=== PATIENT | female | born 1960 | race Caucasian/White ===

== ENCOUNTER → 2018-04-11 09:11 | Outpatient (CLI) | payer OTHER, SELFPAY ==
[2018-04-11 11:01] LABS: Hemoglobin A1c 5.4 % (4.2-6.3)
[2018-04-11 11:02] LABS: Thyroid Stim Hormone (TSH) 1.07 uIU/mL (0.358-3.74)
== END ==
PROVIDERS: Visit Provider Obstetrics & Gynecology
DX: R23.2 Flushing (principal); Z82.49 Family history of ischemic heart disease and other diseases of the circulatory system
CPT/HCPCS: 36415; 83036; 84443

== ENCOUNTER → 2018-05-27 09:45 | Outpatient (CLI) | payer OTHER, SELFPAY ==
--- NOTE | 2018-05-27 09:50 | BI_ITS ---
MAMMOGRAPHY - BILATERAL SCREENING REASON FOR EXAM: Female, 57 years old. Routine annual screening examination. PERTINENT HISTORY: Aunt with breast cancer. Right breast tenderness. TECHNIQUE: Digital bilateral breast ailyn (3D mammographic acquisition) in the CC and MLO projections. 2-D mediolateral oblique (MLO) and craniocaudad (CC) views of both breasts were obtained. CAD: Full Field Digital Mammography with Computer Added Detection was performed. COMPARISON: Comparison is made with prior study dated May 13, 2017 and April 23, 2016. FINDINGS: Breast Composition: The breasts are extremely dense, which lowers the sensitivity of mammography. There are no dominant masses or suspicious calcifications. No other significant abnormalities are identified. There has been no significant change since the prior study. BI/SCREENING MAMM (CAD), BILAT IMPRESSION: Stable bilateral screening mammogram. Yearly follow-up mammogram recommended. (A) ASSESSMENT CATEGORY: BIRADS Category 1: Negative. A letter regarding these results will be sent to the patient by the facility within 30 days. Approximately 10% of breast cancers are not detected by mammography. A normal mammogram should not delay biopsy of a clinically suspicious abnormality. [id number] Electronically Signed: Taqueria Pastor MD at 10:12 EST Tel [phone], Service support ,
== END ==
PROVIDERS: Family Provider Family Medicine; PCP Family Medicine; Referring Provider Obstetrics & Gynecology; Visit Provider Obstetrics & Gynecology
DX: Z12.31 Encounter for screening mammogram for malignant neoplasm of breast (principal)
CPT/HCPCS: 77063; 77067

== ENCOUNTER → 2018-11-22 09:33 | Outpatient (CLI) | payer OTHER, SELFPAY ==
[2018-11-22 13:23] LABS: ALB/GLOB Ratio 1.3 RATIO (0.9-2.4); AST(SGOT) 10 U/L (15-37); Alanine Aminotransfer ALT/SGPT 15 U/L (13-56); Albumin, Serum 4.1 g/dL (3.2-5.0); Alkaline Phosphatase 58 U/L (45-117); Anion Gap 10 (5-15); BUN 13 mg/dL (7-18); BUN/Creat Ratio 20.8 RATIO (10-20); Calcium,Total 8.9 mg/dL (8.5-10.1); Chloride 105 mmol/L (98-107); Cholesterol 262 mg/dL (200); Creatinine, Serum 0.62 mg/dL (0.55-1.02); EST Glomerular Filtration Rate 105 mL/min (>60); Est Glom Filt Rate - Afr Amer 127 mL/min (>60); Globulin 3.1 g/dL (2.2-4.2); Glucose 86 mg/dL (74-106); High Density Lipoprotein 91 mg/dL; Potassium 4.3 mmol/L (3.5-5.1); Protein, Total 7.2 g/dL (6.4-8.2); Sodium Level 141 mmol/L (136-145); Triglycerides 86 mg/dL; Very Low Density Lipoprotein 17 mg/dL (5-40)
== END ==
PROVIDERS: Family Provider Family Medicine; PCP Family Medicine; Referring Provider Family Medicine; Visit Provider Nurse Practitioner Family
DX: E78.5 Hyperlipidemia, unspecified (principal)
CPT/HCPCS: 36415; 80053; 80061

== ENCOUNTER → 2019-01-11 08:40 | Outpatient (CLI) | payer OTHER, SELFPAY ==
[2016-05-09 12:49] VITALS: BMI 23.1
[2019-01-14 10:32] LABS: H. PYLORI STOOL AG Positive (Negative)
== END ==
PROVIDERS: Family Provider Family Medicine; PCP Family Medicine; Referring Provider Internal Medicine Gastroenterology; Visit Provider Internal Medicine Gastroenterology
DX: R19.7 Diarrhea, unspecified (principal)

== ENCOUNTER → 2019-05-02 10:25 | Outpatient (CLI) | payer OTHER, SELFPAY ==
[2019-05-07 20:26] LABS: H. PYLORI STOOL AG Positive (Negative)
== END ==
PROVIDERS: Family Provider Family Medicine; PCP Family Medicine; Referring Provider Internal Medicine Infectious Disease; Visit Provider Internal Medicine Infectious Disease
DX: K29.70 Gastritis, unspecified, without bleeding (principal); B96.81 Helicobacter pylori [H. pylori] as the cause of diseases classified elsewhere

== ENCOUNTER → 2019-05-28 08:38 | Outpatient (CLI) | payer OTHER, SELFPAY ==
[2016-05-09 12:49] VITALS: BMI 23.1
--- NOTE | 2019-05-28 08:41 | BI_ITS ---
MAMMOGRAPHY - BILATERAL SCREENING 3-D TOMOSYNTHESIS REASON FOR EXAM: Female, 58 years old. FM HX MAT AUNT 50''S, MAT COUSIN 50''S, PT C/O RT TENDERNESS-ALWAYS, UNABLE TO TOLERATE MUCH COMPRESSION PERTINENT HISTORY: No significant family history. TECHNIQUE: 2-D mammograms and 3-D Tomosynthesis of the breast (s) were performed. CAD was performed. COMPARISON: May 27, 2018. FINDINGS: The breast composition is heterogeneously dense that can obscure small breast masses. Scattered benign calcifications are seen. No dense spiculated masses or suspicious microcalcifications are identified. No architectural distortion is identified. There is no skin thickening or retraction. There has been no significant change since the prior study. BI/SCREEN MAMM (CAD) W/LUIS BILAT IMPRESSION: No mammographic signs of malignancy. Routine yearly mammograms recommended. ASSESSMENT CATEGORY: BIRADS Category 1: Negative. A letter regarding these results will be sent to the patient by the facility within 30 days. FOLLOW UP RECOMMENDATION: Yearly follow up mammogram recommended. (A) Approximately 10% of breast cancers are not detected by mammography. A normal mammogram should not delay biopsy of a clinically suspicious abnormality. Electronically Signed: Shalom Proctor MD at 11:26 EST , Service support ,
== END ==
PROVIDERS: Family Provider Family Medicine; PCP Family Medicine; Referring Provider Obstetrics & Gynecology; Visit Provider Obstetrics & Gynecology
DX: Z12.31 Encounter for screening mammogram for malignant neoplasm of breast (principal)
CPT/HCPCS: 77063; 77067

== ENCOUNTER → 2019-07-17 12:16 | Outpatient (CLI) | payer OTHER, SELFPAY ==
[2016-05-09 12:49] VITALS: BMI 23.1
--- NOTE | 2019-07-17 12:21 | RAD_ITS ---
STUDY: X-RAY - RIGHT ELBOW REASON FOR EXAM: Female, 58 years old. Pain unable to straighten TECHNIQUE: 3 view(s) of the elbow. COMPARISON: None. FINDINGS: The bones of the elbow are intact and located. Mineralization is normal. Soft tissues are intact. There is a mild joint effusion. RAD/Elbow min 3 Views IMPRESSION: No acute or focal osseous abnormality. Electronically Signed: Shellie Chand, at 20:00 EST Tel , Service support ,
== END ==
PROVIDERS: PCP Family Medicine; Referring Provider Family Medicine; Visit Provider Family Medicine
DX: M77.8 Other enthesopathies, not elsewhere classified (principal)
CPT/HCPCS: 73080

== ENCOUNTER → 2020-05-29 08:17 | Outpatient (CLI) | payer OTHER, SELFPAY ==
--- NOTE | 2020-05-29 08:35 | BI_ITS ---
MAMMOGRAPHY - BILATERAL SCREENING REASON FOR EXAM: Female, 59 years old. Routine annual screening examination. PERTINENT HISTORY: Aunt with breast cancer. TECHNIQUE: Digital bilateral breast luis (3D mammographic acquisition) in the CC and MLO projections. 2-D mediolateral oblique (MLO) and craniocaudad (CC) views of both breasts were obtained. CAD: Full Field Digital Mammography with Computer Added Detection was performed. COMPARISON: Comparison is made with prior examination dated 05/28/2019. FINDINGS: Breast Composition: The breasts are heterogeneously dense, which may obscure small masses. There are no dominant masses or suspicious calcifications. No other significant abnormalities are identified. There has been no significant change since the prior study. BI/SCREEN MAMM (CAD) W/LUIS BILAT IMPRESSION: Stable bilateral screening mammogram. Yearly follow-up mammogram recommended. (A) ASSESSMENT CATEGORY: BIRADS Category 1: Negative. A letter regarding these results will be sent to the patient by the facility within 30 days. Approximately 10% of breast cancers are not detected by mammography. A normal mammogram should not delay biopsy of a clinically suspicious abnormality. [id number] Electronically Signed: Taqueria Pastor, at 10:24 EST , Service support ,
== END ==
PROVIDERS: PCP Family Medicine; Referring Provider Student in an Organized Health Care Education/Training Program; Visit Provider Student in an Organized Health Care Education/Training Program
DX: Z12.31 Encounter for screening mammogram for malignant neoplasm of breast (principal); Z85.3 Personal history of malignant neoplasm of breast
CPT/HCPCS: 77063; 77067

== ENCOUNTER → 2020-11-11 12:37 | Outpatient (CLI) | payer OTHER, SELFPAY ==
[2016-05-09 12:49] VITALS: BMI 23.1
[2020-11-11 13:08] LABS: Hemoglobin 12.6 g/dL (12.0-15.0); Mean Corpuscular Hgb 25.1 pg (27.0-32.0); Mean Corpuscular Volume 83.8 fL (81-99); Mean Platelet Vol. 9.8 fl (6.2-12.0); Platelet Count 291 K/mm3 (150-450); RBC Distribution Width CV 14.6 % (11.6-14.6); RBC Distribution Width SD 44.6 fl (35.1-43.9); Red Blood Count 5.01 M/mm3 (4.2-5.4)
== END ==
PROVIDERS: PCP Family Medicine; Referring Provider Nurse Practitioner; Visit Provider Nurse Practitioner
DX: R12 Heartburn (principal); R14.0 Abdominal distension (gaseous)
CPT/HCPCS: 36415; 85027

== ENCOUNTER → 2020-11-12 | Outpatient (CLI) | payer OTHER, SELFPAY ==
[2016-05-09 12:49] VITALS: BMI 23.1
[2020-11-15 15:15] LABS: H. PYLORI STOOL AG Positive (Negative)
== END | disposition home or self-care (01) ==
LOC: LAB 10:04 → LABSPEC 10:05
PROVIDERS: PCP Family Medicine; Referring Provider Nurse Practitioner; Visit Provider Nurse Practitioner
DX: R14.0 Abdominal distension (gaseous) (principal); R12 Heartburn

== ENCOUNTER → 2021-01-06 09:48 | Outpatient (CLI) | payer OTHER, SELFPAY ==
[2016-05-09 12:49] VITALS: BMI 23.1
[2021-01-06 15:15] LABS: Vitamin D,25 Hydroxy 37.5 ng/mL
== END ==
PROVIDERS: PCP Family Medicine; Referring Provider Podiatrist; Visit Provider Podiatrist
DX: E55.9 Vitamin D deficiency, unspecified (principal); S92.309A Fracture of unspecified metatarsal bone(s), unspecified foot, initial encounter for closed fracture; X58.XXXA Exposure to other specified factors, initial encounter; Y93.9 Activity, unspecified; Y92.9 Unspecified place or not applicable; Y99.9 Unspecified external cause status
CPT/HCPCS: 36415; 82306

== ENCOUNTER → 2021-01-14 | Outpatient (CLI) | payer OTHER, SELFPAY ==
[2016-05-09 12:49] VITALS: BMI 23.1
[2021-01-16 21:09] LABS: H. PYLORI STOOL AG Negative (Negative)
== END | disposition home or self-care (01) ==
LOC: LAB 10:09 → LABSPEC 10:11
PROVIDERS: PCP Family Medicine; Referring Provider Nurse Practitioner; Visit Provider Nurse Practitioner
DX: R12 Heartburn (principal); R14.0 Abdominal distension (gaseous)

== ENCOUNTER 2021-06-01 08:17 | Outpatient (CLI) | payer OTHER, SELFPAY ==
--- NOTE | 2021-06-01 08:21 | BI_ITS ---
MAMMOGRAPHY - BILATERAL SCREENING REASON FOR EXAM: Female, 60 years old. Routine annual screening examination. PERTINENT HISTORY: Aunt with breast cancer. TECHNIQUE: Digital bilateral breast luis (3D mammographic acquisition) in the CC and MLO projections. 2-D mediolateral oblique (MLO) and craniocaudad (CC) views of both breasts were obtained. CAD: Full Field Digital Mammography with Computer Added Detection was performed. COMPARISON: Comparison is made with prior study dated 05/29/2020 and 05/28/2019. FINDINGS: Breast Composition: The breasts are heterogeneously dense, which may obscure small masses. There are no dominant masses or suspicious calcifications. No other significant abnormalities are identified. There has been no significant change since the prior study. BI/SCRN MAMM (CAD)W/LUIS BILAT IMPRESSION: Stable bilateral screening mammogram. Yearly follow-up mammogram recommended. (A) ASSESSMENT CATEGORY: BIRADS Category 1: Negative. A letter regarding these results will be sent to the patient by the facility within 30 days. Approximately 10% of breast cancers are not detected by mammography. A normal mammogram should not delay biopsy of a clinically suspicious abnormality. [id number] Electronically Signed: Taqueria Pastor MD at 10:09 EST ,
== END 2021-06-01 23:59 | disposition short-term general hospital (02) ==
LOC: OPBI 08:19
PROVIDERS: PCP Family Medicine; Visit Provider Student in an Organized Health Care Education/Training Program
DX: Z12.31 Encounter for screening mammogram for malignant neoplasm of breast (principal)
CPT/HCPCS: 77063; 77067

== ENCOUNTER 2021-07-10 08:35 | Outpatient (CLI) | payer OTHER, SELFPAY ==
--- NOTE | 2021-07-10 08:37 | RAD_ITS ---
STUDY: X-RAY - LEFT ELBOW REASON FOR EXAM: Female, 60 years old. Elbow pain. TECHNIQUE: 3 view(s) of the elbow. COMPARISON: None. FINDINGS: Normal visualized humerus, radius and ulna. Normal radiocapitellar and ulnotrochlear articulations. The soft tissue structures are unremarkable. RAD/Elbow min 3 Views IMPRESSION: Normal x-ray examination of the elbow. Electronically Signed: Rodriguez Hirsch MD at 10:31 EST ,
== END 2021-07-10 23:59 | disposition home or self-care (01) ==
LOC: MTRAD 08:36
PROVIDERS: PCP Family Medicine; Referring Provider Family Medicine; Visit Provider Family Medicine
DX: M25.522 Pain in left elbow (principal)
CPT/HCPCS: 73080

== ENCOUNTER 2021-08-11 08:57 | Outpatient (CLI) | payer OTHER, SELFPAY ==
[2021-08-11 11:26] LABS: Thyroid Stim Hormone (TSH) 1.56 uIU/mL (0.358-3.74)
== END 2021-08-11 23:59 | disposition home or self-care (01) ==
LOC: WOBLAB 08:57
PROVIDERS: PCP Family Medicine; Visit Provider Student in an Organized Health Care Education/Training Program
DX: R63.5 Abnormal weight gain (principal)
CPT/HCPCS: 36415; 84443

== ENCOUNTER 2021-08-18 10:00 | Outpatient (RCR) | payer OTHER, SELFPAY ==
--- NOTE | 2021-07-21 10:53 | HP.PTEVAL_ITS ---
Patient's Visit Information VENUS RENAE is a 60 year old F referred to Physical Therapy by Dr. Bear Au MD with a diagnosis of Left Elbow Pain. Date of Evaluation: 07/21/21 Physical Therapist: Martina Myers DPT - Visit Plan Frequency: 1x/Week Duration: 6 Weeks Plan: 1x a week due to high deductible. Focus on soft tissue, nerve glide and functional mobility. HEP Given IE: Postural education, sup/pro, flexion/extn, ulnar nerve glide, radial nerve glide - Subjective Slipped off a ladder- about 2 months ago- hit her left elbow on the step of the ladder. Right hand dominate. She feels that the elbow is in bad shape- did have x-rays on it with no fractures noted- no MRI. Pain is located along the back of the elbow and all the way to the wrist and will radiate to the deltoid Best: 0/10 Eases: rest. Agg: any sort of movement or strength. Worst: 10/10. Describes the pain as dull and achy and goes numb a lot of times. If she tries to pick something up or try to use a zipper that really bothers it. She has tried to wear a brace but it doesn't always help. Does have N/T in her hand. No Neck pain, blurred vision or dizziness. No TEIXEIRA. 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 She is refinishing a dresser currently- but she is not using the left hand. Does walk on her TM almost every day- use to do arm exercises but not since her elbow has bothered her. 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 Can use the computer but it does not seem to bother her. Sleep: disturbed if she rolls over onto the arm its painful and wakes her up- normally a side sleeper but has been laying on her back and propping it up on a pillow. PMHx: Prenesia and Iron Def Meds: iron infusions, cholesterol med - Objective Posture: FH, RS- can correct but is unable to maintain. Gait: decreased left arm swing and trunk rotation- guarding of the left UE. Palpation: tender along upper trap, deltoid, posterior elbow and down the brachioradialis- tender to light touch. Sensation: diminished in ulnar nerve distribution of the forearm and hand. ROM: Shoulder: WFL pain throughout, Elbow: flexion:100 degrees Extn: -30 from full, Wrist: WFL, Hand: WNL. 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 Pinch Tripod: did not register- reports of pain- unable to hold a paper while PT pulled it away. Nerve Glides: Ulnar: positive, Radial: positive, Median: negative - Special Tests L Elbow Flexion Test - Cubital Tunnel: Positive L Elbow Tinels - Ulnar n.: Positive - Balance/Special Test Scores Quick DASH Score: 79.5450 - Goals Goal 1:: Patient will be I with HEP and progression Goal Time Frame: 4-6 Weeks Goal 2:: Patient will demo full elbow ROM Goal Time Frame: 4-6 Weeks Goal 3:: Patient will demo equal school program director strength Goal Time Frame: 4-6 Weeks Goal 4:: Patient will subjectively report 75% improvement Goal Time Frame: 4-6 Weeks - Rehabilitation Potential Physical Therapy Diagnosis: Patient presents with hypomobility s/p fall- she has decreased ROM, Scapular and UE strength/stabilization and muscular endurance leading to ulnar nerve entrapment at the elbow and decreased ability to perform ADL's. Rehabilitation Potential: Fair - Anticipated Interventions Patient/Client Instruction: Educate patient on: Benefits of Fitness Program Therapeutic Exercise to Include: Strength training, Endurance training, Body mechanics, Postural training, Flexibilty training, Passive ROM, Active ROM, Dynamic Lumbar Stabilization, Scapular Strength/Stabilization For the Purpose of:: To improve muscle performance and motor function Cryotherapy (ice pack, ice massage): Yes Thermo therapy (hot pack): Yes Ultrasound (thermal/non thermal): Yes Thank you for the opportunity to evaluate your patient. For Medicare and Medicare HMO plans, please review the plan of care and approve it. It will need to be FAXED BACK to us at [phone] for Medicare purposes. For Medicare only, by signing this I certify the plan of care. Please let me know if there are questions or concerns regarding this plan of care. Physician Signature: Date:
--- NOTE | 2021-11-12 16:11 | HP.PT.NRP ---
VENUS RENAE was seen in my office for initial evaluation on 07/21/21. The following Plan of Care was established for this patient: Initial Frequency: 1x/Week Initial Duration: 6 Weeks Patient/Client Instruction: Educate patient on: Benefits of Fitness Program Therapeutic Exercise to Include: Strength training, Endurance training, Body mechanics, Postural training, Flexibilty training, Passive ROM, Active ROM, Dynamic Lumbar Stabilization, Scapular Strength/Stabilization For the Purpose of:: To improve muscle performance and motor function Cryotherapy (ice pack, ice massage): Yes Thermo therapy (hot pack): Yes Ultrasound (thermal/non thermal): Yes This patient was last seen in our office . Pertinent comments regarding their Physical therapy will appear below: Patient has not attended PT in over 30 days- appropriate to be d/c and return to MD for further evaluation as needed. At this point I will be discontinuing this patient from physical therapy. I would be happy to see this patient again in the future if found appropriate by the physician. Thank you! Martina Myers, FAITH Balance/Gait/Functional tests - Balance/Special Test Scores Quick DASH Score: 79.5450
== END 2021-08-18 19:00 | disposition home or self-care (01) ==
LOC: PT 10:00
PROVIDERS: PCP Family Medicine; Referring Provider Family Medicine; Visit Provider Family Medicine
DX: M25.522 Pain in left elbow (principal)
CPT/HCPCS: 97035; 97110; 97140; 97162; 97530

== ENCOUNTER → 2022-06-07 | Outpatient (CLI) | payer OTHER, SELFPAY ==
--- NOTE | 2022-06-07 08:12 | BI_ITS ---
MAMMOGRAPHY - BILATERAL SCREENING REASON FOR EXAM: Female, 61 years old. Routine annual screening examination. PERTINENT HISTORY: Aunt with breast cancer. TECHNIQUE: Digital bilateral breast luis (3D mammographic acquisition) in the CC and MLO projections. 2-D mediolateral oblique (MLO) and craniocaudad (CC) views of both breasts were obtained. CAD: Full Field Digital Mammography with Computer Added Detection was performed. COMPARISON: Comparison is made with prior study dated 06/01/2021 and 05/29/2020. FINDINGS: Breast Composition: The breasts are heterogeneously dense, which may obscure small masses. There are no dominant masses or suspicious calcifications. No other significant abnormalities are identified. There has been no significant change since the prior study. BI/SCRN MAMM (CAD)W/LUIS BILAT IMPRESSION: Stable bilateral screening mammogram. Yearly follow-up mammogram recommended. (A) ASSESSMENT CATEGORY: BIRADS Category 1: Negative. A letter regarding these results will be sent to the patient by the facility within 30 days. Approximately 10% of breast cancers are not detected by mammography. A normal mammogram should not delay biopsy of a clinically suspicious abnormality. [id number] Electronically Signed: Taqueria Pastor MD at 9:23 EST ,
== END | disposition home or self-care (01) ==
PROVIDERS: PCP Family Medicine; Visit Provider Student in an Organized Health Care Education/Training Program
DX: Z12.31 Encounter for screening mammogram for malignant neoplasm of breast (principal)
CPT/HCPCS: 77063; 77067

== ENCOUNTER → 2022-08-13 | Outpatient (CLI) | payer OTHER, SELFPAY ==
--- NOTE | 2022-08-13 10:41 | RAD_ITS ---
STUDY: X-RAY - CERVICAL SPINE REASON FOR EXAM: Female, 61 years old. Neck pain and headache TECHNIQUE: 6 view(s) of the cervical spine were obtained. COMPARISON: None FINDINGS: Normal anterior atlantoaxial articulation. Normal odontoid process. There is straightening of the normal cervical lordosis. There is multi-level endplate spondylosis. There is multi-level degenerative disc disease with multilevel disc space narrowing. Mild foraminal narrowing. The soft tissue structures are unremarkable. RAD/Cerv Spine 4 or 5 Views IMPRESSION: Age consistent degenerative changes, no acute findings Electronically Signed: Christian Urbina MD at 12:03 EDT ,
== END | disposition home or self-care (01) ==
PROVIDERS: PCP Family Medicine; Referring Provider Nurse Practitioner Acute Care; Visit Provider Nurse Practitioner Acute Care
DX: M54.2 Cervicalgia (principal); S13.4XXA Sprain of ligaments of cervical spine, initial encounter; X58.XXXA Exposure to other specified factors, initial encounter
CPT/HCPCS: 72050

== ENCOUNTER → 2022-11-15 | Outpatient (CLI) | payer OTHER, SELFPAY ==
--- NOTE | 2022-11-15 08:50 | US_ITS ---
INDICATION: ABD/EPIGASTRIC PAIN EXAMINATION: Ultrasound US Abdomen RUQ (limited) TECHNIQUE: Brice scale and color doppler imaging was performed of the right upper quadrant. COMPARISON: None. FINDINGS: Pancreas: Increased echogenicity in the pancreatic parenchyma of the visualized head, body, and tail. No duct dilation. Liver: 14.6 cm in length. Normal size. Diffuse increased parenchymal echogenicity compatible with fatty infiltration. Normal hepatopedal flow. No parenchymal masses. No intrahepatic bile duct dilation. Gallbladder: Normal appearance with no intraluminal sludge or gallstones. No significant wall thickening or pericholecystic fluid. Negative sonographic Mcrae sign. Common bile duct: 6.2 mm and within normal limits. Right kidney: 12.4 x 4.7 x 4.3 cm. Normal size and appearance. US/Gallbladder IMPRESSION: 1. No acute findings. 2. Diffuse hepatic steatosis. 3. Increased pancreatic parenchymal echogenicity may relate to increased fatty infiltration or be associated with chronic pancreatitis. Electronically Signed: Tyrel Cho DO at 15:47 EDT ,
== END | disposition home or self-care (01) ==
PROVIDERS: PCP Family Medicine; Referring Provider Family Medicine; Visit Provider Family Medicine
DX: R10.13 Epigastric pain (principal)
CPT/HCPCS: 76705

== ENCOUNTER → 2022-11-17 | Outpatient (CLI) | payer OTHER, SELFPAY ==
[2022-11-17 17:44] LABS: Hematocrit 43.6 % (37-47); Hemoglobin 13.2 g/dL (12.0-15.0); Mean Corp Hgb Conc 30.3 g/dL (32-36); Mean Corpuscular Hgb 25.5 pg (27.0-32.0); Mean Corpuscular Volume 84.2 fL (81-99); Mean Platelet Vol. 10.4 fl (6.2-12.0); Platelet Count 250 K/mm3 (150-450); RBC Distribution Width CV 14.5 % (11.6-14.6); RBC Distribution Width SD 44.4 fl (35.1-43.9); Red Blood Count 5.18 M/mm3 (4.2-5.4); White Blood Count 6.3 K/mm3 (4.4-11.0)
[2022-11-17 18:15] LABS: ALB/GLOB Ratio 1.3 RATIO (0.9-2.4); AST(SGOT) 15 U/L (15-37); Alanine Aminotransfer ALT/SGPT 31 U/L (13-56); Alkaline Phosphatase 89 U/L (45-117); Anion Gap 8 (5-15); BUN 17 mg/dL (7-18); BUN/Creat Ratio 26.6 RATIO (10-20); CRP < 2.90 mg/L (0.0-3.0); Calcium,Total 9.5 mg/dL (8.5-10.1); Chloride 106 mmol/L (98-107); Creatinine, Serum 0.64 mg/dL (0.55-1.02); EST Glomerular Filtration Rate 100 mL/min (>60); Est Glom Filt Rate - Afr Amer 121 mL/min (>60); Globulin 3.1 g/dL (2.2-4.2); Glucose 90 mg/dL (74-106); Lipase 50 U/L (13-75); Potassium 4.3 mmol/L (3.5-5.1); Protein, Total 7.1 g/dL (6.4-8.2); Sodium Level 142 mmol/L (136-145)
[2022-11-17 19:16] LABS: Vitamin B12 426 pg/mL (211-911)
== END | disposition home or self-care (01) ==
LOC: MTLAB 15:28
PROVIDERS: PCP Family Medicine; Referring Provider Internal Medicine Gastroenterology; Visit Provider Internal Medicine Gastroenterology
DX: R10.9 Unspecified abdominal pain (principal); D51.0 Vitamin B12 deficiency anemia due to intrinsic factor deficiency
CPT/HCPCS: 36415; 80053; 82607; 83690; 85027; 86140

== ENCOUNTER → 2022-11-25 | Outpatient (CLI) | payer OTHER, SELFPAY ==
--- NOTE | 2022-11-25 13:26 | STE_ITS ---
Reason For Study: Chest Pain Stress Results Protocol: Amanuel Protocol Maximum Predicted HR: 159 bpm Target HR: 135 bpm % Maximum Predicted HR: 89 % DurationHeart Rate Stage (mm:ss) (bpm) BP Comment Baseline 64 122/78Mild Knawing Chest Pain Amanuel Protocol Stage I 3:00 107 130/68Chest Pain Unchanged/Fatigue Amanuel Protocol Stage II 3:00 101 142/64Can Feel Something In Chest Amanuel Protocol Stage III 3:00 121 146/70Feeling Unchanged Amanuel Protocol Stage IV 1:00 142 / Still Feel Something Recovery 75 108/70Knawing Feeling Unchanged Stress Duration: 10:00 mm:ss Maximum Stress HR: 142 bpm METS: 13 Baseline Echocardiogram Findings Stress Echo Wall motion Data Resting WM Intermediate WM Stress WM ECHO/Stress Test Echo w/o Contrast Interpretation Summary Exercise stress echocardiogram. 62-year-old lady with a history of chest pain. Resting EKG demonstrates normal sinus rhythm with a rate of 64 bpm normal inter vals are noted resting blood pressure is 122/78 mmHg. The patient exercised according to regul ar Amanuel protocol for total duration of 10 minutes completing 1 minute into stage IV of the Amanuel pro tocol the maximum heart rate attained 142 bpm which was 89% of max impacted heart rate the maximu m workload was 13.6 metabolic equivalents. Patient maintained sinus rhythm throughout the recording at rest there were no ST or T wave changes noted suggest ischemia at peak exercise upsloping ST ch anges were noted which did not meet the criteria for ischemia. No clinical angina was noted. The patient however complained of a mild gnawing feeling in the chest. Good blood pressure response to exercise was noted. Stress echocardiogram. Resting echocardiogram demonstrated preserved left ventricular systolic functio n with an estimated ejection fraction of 60%. At peak exercise there was thickening of all benítez an d reduction of low ventricular cavity size with peaking of ejection fraction of 75% no wall motion abnormalities noted. Conclusion: Normal exercise stress echo with no EKG or echocardiographic findings for ische faye at a high workload. Good functional aerobic capacity. Ordering Physician: Manjeet Thapa Referring Physician: Manjeet Thapa Performed By: Faraz Hernández, [facility], [place]
== END | disposition home or self-care (01) ==
LOC: CVS 13:25
PROVIDERS: PCP Family Medicine; Referring Provider Internal Medicine Cardiovascular Disease; Visit Provider Internal Medicine Cardiovascular Disease
DX: R07.89 Other chest pain (principal)
CPT/HCPCS: 93017; 93350

== ENCOUNTER → 2023-01-06 | Outpatient (CLI) | payer OTHER, SELFPAY ==
--- NOTE | 2023-01-06 09:10 | BI_ITS ---
MAMMOGRAPHY - UNILATERAL DIAGNOSTIC: RIGHT BREAST REASON FOR EXAM: Female, 62 years old. Occasional right breast tenderness. Bruising. PERTINENT HISTORY: Aunt with breast cancer. TECHNIQUE: Digital unilateral breast ailyn (3D mammographic acquisition) in the CC and MLO projections. 2-D mediolateral oblique (MLO) and craniocaudad (CC) views of both breasts were obtained. CAD: Full Field Digital Mammography with Computer Added Detection was performed. COMPARISON: Comparison is made with prior study dated June 07, 2022 and June 01, 2021 FINDINGS: Breast Composition: The breasts are heterogeneously dense, which may obscure small masses. There are no dominant masses or suspicious calcifications. No other significant abnormalities are identified. There has been no significant change since the prior study. BI/DIAG MAMM W/CAD, UNILAT IMPRESSION: Stable unilateral diagnostic mammogram. With the patient''s history of tenderness in the right breast, correlation with ultrasound is recommended. ASSESSMENT CATEGORY: BIRADS Category 0: Incomplete. Need additional imaging evaluation. A letter regarding these results will be sent to the patient by the facility within 30 days. Approximately 10% of breast cancers are not detected by mammography. A normal mammogram should not delay biopsy of a clinically suspicious abnormality. Electronically Signed: Taqueria Pastor MD at 10:38 EDT ,
--- NOTE | 2023-01-06 09:11 | US_ITS ---
STUDY: ULTRASOUND BREAST - RIGHT REASON FOR EXAM: Female, 62 years old. Occasional right breast pain/tenderness. TECHNIQUE: Axial and longitudinal images of the RIGHT breast were performed with a high resolution ultrasound transducer. # OF IMAGES: 17 COMPARISON: Comparison is made with prior mammogram done earlier in the day. FINDINGS: RIGHT Breast: The right periareolar region was examined with ultrasound. There is evidence of dilated ducts. US/Breast Limited Unilateral IMPRESSION: Dilated subareolar ducts. ASSESSMENT CATEGORY: BIRADS Category 2: Benign. A letter regarding these results will be sent to the patient by the facility within 30 days. Electronically Signed: Taqueria Pastor MD at 11:17 EDT ,
== END | disposition home or self-care (01) ==
LOC: OPBI 09:09
PROVIDERS: PCP Family Medicine; Referring Provider Student in an Organized Health Care Education/Training Program; Visit Provider Student in an Organized Health Care Education/Training Program
DX: N64.4 Mastodynia (principal)
CPT/HCPCS: 76642; 77061; 77065; G0279

== ENCOUNTER → 2023-07-08 | Outpatient (CLI) | payer OTHER, SELFPAY ==
--- NOTE | 2023-07-08 09:43 | BI_ITS ---
MAMMOGRAPHY - BILATERAL SCREENING REASON FOR EXAM: Female, 62 years old. Routine annual screening examination. PERTINENT HISTORY: Aunt with breast cancer. TECHNIQUE: Digital bilateral breast luis (3D mammographic acquisition) in the CC and MLO projections. 2-D mediolateral oblique (MLO) and craniocaudad (CC) views of both breasts were obtained. CAD: Full Field Digital Mammography with Computer Added Detection was performed. COMPARISON: Comparison is made with prior study dated June 07, 2022 and June 01, 2021. FINDINGS: Breast Composition: The breasts are heterogeneously dense, which may obscure small masses. There are no dominant masses or suspicious calcifications. No other significant abnormalities are identified. There has been no significant change since the prior study. BI/SCRN MAMM (CAD)W/LUIS BILAT IMPRESSION: Stable bilateral screening mammogram. Yearly follow-up mammogram recommended. (A) ASSESSMENT CATEGORY: BIRADS Category 1: Negative. A letter regarding these results will be sent to the patient by the facility within 30 days. Approximately 10% of breast cancers are not detected by mammography. A normal mammogram should not delay biopsy of a clinically suspicious abnormality. [id number] Electronically Signed: Taqueria Pastor MD at 13:08 EST ,
== END | disposition home or self-care (01) ==
LOC: OPBI 09:42
PROVIDERS: PCP Family Medicine; Referring Provider Nurse Practitioner Family; Visit Provider Nurse Practitioner Family
DX: Z12.31 Encounter for screening mammogram for malignant neoplasm of breast (principal)
CPT/HCPCS: 77063; 77067

== ENCOUNTER → 2024-02-02 | Outpatient (CLI) | payer OTHER, SELFPAY ==
--- NOTE | 2024-02-02 10:59 | BD_ITS ---
STUDY: DUAL ENERGY X-RAY ABSORPTIOMETRY / DXA REASON FOR EXAM: Female, 63 years old. 733.90OsteopeniaBONE DENSITY REASON FOR EXAM TECHNIQUE: Bone Mineral Density (BMD) measurements of lumbar spine and bilateral hips were obtained. COMPARISON: None. FINDINGS: Lumbar Spine (L1-L4): g/cm2 (0.796) / T-score (-2.3) / Z-score (-0.7) Findings are suggestive of osteopenia with a high fracture risk. Left Femur Total: g/cm2 (0.808) / T-score (-1.1) / Z-score (0.0) Left Femoral Neck: g/cm2 (0.614) / T-score (-2.1) / Z-score (-0.7) Right Femur Total: g/cm2 (0.763) / T-score (-1.5) / Z-score (-0.4) Right Femoral Neck: g/cm2 (0.612) / T-score (-2.1) / Z-score (-0.8) BD/Dexa Bone Density Study IMPRESSION: The patient is considered osteopenic as outlined below according to World Be Organization (WHO) criteria with a high fracture risk. Reference Information: The T-score is the number of standard deviations above or below the standard which is normal for young adults at their peak bone mineral density. The World Health Organization (WHO) interprets the T-scores as follows: Above -1 Normal bone density Between -1 and -2.5 Osteopenia Equal to / or below -2.5 Osteoporosis As a practical clinical guideline, osteopenia may be graded as follows: Mild -1 through -1.5 Moderate -1.6 through -2.0 Severe -2.1 through -2.4 The Z-score is the number of standard deviations above or below age-matched controls. A Z-score of less than -1.5 would be considered abnormal. References: 1. NIH Osteoporosis and Related Bone Diseases www osteo.org 2. International Society for Clinical Densitometry www iscd.org 3. National Osteoporosis Foundation www nof.org Electronically Signed: Taqueria Pastor MD at 9:14 EDT ,
== END | disposition home or self-care (01) ==
PROVIDERS: PCP Family Medicine; Referring Provider Podiatrist Foot & Ankle Surgery; Visit Provider Podiatrist Foot & Ankle Surgery
DX: M85.871 Other specified disorders of bone density and structure, right ankle and foot (principal); S92.354D Nondisplaced fracture of fifth metatarsal bone, right foot, subsequent encounter for fracture with routine healing; X58.XXXD Exposure to other specified factors, subsequent encounter
CPT/HCPCS: 77080

== ENCOUNTER → 2024-06-19 | Outpatient (CLI) | payer OTHER, SELFPAY ==
--- NOTE | 2024-06-19 14:59 | CT_ITS ---
INDICATION: SPINAL STENOSIS EXAMINATION: CT CERVICAL SPINE - CT Spine Cervical W/O Contrast Injection TECHNIQUE: Helically acquired images were obtained of the cervical spine. 2D reformatted images were reviewed. A radiation dose optimization technique was used for this scan. IV Contrast dosage and agent: None. RADIATION DOSAGE (If Supplied By Facility): CTDIvol = ( 17.05 ) mGy, DLP = ( 371.53 ) mGycm COMPARISON: Prior study dated: 01/15/2013 FINDINGS: VERTEBRAE: No fracture or traumatic subluxation. No discrete lytic or blastic abnormality. Normal alignment. Normal craniocervical junction and cervicothoracic junction. DISCS and SPINAL CANAL: Mild disc space narrowing at C5-C6 and C6-C7 with small endplate osteophytes. Facet arthropathy throughout. Partial bony fusion of the right facets at C2-C3. No spinal canal stenosis. There is right-sided neural foraminal narrowing at C5-C6. NECK SOFT TISSUES: No prevertebral soft tissue swelling. There is no cervical adenopathy. LUNG APICES: Clear. CT/Spine Cervical without Contras IMPRESSION: No evidence of acute cervical spinal fracture or spondylolisthesis. Mild degenerative changes throughout the cervical spine.] Right-sided bony neural foraminal narrowing at C5-C6. Electronically Signed: Ricardo Corral MD at 13:38 EST ,
== END | disposition home or self-care (01) ==
LOC: CT 14:48
PROVIDERS: PCP Nurse Practitioner Family
DX: M48.02 Spinal stenosis, cervical region (principal)
CPT/HCPCS: 72125

== ENCOUNTER → 2024-07-09 | Outpatient (CLI) | payer OTHER, SELFPAY ==
--- NOTE | 2024-07-09 08:23 | BI_ITS ---
PROCEDURE: SCRN MAMM (CAD)W/LUIS BILAT REASON FOR EXAM: F, Age 63 y/o, aunt with breast cancer. Routine annual follow-up. TECHNIQUE: Bilateral screening digital breast tomosynthesis with 2D and 3D images. Computer aided detection. COMPARISON: Prior exam(s) dating back to July 08, 2023.. FINDINGS: The breasts are extremely dense which lowers the sensitivity of mammography. Stable examination. No suspicious masses, areas of developing architectural distortion, or suspicious calcifications. BI/SCRN MAMM (CAD)W/LUIS BILAT IMPRESSION: BI-RADS 1: NEGATIVE. RECOMMEND ANNUAL MAMMOGRAPHIC SCREENING. Follow-up code: Routine Follow-up The patient will be notified of the results by letter. Reading Location: [place] [id number]
== END | disposition home or self-care (01) ==
LOC: OPBI 08:21
PROVIDERS: PCP Nurse Practitioner Family; Referring Provider Obstetrics & Gynecology; Visit Provider Obstetrics & Gynecology
DX: Z12.31 Encounter for screening mammogram for malignant neoplasm of breast (principal); Z80.3 Family history of malignant neoplasm of breast
CPT/HCPCS: 77063; 77067

== ENCOUNTER 2025-03-24 23:59 | Inpatient (IN) | payer OTHER, SELFPAY ==
[2025-03-25] VITALS (27 sets, daily range): BP systolic 103–167; BP diastolic 4–93; PULSE 64–91; RESP 12–18; TEMP 36.4–36.9; O2SAT 95–99; BMI 24.1; BMI 24.8
[2025-03-25 00:52] LABS: Hematocrit 44.8 % (37-47); Hemoglobin 13.8 g/dL (12.0-15.0); Immature Granulocytes Count 0.030 X10^3/uL (0.0-0.0); Mean Corp Hgb Conc 30.8 g/dL (32-36); Mean Corpuscular Volume 81.3 fL (81-99); Mean Platelet Vol. 9.8 fl (6.2-12.0); NRBC Flagged by Analyzer 0 % (0-5); Platelet Count 303 K/mm3 (150-450); RBC Distribution Width CV 14.4 % (11.6-14.6); RBC Distribution Width SD 42.1 fl (35.1-43.9); Red Blood Count 5.51 M/mm3 (4.2-5.4); White Blood Count 11.5 K/mm3 (4.4-11.0)
--- OUTSIDE RECORDS SUMMARY | 2025-03-25 00:54 | XMS RPT_ITS | CCD ---
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 Comment on above: Performed By: #### F ERR, FES #### [address] [address] FESon 06-26-2024 Iron [Mass/Vol] 71 ug/dL Normal 50-170 [facility] Comment on above: Performed By: #### F ERR, FES #### [address] [address] Iron Sat 25 % Normal [facility] Comment on above: Performed By: #### F ERR, FES #### [address] [address] TIBC 289 mcg/dL Normal 250-500 [facility] Comment on above: Performed By: #### F ERR, FES #### [address] [address] Spine Cervical without Contr ason 06-19-2024 Spine Cervical without Contras [facility] Services [address] [place] [id number] Spine Cervical without Contras MR#: [id number] Acct: [id number] Name: VENUS SPIVEY Rep #: [id number] : 1960 F 63 From: Ricardo blanc MD PCP: DONTE Callaway Status: REG CLI Study: Spine Cervical without Contras Date of Exam: 0 06/19/24 Exam# [id number] Ordering Dr: JESSICA ORDAZ [id number] INDICATION: SPINAL STENOSIS EXAMINATION: CT CERVICAL SPINE - CT Spine Cervical W/O Contrast Injection TECHNIQUE: Helically acquired images were obtained of the cervical spine. 2D reformatted images were reviewed. A radiation dose optimization technique was used for this scan. IV Contrast dosage and agent: None. RADIATION DOSAGE (If Supplied By Facility): CTDIvol = ( 17.05 ) mGy, DLP = ( 371.53 ) mGycm COMPARISON: Prior study dated: 01/15/2013 FINDINGS: VERTEBRAE: No fracture or traumatic subluxation. No discrete lytic or blastic abnormality. Normal alignment. Normal craniocervical junction and cervicothoracic junction. DISCS and SPINAL CANAL: Mild disc space narrowing at C5-C6 and C6-C7 with small endplate osteophytes. Facet arthropathy throughout. Partial bony fusion of the right facets at C2-C3. No spinal canal stenosis. There is right-sided neural foraminal narrowing at C5-C6. NECK SOFT TISSUES: No prevertebral soft tissue swelling. There is no cervical adenopathy. LUNG APICES: Clear. CT/Spine Cervical without Contras IMPRESSION: No evidence of acute cervical spinal fracture or spondylolisthesis. Mild degenerative changes throughout the cervical spine.] Right-sided bony neural foraminal narrowing at C5-C6. Electronically Signed: Ricardo Corral MD at 13:38 EST Reading Location ID and State: [facility] / [place] Tel , Service support , CC: DONTE Black; JESSICA ORDAZ Network Architect Manager: Signed Normal [facility] 05-28-2024 CNPN Telephone (NEAGCLM) VENUS SPIVEY ([id number]) 1960 F Date Time Provider Department 05/28/24 JESSICA ORDAZ NEAGCLM During your visit today, we recorded the following information about you: Verenice Bishop 05/28/2024 1:43 PM Signed [facility] called requesting CT authorization. Patient is scheduled with them on Tuesday. Updated facility information on authorization and faxed updated CT auth to number provided ([phone]). Allergies As of Date: 05/28/2024 Noted Allergy Reaction DEMEROL (MEPERIDINE (PF)) 02/03/2012 11 - Vomiting VERSED (MIDAZOLAM) 02/03/2012 11 - Vomiting MORPHINE 02/03/2012 11 - Vomiting Date Reviewed: 05/07/2024 Reviewed by: Natalie Rivas MA - Fully Assessed Reason for Visit: Orders [681] Prescriptions as of 05/28/2024 - HYDROcodone-acetaminophen (NORCO) 5-325 mg per tablet - famotidine (PEPCID) 20 mg tablet Take by mouth as directed. - ALPRAZolam (XANAX) 0.25 mg tablet Take by mouth. - meloxicam (MOBIC) 15 mg tablet - omeprazole (PRILOSEC) 20 mg capsule Take 2 capsules by mouth once daily. - ATORVASTATIN CALCIUM (LIPITOR ORAL) Take by mouth once daily. - CYANOCOBALAMIN, VITAMIN B-12, (VITAMIN B-12 INJECTION) by INJECTION(UNSPECIFIED PARENTERAL ROUTES) route. 2 times a month Problem List As Of Date 05/28/2024 Noted Resolved Hematuria [R31.9] 02/03/2012 Left lower quadrant pain [R10.32] 02/03/2012 Urinary tract infection [N39.0] 02/03/2012 Spinal stenosis of cervical region [M48.02] 04/20/2024 Cervical disc disorder with radiculopathy [M50.*05/07/2024 Encounter Status:Closed by VERENICE BISHOP on 05/28/24 [facility] CNOVon 05-07-2024 CNOV Office Visit (NEAGCL M) VENUS SPIVEY ([id number]) 1960 F Date Time Provider Department 05/07/24 1:00 PM SONYA MCDERMOTT I NEAGCLM During your visit today, we recorded the following information about you: Pulse Respiration Blood pressure Weight 72/minute 16/minute 114/80 70.6 kg Sonya Mcdermott I, MD 05/07/2024 1:34 PM Signed NEUROSURGERY FOLLOW UP OFFICE NOTE Chair, Clinical Neurosciences Director, Spinal Neurosurgery [facility] Date of visit: May 07, 2024 Patient Name: Ms.Jeanette Spivey Date of : 1960 Current Age: [age] year old Sex: female MRN/E# [id number] Last Office Visit: 04/30/2024 Chief Complaint: Patient presents with: Established Patient Past Medical/Surgical History: Venus Spivey is a 63 year old female with a history of anemia, HLD, lymphadenitis and stroke. Surgical Risk Factors: Smoking status: Denies Anticoagulants/antiplatelet s: Denies Diabetic: Denies BMI: 25.75 HPI: The patient had been recently evaluated by outside neurosurgery, Dr. Carroll, on 02/28/2024 and reported neck pain that radiated to right shoulder and interscapular region that have been ongoing for 2 years. She had treated her symptoms with physical therapy and oral medication as well as injections with continued persistent symptoms. Dr. Carroll recommended a C5-C7 ACDF. Patient did not proceed with surgical intervention as due to neurosurgeon outside of network. The patient presented to the office 04/20/2024 for a second opinion was seen by ANNY Warren, GEETHA. She reported she was scheduled to proceed with surgical intervention but due to previous surgeon being outside of network, requested a second opinion. She reported pain in neck that radiated into right shoulder and interscapular region. Onset of symptoms began a year and a half prior and been gradually worsening despite participation in conservative treatment outlined below. She had subjective weakness in right upper extremity, denied dexterity difficulties or dropping items. She endorsed mild gait instability, no recent falls or use of assistive device for ambulation. She denied bowel or bladder incontinence.She was asked to obtain MRI and x-rays of the cervical spine. She presents to the office today for follow up and image review. She states that her symptoms are unchanged. She describes neck pain into the right posterior scapular region into the right shoulder. She reports feeling an electric shock in this region. She denies any hand difficulties or balance/gait issues. She denies any loss of bowel/bladder issues. She feels she has exhausted conservative treatment at this time. PREVIOUS CONSERVATIVE TREATMENT: -Medication: Meloxicam, [place] -Physical therapy: Previous participation at [facility]- minimal symptom improvement. She has continued participation in home exercises/stretches as guided by physical therapy recommendations on routine basis as tolerated to present day. [facility] consultation notes can be found under scanned documents. -Previous healthcare providers: [place]- Dr. Carroll and was recommended a C5-C7 ACDF -Pain Management: Follows with [facility] - consult note can be found under scanned documents -Injections: Cervical injection at [facility] - 30% symptom relief that lasted for only 1 week and therefore would not like to proceed with another PREVIOUS SPINE SURGERY: None PAIN EVALUATION 05/07/2024 1258 Pain Location: Head neck Description: Aching;Throbbing Duration Amount of Time: 3 Duration Units: Months Frequency: Continuous Intervention/Comfort measure: Medication PAST MEDICAL HISTORY Diagnosis Date Anemia Blood dyscrasia Gastritis GERD (gastroesophageal reflux disease) Hyperlipemia Lymphadenitis Mental disorder Stroke (HCC) 2012 PAST SURGICAL HISTORY Procedure Laterality Date APPENDECTOMY ESOPHAGOGASTRODUODENOSCOPY TRANSORAL DIAGNOSTIC 08/29/2017 EGD HYSTERECTOMY HX LOWER EXTREMITY CHECK Right ROTATOR CUFF REPAIR Left FAMILY HISTORY Problem Relation Age of Onset Stroke Father 3 ALLERGIES Allergen Reactions Demerol [Meperidine* Vomiting Versed [Midazolam] Vomiting Morphine Vomiting Current Outpatient Medications Medication Sig Dispense Refill famotidine (PEPCID) 20 mg tablet Take by mouth as directed. ALPRAZolam (XANAX) 0.25 mg tablet Take by mouth. meloxicam (MOBIC) 15 mg tablet omeprazole (PRILOSEC) 20 mg capsule Take 2 capsules by mouth once daily. 60 capsule 1 ATORVASTATIN CALCIUM (LIPITOR ORAL) Take by mouth once daily. CYANOCOBALAMIN, VITAMIN B-12, (VITAMIN B-12 INJECTION) by INJECTION(UNSPECIFIED PARENTERAL ROUTES) route. 2 times a month HYDROcodone-acetaminophen (NORCO) 5-325 mg per tablet No current facility-administered medications for this visit. REVI (more content not included)... [facility] 04-30-2024 [facility] Telephone (NEAGCLM) VENUS SPIVEY ([id number]) 1960 F Date Time Provider Department 04/30/24 JESSICA ORDAZ NEAGCLM During your visit today, we recorded the following information about you: Verenice Bishop 04/30/2024 11:02 AM Signed Patient requested to have MRI at [facility]. Received authorization. Faxed order and authorization information to [facility]. Allergies As of Date: 04/30/2024 Noted Allergy Reaction DEMEROL (MEPERIDINE (PF)) 02/03/2012 11 - Vomiting VERSED (MIDAZOLAM) 02/03/2012 11 - Vomiting MORPHINE 02/03/2012 11 - Vomiting Date Reviewed: 04/20/2024 Reviewed by: Yvonne Aldridge MA - Fully Assessed Reason for Visit: MRI Appointment [5319] Prescriptions as of 04/30/2024 - HYDROcodone-acetaminophen (NORCO) 5-325 mg per tablet - famotidine (PEPCID) 20 mg tablet Take by mouth as directed. - ALPRAZolam (XANAX) 0.25 mg tablet Take by mouth. - meloxicam (MOBIC) 15 mg tablet - omeprazole (PRILOSEC) 20 mg capsule Take 2 capsules by mouth once daily. - ATORVASTATIN CALCIUM (LIPITOR ORAL) Take by mouth once daily. - CYANOCOBALAMIN, VITAMIN B-12, (VITAMIN B-12 INJECTION) by INJECTION(UNSPECIFIED PARENTERAL ROUTES) route. 2 times a month Problem List As Of Date 04/30/2024 Noted Resolved Hematuria [R31.9] 02/03/2012 Left lower quadrant pain [R10.32] 02/03/2012 Urinary tract infection [N39.0] 02/03/2012 Spinal stenosis of cervical region [M48.02] 04/20/2024 Encounter Status:Closed [facility]30[facility] Office Visit (NEAGCL M) VENUS SPIVEY ([id number]) 1960 F Date Time Provider Department 04/20/24 1:30 PM JESSICA ORDAZ NEAGCLM During your visit today, we recorded the following information about you: Pulse Blood pressure Weight Height 69/minute 118/81 68 kg 1.626 m Jessica Ordaz APRN.CNP 04/20/2024 3:52 PM Signed SPINE SURGERY CONSULT NOTE TESHA Warren Date of visit: April 20, 2024 Patient Name: Ms.Jeanette Spivey Date of : 1960 Current Age: [age] year old Sex: female MRN/E# [id number] Last Office Visit: Visit date not found Chief Complaint: Patient presents with: New Patient HPI Ms.Jeanette Spivey been recently evaluated by outside neurosurgery, Dr. Carroll, on 02/28/2024 and reported neck pain that radiated to right shoulder and interscapular region that have been ongoing for 2 years. She had treated her symptoms with physical therapy and oral medication as well as injections with continued persistent symptoms. Dr. Carroll recommended a C5-C7 ACDF. Patient did not proceed with surgical intervention as due to neurosurgeon outside of network. Patient presents to the office today for a second opinion and reports he was scheduled to proceed with surgical intervention but due to previous surgeon being outside of network, requesting a second opinion specifically with Dr. Mcdermott. Patient today reports pain in neck that radiates into right shoulder and interscapular region. Onset of symptoms began a year and a half ago and been gradually worsening despite participation in conservative treatment outlined below. She has subjective weakness in right upper extremity, denies dexterity difficulties or dropping items. She endorses mild gait instability, no recent falls or use of assistive device for ambulation. She denies bowel or bladder incontinence. PREVIOUS CONSERVATIVE TREATMENT: -Medication: Meloxicam, [place] -Physical therapy: Previous participation at [facility]- minimal symptom improvement. She has continued participation in home exercises/stretches as guided by physical therapy recommendations on routine basis as tolerated to present day. [facility] consultation notes can be found under scanned documents. -Previous healthcare providers: [place]- Dr. Carroll and was recommended a C5-C7 ACDF -Pain Management: Follows with [facility] - consult note can be found under scanned documents -Injections: Cervical injection at [facility] - 30% symptom relief that lasted for only 1 week and therefore would not like to proceed with another PREVIOUS SPINE SURGERY: None Surgical Risk Factors: Smoking status: Denies Anticoagulants/antiplatelet s: Denies Diabetic: Denies BMI: 25.75 PAIN EVALUATION 04/20/2024 1312 Pain Level: 6 Pain Location: Neck Description: Stiffness;Spasm;Stabbing;Ac ananya Duration Units: Years Frequency: Intermittent Intervention/Comfort measure: Medication physical therapy PAST MEDICAL HISTORY Diagnosis Date Anemia Blood dyscrasia Gastritis GERD (gastroesophageal reflux disease) Hyperlipemia Lymphadenitis Mental disorder Stroke (HCC) 2012 PAST SURGICAL HISTORY Procedure Laterality Date APPENDECTOMY ESOPHAGOGASTRODUODENOSCOPY TRANSORAL DIAGNOSTIC 08/29/2017 EGD HYSTERECTOMY HX LOWER EXTREMITY CHECK Right ROTATOR CUFF REPAIR Left FAMILY HISTORY Problem Relation Age of Onset Stroke Father 3 ALLERGIES Allergen Reactions Demerol [Meperidine* Vomiting Versed [Midazolam] Vomiting Morphine Vomiting Current Outpatient Medications Medication Sig Dispense Refill famotidine (PEPCID) 20 mg tablet Take by mouth as directed. ALPRAZolam (XANAX) 0.25 mg tablet Take by mouth. meloxicam (MOBIC) 15 mg tablet omeprazole (PRILOSEC) 20 mg capsule Take 2 capsules by mouth once daily. 60 capsule 1 ATORVASTATIN CALCIUM (LIPITOR ORAL) Take by mouth once daily. CYANOCOBALAMIN, VITAMIN B-12, (VITAMIN B-12 INJECTION) by INJECTION(UNSPECIFIED PARENTERAL ROUTES) route. 2 times a month HYDROcodone-acetaminophen (NORCO) 5-325 mg per tablet (Patient not taking: Reported on 04/20/2024) LORazepam (ATIVAN) 1 mg tablet Take 1 tablets 60 minutes prior to MRI, may take additional tablet 15 minutes/during if needed 2 tablet 0 No current facility-administered medications for this visit. REVIEW OF SYSTEMS Review of Systems Constitutional: Positive for activity change. Negative for chills, diaphoresis and fever. HENT: Negative for congestion, sinus pressure and trouble swallowing. Respiratory: Negative for cough, shortness of breath and wheezing. Cardiovascular: Negative for chest pain, palpitations and leg swelling. Gastrointestinal: Negative for constipation, diarrhea and nausea. Endocrine: Negative for cold intolerance and heat intolerance. Genitourinary: Negative for difficulty (more content not included)... Normal [facility] 04-20-2024 [facility] Telephone (NEAGCLM) VENUS SPIVEY ([id number]) 1960 F Date Time Provider Department 04/20/24 JESSICA ORDAZ [facility] During your visit today, we recorded the following information about you: Eder Harrison 04/20/2024 1:59 PM Signed Patient is to call in to let us know MRI location, once we are informed of that we can fax over order and get prior aut, patient will need to schedule a CT and [address] Mcdermott after MRI date is given to office Allergies As of Date: 04/20/2024 Noted Allergy Reaction DEMEROL (MEPERIDINE (PF)) 02/03/2012 11 - Vomiting VERSED (MIDAZOLAM) 02/03/2012 11 - Vomiting MORPHINE 02/03/2012 11 - Vomiting Date Reviewed: 04/20/2024 Reviewed by: Yvonne Aldridge MA - Fully Assessed Prescriptions as of 04/20/2024 - HYDROcodone-acetaminophen (NORCO) 5-325 mg per tablet - famotidine (PEPCID) 20 mg tablet Take by mouth as directed. - LORazepam (ATIVAN) 1 mg tablet Take 1 tablets 60 minutes prior to MRI, may take additional tablet 15 minutes/during if needed - ALPRAZolam (XANAX) 0.25 mg tablet Take by mouth. - meloxicam (MOBIC) 15 mg tablet - omeprazole (PRILOSEC) 20 mg capsule Take 2 capsules by mouth once daily. - ATORVASTATIN CALCIUM (LIPITOR ORAL) Take by mouth once daily. - CYANOCOBALAMIN, VITAMIN B-12, (VITAMIN B-12 INJECTION) by INJECTION(UNSPECIFIED PARENTERAL ROUTES) route. 2 times a month Problem List As Of Date 04/20/2024 Noted Resolved Hematuria [R31.9] 02/03/2012 Left lower quadrant pain [R10.32] 02/03/2012 Urinary tract infection [N39.0] 02/03/2012 Encounter Status:Closed by EDER HARRISON on 04/20/24 [facility] XR CERVICAL 4V AP/LAT/FLX/EX Ton 04-20-2024 XR CERVICAL 4V AP/LAT/FLX/EXT * * *Final Report* * * DATE OF EXAM: Apr 20 2024 2:25PM A1X 5310 - XR CERVICAL 4V AP/LAT/FLX/EXT / PROCEDURE REASON: Spinal stenosis of cervical region * * * * Physician Interpretation * * * * EXAMINATION: XR CERVICAL 4V AP/LAT/FLX/EXT HISTORY: neck pain, right shoulder pain Spinal stenosis of cervical region . COMPARISON: None TECHNIQUE: XR CERVICAL 4V AP/LAT/FLX/EXT Laterality: NOT APPLICABLE Number of different views (projections): 4 M: XB_1 FINDINGS: Degenerative changes most severe at C5-C6 and C6-C7. Slight anterolisthesis of C4 on C5, C5 on C6, and C7 on T1. With flexion there is also slight anterolisthesis of C3 on C4. Degenerative changes in the facets. IMPRESSION: Severe degenerative changes. Network Architect Manager: PARI Transcribe Date/Time: Apr 24 2024 12:28P Dictated by : SON BOYER MD This examination was interpreted and the report reviewed and electronically signed by: SON BOYER MD on Apr 24 2024 12:29PM EST [id number] [facility] 36on 04-10-2024 36 Spoke with pt and re layed note. They verbalized understanding. [facility] 36 Unfortunately, we ar e not very familiar with the [facility] spine provider to be able to make a recommendation. Please let her know. Thank you. [facility] 36 Pt called stating th at she really wants to have surgery done with you, but you are out of network with her insurance. Pt would like to know if you have a surgeon that you would recommend within [facility]. [facility] 36on 03-20-2024 36 Pt states she want t o change insurance and wait until the new year to have Sx with Dr. Carroll. Pt was notified to call me with updated ins info YUAN. Tentative date of 06/18/2023 given to pt. [facility] 36 Received email from ins verification. Pt's ins is OON and will need to pay 50% and single case agreement will need to be submitted. LVM for cb to discuss with pt. [facility] CBC (HEMOGRAM)on 03-19-2024 Erythrocyte distribution width (RBC) [Ratio] 14.1 % Normal 11.5-15.0 [facility] Comment on above: Performed By: #### L [id number] ####Electrical Superintendent: CLINT PANTOJA ([id number])[facility] ([address] Hematocrit (Bld) [Volume fraction] 43.9 % Normal 35.0-47.0 [facility] Comment on above: Performed By: #### L [id number] ####Electrical Superintendent: CLINT PANTOJA ([id number])[facility] ([facility])[address] [place] [address] Hemoglobin (Bld) [Mass/Vol] 13.3 g/dL Normal 11.7-16.0 [facility] Comment on above: Performed By: #### L [id number] ####Electrical Superintendent: CLINT PANTOJA ([id number])[facility] ([facility])[address] [place] [address] MCH (RBC) [Entitic mass] 24.8 pg Low 26.0-34.0 [facility] Comment on above: Performed By: #### L [id number] ####Electrical Superintendent: CLINT PANTOJA ([id number])[facility])[address] [place] [address] MCHC 30.3 % Low 30.5-36.0 [facility] Comment on above: Performed By: #### L [id number] ####Electrical Superintendent: CLINT PANTOJA ([id number])[facility] ([facility])[address] [place] [address] MCV (RBC) [Entitic vol] 81.8 fL Normal 77.0-99.0 [facility] Comment on above: Performed By: #### L [id number] ####Electrical Superintendent: CLINT PANTOJA ([id number])[facility])[address] [place] [address] Platelet mean volume (Bld) [Entitic vol] 9.7 fL Normal 9.0-12.7 [facility] Comment on above: Performed By: #### L [id number] ####Electrical Superintendent: CLINT PANTOJA ([id number])[facility])[address] [place] [address] Platelets (Bld) [#/Vol] 283 10*3/uL Normal 140-440 [facility] Comment on above: Performed By: #### L [id number] ####Electrical Superintendent: CLINT PANTOJA ([id number])[facility] ([facility])[address] [place] [address] RBC (Bld) [#/Vol] 5.37 10*6/uL High 3.80-5.20 [facility] Comment on above: Performed By: #### L [id number] ####Electrical Superintendent: CLINT PANTOJA ([id number])[facility])[address] [place] [address] WBC (Bld) [#/Vol] 6.4 10*3/uL Normal 3.6-10.7 [facility] Comment on above: Performed By: #### L [id number] ####Electrical Superintendent: CLINT PANTOJA ([id number])[facility])[address] [place] [address] PREPROCINSon 03-19-2024 PREPROCINS Medication List Accurate as of March 19, 2024 2:52 PM. Always use your most recent med list. acetaminophen 325 MG tablet Commonly known as: Tylenol Notes to patient: May take if needed ALPRAZolam 0.25 MG tablet Commonly known as: Xanax Notes to patient: May take if needed atorvastatin 20 MG tablet Commonly known as: Lipitor Notes to patient: Take night before surgery famciclovir 500 MG tablet Commonly known as: Famvir famotidine 20 MG tablet Commonly known as: Pepcid Notes to patient: May take if needed HYDROcodone-acetaminophen 5-325 MG tablet Commonly known as: [place] Notes to patient: Not taking meloxicam 15 MG tablet Commonly known as: Mobic Notes to patient: Hold 7 days prior to surgery omeprazole OTC 20 MG EC tablet Commonly known as: PriLOSEC OTC Notes to patient: May take if needed Additional Instructions: FIRE PREVENTION ENGINEER AND PARKING IN THE MAIN DECK ARE FREE DAY OF SURGERY. PARKING IN THE DECK-- AFTER PARKING TAKE THE ELEVATOR TO LEVEL ONE AND TAKE THE BRIDGE TO THE HOSPITAL. GO TO THE RIGHT AND GO AROUND THE CORNER TO THE SAME DAY SURGERY DESK AND CHECK IN THERE. IF GOING IN THE MAIN ENTRANCE-- TURN LEFT AND GO DOWN THE [place]ANTILLA TO THE H ELEVATORS AND TAKE THEM TO ONE, LEFT OFF THE ELEVATOR AND GO AROUND TO THE SAME DAY DESK AND CHECK IN. You may take your prescription pain medication. You may take Tylenol for pain. NO Motrin, ibuprofen or Advil for 7 days prior to surgery or longer if instructed by your surgeon. NO Aleve or Naprosyn for 7 days prior to surgery or longer if instructed by your surgeon. IF YOU TAKE BLOOD THINNERS OR ASPIRIN: DO NOT take aspirin or aspirin containing products for 7 days before surgery, or longer if instructed by your surgeon. Follow any instructions given to you by Dr. lia Diaz with shower kit provided to you before coming to the hospital. No makeup, lotion, powder, deodorant or body spays. No hair products. Remove all jewelry and leave it at home. Wear loose comfortable clothing to go home in. You may brush your teeth morning of surgery. Do not wear contacts day of surgery. No marijuana (THC), smoking or alcohol for 24 hours prior to surgery. Please arrange for a responsible adult to drive you home after your surgery and that there is a responsible adult with you for 24 hours post discharge. If you have specific questions, please call your surgeon. You will receive a call the day before your surgery to verify your arrival time and date. You will be asked to arrive at least two hours prior to your scheduled surgery time. Please bring your [facility] Surgical folder and medication list with you day of surgery. We encourage you to write down any questions you may have for the surgeon, anesthesiologist, or other members of the surgical team and bring it with you the day of surgery. Please bring photo ID and insurance information. [facility] Progress Noteon 03-19-2024 Progress Note ADVANCED CARE PLANROSALVA Spivey : 1960 Primary Care Physician: No primary care provider on file. The patient and/or family/surrogate voluntarily agreed to participate in ACP services. Patient?s cognitive capacity: Patient is Alert and [place] to person, place and time Code Status: [x] [FULL CODE - Continue all advanced life support: CPR,intubation,invasive procedures] [_] [DNR-CCA - DO NOT do CPR, intubation] [_] [DNR-REGROOVER - Comfort care only] [_] DNR form [was/was not] signed Summary of discussion: The patient health care POA/ surrogate is the following: Marty-Gustabo Patric, spouse. [Condition that instigated the ACP on this DOS, relevant PMH, functional status, goals of care, and whom this was discussed with including names and relationship to the patient, and any relevant advance care documentation discussion] I answered all the patient/family questions that I could within the range and scope of the current medical situation. We discussed the medical conditions, risks, benefits, outcomes, and goals of care at this time for the patient's medical issues at hand in the face of the patient's chronic issues and current presentation. Total time spent: 2 minutes were spent discussing the patient's resuscitation status, advance care planning, and end of life care, with patient and/or family/surrogate. Rosemary Cabello APRN - ASSEMBLER [employer] Acute care [facility] 03/19/2024, 2:58 PM [facility] XR ESOPHOGRAM W/BARIUM TABLE Ton 03-15-2024 XR ESOPHOGRAM W/BARIUM TABLET ORIGINAL EXAMINATION: SINGLE CONTRAST ESOPHAGRAM 03/15/2024 HISTORY: ORDERING SYSTEM PROVIDED HISTORY: Reason for Exam: Dysphagia COMPARISON: None. TECHNIQUE: Double contrast study using barium was performed. FLUOROSCOPY DOSE AND TYPE: Radiation Exposure Index: Kerma mGy, 29.9. 1.5 minutes of fluoroscopy time was utilized. FINDINGS: There was slight delay of the oral phase of swallowing of the barium tablet, barium tablet otherwise went down normally. No evidence of stricture or obstruction. The esophagus demonstrates normal peristalsis under fluoroscopy. No evidence of leak. No hiatal hernia is seen and there is no evidence of achalasia. No gastroesophageal reflux was elicited during examination. IMPRESSION: Unremarkable esophagram. Delayed oral phase of swallowing. Interpreted by: Miguel Reynaga MD Preliminary Report By: Miguel Reynaga MD Electronically signed By Miguel Reynaga MD Dictated Date: 03/15/2024 1:21:40 PM Prelim Date: 03/15/2024 1:24:47 PM Sign Date: 03/15/2024 1:24:47 PM Ordering Provider: WYATT YEE [facility] 36on 02-29-2024 36 Spoke with pt and te ntative Sx date on 03/26 was given. Spoke with SAM Arriaga. Ref #: [id number] Surg 03/26 730 PAT 03/19 230 PO 04/10 10 Case# [id number] Patient aware of all appointments and times [facility] 36 ----- Message from Jonny Carroll MD sent at 02/28/2024 12:13 PM EDT ----- Anterior cervical 5-6 and 6-7 disc replacements 2 hours 1 night [id number] [facility] Office Visiton 02-28-2024 Follow-up visit [id number] Milo Spivey 1960 F Date Provider Department Center 02/28/2024 [id number]-PRHXYBBLAISE CARROLL [facility] None No family history on file Level of Service:27317 [place] OFFICE/OUTPATIENT NEW MODERATE MDM 45 MINUTES Reason for Visit and Comments: New Patient [542] - bulging disc. will bring imaging with them to their appointment [facility] Progress Noteon 02-28-2024 Progress Note NEUROSURGERY CONSULT NOTE Patient Name: Venus Spivey Patient : 1960 PCP: No primary care provider on file. History of Present Ilness: 63 y.o. presents with neck pain that radiates to her right shoulder and interscapular region for the last 2 years. She has some weakness in her right shoulder. She describes the pain as electric shock pains and tingling radiating to this area. States her neck is stiff and painful as well. She has done PT for a year, taken norco and mobic, and had injections for this. These modalities have helped her symptoms briefly, but her symptoms continue to recur. She had a lumbar spine issues but this resolved with PT. Chief Complaint Patient presents with New Patient bulging disc. will bring imaging with them to their appointment Past Medical History: History reviewed. No pertinent past medical history. Past Surgical History: History reviewed. No pertinent surgical history. Home Medications: Prior to Admission medications Medication Sig Start Date End Date Taking? Authorizing Provider ALPRAZolam (Xanax) 0.25 MG tablet Take by mouth. 11/15/22 Yes Historical Provider, atorvastatin (Lipitor) 20 MG tablet 10/11/23 Yes Historical Provider, famciclovir (Famvir) 500 MG tablet Take 500 mg by mouth. 11/15/22 Yes Historical Provider, HYDROcodone-acetaminophen ([place]) 5-325 MG tablet 01/05/24 Yes Historical Provider, meloxicam (Mobic) 15 MG tablet 11/23/23 Yes Historical Provider, Allergies: Meperidine, Midazolam, and Morphine Social History: TOBACCO: reports that she has never smoked. She has never used smokeless tobacco. ETOH: reports current alcohol use. RECREATIONAL DRUG USE: Social History Substance and Sexual Activity Drug Use Never Family History: No family history on file. Review of Systems Constitutional: Negative for chills and fever. HENT: Negative for congestion, rhinorrhea and sore throat. Eyes: Negative for photophobia and visual disturbance. Respiratory: Negative for cough and shortness of breath. Cardiovascular: Negative for chest pain and palpitations. Gastrointestinal: Negative for abdominal pain, nausea and vomiting. Genitourinary: Negative for decreased urine volume and difficulty urinating. Musculoskeletal: Positive for neck pain. Negative for back pain and gait problem. Skin: Negative for rash and wound. Neurological: Positive for weakness. Negative for dizziness, seizures, speech difficulty, numbness and headaches. Psychiatric/Behavioral: Negative for behavioral problems and confusion. Physical Examination: Vitals: 02/28/24 1104 BP: 127/82 Pulse: 66 Physical Exam Vitals reviewed. Constitutional: Appearance: Normal appearance. HENT: Head: Normocephalic and atraumatic. Nose: Nose normal. Mouth/Throat: Pharynx: Oropharynx is clear. Eyes: Extraocular Movements: Extraocular movements intact. Conjunctiva/sclera: Conjunctivae normal. Cardiovascular: Rate and Rhythm: Normal rate and regular rhythm. Pulses: Normal pulses. Pulmonary: Effort: Pulmonary effort is normal. No respiratory distress. Abdominal: General: There is no distension. Palpations: Abdomen is soft. Tenderness: There is no abdominal tenderness. Musculoskeletal: General: No tenderness. Normal range of motion. Cervical back: Normal range of motion and neck supple. No rigidity. Skin: General: Skin is warm and dry. Neurological: Mental Status: She is alert and oriented to person, place, and time. Cranial Nerves: No cranial nerve deficit. Sensory: No sensory deficit. Motor: No weakness. Gait: Gait abnormal. Deep Tendon Reflexes: Reflexes abnormal. Comments: DTRs absent in BUE Strength 4-/5 in right deltoid and triceps, 5/5 in rest of BUE Diminished ROM in cervical spine Psychiatric: Mood and Affect: Mood normal. Behavior: Behavior normal. Neurological Exam Mental Status Alert. Oriented to person, place, and time. Cranial Nerves CN III, IV, : Extraocular movements intact bilaterally. Gait Abnormal gait. DTRs absent in BUE Strength 4-/5 in right deltoid and triceps, 5/5 in rest of BUE Diminished ROM in cervical spine. Gait normal Results Labs: Last 24hrs No results found for this or any previous visit (from the past 24 hour(s)). Radiology Personal review: Recent MRI of the cervical spine was reviewed. She has largely herniated disks with severe foraminal stenosis C5-6 and C6-7. MRI of the thoracic spine was reviewed. There is no high-grade stenosis MRI of the lumbar spine was reviewed. She has small disc protrusion at L3-4 ASSESSMENT / PLAN : 63yo f with symptomatic pathology referable to her cervical spine. Her imaging was reviewed with her, and she is symptomatic to the above noted pathology. Both surgical and conservative treatment options were discussed with her. With respect to surgery, the risks, benefits, and alternative to a C5-C7 disce (more content not included)... [facility] 36on 02-20-2023 36 Patient states she i s not sure if her most recent imaging has been within the last year. She will bring a disk for review if so. [facility] Dexa Bone Density Studyon Dexa Bone Density Study [facility] Imaging Services [address], [place] [id number] Dexa Bone Density Study MR#: [id number] Acct: [id number] Name: VENUS SPIVEY Rep #: [id number] : 1960 F 63 From: Taqueria mckeon MD PCP: Dr. Jack Driver, DO Status: REG CLI Study: Dexa Bone Density Study Date of Exam: 02/02/24 Exam# [id number] Ordering Dr: Jose Crowley DPM [id number] STUDY: DUAL ENERGY X-RAY ABSORPTIOMETRY / DXA REASON FOR EXAM: Female, 63 years old. 733.90OsteopeniaBONE DENSITY REASON FOR EXAM TECHNIQUE: Bone Mineral Density (BMD) measurements of lumbar spine and bilateral hips were obtained. COMPARISON: None. FINDINGS: Lumbar Spine (L1-L4): g/cm2 (0.796) / T-score (-2.3) / Z-score (-0.7) Findings are suggestive of osteopenia with a high fracture risk. Left Femur Total: g/cm2 (0.808) / T-score (-1.1) / Z-score (0.0) Left Femoral Neck: g/cm2 (0.614) / T-score (-2.1) / Z-score (-0.7) Right Femur Total: g/cm2 (0.763) / T-score (-1.5) / Z-score (-0.4) Right Femoral Neck: g/cm2 (0.612) / T-score (-2.1) / Z-score (-0.8) BD/Dexa Bone Density Study IMPRESSION: The patient is considered osteopenic as outlined below according to World Be Organization (WHO) criteria with a high fracture risk. Reference Information: The T-score is the number of standard deviations above or below the standard which is normal for young adults at their peak bone mineral density. The World Health Organization (WHO) interprets the T-scores as follows: Above -1 Normal bone density Between -1 and -2.5 Osteopenia Equal to / or below -2.5 Osteoporosis As a practical clinical guideline, osteopenia may be graded as follows: Mild -1 through -1.5 Moderate -1.6 through -2.0 Severe -2.1 through -2.4 The Z-score is the number of standard deviations above or below age-matched controls. A Z-score of less than -1.5 would be considered abnormal. References: 1. NIH Osteoporosis and Related Bone Diseases www osteo.org 2. International Society for Clinical Densitometry www iscd.org 3. National Osteoporosis Foundation www nof.org Electronically Signed: Taqueria Pastor MD at 9:14 EDT , CC: MARTHA Crowley; Dr. Jack Driver DO Network Architect Manager: Signed [facility] 04-18-2023 [facility] Office Visit ([facility] ) VENUS SPIVEY ([id number]) 1960 F Date Time Provider Department 04/18/23 6:25 PM SURAJ SAINI [facility] During your visit today, we recorded the following information about you: Temperature Pulse Respiration Blood pressure 98.2 degrees 81/minute 16/minute 110/70 Weight 69.9 kg Suraj Saini MD 04/18/2023 7:11 PM Signed Venusjudith Spivey is a 62 year old female who presents with Laceration (Right thumb laceration cut with a mondolin 1 hour ago wound 1.1cm tetnus is unknown) 62-year-old female presented here sustaining laceration on her right thumb. Patient was using a mandolin and accidentally slipped and cut her right thumb no other complaint. Tetanus is not up-to-date. PAST MEDICAL HISTORY Diagnosis Date Anemia Blood dyscrasia Gastritis GERD (gastroesophageal reflux disease) Lymphadenitis Mental disorder Stroke (HCC) 2012 ACTIVE PROBLEM LIST Hematuria Left Lower Quadrant Pain Urinary Tract Infection Current Outpatient Medications Medication Sig Dispense Refill diphenhydrAMINE (BENADRYL) 25 mg capsule Take 25 mg by mouth every 6 hours as needed. omeprazole (PRILOSEC) 20 mg capsule Take 2 capsules by mouth once daily. 60 capsule 1 ATORVASTATIN CALCIUM (LIPITOR ORAL) Take by mouth once daily. CYANOCOBALAMIN, VITAMIN B-12, (VITAMIN B-12 INJECTION) by INJECTION(UNSPECIFIED PARENTERAL ROUTES) route. 2 times a month cephALEXin (KEFLEX) 500 mg capsule Take 1 capsule by mouth two times a day for 10 days. 20 capsule 0 No current facility-administered medications for this visit. Social History Tobacco Use Smoking status: Never Smokeless tobacco: Never Substance Use Topics Alcohol use: Yes Comment: occasional Drug use: No Alcohol Use: Yes (occasional) Tobacco Use: Never FAMILY HISTORY Problem Relation Age of Onset Stroke Father 3 Review of Systems All other systems reviewed and are negative. BP 110/70 Pulse 81 Temp 98.2 Resp 16 Wt 154 lb (69.9kg) SpO2 99% Physical Exam Vitals and nursing note reviewed. Musculoskeletal: Comments: Examination the right thumb range of motion appears to be normal laceration measures 1.25 cm, under sterile condition clean irrigate using lidocaine as local anesthetic were anesthetized I placed 5 interrupted sutures, apply some dressing. We irrigated the wound well patient tolerated the procedure well dressing was applied. Tetanus was also administered. I placed patient on Keflex 500 twice a day for infection prophylactic have patient follow-up as needed 10 days for suture removal. ASSESSMENT/PLAN: 1. Laceration of right thumb without foreign body without damage to nail, initial encounter - ICD9: 883.0, ICD10: S61.011A Treatments and plan wound care discussed with patient patient tolerated procedure well. Suraj Saini Referring Provider: SELF [200] Allergies As of Date: 04/18/2023 Noted Allergy Reaction DEMEROL (MEPERIDINE (PF)) 02/03/2012 11 - Vomiting VERSED (MIDAZOLAM) 02/03/2012 11 - Vomiting MORPHINE 02/03/2012 11 - Vomiting Date Reviewed: 04/18/2023 Reviewed by: Suraj Saini MD - Fully Assessed Reason for Visit: Laceration [1747] Cmt: Right thumb laceration cut with a mondolin 1 hour ago wound 1.1cm tetnus is unknown Primary Visit Diagnosis:Laceration of right thumb without foreign body without damage to nail, initial encounter [S61.011A] Order(s):TDAP VACCINE, AGE 7+ YR (ADACEL, BOOSTRIX) [97062NTG] Order #: [id number] cephALEXin (KEFLEX) 500 mg capsuleTake 1 capsule by mouth two times a day for 10 days.Disp: 20 capsuleRfl: 0 Prescriptions as of 04/18/2023 - cephALEXin (KEFLEX) 500 mg capsule Take 1 capsule by mouth two times a day for 10 days. - diphenhydrAMINE (BENADRYL) 25 mg capsule Take 25 mg by mouth every 6 hours as needed. - omeprazole (PRILOSEC) 20 mg capsule Take 2 capsules by mouth once daily. - ATORVASTATIN CALCIUM (LIPITOR ORAL) Take by mouth once daily. - CYANOCOBALAMIN, VITAMIN B-12, (VITAMIN B-12 INJECTION) by INJECTION(UNSPECIFIED PARENTERAL ROUTES) route. 2 times a month Problem List As Of Date 04/18/2023 Noted Resolved Hematuria [R31.9] 02/03/2012 Left lower quadrant pain [R10.32] 02/03/2012 Urinary tract infection [N39.0] 02/03/2012 Prescriptions ordered this encounter Disp Refills Start End CEPHALEXIN 500 MG CAPSULE 20 c* 0 04/18/2023 04/28/2023 Route: ORAL Sig: Take 1 capsule by mouth two times a day for 10 days. Encounter Status:Closed by SURAJ SAINI on 04/18/23 [facility] Final Surgical Pathology Rep [facility] 12-09-2022 Final Surgical Pathology Report . Pathology Reports Accession: Collected Date/Time: Received Date/Time: Pathologist: [id number] 12/02/2022 11:59 EDT 12/03/2022 13:44 EDT BISHNU AL MD Final Surgical Pathology Report DIAGNOSIS: A. STOMACH, BIOPSY: - MILD CHRONIC GASTRITIS - NEGATIVE FOR H. PYLORI B. ESOPHAGUS, BIOPSY: - SQUAMOUS ESOPHAGEAL MUCOSA WITHOUT SIGNIFICANT MICROSCOPIC PATHOLOGY. GLANDULAR MUCOSA IS NOT PRESENT. CLINICAL INFORMATION: Procedure: ESOPHAGOGASTRODUODENOSCOPY Preoperative diagnosis: UNSPECIFIED ABDOMINAL PAIN, NAUSEA Postoperative diagnosis: UNSPECIFIED ABDOMINAL PAIN, NAUSEA SPECIMEN: A GASTRIC BODY BX - R/O ATROPHIC GASTRITIS B ESOPHAGEAL BX - R/O EOSINOPHILIC ESOPHAGITIS GROSS DESCRIPTION: All parts labelled with patient name and [id number] A. Received in formalin labeled "gastric biopsy" are multiple estrada tissue fragments aggregating 1.0 x 0.3 x 0.1 cm. TS-1 B. Received in formalin labeled "esophageal biopsy" are 3 wispy white tissue fragments measuring less than 0.1 to 0.4 x 0.2 cm. TS-1 Bita Stevenson, Grossing Research Kennel Supervisor/ Dr. Bishnu Al, Pathologist Dictated by Bita Stevenson MICROSCOPIC DESCRIPTION: The microscopic examination is performed, except in the case of Gross Only. Electronically Signed by Pathology Report verified by [facility] BISHNU AL Sign out Date: 12/09/2022 12:40 Performing Lab: [facility], [address] [place] [address] Pathology Dept Disclaimer If ancillary studies were utilized, the following Laboratory Developed Test (LDT) disclaimer will apply: Under CLIA requirements, [facility] is qualified to perform high complexity testing. For all ancillary stains, positive and negative controls stain appropriately. Performance characteristics of immunohistochemical and chromogenic in-situ hybridization tests have been determined by [facility]. These tests are used for clinical purposes, They should not be regarded as investigational or for research. Normal [facility] ([place]) Basophil percentageOrdered B y: Dr. Yee on 11-17-2022 Bilirubin [Mass/Vol] 0.20 mg/dL 0.20-1.00 [facility] Comment on above: For patients on eltr ombopag therapy, use of Dimension [place] TBIL is not recommended. Chloride [Moles/Vol] 106 mmol/L 98-107 [facility] Glucose [Mass/Vol] 90 mg/dL 74-106 [facility] Potassium [Moles/Vol] 4.3 mmol/L 3.5-5.1 [facility] Protein [Mass/Vol] 7.1 g/dL 6.4-8.2 [facility] Sodium [Moles/Vol] 142 mmol/L 136-145 [facility] WBC (Bld) [#/Vol] 6.3 10*3/uL 4.4-11.0 [facility] Blood erythrocytes count (nu mber/volume)Ordered By: Dr. Yee on 11-17-2022 RBC (Bld) [#/Vol] 5.18 10*6/uL 4.2-5.4 [facility] Blood hemoglobin measurement (mass/volume)Ordered By: Dr. Yee on 11-17-2022 Hemoglobin (Bld) [Mass/Vol] 13.2 g/dL 12.0-15.0 [facility] Blood platelet mean volumeOr dered By: Dr. Yee on 11-17-2022 Platelet mean volume (Bld) [Entitic vol] 10.4 fL 6.2-12.0 [facility] Determination of erythrocyte mean corpuscular volume (MCV)Ordered By: Dr. Yee on 11-17-2022 MCV (RBC) [Entitic vol] 84.2 fL 81-99 [facility] Hematocrit Auto (Bld) [Volum e fraction]Ordered By: Dr. Yee on 11-17-2022 Hematocrit (Bld) [Volume fraction] 43.6 % 37-47 [facility] - Chemistry and C hemistry - challengeOrdered By: Dr. Yee on 11-17-2022 ALP [Catalytic activity/Vol] 89 U/L 45-117 [facility] ALT [Catalytic activity/Vol] 31 U/L 13-56 [facility] CO2 [Moles/Vol] 28.0 mmol/L 21.0-32.0 [facility] Cobalamin (Vitamin B12) [Mass/Vol] 426 pg/mL 211-911 [facility] Globulin (S) [Mass/Vol] 3.1 g/dL 2.2-4.2 [facility] Lipase [Catalytic activity/Vol] 50 U/L 13- [facility] Comment on above: Please note:LIPASE r evised reference range effective 22. New Lipase methodology. Expected to produce lower values than the previous assay method. NEW Reference Range: 13 - 75 U/L Urea nitrogen/Creatinine [Mass ratio] 26.6 mg/mg 10-20 [facility] - Hematology and Cell countsOrdered By: Dr. Yee on 11-17-2022 Erythrocyte distribution width (RBC) [Entitic vol] 44.4 fL 35.1-43.9 [facility] Erythrocyte distribution width (RBC) [Ratio] 14.5 % 11.6-14.6 [facility] MCH (RBC) [Entitic mass] 25.5 pg 27.0-32.0 [facility] MCHC Auto (RBC) [Mass/Vol]Or dered By: Dr. Yee on 11-17-2022 MCHC (RBC) [Mass/Vol] 30.3 g/dL 32-36 [facility] No Panel InformationOrdered By: Dr. Yee on 11-17-2022 Estimated GFR (MDRD) Amer 121 mL/min >60 [facility] Comment on above: GFR Calc Estimated GFR (MDRD) Non-Af Amer 100 mL/min >60 [facility] Comment on above: Non- GFR Calc Platelets bldOrdered By: Dr. Yee on 11-17-2022 Platelets (Bld) [#/Vol] 250 10*3/uL 150-450 [facility] Serum or plasma C reactive p rotein measurement (mass/volume)Ordered By: Dr. Yee on 11-17-2022 CRP [Mass/Vol] mg/L 0.0-3.0 [facility] Comment on above: C-Reactive Protein ( CRP) provides useful information for thediagnosis, therapy and monitoring of inflammatory processesand associated diseases. For the evaluation of Relative Riskfor Cardiovascular Disease, a High Sensitivity CRP (HSCRP)should be ordered. Serum or plasma albumin aniya urement (mass/volume)Ordered By: Dr. Yee on 11-17-2022 Albumin [Mass/Vol] 4.0 g/dL 3.2-5.0 [facility] Serum or plasma albumin/glob ulin mass ratioOrdered By: Dr. Yee on 11-17-2022 Albumin/Globulin [Mass ratio] 1.3 {ratio} 0.9-2.4 [facility] Serum or plasma calcium aniya urement (mass/volume)Ordered By: Dr. Yee on 11-17-2022 Calcium [Mass/Vol] 9.5 mg/dL 8.5-10.1 [facility] Serum or plasma creatinine m easurement (mass/volume)Ordered By: Dr. Yee on 11-17-2022 Creatinine [Mass/Vol] 0.64 mg/dL 0.55-1.02 [facility] Comment on above: The validity of the calculated GFR & GFRAA in patients over 70 years has not been determined. Clinical correlation is essential. Serum or plasma urea nitroge n measurement (mass/volume)Ordered By: Dr. Yee on 11-17-2022 Urea nitrogen [Mass/Vol] 17 mg/dL 7-18 [facility] Thin prep Papanicolaou smear with manual screeningOrdered By: Dr. Yee on 11-17-2022 Thin prep Papanicolaou smear with manual screening 15 U/L 15-37 [facility] Thin prep Papanicolaou smear with manual screening 8 5-15 [facility] BASIC METABOLIC PANELon 05 Anion gap [Moles/Vol] 12 mmol/L Normal 9-18 [facility] Comment on above: Order Comment: @ COL L DATE was changed from 10/09/22 to 10/10/22 @ by 2053. Old specimen was [id number]. Performed By: #### L IPA 1, BMP, CKMB 1, CBC, PT, TROP 1 #### Main Lab - [facility] [place], [place] [address] BUN/CREATININE RATIO 25.0 Ratio Normal 5.0-42.0 [facility] Comment on above: Order Comment: @ COL L DATE was changed from 10/09/22 to 10/10/22 @ by 2053. Old specimen was [id number]. Performed By: #### L IPA 1, BMP, CKMB 1, CBC, PT, TROP 1 #### Main Lab - [facility] [address] [place], [place] [address] Calcium [Mass/Vol] 10.5 mg/dL High 8.4-10.2 [facility] Comment on above: Order Comment: @ COL L DATE was changed from 10/09/22 to 10/10/22 @ by 2053. Old specimen was [id number]. Performed By: #### L IPA 1, BMP, CKMB 1, CBC, PT, TROP 1 #### Main Lab - [facility] [place], [place] [address] Chloride [Moles/Vol] 106 mmol/L Normal 98-107 [facility] Comment on above: Order Comment: @ COL L DATE was changed from 10/09/22 to 10/10/22 @ by 2053. Old specimen was [id number]. Performed By: #### L IPA 1, BMP, CKMB 1, CBC, PT, TROP 1 #### [facility] [place], [place] [address] CO2 [Moles/Vol] 28 mmol/L Normal 22-31 [facility] [place] [facility] Comment on above: Order Comment: @ COL L DATE was changed from 10/09/22 to 10/10/22 @ by 2053. Old specimen was [id number]. Performed By: #### L IPA 1, BMP, CKMB 1, CBC, PT, TROP 1 #### Main Lab - [facility] [address] Creatinine [Mass/Vol] 0.64 mg/dL Low 0.80-1.30 [facility] Comment on above: Order Comment: @ COL L DATE was changed from 10/09/22 to 10/10/22 @ by 2053. Old specimen was [id number]. Performed By: #### L IPA 1, BMP, CKMB 1, CBC, PT, TROP 1 #### Main Lab - [facility] [address] ESTIMATED CREAT CLEARANCE 79.71 Normal [facility] Comment on above: Order Comment: @ COL L DATE was changed from 10/09/22 to 10/10/22 @ by 2053. Old specimen was [id number]. Result Comment: COCK CROFT-GAULT FORMULA 1973 Performed By: #### L IPA 1, BMP, CKMB 1, CBC, PT, TROP 1 #### Main Lab - [address] [address] ESTIMATED GLOMERULAR FILT RATE > 60.000 Normal [facility] Comment on above: Order Comment: @ COL L DATE was changed from 10/09/22 to 10/10/22 @ by 2053. Old specimen was [id number]. Performed By: #### L IPA 1, BMP, CKMB 1, CBC, PT, TROP 1 #### Main Lab - [facility] [place], [place] [address] Glucose [Mass/Vol] 124 mg/dL High 70-99 [facility] Comment on above: Order Comment: @ COL L DATE was changed from 10/09/22 to 10/10/22 @ by 2053. Old specimen was [id number]. Result Comment: The glucose range is based on recommendations from the [place] [employer] for fasting blood glucose range. Performed By: #### L IPA 1, BMP, CKMB 1, CBC, PT, TROP 1 #### Main Lab - [facility] [address] [place] [address] Potassium [Moles/Vol] 3.6 mmol/L Normal 3.6-5.0 [facility] Comment on above: Order Comment: @ COL L DATE was changed from 10/09/22 to 10/10/22 @ by 2053. Old specimen was [id number]. Performed By: #### L IPA 1, BMP, CKMB 1, CBC, PT, TROP 1 #### Main Lab - [address] [address] Sodium [Moles/Vol] 142 mmol/L Normal 137-145 [facility] Comment on above: Order Comment: @ COL L DATE was changed from 10/09/22 to 10/10/22 @ by 2053. Old specimen was [id number]. Performed By: #### L IPA 1, BMP, CKMB 1, CBC, PT, TROP 1 #### Main Lab - [address] [address] Urea nitrogen [Mass/Vol] 16 mg/dL Normal 7-21 [facility] Comment on above: Order Comment: @ COL L DATE was changed from 10/09/22 to 10/10/22 @ by 2053. Old specimen was [id number]. Performed By: #### L IPA 1, BMP, CKMB 1, CBC, PT, TROP 1 #### Main Lab - [facility] [address] [place] [address] AGE,PATIENT 62 Years Normal [facility] Comment on above: Order Comment: @ COL L DATE was changed from 10/09/22 to 10/10/22 @ by 2053. Old specimen was [id number]. Performed By: #### L IPA 1, BMP, CKMB 1, CBC, PT, TROP 1 #### Main Lab - [facility] [address] [place], [place] [address] CBC WITH AUTO DIFFon 10-10-2 023 BASO, ABSOLUTE (AUTO) 0.0 10 3/uL Normal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 Problem List As Of Date 02/23/2021 Noted Resolved Hematuria [R31.9] 02/03/2012 Left lower quadrant pain [R10.32] 02/03/2012 Urinary tract infection [N39.0] 02/03/2012 Encounter Status:Closed by RIZWANA LOUIS LPN on 03/16/21 [facility] 12-31-2020 [facility] Telephone (VANESA) VENUS SPIVEY ([id number]) 1960 [facility] Date Time Provider Department 12/31/20 DAMIÁN KIMBLE During your visit today, we recorded the following information about you: Claudia Gonzales LPN 12/31/2020 11:44 AM Signed Pt calling for the followin. referral to Dr. Yee to be seen for EGD for spitting up blood off and on and constant heartburn. She takes Omeprazole 20 mg 2 tablets once a day. Can not go to [place] [facility] not in her network. Has seen Dr. Yee before . 2. Order for H-pylori stool check she completed medications from another doctor 2 weeks ago. She wants to make sure this is gone. This needs to be done at [facility] fax orders. Please advise pt. She is aware the doctor is out of the office till next week. Claudia Murphyrie William Pss 01/09/2021 1:47 PM Signed Patient would prefer to stay local please fax referral to Dr Yee office. Rizwana Louis LPN 01/09/2021 4:58 PM Signed Referral faxed to Dr. Yee. Order for H-Pylori stool fax to [facility]. Allergies As of Date: 12/31/2020 Noted Allergy Reaction DEMEROL (MEPERIDINE (PF)) 02/03/2012 11 - Vomiting VERSED (MIDAZOLAM) 02/03/2012 11 - Vomiting MORPHINE 02/03/2012 11 - Vomiting Date Reviewed: 11/11/2020 Reviewed by: Rizwana Louis LPN - Fully Assessed Reason for Visit: Orders [681] Consult [502] Prescriptions as of 01/09/2021 - diphenhydrAMINE (BENADRYL) 25 mg capsule Take 25 mg by mouth every 6 hours as needed. - omeprazole (PRILOSEC) 20 mg capsule Take 2 capsules by mouth once daily. - ATORVASTATIN CALCIUM (LIPITOR ORAL) Take by mouth once daily. - CYANOCOBALAMIN, VITAMIN B-12, (VITAMIN B-12 INJECTION) by INJECTION(UNSPECIFIED PARENTERAL ROUTES) route. 2 times a month Problem List As Of Date 12/31/2020 Noted Resolved Hematuria [R31.9] 02/03/2012 Left lower quadrant pain [R10.32] 02/03/2012 Urinary tract infection [N39.0] 02/03/2012 Encounter Status:Closed by RIZWANA LOUIS LPN on 01/09/21 [facility] 12-24-2020 [facility] Telephone (VANESA) VENUS SPIVEY ([id number]) 1960 [facility] Date Time Provider Department 12/24/20 DAMIÁN KIMBLE During your visit today, we recorded the following information about you: Jennifer Nenita Clifton 12/24/2020 3:02 PM Signed Patient is asking for another stool sample test to see if medication is helping. She is requesting that be put through [facility]. Patient states she was unable to be seen in [place] due to insurance. She would like a referral faxed to Dr. Yee. Please call and advise. Claudia Gonzales LPN 12/31/2020 3:10 PM Signed See phone encounter dated 12-31-20. This is being address on that phone encounter. Claudia Gonzales LPN Allergies As of Date: 12/24/2020 Noted Allergy Reaction DEMEROL (MEPERIDINE (PF)) 02/03/2012 11 - Vomiting VERSED (MIDAZOLAM) 02/03/2012 11 - Vomiting MORPHINE 02/03/2012 11 - Vomiting Date Reviewed: 11/11/2020 Reviewed by: Rizwana Louis LPN - Fully Assessed Reason for Visit: Referral Request [124] Prescriptions as of 12/31/2020 - diphenhydrAMINE (BENADRYL) 25 mg capsule Take 25 mg by mouth every 6 hours as needed. - omeprazole (PRILOSEC) 20 mg capsule Take 2 capsules by mouth once daily. - ATORVASTATIN CALCIUM (LIPITOR ORAL) Take by mouth once daily. - CYANOCOBALAMIN, VITAMIN B-12, (VITAMIN B-12 INJECTION) by INJECTION(UNSPECIFIED PARENTERAL ROUTES) route. 2 times a month Problem List As Of Date 12/24/2020 Noted Resolved Hematuria [R31.9] 02/03/2012 Left lower quadrant pain [R10.32] 02/03/2012 Urinary tract infection [N39.0] 02/03/2012 Encounter Status:Closed by NENITA CLIFTON JENNIFER on 12/28/20 [facility] 11-20-2020 [facility] Telephone (VANESA) PATRICVENUS ([id number]) 1960 F [facility] Date Time Provider Department 11/20/20 DAMIÁN KIMBLE During your visit today, we recorded the following information about you: Tiara Jessica RN 11/20/2020 9:04 AM Signed Daria from [facility] called, verified pt by name and birthdate. Daria states she is not able to schedule pt until a referral is placed and then pt has visits approved for [facility]. Referral to GI pended. Insurance referral for at [facility] also placed and submitted for approval. Tiara Kimble APRN.[employer] 11/20/2020 1:15 PM Signed Signed order. GI referral for EGD with [facility] for refractory H pylori Thanks Damián Kimble APRN.GEETHA Louis LPN 12/02/2020 3:19 PM Signed Fax sent to [facility] asking status of referral. Rizwana Louis LPN 12/04/2020 10:40 AM Signed Response from [place] is that they are waiting on insurance approval prior to scheduling patient. Rizwana Louis LPN 12/16/2020 1:19 PM Signed Patient states that the referral to [facility] was denied. She is following with ID in [place] and was prescribed several medications. She will have EGD repeat at a facility that is in her Network. Allergies As of Date: 11/20/2020 Noted Allergy Reaction DEMEROL (MEPERIDINE (PF)) 02/03/2012 11 - Vomiting VERSED (MIDAZOLAM) 02/03/2012 11 - Vomiting MORPHINE 02/03/2012 11 - Vomiting Date Reviewed: 11/11/2020 Reviewed by: Rizwana Louis LPN - Fully Assessed Reason for Visit: Referral Request [124] Primary Visit Diagnosis:Helicobacter pylori gastritis [K29.70, B96.81] Order(s):CONSULT TO GASTROENTEROLOGY [9010] Order #: [id number]: 1 FUTURE Prescriptions as of 12/16/2020 - diphenhydrAMINE (BENADRYL) 25 mg capsule Take 25 mg by mouth every 6 hours as needed. - omeprazole (PRILOSEC) 20 mg capsule Take 2 capsules by mouth once daily. - ATORVASTATIN CALCIUM (LIPITOR ORAL) Take by mouth once daily. - CYANOCOBALAMIN, VITAMIN B-12, (VITAMIN B-12 INJECTION) by INJECTION(UNSPECIFIED PARENTERAL ROUTES) route. 2 times a month Problem List As Of Date 11/20/2020 Noted Resolved Hematuria [R31.9] 02/03/2012 Left lower quadrant pain [R10.32] 02/03/2012 Urinary tract infection [N39.0] 02/03/2012 Encounter Status:Closed by RIZWANA LOUIS LPN on 12/16/20 [facility] CNOVon 11-11-2020 CNOV Office Visit (GASTCAROLA ) DMITRIY SPIVEYANEJUDITH Collazo ([id number]) 1960 F [facility] Date Time Provider Department 11/11/20 11:00 AM DAMIÁN KIMBLE During your visit today, we recorded the following information about you: Pulse Blood pressure Weight Height 73/minute 106/78 64.4 kg 1.64 m Damián Kimble APRN.[employer] 11/11/2020 12:58 PM Signed DEPARTMENT OF GASTROENTEROLOGY - NEW PATIENT/CONSULT REASON FOR VISIT Venus Spivey is a 60 year old female who is scheduled for Heartburn (hx of Hypylori) HISTORY OF PRESENT ILLNESS Venus Spivey is a 60 year old female with a history of refractory H. pylori gastritis and has failed multiple regimens. January/2019 seeing infectious disease treated with amoxicillin, rafaabutin and omeprazole for 10 days Patient reports she knows that she was supposed to have follow-up EGDs yearly however the last year and 9 months have been very stressful, her 30-year-old son committed suicide. Who presents today for an evaluation of heartburn. States that just about every thing causes her to have heartburn. Coughing up blood tinged and then brown blood.Heartburn hurts so bad in chest. Denies nausea and vomiting. Wakes up choking,coughing at times has noticed pink tinged phlegm - She states she wait 3 hours before laying down after eating and she sleeps with her HOB elevated with 2 pillows. Patient denies bloating or regurgitation or indigestion. The patient denies change in bowel habits, denies blood or black stool rectal bleeding or abdominal pain. Having a bowel movement Will have constipation sometimes associates this what she eats. Omeprazole 20mg taking PRIOR TEST RESULTS Imaging/Procedures: The patient was seen by on 08/29/2017 for upper endoscopy for Refractory H. pylori present for 12 years and resistant to multiple antibiotic regimens. However intent is to obtain samples for culture and sensitivity to help better eradicate this organism. The procedure report has been reviewed and findings as follows: Impression: ? - Normal esophagus. ? - Normal stomach. Biopsied. ? - Normal examined duodenum. PAST MEDICAL HISTORY Diagnosis Date - Anemia - Blood dyscrasia - Gastritis - GERD (gastroesophageal reflux disease) - Lymphadenitis - Mental disorder - Stroke (HCC) 2012 PAST SURGICAL HISTORY Procedure Laterality Date - APPENDECTOMY - EGD W/O OR W/BRUSH/WASH 08/29/2017 EGD - HYSTERECTOMY HX - LOWER EXTREMITY CHECK Right - ROTATOR CUFF REPAIR Left Current Outpatient Medications Medication Sig Dispense Refill - calcium carbonate (TUMS ORAL) Take 1 tablet by mouth as needed. - diphenhydrAMINE (BENADRYL) 25 mg capsule Take 25 mg by mouth every 6 hours as needed. - omeprazole (PRILOSEC) 20 mg capsule Take 2 capsules by mouth once daily. 60 capsule 1 - ATORVASTATIN CALCIUM (LIPITOR ORAL) Take by mouth once daily. - CYANOCOBALAMIN, VITAMIN B-12, (VITAMIN B-12 INJECTION) by INJECTION(UNSPECIFIED PARENTERAL ROUTES) route. 2 times a month No current facility-administered medications for this visit. ALLERGIES Allergen Reactions - Demerol [Meperidine* Vomiting - Versed [Midazolam] Vomiting - Morphine Vomiting Social History Tobacco Use - Smoking status: Never Smoker - Smokeless tobacco: Never Used Substance Use Topics - Alcohol use: Yes Comment: occasional - Drug use: No FAMILY HISTORY (grandparents, parents, brothers, sisters, aunts, or uncles) Ulcerative Colitis: No Crohn's Disease: No Colon Cancer: No Colon Polyps: No IBS: No Celiac disease: No PHYSICAL EXAMINATION BP 106/78 Pulse 73 Ht 5' 4.567" (1.64m) Wt 142 lb (64.4kg) SpO2 99% BMI 23.95 kg/(m2). General Appearance: Well appearing, alert, in no acute distress, well-hydrated, well nourished. Eyes: PERRLA, conjunctiva and sclera normal Oropharynx: Lips, tongue, and oral mucosa normal. There is no thrush or oral ulcers. Lungs:breath sounds clear to auscultation bilaterally, no crackles, rhonchi, or wheezes Heart: regular rate and rhythm, no murmurs or gallops. Abdomen: not distended, normal bowel sounds, soft and depressible, no guarding or rebound, no palpable mass, no organomegaly Rectal exam: Deferred. Extremities: no cyanosis or edema Skin: no jaundice, no spider angiomas, no palmar erythema Neuro:alert, oriented x 3, pleasant and in no acute distress IMPRESSION (R12) Heartburn (primary encounter diagnosis) (R14.0) Bloating Differential diagnosis includes: GERD vs H Pylori PLAN Patient presents today for evaluation of heartburn. Patient has a history of refractory H. pylori gastritis and has failed multiple regimens over many years. Patient reports she was to have a follow-up EGD in 2019 but has been under a lot of stress son committed suicide 1 year and 9 months. Symptoms of heart (more content not included)... Normal [facility] HISTORY PHYSICALon HISTORY PHYSICAL HNO ID: [id number] Author: Damián Kimble APRN.[employer] Service: ? Author Type: Nurse Practitioner Type: HANDP Filed: 11/11/2020 12:58 PM Note Text: DEPARTMENT OF GASTROENTEROLOGY - NEW PATIENT/CONSULT REASON FOR VISIT Venus Spivey is a 60 year old female who is scheduled for Heartburn (hx of Hypylori) HISTORY OF PRESENT ILLNESS Venus Spivey is a 60 year old female with a history of refractory H. pylori gastritis and has failed multiple regimens. January/2019 seeing infectious disease treated with amoxicillin, rafaabutin and omeprazole for 10 days Patient reports she knows that she was supposed to have follow-up EGDs yearly however the last year and 9 months have been very stressful, her 30-year-old son committed suicide. Who presents today for an evaluation of heartburn. States that just about every thing causes her to have heartburn. Coughing up blood tinged and then brown blood.Heartburn hurts so bad in chest. Denies nausea and vomiting. Wakes up choking,coughing at times has noticed pink tinged phlegm - She states she wait 3 hours before laying down after eating and she sleeps with her HOB elevated with 2 pillows. Patient denies bloating or regurgitation or indigestion. The patient denies change in bowel habits, denies blood or black stool rectal bleeding or abdominal pain. Having a bowel movement Will have constipation sometimes associates this what she eats. Omeprazole 20mg taking PRIOR TEST RESULTS Imaging/Procedures: The patient was seen by on 08/29/2017 for upper endoscopy for Refractory H. pylori present for 12 years and resistant to multiple antibiotic regimens. However intent is to obtain samples for culture and sensitivity to help better eradicate this organism. The procedure report has been reviewed and findings as follows: Impression: ? - Normal esophagus. ? - Normal stomach. Biopsied. ? - Normal examined duodenum. PAST MEDICAL HISTORY Diagnosis Date - Anemia - Blood dyscrasia - Gastritis - GERD (gastroesophageal reflux disease) - Lymphadenitis - Mental disorder - Stroke (HCC) 2012 PAST SURGICAL HISTORY Procedure Laterality Date - APPENDECTOMY - EGD W/O OR W/BRUSH/WASH 08/29/2017 EGD - HYSTERECTOMY HX - LOWER EXTREMITY CHECK Right - ROTATOR CUFF REPAIR Left Current Outpatient Medications Medication Sig Dispense Refill - calcium carbonate (TUMS ORAL) Take 1 tablet by mouth as needed. - diphenhydrAMINE (BENADRYL) 25 mg capsule Take 25 mg by mouth every 6 hours as needed. - omeprazole (PRILOSEC) 20 mg capsule Take 2 capsules by mouth once daily. 60 capsule 1 - ATORVASTATIN CALCIUM (LIPITOR ORAL) Take by mouth once daily. - CYANOCOBALAMIN, VITAMIN B-12, (VITAMIN B-12 INJECTION) by INJECTION(UNSPECIFIED PARENTERAL ROUTES) route. 2 times a month No current facility-administered medications for this visit. ALLERGIES Allergen Reactions - Demerol [Meperidine* Vomiting - Versed [Midazolam] Vomiting - Morphine Vomiting Social History Tobacco Use - Smoking status: Never Smoker - Smokeless tobacco: Never Used Substance Use Topics - Alcohol use: Yes Comment: occasional - Drug use: No FAMILY HISTORY (grandparents, parents, brothers, sisters, aunts, or uncles) Ulcerative Colitis: No Crohn's Disease: No Colon Cancer: No Colon Polyps: No IBS: No Celiac disease: No PHYSICAL EXAMINATION BP 106/78 Pulse 73 Ht 5' 4.567" (1.64m) Wt 142 lb (64.4kg) SpO2 99% BMI 23.95 kg/(m2). General Appearance: Well appearing, alert, in no acute distress, well-hydrated, well nourished. Eyes: PERRLA, conjunctiva and sclera normal Oropharynx: Lips, tongue, and oral mucosa normal. There is no thrush or oral ulcers. Lungs:breath sounds clear to auscultation bilaterally, no crackles, rhonchi, or wheezes Heart: regular rate and rhythm, no murmurs or gallops. Abdomen: not distended, normal bowel sounds, soft and depressible, no guarding or rebound, no palpable mass, no organomegaly Rectal exam: Deferred. Extremities: no cyanosis or edema Skin: no jaundice, no spider angiomas, no palmar erythema Neuro:alert, oriented x 3, pleasant and in no acute distress IMPRESSION (R12) Heartburn (primary encounter diagnosis) (R14.0) Bloating Differential diagnosis includes: GERD vs H Pylori PLAN Patient presents today for evaluation of heartburn. Patient has a history of refractory H. pylori gastritis and has failed multiple regimens over many years. Patient reports she was to have a follow-up EGD in 2019 but has been under a lot of stress son committed suicide 1 year and 9 months. Symptoms of heartburn worsens during this time anything she eats causes continuous heartburn she is taking omeprazole 20 mg that has not helped. She is also experiencing bloating and wakes up in the middle of the night choking and coughing patient has noticed she coughs up r (more content not included)... Normal [facility] LIPIDon 04-28-2020 Cholesterol [Mass/Vol] 196 MG/dL Normal 0-199 [facility] [place] Comment on above: Performed By: #### L [id number] #### [facility] [address] [place] [address] Cholesterol in HDL [Mass/Vol] 80 mg/dL Normal [place] [address] [facility] Comment on above: Result Comment: Victoria ents receiving Metamizole prior to venipuncture, may have falsely depressed results. Performed By: #### L [id number] #### [facility] [place] [address] Cholesterol in LDL [Mass/Vol] 91 mg/dL Normal [facility] Comment on above: Result Comment: ___C HOLESTEROL/HDL RATIO RISK___ CHD RISK = Total CHOL LDL HDL (CHOL/HDL) Recommended <200 <130 >40 <3.4 Borderline 200-239 130-159 3.4-4.99 High >240 >160 >5.0 Performed By: #### L [id number] #### [facility] [address] [facility] [place] [address] Triglyceride [Mass/Vol] 127 mg/dL Normal 30[facility] Comment on above: Result Comment: [place] ents receiving either N-Acetylcysteine (NAC) or Metamizole prior to venipuncture, may have falsely depressed results. Performed By: #### L [id number] #### [facility] [address] [place] [id number] # [phone] Vital Signs Date Time Vital Sign Value Performing Clinician Facility 11-21-2024 12:05-0400 Body height 162.6 cm Sonya Monte MD Work Phone: [facility] 11-21-2024 12:05-0400 Body mass index (BMI) [Ratio] 26.04 kg/m2 Sonya Monte MD Work Phone: [facility] 11-21-2024 12:05-0400 Body weight 68.8 kg Sonya Monte MD Work Phone: [facility] 11-21-2024 12:05-0400 Diastolic blood pressure 77 mm[Hg] Sonya Monte MD Work Phone: [facility] 11-21-2024 12:05-0400 Heart rate 70 /min Sonya Monte MD Work Phone: [facility] 11-21-2024 12:05-0400 Respiratory rate 16 /min Sonya Monte MD Work Phone: [facility] 11-21-2024 12:05-0400 SaO2% (BldA) [Mass fraction] 97 % Sonya Monte MD Work Phone: [facility] 11-21-2024 12:05-0400 Systolic blood pressure 116 mm[Hg] Sonya Monte MD Work Phone: [facility] 07-23-2024 13:28-0500 Body height 162.6 cm Sonya Monte MD Work Phone: [facility] 07-23-2024 13:28-0500 Body mass index (BMI) [Ratio] 26.98 kg/m2 Sonya Monte MD Work Phone: [facility] 07-23-2024 13:28-0500 Body weight 71.3 kg Sonya Monte MD Work Phone: [facility] 07-23-2024 13:28-0500 Diastolic blood pressure 84 mm[Hg] Sonya Monte MD Work Phone: [facility] 07-23-2024 13:28-0500 Heart rate 73 /min Sonya Monte MD Work Phone: [facility] 07-23-2024 13:28-0500 Respiratory rate 16 /min Sonya Monte MD Work Phone: [facility] 07-23-2024 13:28-0500 SaO2% (BldA) [Mass fraction] 98 % Sonya Monte MD Work Phone: [facility] 07-23-2024 13:28-0500 Systolic blood pressure 163 mm[Hg] Sonya Monte MD Work Phone: [facility] 05-07-2024 13:00-0500 Body mass index (BMI) [Ratio] 26.72 kg/m2 Sonya Monte MD Work Phone: [facility] 05-07-2024 13:00-0500 Body weight 70.6 kg Sonya Monte MD Work Phone: [facility] 05-07-2024 13:00-0500 Diastolic blood pressure 80 mm[Hg] Sonya Monte MD Work Phone: [facility] 05-07-2024 13:00-0500 Heart rate 72 /min Sonya Monte MD Work Phone: [facility] 05-07-2024 13:00-0500 Respiratory rate 16 /min Sonya Monte MD Work Phone: [facility] 05-07-2024 13:00-0500 SaO2% (BldA) [Mass fraction] 99 % Sonya Monte MD Work Phone: [facility] 05-07-2024 13:00-0500 Systolic blood pressure 114 mm[Hg] Sonya Monte MD Work Phone: [facility] 04-20-2024 13:14-0500 Body height 162.6 cm Jessica Ordaz SHIPPING MANAGER.[employer] Work Phone: [facility] 04-20-2024 13:14-0500 Body mass index (BMI) [Ratio] 25.75 kg/m2 Jessica Ordaz SHIPPING MANAGER.[employer] Work Phone: [facility] 04-20-2024 13:14-0500 Body weight 68.04 kg Jessica Ordaz SHIPPING MANAGER.[employer] Work Phone: [facility] 04-20-2024 13:14-0500 Diastolic blood pressure 81 mm[Hg] Jessica Ordaz SHIPPING MANAGER.[employer] Work Phone: [facility] 04-20-2024 13:14-0500 Heart rate 69 /min Jessica Ordaz SHIPPING MANAGER[employer] Work Phone: [facility] 04-20-2024 13:14-0500 SaO2% (BldA) [Mass fraction] 98 % Jessica Ordaz SHIPPING MANAGER.[employer] Work Phone: [facility] 04-20-2024 13:14-0500 Systolic blood pressure 118 mm[Hg] Jessica Ordaz SHIPPING MANAGER.[employer] Work Phone: [facility] 02-28-2024 11:04-0400 Body height 163.8 cm Blaise Carroll MD Work Phone: [facility] 02-28-2024 11:04-0400 Body mass index (BMI) [Ratio] 26.53 kg/m2 Blaise Carroll MD Work Phone: [facility] [employer] 02-28-2024 11:04-0400 Body weight 71.22 kg Blaise Carroll MD Work Phone: [facility] [employer] 02-28-2024 11:04-0400 Diastolic blood pressure 82 mm[Hg] Blaise Carroll MD Work Phone: [facility] [employer] 02-28-2024 11:04-0400 Heart rate 66 /min Blaise Carroll MD Work Phone: [facility] [employer] 02-28-2024 11:04-0400 Systolic blood pressure 127 mm[Hg] Blaise Carroll MD Work Phone: [facility] 02-22-2024 13:27-0400 Body mass index (BMI) [Ratio] 25.97 kg/m2 Melly Robles DO Work Phone: [facility] 02-22-2024 13:27-0400 Body temperature 97.81 [degF] Melly Robles DO Work Phone: [facility] 02-22-2024 13:27-0400 Body weight 69.85 kg Melly Robles DO Work Phone: [facility] 02-22-2024 13:27-0400 Diastolic blood pressure 70 mm[Hg] Melly Robles DO Work Phone: [facility] 02-22-2024 13:27-0400 Heart rate 71 /min Melly Robles DO Work Phone: [facility] 02-22-2024 13:27-0400 Respiratory rate 18 /min Melly Robles DO Work Phone: [facility] 02-22-2024 13:27-0400 SaO2% (BldA) [Mass fraction] 98 % Melly Robles DO Work Phone: [facility] 02-22-2024 13:27-0400 Systolic blood pressure 120 mm[Hg] Melly Robles DO Work Phone: [facility] 11-17-2022 10:42-0400 Body height 162.[address] Bear Au Work Phone: [facility] 11-17-2022 10:42-0400 Body mass index (BMI) [Ratio] 26.2 kg/m2 Dr. Bear Au Work Phone: [facility] 11-17-2022 10:42-0400 Body weight 69.[address] Bear Au Work Phone: [facility] 11-17-2022 10:42-0400 Diastolic blood pressure 74 mm[Hg] Dr. Bear Au Work Phone: [facility] 11-17-2022 10:42-0400 Heart rate 69 /min Dr. Bear Au Work Phone: [facility] 11-17-2022 10:42-0400 Respiratory rate 16 /min Dr. Bear Au Work Phone: [facility] 11-17-2022 10:42-0400 Systolic blood pressure 111 mm[Hg] Dr. Bear Au Work Phone: [facility] Encounters Encounter Date Encounter Type Care Provider Facility Start: 12-25-2024 End: 12-29-2024 ambulatory JACK Shelia NEISHA JAMA Facility:A Start: 11-21-2024 End: 11-21-2024 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 Sonya Mcdermott MD Work Phone: [facility] Comment on above: Cervical disc disord er with radiculopathy (Primary Dx) Start: 11-21-2024 End: 11-21-2024 ambulatory SONYA MCDERMOTT Facility:[facility] Start: 11-21-2024 End: 11-21-2024 Subsequent hospital visit by physician Xr [facility] [employer] Super[employer] Comment on above: Cervical disc disord er with radiculopathy [M50.10] Start: 07-23-2024 End: 07-23-2024 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 Sonya Mcdermott MD Work Phone: [facility] Comment on above: Cervical disc disord er with radiculopathy (Primary Dx) Start: 07-23-2024 End: 07-23-2024 ambulatory SONYA MCDERMOTT Facility:[facility] Start: 07-09-2024 ambulatory Ashley Herndon Facility :[facility] Start: 06-26-2024 End: 06-30-2024 ambulatory JACK DRIVER DO Facility:[facility] Start: 06-19-2024 End: 06-19-2024 ambulatory Yoly Black NP Facility:[facility] Start: 05-07-2024 End: 05-07-2024 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 Sonya Mcdermott MD Work Phone: [facility] Comment on above: Cervical disc disord er with radiculopathy (Primary Dx) Start: 05-07-2024 End: 05-07-2024 ambulatory SONYA MCDERMOTT Facility[facility] Start: 04-30-2024 End: 04-30-2024 Telephone encounter Jessica Ordaz APRN.[employer] Work Phone: [facility] Comment on above: MRI Appointment Start: 04-20-2024 End: 04-20-2024 Subsequent hospital visit by physician Anita [facility] [employer] [employer] Super[employer] [facility] Comment on above: Spinal stenosis of c ervical region [M48.02] Start: 04-20-2024 End: 04-20-2024 Telephone encounter Jessica Ordaz APRN.[employer] Work Phone: [facility] Start: 04-20-2024 End: 04-20-2024 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 Jessica Ordaz APRN.[employer] Work Phone: [facility] Comment on above: Spinal stenosis of c ervical region (Primary Dx); Claustrophobia Start: 04-20-2024 End: 04-20-2024 ambulatory JESSICA ORDAZ [facility] Start: 03-19-2024 End: 03-19-2024 ambulatory [facility] Start: 03-19-2024 End: 03-19-2024 Encounter for other preprocedural examination [facility] Start: 03-15-2024 End: 03-15-2024 ambulatory JACK DRIVER DO Facility:[facility] Start: 03-15-2024 End: 03-15-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 WYATT YEE MD [facility] Start: 02-29-2024 End: 02-29-2024 Telephone encounter Natalie Navarro MA [facility] Start: 02-28-2024 End: 02-28-2024 Office outpatient new 45 minutes Blaise Carroll MD Work Phone: [facility] Comment on above: Cervical radiculopat hy (Primary Dx) Start: 02-28-2024 End: 02-28-2024 ambulatory BLAISE CARROLL [facility] Start: 02-22-2024 End: 02-22-2024 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 Melly Talia Robles DO Work Phone: [facility] Comment on above: Laceration of blood vessel of index finger (Primary Dx) Start: 02-02-2024 End: 02-02-2024 ambulatory Jose Crowley Facility:[facility] Start: 07-08-2023 End: 07-08-2023 ambulatory [facility] Work Phone: Start: 07-08-2023 End: 07-08-2023 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 [facility] Work Phone: Start: 04-18-2023 End: 04-18-2023 ambulatory BEAR AU Facility:[id number] Start: 01-06-2023 End: 01-06-[address] Bear Au Work Phone: [facility] Work Phone: Start: 01-06-2023 End: 01-06-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 Bear Au Work Phone: [facility] Work Phone: Start: 12-03-2022 End: 12-08-[address] WYATT YEE MD Facility:[facility] Start: 12-02-2022 End: 12-07-[address] WYATT YEE MD Facility: Start: 11-29-2022 Non-patient / Non-visit Dr. Kaiser Au Work Phone: [facility] Work Phone: Start: 11-25-2022 Non-patient / Non-visit Dr. Kaiser Au Work Phone: [facility] Start: 11-25-2022 End: 11-25-[address] Bear Au Work Phone: [facility] Work Phone: Start: 11-25-2022 End: 11-25-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 Bear Au Work Phone: [facility] Work Phone: Start: 11-17-2022 End: 11-17-[address] Bear Au Work Phone: [facility] Work Phone: Start: 11-17-2022 End: 11-17-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 Bear Au Work Phone: [facility] Start: 11-17-2022 End: 11-17-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 Bear Au Work Phone: [facility] Start: 11-15-2022 End: 11-15-[address] Bear Au Work Phone: [facility] Work Phone: Start: 11-15-2022 End: 11-15-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 Bear Au Work Phone: [facility] Start: 10-10-2022 End: 10-10-2022 Emergency department patient visit Sheri Hunter DO Facility:[facility] Start: 08-13-2022 End: 08-13-2022 ambulatory [facility] Work Phone: Start: 08-13-2022 End: 08-13-2022 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 [facility], [facility] Start: 06-07-2022 End: 06-07-2022 ambulatory [facility] Work Phone: Start: 06-07-2022 End: 06-07-2022 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 [facility] Start: 05-20-2022 End: 05-21-2022 Emergency department patient visit HUNTER HUDSON Facility:[facility] Start: 05-20-2022 End: 05-20-2022 Subsequent hospital visit by physician Provider [facility] Comment on above: [facility] Start: 08-18-2021 End: 08-18-2021 Discharged Recurring [facility] Start: 08-11-2021 End: 08-11-2021 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 [facility], [place]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 Bear Au Work Phone: Start: 01-06-[address] Bear ace Work Phone: Start: 11-15-2022 US scan of gallbladder Dr. Bear Au Work Phone: Start: 08-13-2022 X-ray of cervical spine Start: 06-07-2022 Screening mammography Start: 04-28-2020 Lipid 1996 panel - S meka or Plasma Melly Robles DO Work Phone: Start: 05-30-[address] WYATT YEE MD Start: 05-30-2004 Hysteroscopy diagnos tic separate procedure DR WYATT YEE MD Start: 05-30-1993 Open reversal of fem sneha sterilization DR WYATT YEE MD Start: 05-30-1990 Stripping and ligati on of vein of lower leg DR WYATT YEE MD Start: 05-30-[address] WYATT YEE MD Start: 05-30-[address] WYATT YEE MD Rotator cuff arthrop athy of left shoulder DR WYATT YEE MD Plan of Treatment Date Care Activity Detail Author Start: 2036 RSV Vaccine (1 - 1-d ose 75+ series) RSV Vaccine (1 - 1-dose 75+ series) [facility] Start: 04-18-2033 DTaP/Tdap/Td Vaccine s (2 - Td or Tdap) DTaP/Tdap/Td Vaccines (2 - Td or Tdap) [facility] Start: 04-18-2033 Urine microalbumin profile DTa P,Tdap,Td Vaccine (2 - Td or Tdap) [facility] Start: 04-28-2025 Lipid panel Lipid Screening [facility] Start: 04-28-2025 LIPID SCREEN LIPID SCREEN [facility] Start: 01-28-2025 Influenza vaccination Influenz a Vaccine (Season Ended) [facility] Start: 07-08-2024 Screening for malign ant neoplasm of breast Mammogram [facility] Start: 05-07-2024 End: 05-07-2024 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 RADIO CT [employer] Comment on above: CT Cercival MRI CT follow up CT CERVICAL WO Start: 03-12-2024 End: 03-12-2024 Anesthesia consultation 03/12/2024 11:59 PM EDT Anesthesia Event [facility] [address] [place] [address] 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, 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[employer] [address] [place] [id number] [facility] Start: 01-29-2024 COVID-19 Vaccine ( season) COVID-19 Vaccine ( season) [facility] Start: 01-29-2024 Covid-19 Vaccine ( season) Covid-19 Vaccine ( season) [facility] Start: 01-29-2024 Influenza vaccination Influenza Vacc ine (#1) [facility] Start: 02-02-2023 Shingrix Vaccine (2 of 2) Banegas grix Vaccine (2 of 2) [facility] Start: 07-01-2022 Zoster Vaccines (2 of 2) Zoste r Vaccines (2 of 2) [facility] Start: 01-28-2022 Influenza vaccination INFLUENZA (#1) [facility] Start: 2021 Hepatitis B Vaccines (1 of 3 - Risk 3-dose series) Hepatitis B Vaccines (1 of 3 - Risk 3-dose series) [facility] Start: 2021 RSV Immunization age d 60 or older (1 - 1-dose 60+ series) RSV Immunization aged 60 or older (1 - 1-dose 60+ series) [facility] Start: 2021 RSV Immunization for Adults (1 - Risk 60-74 years 1-dose series) RSV Immunization for Adults (1 - Risk 60-74 years 1-dose series) [facility] Start: 05-30-2021 DEPRESSION ASSESSMENT DEPRESSION ASS ESSMENT [facility] Start: 10-29-2020 COVID-19 VACCINE (3 - Booster for Pfizer series) COVID-19 VACCINE (3 - Booster for Pfizer series) [facility] Start: 10-01-2011 Pneumococcal Vaccine : 50+ (1 of 1 - PCV) Pneumococcal Vaccine: 50+ (1 of 1 - PCV) [facility] Start: 10-01-2011 Pneumococcal Vaccine : 50+ Years (1 of 1 - PCV) Pneumococcal Vaccine: 50+ Years (1 of 1 - PCV) [facility] Start: 10-01-2011 SHINGRIX VACCINE (1 of 2) BANEGAS GRIX VACCINE (1 of 2) [facility] Start: 2006 COLOGUARD (FIT-DNA) COLOGUARD (FIT-D NA) [facility] Start: 2006 Colonoscopy COLONOSCOPY [facility] Start: 2006 COLORECTAL CANCER SCREENING COLORECTAL CANCER SCREENING [facility] Start: [address] COLONOGRAPHY [facility] Start: 2006 DIABETES SCREEN DIABETES SCREEN [facility] Start: 2006 Diabetes Screening Diabetes Screenin g [facility] Start: 2006 FECAL OCCULT BLOOD FECAL OCCULT BLOO D [facility] Start: 2006 Screening for malign ant neoplasm of colon [facility] Start: 2006 SIGMOIDOSCOPY SIGMOIDOSCOPY [facility] Start: 2001 Mammography MAMMOGRAM [facility] Start: 2001 Screening for malign ant neoplasm of breast Mammogram Screening [facility] Start: 10-01-1991 HPV TESTING HPV TESTING [facility] Start: 10-01-1991 Screening for malign ant neoplasm of cervix [facility] Start: 1982 PAP TESTING PAP TESTING [facility] Start: 1982 Screening for malign ant neoplasm of cervix [facility] Start: 1980 Hepatitis A Vaccines (1 of 2 - Risk 2-dose series) Hepatitis A Vaccines (1 of 2 - Risk 2-dose series) [facility] Start: 1980 Urine microalbumin profile DTAP,TDAP ,TD (1 - Tdap) [facility] Start: 10-01-1979 Anxiety Screening Anxiety Screening [facility] Start: 10-01-1979 Depression Screening Depression Scre ing [facility] Start: 10-01-1979 Diabetes mellitus screening Diabetes Screening [facility] Start: 10-01-1979 HEPATITIS C SCREENING HEPATITIS C [facility] Start: 10-01-1979 Hepatitis C screening Hepatitis C [facility] Start: 10-01-1979 HIV SCREENING HIV SCREENING [facility] Start: 10-01-1979 HIV screening HIV Screening [facility] Start: 1973 Depression Screening Depression Scre ening [facility] Start: 1962 MMR Vaccines (1 of 1 - Standard series) MMR Vaccines (1 of 1 - Standard series) [facility] Start: 1961 HIV screening HIV Screening [facility] Start: 1961 Screening for malign ant neoplasm of colon [facility] End: 05-20-2025 CT Cervical spine WO contrast CT CERVICAL SPINE WO IVCON Radiology Routine Spinal stenosis of cervical region 1 Occurrences starting 04/20/2024 until 05/20/2025 [facility] Comment on above: 1 Occurrences starti ng 04/20/2024 until 05/20/2025 End: 05-20-2025 MR Cervical spine WO contrast MRI CERVICAL SPINE WO IVCON Radiology Routine Spinal stenosis of cervical region 1 Occurrences starting 04/20/2024 until 05/20/2025 [facility] Work Phone: Comment on above: 1 Occurrences starti ng 04/20/2024 until 05/20/[address] [facility] End: 05-20-2025 XR CERV OTHER 4V AP/LAT/FLX/EXT XR CERV OTHER 4V AP/LAT/FLX/EXT Radiology Routine Spinal stenosis of cervical region 1 Occurrences starting 04/20/2024 until 05/20/2025 [facility] Comment on above: 1 Occurrences starti ng 04/20/2024 until 05/20/2025 XR CERV OTHER 4V AP/LAT/FLX/EXT XR CERV OTHER 4V AP/LAT/FLX/EXT Radiology Routine Spinal stenosis of cervical region 04/20/2024 2:26 PM EST [facility] End: 11-25-2025 XR CERV OTHER 4V AP/LAT/FLX/EXT XR CERV OTHER 4V AP/LAT/FLX/EXT Radiology Routine Cervical disc disorder with radiculopathy 1 Occurrences starting 10/26/2024 until 11/25/2025 [facility] Work Phone: Comment on above: 1 Occurrences starti ng 10/26/2024 until 11/25/2025 XR CERV OTHER 4V AP/LAT/FLX/EXT XR CERV OTHER 4V AP/LAT/FLX/EXT Radiology Routine Cervical disc disorder with radiculopathy 11/21/2024 12:00 PM EDT [facility] Immunizations Immunization Date Immunization Notes Care Provider Francia longoria 04-18-2023 tetanus toxoid, redu tri diphtheria toxoid, and acellular pertussis vaccine, adsorbed Melly Robles DO Work Phone: [facility] 05-06-2022 influenza virus vacc ine, unspecified formulation Melly Robles DO Work Phone: [facility] Payers Date Payer Category Payer Exclusive Provider Organization [employer] [id number] 2022 Self-pay [id number] 2022 Unknown [id number] 2019 Private Health Insurance [employer] [id number] 2019 Unknown [id number] 2019 Unknown [id number] 1960 Unknown [id number] 1960 Unknown [id number] 1960 Unknown [id number] Unknown [id number] Unknown [id number] Unknown [id number] Unknown [id number] Unknown [id number] Unknown [id number] Unknown [id number] Social History Date Type Detail Facility Start: 05-09-2016 End: 11-17-2022 Tobacco smoking status TXIS Unknown if ever smoked [facility] Start: 11-11-2020 None [facility] Start: 11-11-2020 Homeless [facility] Start: 11-11-2020 Non-smoker [facility] Start: 1960 Sex Assigned At Female [facility] Start: 08-29-2017 End: 02-22-2024 Tobacco smoking status TXIS Never smoked tobacco [facility] Start: 08-29-2017 End: 02-22-2024 Tobacco use and exposure Smokeless tobacco non-user [facility] Start: 01-11-2022 End: 02-28-2024 Alcohol intake Current drinker of alcohol (finding) [facility] Start: 03-15-2017 Alcohol Comment [facility] Start: 1960 Sex Assigned At Not on file [facility] Start: 02-22-2024 End: 11-21-2024 Alcoholic beverage intake Ex-drinker (finding) [facility] Start: 02-22-2024 End: 04-20-2024 History of Social function [facility] Start: 02-22-2024 End: 04-20-2024 Tobacco use panel [facility] Adult Depression Screening Assessment 0 [facility] Start: 02-28-2024 Alcohol Comment [facility]igned At Sex [facility] Start: 02-07-2024 Sex Female (finding) [facility] Start: 03-06-2024 Gender identity Identifies as female gender (finding) [facility] NEGATED: Highlighted rowStart: NINF History of tobacco use Passive smoker [facility] Clinical Notes 04-18-2023 to 11-21-2024 Sonya Mcdermott I, MD - 11/21/2024 12:45 PM Sonay Russell I, MD - 07/23/2024 1:30 PM Sonya Gross I, MD - 05/07/2024 1:00 PM ESTTelephone Encounter - Eder Harrison - 04/20/2024 1:58 PM EST Note Date & Type Note Facility 11-21-2024 History of Presen t illness Narrative NEUROSURGERY FOLLOW UP OFFICE NOTE Chair, Clinical Neurosciences Director, Spinal Neurosurgery [facility] Date of visit: November 21, 2024 Patient Name: Ms.Jeanette Spivey Date of : 1960 Current Age: [age] year old Sex: female MRN/E# [id number] Last Office Visit: 07/23/2024 Chief Complaint: Patient presents with: Established Patient Past Medical/Surgical History: Venus Spivey is a 64 year old female with a history of anemia, HLD, lymphadenitis and stroke. Surgical Risk Factors: Smoking status: Denies Anticoagulants/antiplatelets: Denies Diabetic: Denies BMI: 26.98 HPI: The patient had been recently evaluated by outside neurosurgery, Dr. Carroll, on 02/28/2024 and reported neck pain that radiated to right shoulder and interscapular region that have been ongoing for 2 years. She had treated her symptoms with physical therapy and oral medication as well as injections with continued persistent symptoms. Dr. Carroll recommended a C5-C7 ACDF. Patient did not proceed with surgical intervention as due to neurosurgeon outside of network. The patient presented to the office 04/20/2024 for a second opinion was seen by ANNY Warren, GEETHA. She reported she was scheduled to proceed with surgical intervention but due to previous surgeon being outside of network, requested a second opinion. She reported pain in neck that radiated into right shoulder and interscapular region. Onset of symptoms began a year and a half prior and been gradually worsening despite participation in conservative treatment outlined below. She had subjective weakness in right upper extremity, denied dexterity difficulties or dropping items. She endorsed mild gait instability, no recent falls or use of assistive device for ambulation. She denied bowel or bladder incontinence.She was asked to obtain MRI and x-rays of the cervical spine. She presented to the office 05/07/2024 for follow up and image review. She reported that her symptoms were unchanged. She described neck pain into the right posterior scapular region into the right shoulder. She reported feeling an electric shock in this region. She denied any hand difficulties or balance/gait issues. She denied any loss of bowel/bladder issues. She felt she had exhausted conservative treatment at this time. On examination in clinic she had 5 of 5 strength throughout the upper and lower extremities bilaterally. She was globally hyporeflexic. Jose's was negative. In summary this lady presented with a several month history of neck pain as well as pain radiating to the right scapular region. The neck pain and stiffness associated with that was her bigger of the 2 complaints. 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 From a surgical perspective she could consider a multilevel fusion most likely anteriorly. As I explained to her however that would help the foraminal stenosis and the radicular component but not necessarily help the neck pain. At this point I quoted her a 50-50 chance of helping neck pain specifically. She was not thrilled but wanted to know what to do. Again I explained this was a [id number] issue would not a critical surgery. She had no central canal stenosis. No neurological complaints. Simply a pain related issue. Another option would be to consider radiofrequency ablation to help with the neck pain specifically. I suggested we obtain a CT scan of the cervical spine to look more closely through the foramina and ensure what levels of surgery could be done to try and help alleviate her symptoms and then regroup. She presents to the office 07/23/2024 for follow up and image review. She stated that her symptoms were unchanged but she had noticed right arm weakness. She described neck pain into the right posterior scapular region as a burning pain and electric shock. She denied any hand difficulties or balance issues. She was very stiff and reported decreased ROM when looking to the left which she was most concerned with. She presented for surgical discussion and image review. In summary this lady presented with a constellation of symptoms. A pain/heaviness in the lower cervical spine was her worst complaint along with difficulties looking to the left and some tingling over the right trapezius region. I reviewed her imaging with her and her in clinic. I thought she had some foraminal stenosis that typically would cause right upper extremity symptoms as well as diffuse degeneration worse at C4-5-6 and C6-7. Even a two-level fusion at those 2 levels would not guarantee her relief of this somewhat atypical heaviness she perceived at the base of her cervical spine posteriorly. Usually I would quote a 50-50 chance of that. Perhaps the paresthesias that she experienced on the right may improve with the surgery but even that would be a bit of a jernigan. With that in mind I would favor her undertaking a trial for radiofrequency ablations given the amount of degeneration seen hoping that would help. If it did not she could always still consider additional surgery but given her presentation I would be hard pressed to guarantee her good results of her worst complaint. She appeared to have a good understanding of the situation as did her . She was already well-established with pain management in [place]. She was seeing them tomorrow and could discuss this with them. If they did not undertake the procedure I am happy to refer her elsewhere. She can follow-up with me on a as needed basis. The patient presents to the office today with complaints of worsening symptoms. She states that she had a nerve block test in preparation for a RFA at the end of August with pain management at [facility]. She stated that this actually made things worse. She stated that she was driving down to [place] on vacation about 5 days after the RFA and she developed vomiting and dizziness. She was admitted at [facility] for 1 day. She stated they did an MRI (she thinks an MRI of the brain) as they were ruling out stroke. She said they diagnosed her with vertigo. She does want to try another again due to this incident. For the past 2 months she has been having worsening posterior neck pain and pain in the right scapular region. She notes tingling to right scapular area. She denies pain into her arms. Her most bothersome complaint is of neck pain that is worsening with cervical range of motion. She denies dexterity issues and no bowel/bladder incontinence. 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 She stated after this cleaning episode she has been having numbness to right and pinky finger on the left hand. She is taking hydrocodone for pain. She is here for evaluation and plan of care. PREVIOUS CONSERVATIVE TREATMENTS: Medication: Meloxicam, [place] Physical therapy: Previous participation at [facility]- minimal symptom improvement. She has continued participation in home exercises/stretches as guided by physical therapy recommendations on routine basis as tolerated to present day. [facility] consultation notes can be found under scanned documents. RFA at the end of August not good side effects after - dizziness/vomiting - patient does not want to try this again Previous healthcare providers: [place]- Dr. Carroll and was recommended a C5-C7 ACDF Pain Management: Follows with [facility] - consult note can be found under scanned documents Injections: Cervical injection at [facility] - 30% symptom relief that lasted for only 1 week and therefore would not like to proceed with another PREVIOUS SURGERY: None PAIN EVALUATION 11/21/2024 1202 Pain Level: 6 Pain Location: Neck Description: Sore;Aching Duration Units: Unknown Frequency: Continuous PAST MEDICAL HISTORY Diagnosis Date Anemia Blood dyscrasia Gastritis GERD (gastroesophageal reflux disease) Hyperlipemia Lymphadenitis Mental disorder Stroke (HCC) 2012 PAST SURGICAL HISTORY Procedure Laterality Date APPENDECTOMY ESOPHAGOGASTRODUODENOSCOPY TRANSORAL DIAGNOSTIC 08/29/2017 EGD HYSTERECTOMY HX LOWER EXTREMITY CHECK Right ROTATOR CUFF REPAIR Left FAMILY HISTORY Problem Relation Age of Onset Stroke Father 3 ALLERGIES Allergen Reactions Demerol [Meperidine* Vomiting Versed [Midazolam] Vomiting Morphine Vomiting Current Outpatient Medications Medication Sig Dispense Refill rosuvastatin (CRESTOR) 10 mg tablet HYDROcodone-acetaminophen (NORCO) 5-325 mg per tablet Take 1 tablet by mouth every 8 hours as needed for pain. 0 famotidine (PEPCID) 20 mg tablet Take by mouth as directed. ALPRAZolam (XANAX) 0.25 mg tablet Take by mouth. CYANOCOBALAMIN, VITAMIN B-12, (VITAMIN B-12 INJECTION) by INJECTION(UNSPECIFIED PARENTERAL ROUTES) route. 2 times a month No current facility-administered medications for this visit. REVIEW OF SYSTEMS Review of Systems Constitutional: Negative for chills and fever. Eyes: Negative for visual disturbance. Respiratory: Negative for cough. Genitourinary: Negative for difficulty urinating. Musculoskeletal: Positive for arthralgias, neck pain and neck stiffness. Neurological: Positive for numbness. Negative for weakness. Numbness left ring and pinky finger C8 dermatome - started 1 wk prior Hematological: Does not bruise/bleed easily. Psychiatric/Behavioral: Negative for agitation and confusion. OBJECTIVE: BP 116/77 Pulse 70 Resp 16 Ht 5' 4" (1.63m) Wt 151 lb 10.8 oz (68.8kg) SpO2 97% BMI 26.02 kg/(m^2). Open I think her finger is on examination today in clinic she is grossly neurologically intact. She is some palpable tenderness to her PIP and the left fifth digit. Data Review IMAGING STUDIES: I reviewed her imaging studies. Cervical MRI imaging there is evidence of diffuse disc degeneration with bulging disks in particular at C5-6 and C6-7. This does result in left-sided foraminal stenosis severe at C5-6 and moderate to severe at C6-7. Cervical CT scan is evidence of diffuse cervical spondylosis with disc osteophytes throughout the entire cervical spine. Assessment & Plan: This lady presents for follow-up. Her biggest complaint is that of right sided neck pain. There is also associated right-sided shoulder pain and numbness as well as scapular pain. I do think she has foraminal stenosis at C5-6 and C6-7. Previously we have talked about surgery as an option to decompress the nerve roots. That could potentially afford her relief of her right shoulder and scapular region but her neck pain is actually the worst symptom. It sounds like she responded favorably initially to the test dose for the RFA but then had a strange side effect and delayed fashion. It is unfortunate as it does sound like she might be a candidate for that but with the experience she had she does not want to consider further intervention. If she want to consider a surgical intervention I stressed once again that it would be unlikely to treat her neck pain specifically. I would have her undertake a selective nerve root block to see if treating her shoulder pain and scapular pain would afford her reasonable relief to warrant surgery in the absence of treating her neck pain. Again she is quite concerned given her recent experience. For now she is going to sit on things. She is certainly welcome to follow-up with me on a as needed basis if she wants to further explore surgical option. Again I stressed that the goal of surgery would not be necessarily to treat neck pain. The following portions of the patient's history were reviewed, confirmed, and updated as necessary: allergies, current medications, past family history, past medical history, past social history, past surgical history, problem list, HPI, and ROS obtained by others. Some elements may be copied from a previous office note and have been reviewed/updated where appropriate. All portions reflect current medical decision making from today. The clinical and radiographic findings as well as the risks, benefits and alternatives of treatment have been reviewed in detail with the patient. Advised to call the office if symptoms worsen or new symptoms develop. Patient expressed understanding and is in agreement with plan. Sonya Mcdermott MD Chair, Clinical Neurosciences Director, Spinal Neurosurgery [facility] This note was partially generated using 51 Auto voice recognition system, and there may be some incorrect words, spellings, and punctuation that were not noted in checking the note before saving. documented in this encounter [facility] 11-21-2024 Note HNO ID: [id number] Author: SONYA MCDERMOTT MD Service: ? Author Type: Physician Type: Progress Notes Filed: 11/21/2024 14:08 Note Text: NEUROSURGERY FOLLOW UP OFFICE NOTE Chair, Clinical Neurosciences Director, Spinal Neurosurgery [facility] Date of visit: November 21, 2024 Patient Name: Ms.Jeanette Spivey Date of : 1960 Current Age: [age] year old Sex: female MRN/E# [id number] Last Office Visit: 07/23/2024 Chief Complaint: Patient presents with: Established Patient Past Medical/Surgical History: Venus Spivey is a 64 year old female with a history of anemia, HLD, lymphadenitis and stroke. Surgical Risk Factors: Smoking status: Denies Anticoagulants/antiplatelets: Denies Diabetic: Denies BMI: 26.98 HPI: The patient had been recently evaluated by outside neurosurgery, Dr. Carroll, on 02/28/2024 and reported neck pain that radiated to right shoulder and interscapular region that have been ongoing for 2 years. She had treated her symptoms with physical therapy and oral medication as well as injections with continued persistent symptoms. Dr. Carroll recommended a C5-C7 ACDF. Patient did not proceed with surgical intervention as due to neurosurgeon outside of network. The patient presented to the office 04/20/2024 for a second opinion was seen by ANNY Warren, GEET[place]. She reported she was scheduled to proceed with surgical intervention but due to previous surgeon being outside of network, requested a second opinion. She reported pain in neck that radiated into right shoulder and interscapular region. Onset of symptoms began a year and a half prior and been gradually worsening despite participation in conservative treatment outlined below. She had subjective weakness in right upper extremity, denied dexterity difficulties or dropping items. She endorsed mild gait instability, no recent falls or use of assistive device for ambulation. She denied bowel or bladder incontinence.She was asked to obtain MRI and x-rays of the cervical spine. She presented to the office 05/07/2024 for follow up and image review. She reported that her symptoms were unchanged. She described neck pain into the right posterior scapular region into the right shoulder. She reported feeling an electric shock in this region. She denied any hand difficulties or balance/gait issues. She denied any loss of bowel/bladder issues. She felt she had exhausted conservative treatment at this time. On examination in clinic she had 5 of 5 strength throughout the upper and lower extremities bilaterally. She was globally hyporeflexic. Jose's was negative. In summary this lady presented with a several month history of neck pain as well as pain radiating to the right scapular region. The neck pain and stiffness associated with that was her bigger of the 2 complaints. 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 From a surgical perspective she could consider a multilevel fusion most likely anteriorly. As I explained to her however that would help the foraminal stenosis and the radicular component but not necessarily help the neck pain. At this point I quoted her a 50-50 chance of helping neck pain specifically. She was not thrilled but wanted to know what to do. Again I explained this was a [id number] issue would not a critical surgery. She had no central canal stenosis. No neurological complaints. Simply a pain related issue. Another option would be to consider radiofrequency ablation to help with the neck pain specifically. I suggested we obtain a CT scan of the cervical spine to look more closely through the foramina and ensure what levels of surgery could be done to try and help alleviate her symptoms and then regroup. She presents to the office 07/23/2024 for follow up and image review. She stated that her symptoms were unchanged but she had noticed right arm weakness. She described neck pain into the right posterior scapular region as a burning pain and electric shock. She denied any hand difficulties or balance issues. She was very stiff and reported decreased ROM when looking to the left which she was most concerned with. She presented for surgical discussion and image review. In summary this lady presented with a constellation of symptoms. A pain/heaviness in the lower cervical spine was her worst complaint along with difficulties looking to the left and some tingling over the right trapezius region. I reviewed her imaging with her and her in clinic. I thought she had some foraminal stenosis that typically would cause right upper extremity symptoms as well as diffuse degeneration worse at C4-5-6 and C6-7. Even a two-level fusion at those 2 levels would not guarantee her relief of this somewhat atypical heaviness she perceived at the base of her cervical spine posteriorly. Usually I would quote a 50-50 chance of that. Perhaps the paresthesias that s (more content not included)... [facility] 07-23-2024 History of Presen t illness Narrative Images from the original note were not included. NEUROSURGERY FOLLOW UP OFFICE NOTE Chair, Clinical Neurosciences Director, Spinal Neurosurgery [facility] Date of visit: July 23, 2024 Patient Name: Ms.Jeanette Spivey Date of : 1960 Current Age: [age] year old Sex: female MRN/E# [id number] Last Office Visit: 05/28/2024 Chief Complaint: Patient presents with: Established Patient Past Medical/Surgical History: Venus Spivey is a 63 year old female with a history of anemia, HLD, lymphadenitis and stroke. Surgical Risk Factors: Smoking status: Denies Anticoagulants/antiplatelets: Denies Diabetic: Denies BMI: 25.75 HPI: The patient had been recently evaluated by outside neurosurgery, Dr. Carroll, on 02/28/2024 and reported neck pain that radiated to right shoulder and interscapular region that have been ongoing for 2 years. She had treated her symptoms with physical therapy and oral medication as well as injections with continued persistent symptoms. Dr. Carroll recommended a C5-C7 ACDF. Patient did not proceed with surgical intervention as due to neurosurgeon outside of network. The patient presented to the office 04/20/2024 for a second opinion was seen by ANNY Warren, GEET[place]. She reported she was scheduled to proceed with surgical intervention but due to previous surgeon being outside of network, requested a second opinion. She reported pain in neck that radiated into right shoulder and interscapular region. Onset of symptoms began a year and a half prior and been gradually worsening despite participation in conservative treatment outlined below. She had subjective weakness in right upper extremity, denied dexterity difficulties or dropping items. She endorsed mild gait instability, no recent falls or use of assistive device for ambulation. She denied bowel or bladder incontinence.She was asked to obtain MRI and x-rays of the cervical spine. She presented to the office 05/07/2024 for follow up and image review. She reported that her symptoms were unchanged. She described neck pain into the right posterior scapular region into the right shoulder. She reported feeling an electric shock in this region. She denied any hand difficulties or balance/gait issues. She denied any loss of bowel/bladder issues. She felt she had exhausted conservative treatment at this time. On examination in clinic she had 5 of 5 strength throughout the upper and lower extremities bilaterally. She was globally hyporeflexic. Jose's was negative. In summary this lady presented with a several month history of neck pain as well as pain radiating to the right scapular region. The neck pain and stiffness associated with that was her bigger of the 2 complaints. 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 From a surgical perspective she could consider a multilevel fusion most likely anteriorly. As I explained to her however that would help the foraminal stenosis and the radicular component but not necessarily help the neck pain. At this point I quoted her a 50-50 chance of helping neck pain specifically. She was not thrilled but wanted to know what to do. Again I explained this was a [id number] issue would not a critical surgery. She had no central canal stenosis. No neurological complaints. Simply a pain related issue. Another option would be to consider radiofrequency ablation to help with the neck pain specifically. I suggested we obtain a CT scan of the cervical spine to look more closely through the foramina and ensure what levels of surgery could be done to try and help alleviate her symptoms and then regroup. She presents to the office today for follow up and image review. She states that her symptoms are unchanged but she has noticed right arm weakness. She describes neck pain into the right posterior scapular region as a burning pain and electric shock. She denies any hand difficulties or balance issues. She is very stiff and reports decreased ROM when looking to the left which she is most concerned with. She presents for surgical discussion and image review. PREVIOUS CONSERVATIVE TREATMENT: -Medication: Meloxicam, [place] -Physical therapy: Previous participation at [facility]- minimal symptom improvement. She has continued participation in home exercises/stretches as guided by physical therapy recommendations on routine basis as tolerated to present day. [facility] consultation notes can be found under scanned documents. -Previous healthcare providers: Faviola Carroll and was recommended a C5-C7 ACDF -Pain Management: Follows with [facility] - consult note can be found under scanned documents -Injections: Cervical injection at [facility] - 30% symptom relief that lasted for only 1 week and therefore would not like to proceed with another PREVIOUS SPINE SURGERY: None PAIN EVALUATION 07/22/2024 1034 Pain Level: 5 Pain Location: Neck Description: Aching;Burning;Tingling Duration Units: Months Frequency: Intermittent Intervention/Comfort measure: Medication;Relaxation;Massage;Pi llow support;Positioning PAST MEDICAL HISTORY Diagnosis Date Anemia Blood dyscrasia Gastritis GERD (gastroesophageal reflux disease) Hyperlipemia Lymphadenitis Mental disorder Stroke (HCC) 2012 PAST SURGICAL HISTORY Procedure Laterality Date APPENDECTOMY ESOPHAGOGASTRODUODENOSCOPY TRANSORAL DIAGNOSTIC 08/29/2017 EGD HYSTERECTOMY HX LOWER EXTREMITY CHECK Right ROTATOR CUFF REPAIR Left FAMILY HISTORY Problem Relation Age of Onset Stroke Father 3 ALLERGIES Allergen Reactions Demerol [Meperidine* Vomiting Versed [Midazolam] Vomiting Morphine Vomiting Current Outpatient Medications Medication Sig Dispense Refill HYDROcodone-acetaminophen (NORCO) 5-325 mg per tablet famotidine (PEPCID) 20 mg tablet Take by mouth as directed. ALPRAZolam (XANAX) 0.25 mg tablet Take by mouth. meloxicam (MOBIC) 15 mg tablet omeprazole (PRILOSEC) 20 mg capsule Take 2 capsules by mouth once daily. 60 capsule 1 ATORVASTATIN CALCIUM (LIPITOR ORAL) Take by mouth once daily. CYANOCOBALAMIN, VITAMIN B-12, (VITAMIN B-12 INJECTION) by INJECTION(UNSPECIFIED PARENTERAL ROUTES) route. 2 times a month No current facility-administered medications for this visit. REVIEW OF SYSTEMS Review of Systems Constitutional: Negative for chills, fatigue and fever. HENT: Negative for congestion, ear discharge and trouble swallowing. Eyes: Negative for discharge, itching and visual disturbance. Respiratory: Negative for cough, shortness of breath and wheezing. Cardiovascular: Negative for chest pain, palpitations and leg swelling. Gastrointestinal: Negative for constipation, diarrhea, nausea and vomiting. Endocrine: Negative for cold intolerance and heat intolerance. Genitourinary: Negative for difficulty urinating, frequency and urgency. Musculoskeletal: Positive for neck pain and neck stiffness. Negative for back pain and gait problem. Skin: Negative for rash and wound. Allergic/Immunologic: Negative for environmental allergies and food allergies. Neurological: Positive for weakness. Negative for dizziness and numbness. Hematological: Does not bruise/bleed easily. Psychiatric/Behavioral: Negative for agitation. The patient is not nervous/anxious. OBJECTIVE: BP 163/84 Pulse 73 Resp 16 Ht 5' 4" (1.63m) Wt 157 lb 3 oz (71.3kg) SpO2 98% BMI 26.97 kg/(m^2). On examination today in clinic she is globally neurologically intact. Data Review IMAGING STUDIES: In clinic today I rereviewed an MRI taken the patient's cervical spine . On MRI imaging there is loss of normal cervical lordosis. Evidence of multilevel disc degeneration with narrowing of the disc spaces throughout. It is more prominent at see 5 6 and C6-7. Also hint of a small listhesis at C4-5. No evidence of significant central canal stenosis but varying degrees of foraminal stenosis on the left with mild to moderate at C4-5 on the right moderate at C5-6 and on the right moderate at C6-7. On flexion-extension there is evidence of a listhesis at C4-5 that worsens slightly on flexion compared to extension. Collapse seen at C5-6 and C6-[address] scan was undertaken prior to today's visit. It is consistent with this with degeneration seen predominantly at C5-6 and C6-7. There is evidence of foraminal stenosis that looks moderate to severe at both of those levels on the right but mild only on the left. Assessment & Plan: In summary this lady presents with a constellation of symptoms. A pain/heaviness in the lower cervical spine is her worst complaint along with difficulties looking to the left and some tingling over the right trapezius region. I reviewed her imaging with her and her in clinic today. I do think she has some foraminal stenosis that typically would cause right upper extremity symptoms as well as diffuse degeneration worse at C4-5-6 and C6-7. Even a two-level fusion at those 2 levels would not guarantee her relief of this somewhat atypical heaviness she perceives at the base of her cervical spine posteriorly. Usually I would quote a 50-50 chance of that. Perhaps the paresthesias that she is experiences on the right may improve with the surgery but even that would be a bit of a jernigan. With that in mind I would favor her undertaking a trial for radiofrequency ablations given the amount of degeneration seen hoping that would help. If it does not she can always still consider additional surgery but given her presentation I would be hard pressed to guarantee her good results of her worst complaint. She appeared to have a good understanding of the situation as did her . She is already well-established with pain management in [place]. She is seeing them tomorrow and can discuss this with him. If they do not undertake the procedure I am happy to refer her elsewhere. She can follow-up with me on a as needed basis. The following portions of the patient's history were reviewed, confirmed, and updated as necessary: allergies, current medications, past family history, past medical history, past social history, past surgical history, problem list, HPI, and ROS obtained by others. Some elements may be copied from a previous office note and have been reviewed/updated where appropriate. All portions reflect current medical decision making from today. The clinical and radiographic findings as well as the risks, benefits and alternatives of treatment have been reviewed in detail with the patient. Advised to call the office if symptoms worsen or new symptoms develop. Patient expressed understanding and is in agreement with plan. Sonya Mcdermott MD Chair, Clinical Neurosciences Director, Spinal Neurosurgery [facility] This note was partially generated using 51 Auto voice recognition system, and there may be some incorrect words, spellings, and punctuation that were not noted in checking the note before saving. documented in this encounter [facility] 07-23-2024 Note HNO ID: [id number] Author: SONYA MCDERMOTT MD Service: ? Author Type: Physician Type: Progress Notes Filed: 07/23/2024 14:10 Note Text: NEUROSURGERY FOLLOW UP OFFICE NOTE Chair, Clinical Neurosciences Director, Spinal Neurosurgery [facility] Date of visit: July 23, 2024 Patient Name: Ms.Jeanette Spivey Date of : 1960 Current Age: [age] year old Sex: female MRN/E# [id number] Last Office Visit: 05/28/2024 Chief Complaint: Patient presents with: Established Patient Past Medical/Surgical History: Venus Spivey is a 63 year old female with a history of anemia, HLD, lymphadenitis and stroke. Surgical Risk Factors: Smoking status: Denies Anticoagulants/antiplatelets: Denies Diabetic: Denies BMI: 25.75 HPI: The patient had been recently evaluated by outside neurosurgery, Dr. Carroll, on 02/28/2024 and reported neck pain that radiated to right shoulder and interscapular region that have been ongoing for 2 years. She had treated her symptoms with physical therapy and oral medication as well as injections with continued persistent symptoms. Dr. Carroll recommended a C5-C7 ACDF. Patient did not proceed with surgical intervention as due to neurosurgeon outside of network. The patient presented to the office 04/20/2024 for a second opinion was seen by ANNY Warren CNP. She reported she was scheduled to proceed with surgical intervention but due to previous surgeon being outside of network, requested a second opinion. She reported pain in neck that radiated into right shoulder and interscapular region. Onset of symptoms began a year and a half prior and been gradually worsening despite participation in conservative treatment outlined below. She had subjective weakness in right upper extremity, denied dexterity difficulties or dropping items. She endorsed mild gait instability, no recent falls or use of assistive device for ambulation. She denied bowel or bladder incontinence.She was asked to obtain MRI and x-rays of the cervical spine. She presented to the office 05/07/2024 for follow up and image review. She reported that her symptoms were unchanged. She described neck pain into the right posterior scapular region into the right shoulder. She reported feeling an electric shock in this region. She denied any hand difficulties or balance/gait issues. She denied any loss of bowel/bladder issues. She felt she had exhausted conservative treatment at this time. On examination in clinic she had 5 of 5 strength throughout the upper and lower extremities bilaterally. She was globally hyporeflexic. Jose's was negative. In summary this lady presented with a several month history of neck pain as well as pain radiating to the right scapular region. The neck pain and stiffness associated with that was her bigger of the 2 complaints. 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 From a surgical perspective she could consider a multilevel fusion most likely anteriorly. As I explained to her however that would help the foraminal stenosis and the radicular component but not necessarily help the neck pain. At this point I quoted her a 50-50 chance of helping neck pain specifically. She was not thrilled but wanted to know what to do. Again I explained this was a kncohhw-pa-[id number] issue would not a critical surgery. She had no central canal stenosis. No neurological complaints. Simply a pain related issue. Another option would be to consider radiofrequency ablation to help with the neck pain specifically. I suggested we obtain a CT scan of the cervical spine to look more closely through the foramina and ensure what levels of surgery could be done to try and help alleviate her symptoms and then regroup. She presents to the office today for follow up and image review. She states that her symptoms are unchanged but she has noticed right arm weakness. She describes neck pain into the right posterior scapular region as a burning pain and electric shock. She denies any hand difficulties or balance issues. She is very stiff and reports decreased ROM when looking to the left which she is most concerned with. She presents for surgical discussion and image review. PREVIOUS CONSERVATIVE TREATMENT: -Medication: Meloxicam, [place] -Physical therapy: Previous participation at [facility]- minimal symptom improvement. She has continued participation in home exercises/stretches as guided by physical therapy recommendations on routine basis as tolerated to present day. [facility] consultation notes can be found under scanned documents. -Previous healthcare providers: [place]- Dr. Carroll and was recommended a C5-C7 ACDF -Pain Management: Follows with [facility] - consult note can be found under scanned documents -Injections: Cervical injection at [facility] - 30% symptom relief that lasted for only 1 week and therefore w (more content not included)... [facility] 05-07-2024 History of Presen t illness Narrative Images from the original note were not included. NEUROSURGERY FOLLOW UP OFFICE NOTE Chair, Clinical Neurosciences Director, Spinal Neurosurgery [facility] Date of visit: May 07, 2024 Patient Name: Ms.Jeanette Spivey Date of : 1960 Current Age: [age] year old Sex: female MRN/E# [id number] Last Office Visit: 04/30/2024 Chief Complaint: Patient presents with: Established Patient Past Medical/Surgical History: Venus Spivey is a 63 year old female with a history of anemia, HLD, lymphadenitis and stroke. Surgical Risk Factors: Smoking status: Denies Anticoagulants/antiplatelets: Denies Diabetic: Denies BMI: 25.75 HPI: The patient had been recently evaluated by outside neurosurgery, Dr. Carroll, on 02/28/2024 and reported neck pain that radiated to right shoulder and interscapular region that have been ongoing for 2 years. She had treated her symptoms with physical therapy and oral medication as well as injections with continued persistent symptoms. Dr. Carroll recommended a C5-C7 ACDF. Patient did not proceed with surgical intervention as due to neurosurgeon outside of network. The patient presented to the office 04/20/2024 for a second opinion was seen by ANNY Warren, GEETHA. She reported she was scheduled to proceed with surgical intervention but due to previous surgeon being outside of network, requested a second opinion. She reported pain in neck that radiated into right shoulder and interscapular region. Onset of symptoms began a year and a half prior and been gradually worsening despite participation in conservative treatment outlined below. She had subjective weakness in right upper extremity, denied dexterity difficulties or dropping items. She endorsed mild gait instability, no recent falls or use of assistive device for ambulation. She denied bowel or bladder incontinence.She was asked to obtain MRI and x-rays of the cervical spine. She presents to the office today for follow up and image review. She states that her symptoms are unchanged. She describes neck pain into the right posterior scapular region into the right shoulder. She reports feeling an electric shock in this region. She denies any hand difficulties or balance/gait issues. She denies any loss of bowel/bladder issues. She feels she has exhausted conservative treatment at this time. PREVIOUS CONSERVATIVE TREATMENT: -Medication: Meloxicam, [place] -Physical therapy: Previous participation at [facility]- minimal symptom improvement. She has continued participation in home exercises/stretches as guided by physical therapy recommendations on routine basis as tolerated to present day. [facility] consultation notes can be found under scanned documents. -Previous healthcare providers: [place]- Dr. Carroll and was recommended a C5-C7 ACDF -Pain Management: Follows with [facility] - consult note can be found under scanned documents -Injections: Cervical injection at [facility] - 30% symptom relief that lasted for only 1 week and therefore would not like to proceed with another PREVIOUS SPINE SURGERY: None PAIN EVALUATION 05/07/2024 1258 Pain Location: Head neck Description: Aching;Throbbing Duration Amount of Time: 3 Duration Units: Months Frequency: Continuous Intervention/Comfort measure: Medication PAST MEDICAL HISTORY Diagnosis Date Anemia Blood dyscrasia Gastritis GERD (gastroesophageal reflux disease) Hyperlipemia Lymphadenitis Mental disorder Stroke (HCC) 2012 PAST SURGICAL HISTORY Procedure Laterality Date APPENDECTOMY ESOPHAGOGASTRODUODENOSCOPY TRANSORAL DIAGNOSTIC 08/29/2017 EGD HYSTERECTOMY HX LOWER EXTREMITY CHECK Right ROTATOR CUFF REPAIR Left FAMILY HISTORY Problem Relation Age of Onset Stroke Father 3 ALLERGIES Allergen Reactions Demerol [Meperidine* Vomiting Versed [Midazolam] Vomiting Morphine Vomiting Current Outpatient Medications Medication Sig Dispense Refill famotidine (PEPCID) 20 mg tablet Take by mouth as directed. ALPRAZolam (XANAX) 0.25 mg tablet Take by mouth. meloxicam (MOBIC) 15 mg tablet omeprazole (PRILOSEC) 20 mg capsule Take 2 capsules by mouth once daily. 60 capsule 1 ATORVASTATIN CALCIUM (LIPITOR ORAL) Take by mouth once daily. CYANOCOBALAMIN, VITAMIN B-12, (VITAMIN B-12 INJECTION) by INJECTION(UNSPECIFIED PARENTERAL ROUTES) route. 2 times a month HYDROcodone-acetaminophen (NORCO) 5-325 mg per tablet No current facility-administered medications for this visit. REVIEW OF SYSTEMS Review of Systems Constitutional: Negative for chills, fatigue and fever. HENT: Negative for congestion, ear discharge and trouble swallowing. Eyes: Negative for discharge, itching and visual disturbance. Respiratory: Negative for cough, shortness of breath and wheezing. Cardiovascular: Negative for chest pain, palpitations and leg swelling. Gastrointestinal: Negative for constipation, diarrhea, nausea and vomiting. Endocrine: Negative for cold intolerance and heat intolerance. Genitourinary: Negative for difficulty urinating, frequency and urgency. Musculoskeletal: Positive for neck pain and neck stiffness. Negative for back pain and gait problem. Skin: Negative for rash and wound. Allergic/Immunologic: Negative for environmental allergies and food allergies. Neurological: Negative for dizziness, weakness and numbness. Hematological: Does not bruise/bleed easily. Psychiatric/Behavioral: Negative for agitation. The patient is not nervous/anxious. OBJECTIVE: BP 114/80 Pulse 72 Resp 16 Wt 155 lb 10.3 oz (70.6kg) SpO2 99% On examination today in clinic she had 5 of 5 strength throughout the upper and lower extremities bilaterally. She was globally hyporeflexic. Jose's was negative. Data Review IMAGING STUDIES: In clinic today reviewed an MRI taken the patient's cervical spine dated earlier this month. On MRI imaging there is loss of normal cervical lordosis. Evidence of multilevel disc degeneration with narrowing of the disc spaces throughout. It is more prominent at see 5 6 and C6-7. Also hint of a small listhesis at C4-5. No evidence of significant central canal stenosis but varying degrees of foraminal stenosis on the left with mild to moderate at C4-5 on the right moderate at C5-6 and on the right moderate at C6-7. On flexion-extension there is evidence of a listhesis at C4-5 that worsens on flexion compared to extension. Collapse seen at C5-6 and C6-7 in particular. Assessment & Plan: In summary this lady presents with a several month history of neck pain as well as pain radiating to the right scapular region. The neck pain and stiffness associated with that is her bigger of the 2 complaints. I think she has multilevel degeneration. From a surgical perspective she could consider a multilevel fusion most likely anteriorly. As I explained to her however that would help the foraminal stenosis and the radicular component but not necessarily help the neck pain. At this point I quoted her a 50-50 chance of helping neck pain specifically. She was not thrilled by the wants to know what to do. Again I explained this was a [id number] issue would not a critical surgery. She has no central canal stenosis. No neurological complaints. Simply a pain related issue. Another option would be to consider radiofrequency ablation to help with the neck pain specifically. She is not sure it can be done in [place]. I suggested we obtain a CT scan of the cervical spine to look more closely through the foramina and ensure what levels of surgery could be done to try and help alleviate her symptoms and then regroup. In the meantime she can reflect that although I have to say. The following portions of the patient's history were reviewed, confirmed, and updated as necessary: allergies, current medications, past family history, past medical history, past social history, past surgical history, problem list, HPI, and ROS obtained by others. Some elements may be copied from a previous office note and have been reviewed/updated where appropriate. All portions reflect current medical decision making from today. The clinical and radiographic findings as well as the risks, benefits and alternatives of treatment have been reviewed in detail with the patient. Advised to call the office if symptoms worsen or new symptoms develop. Patient expressed understanding and is in agreement with plan. Sonya Mcdermott MD Chair, Clinical Neurosciences Director, Spinal Neurosurgery [facility] This note was partially generated using 51 Auto voice recognition system, and there may be some incorrect words, spellings, and punctuation that were not noted in checking the note before saving. documented in this encounter [facility] 05-07-2024 Note HNO ID: [id number] Author: SONYA MCDERMOTT MD Service: ? Author Type: Physician Type: Progress Notes Filed: 05/07/2024 13:34 Note Text: NEUROSURGERY FOLLOW UP OFFICE NOTE Chair, Clinical Neurosciences Director, Spinal Neurosurgery [facility] Date of visit: May 07, 2024 Patient Name: Ms.Jeanette Spivey Date of : 1960 Current Age: [age] year old Sex: female MRN/E# [id number] Last Office Visit: 04/30/2024 Chief Complaint: Patient presents with: Established Patient Past Medical/Surgical History: Venus Spivey is a 63 year old female with a history of anemia, HLD, lymphadenitis and stroke. Surgical Risk Factors: Smoking status: Denies Anticoagulants/antiplatelets: Denies Diabetic: Denies BMI: 25.75 HPI: The patient had been recently evaluated by outside neurosurgery, Dr. Carroll, on 02/28/2024 and reported neck pain that radiated to right shoulder and interscapular region that have been ongoing for 2 years. She had treated her symptoms with physical therapy and oral medication as well as injections with continued persistent symptoms. Dr. Carroll recommended a C5-C7 ACDF. Patient did not proceed with surgical intervention as due to neurosurgeon outside of network. The patient presented to the office 04/20/2024 for a second opinion was seen by ANNY Warren, GE[place]. She reported she was scheduled to proceed with surgical intervention but due to previous surgeon being outside of network, requested a second opinion. She reported pain in neck that radiated into right shoulder and interscapular region. Onset of symptoms began a year and a half prior and been gradually worsening despite participation in conservative treatment outlined below. She had subjective weakness in right upper extremity, denied dexterity difficulties or dropping items. She endorsed mild gait instability, no recent falls or use of assistive device for ambulation. She denied bowel or bladder incontinence.She was asked to obtain MRI and x-rays of the cervical spine. She presents to the office today for follow up and image review. She states that her symptoms are unchanged. She describes neck pain into the right posterior scapular region into the right shoulder. She reports feeling an electric shock in this region. She denies any hand difficulties or balance/gait issues. She denies any loss of bowel/bladder issues. She feels she has exhausted conservative treatment at this time. PREVIOUS CONSERVATIVE TREATMENT: -Medication: Meloxicam, [place] -Physical therapy: Previous participation at [facility]- minimal symptom improvement. She has continued participation in home exercises/stretches as guided by physical therapy recommendations on routine basis as tolerated to present day. [facility] consultation notes can be found under scanned documents. -Previous healthcare providers: [place]- Dr. Carroll and was recommended a C5-C7 ACDF -Pain Management: Follows with [facility] - consult note can be found under scanned documents -Injections: Cervical injection at [facility] - 30% symptom relief that lasted for only 1 week and therefore would not like to proceed with another PREVIOUS SPINE SURGERY: None PAIN EVALUATION 05/07/2024 1258 Pain Location: Head neck Description: Aching;Throbbing Duration Amount of Time: 3 Duration Units: Months Frequency: Continuous Intervention/Comfort measure: Medication PAST MEDICAL HISTORY Diagnosis Date Anemia Blood dyscrasia Gastritis GERD (gastroesophageal reflux disease) Hyperlipemia Lymphadenitis Mental disorder Stroke (HCC) 2012 PAST SURGICAL HISTORY Procedure Laterality Date APPENDECTOMY ESOPHAGOGASTRODUODENOSCOPY TRANSORAL DIAGNOSTIC 08/29/2017 EGD HYSTERECTOMY HX LOWER EXTREMITY CHECK Right ROTATOR CUFF REPAIR Left FAMILY HISTORY Problem Relation Age of Onset Stroke Father 3 ALLERGIES Allergen Reactions Demerol [Meperidine* Vomiting Versed [Midazolam] Vomiting Morphine Vomiting Current Outpatient Medications Medication Sig Dispense Refill famotidine (PEPCID) 20 mg tablet Take by mouth as directed. ALPRAZolam (XANAX) 0.25 mg tablet Take by mouth. meloxicam (MOBIC) 15 mg tablet omeprazole (PRILOSEC) 20 mg capsule Take 2 capsules by mouth once daily. 60 capsule 1 ATORVASTATIN CALCIUM (LIPITOR ORAL) Take by mouth once daily. CYANOCOBALAMIN, VITAMIN B-12, (VITAMIN B-12 INJECTION) by INJECTION(UNSPECIFIED PARENTERAL ROUTES) route. 2 times a month HYDROcodone-acetaminophen (NORCO) 5-325 mg per tablet No current facility-administered medications for this visit. REVIEW OF SYSTEMS Review of Systems Constitutional: Negative for chills, fatigue and fever. HENT: Negative for congestion, ear discharge and trouble swallowing. Eyes: Negative for discharge, itching and visual disturbance. Respiratory: Negative for cough, shortness of breat (more content not included)... [facility] 04-30-2024 Telephone encounter Note Patient requested to have MRI at [facility]. Received authorization. Faxed order and authorization information to [facility]. [facility] 04-30-2024 Miscellaneous Notes Patient requested to have MRI at [facility]. Received authorization. Faxed order and authorization information to [facility]. documented in this encounter [facility] 04-20-2024 Telephone encounter Note Patient is to call in to let us know MRI location, once we are informed of that we can fax over order and get prior aut, patient will need to schedule a CT and [address] Mcdermott after MRI date is given to office [facility] 04-20-2024 Miscellaneous Notes Patient is to call in to let us know MRI location, once we are informed of that we can fax over order and get prior aut, patient will need to schedule a CT and [address] Mcdermott after MRI date is given to office documented in this encounter [facility] 04-20-2024 History of Presen t illness Narrative Images from the original note were not included. SPINE SURGERY CONSULT NOTE Jessica Ordaz APRN-[employer] Date of visit: April 20, 2024 Patient Name: Ms.Jeanette Spivey Date of : 1960 Current Age: [age] year old Sex: female MRN/E# [id number] Last Office Visit: Visit date not found Chief Complaint: Patient presents with: New Patient HPI Ms.Jeanette Spivey been recently evaluated by outside neurosurgery, Dr. Carroll, on 02/28/2024 and reported neck pain that radiated to right shoulder and interscapular region that have been ongoing for 2 years. She had treated her symptoms with physical therapy and oral medication as well as injections with continued persistent symptoms. Dr. Carroll recommended a C5-C7 ACDF. Patient did not proceed with surgical intervention as due to neurosurgeon outside of network. Patient presents to the office today for a second opinion and reports he was scheduled to proceed with surgical intervention but due to previous surgeon being outside of network, requesting a second opinion specifically with Dr. Mcdermott. Patient today reports pain in neck that radiates into right shoulder and interscapular region. Onset of symptoms began a year and a half ago and been gradually worsening despite participation in conservative treatment outlined below. She has subjective weakness in right upper extremity, denies dexterity difficulties or dropping items. She endorses mild gait instability, no recent falls or use of assistive device for ambulation. She denies bowel or bladder incontinence. PREVIOUS CONSERVATIVE TREATMENT: -Medication: Meloxicam, [place] -Physical therapy: Previous participation at [facility]- minimal symptom improvement. She has continued participation in home exercises/stretches as guided by physical therapy recommendations on routine basis as tolerated to present day. [facility] consultation notes can be found under scanned documents. -Previous healthcare providers: [place]- Dr. Carroll and was recommended a C5-C7 ACDF -Pain Management: Follows with [facility] - consult note can be found under scanned documents -Injections: Cervical injection at [facility] - 30% symptom relief that lasted for only 1 week and therefore would not like to proceed with another PREVIOUS SPINE SURGERY: None Surgical Risk Factors: Smoking status: Denies Anticoagulants/antiplatelets: Denies Diabetic: Denies BMI: 25.75 PAIN EVALUATION 04/20/2024 1312 Pain Level: 6 Pain Location: Neck Description: Stiffness;Spasm;Stabbing;Aching Duration Units: Years Frequency: Intermittent Intervention/Comfort measure: Medication physical therapy PAST MEDICAL HISTORY Diagnosis Date Anemia Blood dyscrasia Gastritis GERD (gastroesophageal reflux disease) Hyperlipemia Lymphadenitis Mental disorder Stroke (HCC) 2012 PAST SURGICAL HISTORY Procedure Laterality Date APPENDECTOMY ESOPHAGOGASTRODUODENOSCOPY TRANSORAL DIAGNOSTIC 08/29/2017 EGD HYSTERECTOMY HX LOWER EXTREMITY CHECK Right ROTATOR CUFF REPAIR Left FAMILY HISTORY Problem Relation Age of Onset Stroke Father 3 ALLERGIES Allergen Reactions Demerol [Meperidine* Vomiting Versed [Midazolam] Vomiting Morphine Vomiting Current Outpatient Medications Medication Sig Dispense Refill famotidine (PEPCID) 20 mg tablet Take by mouth as directed. ALPRAZolam (XANAX) 0.25 mg tablet Take by mouth. meloxicam (MOBIC) 15 mg tablet omeprazole (PRILOSEC) 20 mg capsule Take 2 capsules by mouth once daily. 60 capsule 1 ATORVASTATIN CALCIUM (LIPITOR ORAL) Take by mouth once daily. CYANOCOBALAMIN, VITAMIN B-12, (VITAMIN B-12 INJECTION) by INJECTION(UNSPECIFIED PARENTERAL ROUTES) route. 2 times a month HYDROcodone-acetaminophen (NORCO) 5-325 mg per tablet (Patient not taking: Reported on 04/20/2024) LORazepam (ATIVAN) 1 mg tablet Take 1 tablets 60 minutes prior to MRI, may take additional tablet 15 minutes/during if needed 2 tablet 0 No current facility-administered medications for this visit. REVIEW OF SYSTEMS Review of Systems Constitutional: Positive for activity change. Negative for chills, diaphoresis and fever. HENT: Negative for congestion, sinus pressure and trouble swallowing. Respiratory: Negative for cough, shortness of breath and wheezing. Cardiovascular: Negative for chest pain, palpitations and leg swelling. Gastrointestinal: Negative for constipation, diarrhea and nausea. Endocrine: Negative for cold intolerance and heat intolerance. Genitourinary: Negative for difficulty urinating, frequency and urgency. Musculoskeletal: Positive for myalgias, neck pain and neck stiffness. Negative for back pain and gait problem. Skin: Negative for rash and wound. Allergic/Immunologic: Negative for environmental allergies and food allergies. Neurological: Positive for weakness. Negative for dizziness and numbness. Hematological: Does not bruise/bleed easily. Psychiatric/Behavioral: Negative for agitation, behavioral problems and confusion. The patient is not nervous/anxious. OBJECTIVE: BP 118/81 Pulse 69 Ht 5' 4" (1.63m) Wt 150 lb (68.0kg) SpO2 98% BMI 25.73 kg/(m^2). PHYSICAL EXAM: General appearance: Well nourished, well developed, and no apparent distress. Mental State : Alert, memory function unremarkable. Oriented to person, place and time. Pulmonary: Respirations regular and unlabored. Cardiac: Regular rate. Skin: Intact, warm, dry. MUSCULOSKELETAL Sensory: Sensation intact to light touch Palpation: SPINOUS PROCESS: No pain. PARASPINALS: No pain. Motor: Normal muscle tone and bulk. No tremor or uncontrollable movements. No spasticity or tremor. Gait and Station: Normal gait. No assistive device usage. Mild to moderate difficultly with perform tandem gait. Range of motion: Cervical: Normal range of motion, no tenderness. Lumbar: Normal range of motion, no tenderness. Long tract signs: No clonus. No Hoffmanns. Reflexes: symmetric non-brisk MUSCLE TONE and BULK: Symmetrical in the upper & lower extremities. Upper Extremity Strength Exam Right Left Deltoid 4-/5 5/5 Biceps 4-/5 5/5 Triceps 5/5 5/5 Wrist Extension 5/5 5/5 Interossei 5/5 5/5 Lower Extremity Strength Exam Right Left Psoas 5/5 5/5 Quadriceps 5/5 5/5 DF 5/5 5/5 EHL 10/01 10/01 PF 10/01 10/01 Data Review: MRI cervical spine completed in December 2022 at outside facility: Assessment/Plan: (M48.02) Spinal stenosis of cervical region (primary encounter diagnosis) -Patient has symptoms of right C5-6 radiculopathy. She has treated her symptoms with multiple modalities including physical therapy, home activity modification/exercise/stretches, oral medication, and focal injections with outside pain management group with continued persistent symptoms. -MRI of cervical spine obtained greater than 12 months ago demonstrates disc bulge at C5-C6 and see 6-C7 consistent with her radicular symptoms. Despite conservative treatment measures her symptoms have continued to worsen. She was scheduled to proceed with a C5-C7 ACDF with a surgeon at outside facility but due to the provider being out of neck work surgical intervention canceled. Discussed with patient need for updated cervical imaging for surgical discussion as most recent imaging is over a-year-old. Recommend she obtain dynamic radiographic films for evaluation of subluxation, MRI of cervical spine for evaluation of progressive cord and neural compression. Additionally, as patient feels that she has exhausted non operative management and wishes to proceed with surgical intervention, previous MRI results which demonstrate known central and peripheral stenosis, and previous surgical plan- patient will need a CT of cervical spine for complete surgical planning prior to surgical discussion with Dr. Mcdermott. -Previous MRI of cervical spine obtained in December 2022 sent to radiology for upload to allow for comparison of progressive stenosis. Plan: MRI CERVICAL SPINE WO IVCON, XR CERV OTHER 4V AP/LAT/FLX/EXT, CT CERVICAL SPINE WO IVCON, LORazepam (ATIVAN) 1 mg tablet (F40.240) Claustrophobia Patient is in need of anxiolysis prior to medical procedure. Dicussed instructions of medication. Instructed not to drive while taking medication, must have ride to and from MRI. Patient verbalized understanding. Okay for refill on pain medication or muscle relaxant that the patient is taking for postoperative pain/spasm which is due at this time. OARRS reviewed. All prescriptions have been APPROPRIATELY filled. No suspicious activity was identified. Prescription approved, signed and sent to patients pharmacy on file. Plan: LORazepam (ATIVAN) 1 mg tablet Follow up Plan: -Patient requested for surgical evaluation with Dr. Mcdermott specifically -Patient would like to obtain MRI imaging where she has done so previously- thoroughly discussed with patient's importance of bringing imaging on CD to appointment with Dr. Mcdermott. Patient asked to contact our office once [facility] imaging is scheduled and then we will proceed with scheduling follow-up appointment with Dr. Mcdermott afterwards. Patient will need a CT cervical spine for surgical planning, which she is willing to obtain here at [facility] the same day she presents for evaluation with Dr. Mcdermott. This will need to be scheduled when she contacts our office after MRI date is scheduled. -Follow up with Dr. Mcdermott for a 30 minute appointment which was communicated to staff. TESHA Warren [facility] This note was partially generated using 51 Auto voice recognition system, and there may be some incorrect words, spellings, and punctuation that were not noted in checking the note before saving. documented in this encounter [facility] 04-20-2024 Note HNO ID: [id number] Author: JESSICA ORDAZ APRN.CNP Service: ? Author Type: Nurse Practitioner Type: Progress Notes Filed: 04/20/2024 15:52 Note Text: SPINE SURGERY CONSULT NOTE TESHA Warren Date of visit: April 20, 2024 Patient Name: Ms.Jeanette Spivey Date of : 1960 Current Age: [age] year old Sex: female MRN/E# [id number] Last Office Visit: Visit date not found Chief Complaint: Patient presents with: New Patient HPI Ms.Jeanette Spivey been recently evaluated by outside neurosurgery, Dr. Carroll, on 02/28/2024 and reported neck pain that radiated to right shoulder and interscapular region that have been ongoing for 2 years. She had treated her symptoms with physical therapy and oral medication as well as injections with continued persistent symptoms. Dr. Carroll recommended a C5-C7 ACDF. Patient did not proceed with surgical intervention as due to neurosurgeon outside of network. Patient presents to the office today for a second opinion and reports he was scheduled to proceed with surgical intervention but due to previous surgeon being outside of network, requesting a second opinion specifically with Dr. Mcdermott. Patient today reports pain in neck that radiates into right shoulder and interscapular region. Onset of symptoms began a year and a half ago and been gradually worsening despite participation in conservative treatment outlined below. She has subjective weakness in right upper extremity, denies dexterity difficulties or dropping items. She endorses mild gait instability, no recent falls or use of assistive device for ambulation. She denies bowel or bladder incontinence. PREVIOUS CONSERVATIVE TREATMENT: -Medication: Meloxicam, [place] -Physical therapy: Previous participation at [facility]- minimal symptom improvement. She has continued participation in home exercises/stretches as guided by physical therapy recommendations on routine basis as tolerated to present day. [facility] consultation notes can be found under scanned documents. -Previous healthcare providers: [place]- Dr. Carroll and was recommended a C5-C7 ACDF -Pain Management: Follows with [facility] - consult note can be found under scanned documents -Injections: Cervical injection at [facility] - 30% symptom relief that lasted for only 1 week and therefore would not like to proceed with another PREVIOUS SPINE SURGERY: None Surgical Risk Factors: Smoking status: Denies Anticoagulants/antiplatelets: Denies Diabetic: Denies BMI: 25.75 PAIN EVALUATION 04/20/2024 1312 Pain Level: 6 Pain Location: Neck Description: Stiffness;Spasm;Stabbing;Aching Duration Units: Years Frequency: Intermittent Intervention/Comfort measure: Medication physical therapy PAST MEDICAL HISTORY Diagnosis Date Anemia Blood dyscrasia Gastritis GERD (gastroesophageal reflux disease) Hyperlipemia Lymphadenitis Mental disorder Stroke ([facility]) 2012 PAST SURGICAL HISTORY Procedure Laterality Date APPENDECTOMY ESOPHAGOGASTRODUODENOSCOPY TRANSORAL DIAGNOSTIC 08/29/2017 EGD HYSTERECTOMY HX LOWER EXTREMITY CHECK Right ROTATOR CUFF REPAIR Left FAMILY HISTORY Problem Relation Age of Onset Stroke Father 3 ALLERGIES Allergen Reactions Demerol [Meperidine* Vomiting Versed [Midazolam] Vomiting Morphine Vomiting Current Outpatient Medications Medication Sig Dispense Refill famotidine (PEPCID) 20 mg tablet Take by mouth as directed. ALPRAZolam (XANAX) 0.25 mg tablet Take by mouth. meloxicam (MOBIC) 15 mg tablet omeprazole (PRILOSEC) 20 mg capsule Take 2 capsules by mouth once daily. 60 capsule 1 ATORVASTATIN CALCIUM (LIPITOR ORAL) Take by mouth once daily. CYANOCOBALAMIN, VITAMIN B-12, (VITAMIN B-12 INJECTION) by INJECTION(UNSPECIFIED PARENTERAL ROUTES) route. 2 times a month HYDROcodone-acetaminophen (NORCO) 5-325 mg per tablet (Patient not taking: Reported on 04/20/2024) LORazepam (ATIVAN) 1 mg tablet Take 1 tablets 60 minutes prior to MRI, may take additional tablet 15 minutes/during if needed 2 tablet 0 No current facility-administered medications for this visit. REVIEW OF SYSTEMS Review of Systems Constitutional: Positive for activity change. Negative for chills, diaphoresis and fever. HENT: Negative for congestion, sinus pressure and trouble swallowing. Respiratory: Negative for cough, shortness of breath and wheezing. Cardiovascular: Negative for chest pain, palpitations and leg swelling. Gastrointestinal: Negative for constipation, diarrhea and nausea. Endocrine: Negative for cold intolerance and heat intolerance. Genitourinary: Negative for difficulty urinating, frequency and urgency. Musculoskeletal: Positive for myalgias, neck pain and neck stiffness. Negative for back pain and gait problem. Skin: Negative for rash and wound. Allergic/Immunologic: Negative for environmental allergies and food al (more content not included)... [facility] 04-10-2024 Telephone encounter Note Spoke with pt and relayed note. They verbalized understanding. [facility] 04-10-2024 Miscellaneous Notes Spoke with pt and relayed note. They verbalized understanding. Unfortunately, we are not very familiar with the [facility] spine provider to be able to make a recommendation. Please let her know. Thank you. Pt called stating that she really wants to have surgery done with you, but you are out of network with her insurance. Pt would like to know if you have a surgeon that you would recommend within [facility]. Pt states she want to change insurance and wait until the new year to have Sx with Dr. Carroll. Pt was notified to call me with updated ins info YUAN. Tentative date of 06/18/2023 given to pt. Received email from ins verification. Pt's ins is OON and will need to pay 50% and single case agreement will need to be submitted. LVM for cb to discuss with pt. Spoke with pt and tentative Sx date on 03/26 was given. Spoke with SAM Arriaga. Ref #: [id number] Surg 03/26 730 PAT 03/19 230 PO 04/10 10 Case# [id number] Patient aware of all appointments and times ----- Message from Blaise Carroll MD sent at 02/28/2024 12:13 PM EDT ----- Anterior cervical 5-6 and 6-7 disc replacements 2 hours 1 night [id number] documented in this encounter [facility] [employer] 04-10-2024 Telephone encounter Note Unfortunately, we are not very familiar with the [facility] spine provider to be able to make a recommendation. Please let her know. Thank you. [facility] [employer] Work Phone: 04-10-2024 Telephone encounter Note Pt called stating that she really wants to have surgery done with you, but you are out of network with her insurance. Pt would like to know if you have a surgeon that you would recommend within [facility]. [facility] 03-20-2024 Telephone encounter Note Pt states she want to change insurance and wait until the new year to have Sx with Dr. Carroll. Pt was notified to call me with updated ins info YUAN. Tentative date of 06/18/2023 given to pt. [facility] 03-20-2024 Miscellaneous Notes Pt states she want to change insurance and wait until the new year to have Sx with Dr. Carroll. Pt was notified to call me with updated ins info YUAN. Tentative date of 06/18/2023 given to pt. Received email from ins verification. Pt's ins is OON and will need to pay 50% and single case agreement will need to be submitted. LVM for cb to discuss with pt. Spoke with pt and tentative Sx date on 03/26 was given. Spoke with SAM Arriaga. Ref #: [id number] Surg 03/26 730 PAT 03/19 230 PO 04/10 10 Case# [id number] Patient aware of all appointments and times ----- Message from Blaise Carroll MD sent at 02/28/2024 12:13 PM EDT ----- Anterior cervical 5-6 and 6-7 disc replacements 2 hours 1 night [id number] documented in this encounter [facility] 03-20-2024 Telephone encounter Note Received email from ins verification. Pt's ins is OON and will need to pay 50% and single case agreement will need to be submitted. LVM for cb to discuss with pt. [facility] 03-19-2024 Note Patient: Venus vora Procedure Information Date/Time: 03/26/2430 Procedure: ANTERIOR CERVICAL 5-6 AND 6-7 DISC REPLACEMENTS - 2 HOUR CASE Location: [address] Operating Room Surgeons: Blaise Carroll MD Relevant Problems Anesthesia Has had delayed emergence from anesthesia once and severe PONV. (+) Delayed emergence from anesthesia (+) History of motion sickness (+) PONV (postoperative nausea and vomiting) Neuro/Psych (+) TIA (transient ischemic attack) Past Medical History: Past Medical History: No date: GERD (gastroesophageal reflux disease) No date: Pernicious anemia No date: TIA (transient ischemic attack) Comment: around age 53 Past Surgical History: Past Surgical History: No date: APPENDECTOMY No date: COLONOSCOPY No date: EGD (HISTORICAL) No date: HYSTERECTOMY No date: ROTATOR CUFF REPAIR; Left No date: TUBAL LIGATION No date: TUBAL LIGATION Comment: reversal No date: VEIN LIGATION AND STRIPPING Social History: TOBACCO: reports that she has never smoked. She has never used smokeless tobacco. ETOH: reports current alcohol use. Social History Substance and Sexual Activity Drug Use Never Family History: No family history on file. Screening: Hysterectomy Clinical information reviewed: Tobacco Allergies Meds Med Hx Surg Hx OB Status Fam Hx Soc Hx Physical Exam Airway Mallampati: III Neck ROM: limited endotracheal tube not in place Cardiovascular Dental Comments: Caps and crowns present. Nothing is loose, missing, or comes out of mouth. Pulmonary Abdominal Anesthesia Plan Any family history or previous problems with anesthesia no ASA 3 Any family history or previous problems with anesthesia no The patient is not a current smoker. RUTH ANN Screening STOP-Bang Total Score: 2 Labs: No results found for: "WBC", "HGB", "HCT", "MCV", "PLT" No results found for: "SODIUM", "NA", "POTASSIUM", "K", "CHLORIDE", "CL", "CO2", "BUN", "CREATININE", "GLUCOSE", "CALCIUM", "PROT", "BILIRUBINFL", "ALKPHOS", "AST", "ALT", "EGFR", "GLOB" Pain Score: 3 No echocardiogram results found for the past 14 days No results found for this or any previous visit. Equipment Requests: Additional Equipment Requests [facility] 03-19-2024 Note Comprehensive Pre [place] rgical History and Physical ? Name: Venus Spivey : 1960 (Age-63 y.o.) Date of Service: Pt seen/examined on 03/19/2024 Procedure Information Date/Time: 03/26/24729 Procedure: ANTERIOR CERVICAL 5-6 AND 6-7 DISC REPLACEMENTS - 2 HOUR CASE Location: [facility] OR [address] [place] [address] Operating Room Surgeons: Blaise Carroll MD Chief Complaint: Radiculopathy, cervical region [M54.12] ASSESSMENT/PLAN: Patient is considered low/intermediate risk for this intermediate level 2 risk procedure/surgery () with no reducible risk factors. Based on the above evaluation, the benefits of the planned procedure likely exceed the risks. The patient is medically optimized to proceed with the planned procedure without any further cardiopulmonary testing. 1) Radiculopathy, cervical region [M54.12] - Managed per surgery - Orders per PAT Protocol: CBC - METS >4 2) Hx TIA - Hx of TIA in 2013 - Reports no residual neuro deficits - Is not on antiplatelets or OAC's 3) HLD -statin therapy - Yes, atorvastatin -lifestyle modifications encouraged 4) GERD - Symptoms controlled - Managed with omeprazole and famotidine - Avoidance of triggers encouraged 5) Anxiety and Depression - Patient reports symptoms stable - Managed with Xanax PRN - Patient may benefit from antianxiety medication DOS 6) Dysphagia -follows with Dr. Nikia Esposito [facility] -swallow study done last Tuesday, pt reports results were normal. 7) Anemia - Source: pernicious anemia noted in pt history -CBC pending - Hx of Transfusion: No Visit Type: Pre-Admission Testing Visit Labs Ordered: YES - PER PAT PROTOCOL Sleep Referral Ordered: NO - NEGATIVE SCREEN PER SLEEP REFERRAL PROTOCOL Total time spent (which include face to face and non face to face encounters) : 35 minutes Toxic drug monitoring/narrow therapeutic index drug monitoring : # Drug name : n/a # Route administered : n/a # Method of monitoring : n/a PAT Protocol referenced includes: 1. Anesthesia Lab Protocol Orders 2. Perioperative Cardiovascular Risk Assessment 3. Anesthesia Assessment 4. Pain Assessment and Acute Pain Service Consult (if appropriate) 5. Medical Clearance/Consult from Internal Medicine (IMS) 6. Shower/Wash Order (for designated surgeries) 7. RUTH ANN Screen and Sleep Clinic Referral (if appropriate) History Of Present Illness: 63 y.o. female who we are asked to see/evaluate by Dr. Carroll for pre-operative evaluation prior to ? Case: [id number] Date/Time: 03/26/24729 Procedure: ANTERIOR CERVICAL 5-6 AND 6-7 DISC REPLACEMENTS [73630 CPT(R)] - 2 HOUR CASE Anesthesia type: General Diagnosis: Radiculopathy, cervical region [M54.12] Pre-op diagnosis: Radiculopathy, cervical region [M54.12] Location: [facility] OR [address] [place] [address] Operating Room Surgeons: Blaise Carroll MD From last office visit with Dr. Carroll on 02/28/2024: "63 y.o. presents with neck pain that radiates to her right shoulder and interscapular region for the last 2 years. She has some weakness in her right shoulder. She describes the pain as electric shock pains and tingling radiating to this area. States her neck is stiff and painful as well. She has done PT for a year, taken norco and mobic, and had injections for this. These modalities have helped her symptoms briefly, but her symptoms continue to recur. She had a lumbar spine issues but this resolved with PT. " Patient denies exertional chest pain/shortness of breath. Denies dizziness, syncope, lightheadedness. Denies fever, chills, weakness or fatigue. Patient denies any recent illness, infections, or wounds. Patient denies abdominal pain, nausea, vomiting, diarrhea, or constipation. Patient denies hx of CAD, CHF, NV, diabetes, COPD, asthma, RUTH ANN, DVT/PE. Past Medical History: Past Medical History: No date: GERD (gastroesophageal reflux disease) No date: Pernicious anemia No date: TIA (transient ischemic attack) Comment: around age 53 Past Surgical History: Past Surgical History: No date: APPENDECTOMY No date: COLONOSCOPY No date: EGD (HISTORICAL) No date: HYSTERECTOMY No date: ROTATOR CUFF REPAIR; Left No date: TUBAL LIGATION No date: TUBAL LIGATION Comment: reversal No date: VEIN LIGATION AND STRIPPING Medications Prior to Admission: Current Outpatient Medications on File Prior to Visit Medication Sig Dispense Refill ALPRAZolam (Xanax) 0.25 MG tablet Take by mouth. atorvastatin (Lipitor) 20 MG tablet famciclovir (Famvir) 500 MG tablet Take 500 mg by mouth. famotidine (Pepcid) 20 MG tablet Take by mouth. meloxicam (Mobic) 15 MG tablet omeprazole OTC (PriLOSEC OTC) 20 MG EC tablet Take 20 mg by mouth every morning (before breakfast). Do not crush, chew, or split. acetaminophen (Tylenol) 325 MG tablet Take by mouth Nightly. HYDROcodone-acetaminop (more content not included)... [facility] 03-15-2024 Note ORIGINAL EXAMINATION: SINGLE CONTRAST ESOPHAGRAM 03/15/2024 HISTORY: ORDERING SYSTEM PROVIDED HISTORY: Reason for Exam: Dysphagia COMPARISON: None. TECHNIQUE: Double contrast study using barium was performed. FLUOROSCOPY DOSE AND TYPE: Radiation Exposure Index: Kerma mGy, 29.9. 1.5 minutes of fluoroscopy time was utilized. FINDINGS: There was slight delay of the oral phase of swallowing of the barium tablet, barium tablet otherwise went down normally. No evidence of stricture or obstruction. The esophagus demonstrates normal peristalsis under fluoroscopy. No evidence of leak. No hiatal hernia is seen and there is no evidence of achalasia. No gastroesophageal reflux was elicited during examination. IMPRESSION: Unremarkable esophagram. Delayed oral phase of swallowing. Interpreted by: Miguel Reynaga MD Preliminary Report By: Miguel Reynaga MD Electronically signed By Miguel Reynaga MD Dictated Date: 03/15/2024 1:21:40 PM Prelim Date: 03/15/2024 1:24:47 PM Sign Date: 03/15/2024 1:24:47 PM Ordering Provider: WYATT YEE [facility] 02-29-2024 Telephone encounter Note Spoke with pt and tentative Sx date on 03/26 was given. Spoke with SAM Arriaga. Ref #: [id number] Surg 03/26 730 PAT 03/19 230 PO 04/10 10 Case# [id number] Patient aware of all appointments and times [employer] 02-29-2024 Telephone encounter Note ----- Message from Blaise Carroll MD sent at 02/28/2024 12:13 PM EDT ----- Anterior cervical 5-6 and 6-7 disc replacements 2 hours 1 night [id number] [employer] [employer] 02-28-2024 History of Presen t illness Narrative NEUROSURGERY CONSULT NOTE Patient Name: Venus Spivey Patient : 1960 PCP: No primary care provider on file. History of Present Ilness: 63 y.o. presents with neck pain that radiates to her right shoulder and interscapular region for the last 2 years. She has some weakness in her right shoulder. She describes the pain as electric shock pains and tingling radiating to this area. States her neck is stiff and painful as well. She has done PT for a year, taken norco and mobic, and had injections for this. These modalities have helped her symptoms briefly, but her symptoms continue to recur. She had a lumbar spine issues but this resolved with PT. Chief Complaint Patient presents with New Patient bulging disc. will bring imaging with them to their appointment Past Medical History: History reviewed. No pertinent past medical history. Past Surgical History: History reviewed. No pertinent surgical history. Home Medications: Prior to Admission medications Medication Sig Start Date End Date Taking? Authorizing Provider ALPRAZolam (Xanax) 0.25 MG tablet Take by mouth. 11/15/22 Yes Historical Provider, atorvastatin (Lipitor) 20 MG tablet 10/11/23 Yes Historical Provider, famciclovir (Famvir) 500 MG tablet Take 500 mg by mouth. 11/15/22 Yes Historical Provider, HYDROcodone-acetaminophen ([place]) 5-325 MG tablet 01/05/24 Yes Historical Provider, meloxicam (Mobic) 15 MG tablet 11/23/23 Yes Historical Provider, Allergies: Meperidine, Midazolam, and Morphine Social History: TOBACCO: reports that she has never smoked. She has never used smokeless tobacco. ETOH: reports current alcohol use. RECREATIONAL DRUG USE: Social History Substance and Sexual Activity Drug Use Never Family History: No family history on file. Review of Systems Constitutional: Negative for chills and fever. HENT: Negative for congestion, rhinorrhea and sore throat. Eyes: Negative for photophobia and visual disturbance. Respiratory: Negative for cough and shortness of breath. Cardiovascular: Negative for chest pain and palpitations. Gastrointestinal: Negative for abdominal pain, nausea and vomiting. Genitourinary: Negative for decreased urine volume and difficulty urinating. Musculoskeletal: Positive for neck pain. Negative for back pain and gait problem. Skin: Negative for rash and wound. Neurological: Positive for weakness. Negative for dizziness, seizures, speech difficulty, numbness and headaches. Psychiatric/Behavioral: Negative for behavioral problems and confusion. Physical Examination: Vitals: 02/28/24 1104 BP: 127/82 Pulse: 66 Physical Exam Vitals reviewed. Constitutional: Appearance: Normal appearance. HENT: Head: Normocephalic and atraumatic. Nose: Nose normal. Mouth/Throat: Pharynx: Oropharynx is clear. Eyes: Extraocular Movements: Extraocular movements intact. Conjunctiva/sclera: Conjunctivae normal. Cardiovascular: Rate and Rhythm: Normal rate and regular rhythm. Pulses: Normal pulses. Pulmonary: Effort: Pulmonary effort is normal. No respiratory distress. Abdominal: General: There is no distension. Palpations: Abdomen is soft. Tenderness: There is no abdominal tenderness. Musculoskeletal: General: No tenderness. Normal range of motion. Cervical back: Normal range of motion and neck supple. No rigidity. Skin: General: Skin is warm and dry. Neurological: Mental Status: She is alert and oriented to person, place, and time. Cranial Nerves: No cranial nerve deficit. Sensory: No sensory deficit. Motor: No weakness. Gait: Gait abnormal. Deep Tendon Reflexes: Reflexes abnormal. Comments: DTRs absent in BUE Strength 4-/5 in right deltoid and triceps, 5/5 in rest of BUE Diminished ROM in cervical spine Psychiatric: Mood and Affect: Mood normal. Behavior: Behavior normal. Neurological Exam Mental Status Alert. Oriented to person, place, and time. Cranial Nerves CN III, IV, : Extraocular movements intact bilaterally. Gait Abnormal gait. DTRs absent in BUE Strength 4-/5 in right deltoid and triceps, 5/5 in rest of BUE Diminished ROM in cervical spine. Gait normal Results Labs: Last 24hrs No results found for this or any previous visit (from the past 24 hour(s)). Radiology Personal review: Recent MRI of the cervical spine was reviewed. She has largely herniated disks with severe foraminal stenosis C5-6 and C6-7. MRI of the thoracic spine was reviewed. There is no high-grade stenosis MRI of the lumbar spine was reviewed. She has small disc protrusion at L3-4 ASSESSMENT / PLAN : 63yo f with symptomatic pathology referable to her cervical spine. Her imaging was reviewed with her, and she is symptomatic to the above noted pathology. Both surgical and conservative treatment options were discussed with her. With respect to surgery, the risks, benefits, and alternative to a C5-C7 discectomy with disc replacements were discussed and understood by the patient. The rehabilitation process and prognosis were discussed as well and all her questions were answered. This would be done with Medtronic Prestige disc replacements. She would have to stop mobic 7 days pre op. She would like to proceed with surgery. Diagnosis Plan 1. Cervical radiculopathy documented in this encounter [facility] 02-22-2024 History of Presen t illness Narrative Venus Spivey is a 63 year old FEMALE who presents with Laceration (Cut right hand middle finger on a broken coffee cup at home /1cm/Last tetanus 2022) HPI PAST MEDICAL HISTORY Diagnosis Date Anemia Blood dyscrasia Gastritis GERD (gastroesophageal reflux disease) Lymphadenitis Mental disorder Stroke (HCC) 2012 ACTIVE PROBLEM LIST Hematuria Left Lower Quadrant Pain Urinary Tract Infection Current Outpatient Medications Medication Sig Dispense Refill ALPRAZolam (XANAX) 0.25 mg tablet Take by mouth. meloxicam (MOBIC) 15 mg tablet omeprazole (PRILOSEC) 20 mg capsule Take 2 capsules by mouth once daily. 60 capsule 1 ATORVASTATIN CALCIUM (LIPITOR ORAL) Take by mouth once daily. CYANOCOBALAMIN, VITAMIN B-12, (VITAMIN B-12 INJECTION) by INJECTION(UNSPECIFIED PARENTERAL ROUTES) route. 2 times a month No current facility-administered medications for this visit. Social History Tobacco Use Smoking status: Never Passive exposure: Never Smokeless tobacco: Never Vaping Use Vaping status: Never Used Substance Use Topics Alcohol use: Not Currently Comment: occasional Drug use: Never Alcohol Use: Not Currently (occasional) Tobacco Use: Never FAMILY HISTORY Problem Relation Age of Onset Stroke Father 3 Review of Systems Skin: 1 cm last duration right hand index finger over the middle phalanx. She cut it on a coffee cup. All other systems reviewed and are negative. BP 120/70 Pulse 71 Temp 97.8 Resp 18 Wt 154 lb (69.9kg) SpO2 98% Physical Exam Vitals and nursing note reviewed. Constitutional: Appearance: Normal appearance. Skin: General: Skin is warm. Comments: Examination right hand index finger on the palmar aspect over the middle phalanx there is a 1 cm laceration it is already closed that is not bleeding the reason the patient came in was because she said she could not get it to stop bleeding. It is very sensitive even to the lightest of touch. She has full movement of the finger and no evidence of any tendon injury. She has pulses are +2/4 and capillary refill less than 3 seconds normal motor neurovascular and sensory to that digit. Examination of the wound shows that it is already closing it is not bleeding at this time I looked at it with a bright LED for transillumination I do not see any foreign body it does not feel as though there is any foreign body and there and I do not see any reason to open this wound back up and look the wound was properly cleansed with Huy's baby wash and saline and then Dermabond was applied patient tolerated it well no complications were encountered she had full range of motion after the procedure she was advised to keep the wound clean and dry watch for signs of infection redness swelling drainage discharge increasing pain or fever. Neurological: Mental Status: She is alert. ASSESSMENT/PLAN: 1. Laceration of blood vessel of index finger - ICD9: 903.5, ICD10: S65.518A -Patient is advised to keep the wound clean and dry watch for signs of infection. -Return immediately if she has increasing redness or drainage pain or any concerns. -May use olive oil or Neosporin to dissolve the glue after 10 days if it is not removed on its own. Was up to date on her Tdap she had 1 last year. Antibiotic was not considered necessary. Melly Robles documented in this encounter [facility] 04-18-2023 Note HNO ID: [id number] Author: Suraj Saini MD Service: ? Author Type: Physician Type: Progress Notes Filed: 04/18/2023 7:11 PM Note Text: Venus Spivey is a 62 year old female who presents with Laceration (Right thumb laceration cut with a mondolin 1 hour ago wound 1.1cm tetnus is unknown) 62-year-old female presented here sustaining laceration on her right thumb. Patient was using a mandolin and accidentally slipped and cut her right thumb no other complaint. Tetanus is not up-to-date. PAST MEDICAL HISTORY Diagnosis Date Anemia Blood dyscrasia Gastritis GERD (gastroesophageal reflux disease) Lymphadenitis Mental disorder Stroke (HCC) 2012 ACTIVE PROBLEM LIST Hematuria Left Lower Quadrant Pain Urinary Tract Infection Current Outpatient Medications Medication Sig Dispense Refill diphenhydrAMINE (BENADRYL) 25 mg capsule Take 25 mg by mouth every 6 hours as needed. omeprazole (PRILOSEC) 20 mg capsule Take 2 capsules by mouth once daily. 60 capsule 1 ATORVASTATIN CALCIUM (LIPITOR ORAL) Take by mouth once daily. CYANOCOBALAMIN, VITAMIN B-12, (VITAMIN B-12 INJECTION) by INJECTION(UNSPECIFIED PARENTERAL ROUTES) route. 2 times a month cephALEXin (KEFLEX) 500 mg capsule Take 1 capsule by mouth two times a day for 10 days. 20 capsule 0 No current facility-administered medications for this visit. Social History Tobacco Use Smoking status: Never Smokeless tobacco: Never Substance Use Topics Alcohol use: Yes Comment: occasional Drug use: No Alcohol Use: Yes (occasional) Tobacco Use: Never FAMILY HISTORY Problem Relation Age of Onset Stroke Father 3 Review of Systems All other systems reviewed and are negative. BP 110/70 Pulse 81 Temp 98.2 Resp 16 Wt 154 lb (69.9kg) SpO2 99% Physical Exam Vitals and nursing note reviewed. Musculoskeletal: Comments: Examination the right thumb range of motion appears to be normal laceration measures 1.25 cm, under sterile condition clean irrigate using lidocaine as local anesthetic were anesthetized I placed 5 interrupted sutures, apply some dressing. We irrigated the wound well patient tolerated the procedure well dressing was applied. Tetanus was also administered. I placed patient on Keflex 500 twice a day for infection prophylactic have patient follow-up as needed 10 days for suture removal. ASSESSMENT/PLAN: 1. Laceration of right thumb without foreign body without damage to nail, initial encounter - ICD9: 883.0, ICD10: S61.011A Treatments and plan wound care discussed with patient patient tolerated procedure well. [facility] Evaluation + Plan note No data available for this section [facility] Evaluation note No assessment inform ation available [facility] Work Phone: Evaluation note Diagnosis Onset Date Atypical chest pain acute [facility] Work Phone: Evaluation note* Diagnosis Laceration of blood vessel of index finger- [facility] Diagnosis Cervical radiculopathy- Primary Brachial neuritis or radiculitis nos [facility]* Diagnosis Spinal stenosis of cervical region- Primary Spinal stenosis in cervical region Claustrophobia Other isolated or specific phobias [facility] Diagnosis Spinal stenosis of cervical region Spinal stenosis in cervical region documented in this encounter [facility] note* Diagnosis Cervical disc disorder with radiculopathy- Primary Brachial neuritis or radiculitis nos documented in this encounter [facility] note* Diagnosis Cervical disc disorder with radiculopathy- Primary Brachial neuritis or radiculitis nos documented in this encounter [facility] note* Diagnosis Cervical disc disorder with radiculopathy- Primary Brachial neuritis or radiculitis nos documented in this encounter [facility] note* Diagnosis Cervical disc disorder with radiculopathy Brachial neuritis or radiculitis nos documented in this encounter [facility] Discharge instructions No data available for this section [facility] Progress note No data available for this section [facility] Reason for visit Narrative* Diagnostic Procedure Only (Routine) - Closed Specialty Diagnoses / Procedures Referred By Contac t Referred To Contact XR IMAGING Diagnoses Spinal stenosis of cervical region Procedures XR CERV OTHER 4V AP/LAT/FLX/EXT RADEX SPINE CERVICAL 4 OR 5 VIEWS Jessica Ordaz, SHIPPING MANAGER.ASSEMBLER [employer] [address] [place] [address] [place] [address] Referral ID Status Reason Start Date Expiration Date V isits Requested Visits Authorized [id number] Closed Auto-Generate d Referral 04/20/2024 05/20/2025 1 1 [facility] for visit Narrative* Diagnostic Procedure Only (Routine) - Closed Specialty Diagnoses / Procedures Referred By Contac t Referred To Contact XR IMAGING Diagnoses Cervical disc disorder with radiculopathy Procedures XR CERV OTHER 4V AP/LAT/FLX/EXT RADEX SPINE CERVICAL 4 OR 5 VIEWS Sonya Mcdermott I, [address] [place] [address] Phone: tel: fax: [place] [address] Referral ID Status Reason Start Date Expiration Date V isits Requested Visits Authorized [id number] Closed Auto-Generate d Referral 10/26/2024 11/25/2025 1 1 [facility] Summary Purpose Family History No Family History Records Found Relationship Condition Age at Onset Recorded Date/T carissa Unknown Family History?No pertinent history Unkno wn October 17, 2014 12:21pm Family History?No pertinent history Unkno wn October 17, 2014 12:21pm Relationship Condition Age at Onset Recorded Date/T carissa Unknown Family History?No pertinent history Unkno wn October 17, 2014 11:21am Family History?No pertinent history Unkno wn October 17, 2014 11:21am Relationship Condition Age at Onset Recorded Date/T carissa father Cerebrovascular accident (CVA) Unknown Myocardial infarction Unknown grandmother Malignant neoplasm of colon Unknown Diabetes mellitus Unknown grandmother Myocardial infarction Unknown Advance Directives No Advanced Directives Records Found Advance Directive Response Recorded Date/ Time Advance Directives No October 17 5 1:31pm Living Will No October 17, 2014 1 :31pm Power of Test Desk Trouble Locator No October 17, 2014 1:31pm Advance Directive Response Recorded Date/ Time Advance Directives No October 17 5 12:31pm Living Will No October 17, 2014 1 2:31pm Power of Test Desk Trouble Locator No October 17, 2014 12:31pm Chief Complaint and Reason for Visit Chief Complaint L ELBOW PAIN/RX HERE Chief Complaint SCREENING Chief Complaint ABD/EPIGASTRIC PAIN CP, LIGHTHEADED, FAMILY HX ABD PAIN/PERNICIOUS ANEMIA Reason for Visit Atypical chest pain Chief Complaint ABD/EPIGASTRIC PAIN CP, LIGHTHEADED, FAMILY HX ABD PAIN/PERNICIOUS ANEMIA CP Amb Documentation Reason for Visit Atypical chest pain Chief Complaint ABD/EPIGASTRIC PAIN CP, LIGHTHEADED, FAMILY HX ABD PAIN/PERNICIOUS ANEMIA CP Amb Documentation MASTODYNIA Reason for Visit Atypical chest pain Reason for Referral Specialty Diagnoses / Procedures Referred By Adonis t Referred To Contact CT IMAGING Diagnoses Spinal stenosis of cervical region Procedures CT CERVICAL SPINE WO IVCON CT CERVICAL SPINE W/O CONTRAST MATERIAL Jessica Ordaz, SHIPPING MANAGER.ASSEMBLER [employer] [address] [place] [address] [place] [address] Referral ID Status Reason Start Date Expiration Date V isits Requested Visits Authorized [id number] Open Auto-Generate d Referral 04/20/2024 05/20/2025 1 1 Specialty Diagnoses / Procedures Referred By Adonis mason Referred To Contact XR IMAGING Diagnoses Spinal stenosis of cervical region Procedures XR CERV OTHER 4V AP/LAT/FLX/EXT RADEX SPINE CERVICAL 4 OR 5 VIEWS Jessica Ordaz, SHIPPING MANAGER.ASSEMBLER [employer] [address] [place] [address] [place] [address] Referral ID Status Reason Start Date Expiration Date V isits Requested Visits Authorized [id number] Closed Auto-Generate d Referral 04/20/2024 05/20/2025 1 1 Specialty Diagnoses / Procedures Referred By Contac t Referred To Contact MR IMAGING Diagnoses Spinal stenosis of cervical region Procedures MRI CERVICAL SPINE WO IVCON MRI SPINAL CANAL CERVICAL W/O CONTRAST MATRL Jessica Ordaz, SHIPPING MANAGER.ASSEMBLER [employer] [address] [facility] [place] [address] [place] [address] Referral ID Status Reason Start Date Expiration Date Visits Requested Visits Authorized [id number] New Request Auto-Generat ed Referral 05/20/2025 1 1 Additional Source Comments INFORMATION SOURCE (unrecogn ized section and content) DATE CREATED AUTHOR 04/30/2020 [facility] [place] DATE CREATED AUTHOR AUTHOR'S ORGANIZ ATION 06/15/2021 [facility] DATE CREATED AUTHOR AUTHOR'S ORGANIZ ATION 05/27/2022 [facility] DATE CREATED AUTHOR AUTHOR'S ORGANIZ ATION 10/11/2022 [facility] DATE CREATED AUTHOR AUTHOR'S ORGANIZ ATION 04/11/2023 [facility] ([place]) DATE CREATED AUTHOR AUTHOR'S ORGANIZ ATION 04/20/2023 [employer] [facility] DATE CREATED AUTHOR AUTHOR'S ORGANIZ ATION 03/18/2024 [facility] DATE CREATED AUTHOR AUTHOR'S ORGANIZ ATION 04/13/2024 [facility] DATE CREATED AUTHOR AUTHOR'S ORGANIZ ATION 07/11/2024 [facility] DATE CREATED AUTHOR AUTHOR'S ORGANIZ ATION 11/30/2024 [facility] DATE CREATED AUTHOR AUTHOR'S ORGANIZ ATION 01/08/2025 [facility] Goals (unrecognized section and content) Goals may be documented in a n alternate sectionGoals may be documented in an alternate sectionGoals may be documented in an alternate sectionGoals may be documented in an alternate sectionGoals may be documented in an alternate sectionGoals may be documented in an alternate sectionGoals may be documented in an alternate sectionGoals may be documented in an alternate section No data available for this section Source Comments (unrecognize d section and content) In the event this informatio n is protected by the Federal Confidentiality of Alcohol and Drug Abuse Patient Records regulations: The Federal rules restrict any use of the information to criminally investigate or prosecute any alcohol or drug abuse patient.[facility] the event this information is protected by the Federal Confidentiality of Alcohol and Drug Abuse Patient Records regulations: The Federal rules restrict any use of the information to criminally investigate or prosecute any alcohol or drug abuse patient.[facility] the event this information is protected by the Federal Confidentiality of Alcohol and Drug Abuse Patient Records regulations: The Federal rules restrict any use of the information to criminally investigate or prosecute any alcohol or drug abuse patient.[facility] the event this information is protected by the Federal Confidentiality of Alcohol and Drug Abuse Patient Records regulations: The Federal rules restrict any use of the information to criminally investigate or prosecute any alcohol or drug abuse patient.[facility] the event this information is protected by the Federal Confidentiality of Alcohol and Drug Abuse Patient Records regulations: The Federal rules restrict any use of the information to criminally investigate or prosecute any alcohol or drug abuse patient.[facility] the event this information is protected by the Federal Confidentiality of Alcohol and Drug Abuse Patient Records regulations: The Federal rules restrict any use of the information to criminally investigate or prosecute any alcohol or drug abuse patient.[facility] the event this information is protected by the Federal Confidentiality of Alcohol and Drug Abuse Patient Records regulations: The Federal rules restrict any use of the information to criminally investigate or prosecute any alcohol or drug abuse patient.[facility] the event this information is protected by the Federal Confidentiality of Alcohol and Drug Abuse Patient Records regulations: The Federal rules restrict any use of the information to criminally investigate or prosecute any alcohol or drug abuse patient.[facility] the event this information is protected by the Federal Confidentiality of Alcohol and Drug Abuse Patient Records regulations: The Federal rules restrict any use of the information to criminally investigate or prosecute any alcohol or drug abuse patient.[facility] System[facility] the event this information is protected by the Federal Confidentiality of Alcohol and Drug Abuse Patient Records regulations: The Federal rules restrict any use of the information to criminally investigate or prosecute any alcohol or drug abuse patient.[facility] Care Teams (unrecognized sec tion and content) [employer] Relationship Specialty Start Date End Date Bear Au MD PCP - General Family Medicine 03/25/15 Bear Au MD Family Medicine 03/25/15 Team Status: Active Member Role Status Dates Dr. Bear Au MD Family Provider Active Dr. Bear Au MD Primary Care Provider Active Team Status: Inactive Member Role Status Dates Dr. Bear Au MD Primary Care Provider Active Dr. Cynthia Bello DO Attending Provider Active Team Status: Inactive Member Role Status Dates Dr. Bear Au MD Primary Care Provider Active Grace Cheung NP-C Attending Provider, Referring Pro vider Active Team Status: Inactive Member Role Status Dates Dr. Bear Au MD Primary Care Provider, Referring Provider Active Dr. Manjeet Thapa MD Attending Provider Active Team Status: Inactive Member Role Status Dates Dr. Bear Au MD Primary Care Provider Active Dr. Jack Driver DO Attending Provider, Referring Pro vider Active Team Status: Active Member Role Status Dates Dr. Bear Au MD Primary Care Provider Active Dr. Wyatt Yee MD Attending Provider, Referring Provider Active Team Status: Inactive Member Role Status Dates Dr. Bear Au MD Primary Care Provider Active Dr. Wyatt Yee MD Attending Provider, Referring Provider Active Team Status: Active Member Role Status Dates Dr. Bear Au MD Primary Care Provider Active Dr. Manjeet Thapa MD Attending Provider Active Team Status: Active Member Role Status Dates Dr. Bear Au MD Primary Care Provider Active Emery Olivares NP, CHILD CARE ASSOCIATE-C Attending Provider Active Team Status: Inactive Member Role Status Dates Dr. Bear Au MD Primary Care Provider Active Dr. Manjeet Thapa MD Attending Provider, Referring Pro vider Active Team Status: Active Member Role Status Dates Dr. Bear Au MD Family Provider Active Dr. Jack Driver DO Primary Care Provider Active Team Status: Inactive Member Role Status Dates Dr. Cynthia Bello DO Attending Provider, Referrin g Provider Active Dr. Jack Driver DO Primary Care Provider Active Team Status: Inactive Member Role Status Dates Dr. Jack Driver DO Primary Care Provider Active CASTILLO DejesusC Attending Provider, Referring Provi arabella Active [employer] Relationship Specialty [place] [address] [id number] PCP - General Internal Medicine 02/22/24 [employer] Relationship Specialty [place] [address] [address] PCP - General Internal Medicine 02/22/24 [employer] Relationship Specialty [place] [address] [place] [address] PCP - General Internal Medicine 02/22/24 [employer] Relationship Specialty Start Date End Date Jack Driver, [address] [place] [address] PCP - General Internal Medicine 02/22/24 [employer] Relationship Specialty [place] [address] [address] PCP - General Internal Medicine 02/22/24 [employer] Relationship Specialty Start Date End Date Jack Driver, [address] [address] PCP - General Internal Medicine 02/22/24 [employer] Relationship Specialty [place] [address] 901729 PCP - General Internal Medicine 02/22/24 [employer] Relationship Specialty Start Date End Date Jack Driver, [address] [address] PCP - General Internal Medicine 02/22/24 Reason for Visit (unrecogniz ed section and content) Reason Comments Laceration Cut right hand middl e finger on a broken coffee cup at home 1cmLast tetanus 2022 Reason Comments New Patient bulging disc. will b ring imaging with them to their appointment Reason Comments New Patient Reason Comments MRI Appointment Reason Comments Established Patient Reason Comments Established Patient FOR RECORDS PERTAINING TO PATIENTS WHO ARE OR HAVE BEEN ENROLLED IN A CHEMICAL DEPENDENCY/SUBSTANCEABUSE PROGRAM, SOME INFORMATION MAY BE OMITTED. This clinical summary was aggregated from multiple sources. Caution should be exercised in using it in the provision of clinical care. This summary normalizes information from multiple sources, and as a consequence, information in this document may materially change the coding, format and clinical context of patient data. In addition, data may be omitted in some cases. CLINICAL DECISIONS SHOULD BE BASED ON THE PRIMARY CLINICAL RECORDS. [facility] [employer] provides no warranty or guarantee of the accuracy or completeness of information in this document.
--- NOTE | 2025-03-25 00:57 | ED.VIS.CHEST ---
HPI History of Present Illness Chief Complaint: Chest Pain Informant: patient Narrative Narrative: Patient is a 64-year-old female with history of hyperlipidemia, pancreatitis, fatty liver presenting with worsening indigestion and now chest/epigastric abdominal pain. Patient states the past few weeks she has had worsening acid reflux/indigestion. She is taking daily Pepcid. She was around 5 PM tonight she drank some water and afterward started to get nauseous and have pain in the center of her chest. She then felt that there was intense pressure in her stomach and has pain in that area. She took aspirin as well as Pepcid prior to arrival. She notes that she is having pain in her back which he does more diffuse than in the lower back. She feels that she cannot get comfortable. Denies any fever. Denies any vomiting. States her bowel moods been normal denies any blood in her stool. PSHx includes appendectomy. Does follow with Dr. Montejo on has been trying to get in with him if she think she likely needs another scope. Notes that she is on a new weight loss injection (sounds like a GLP-1 agonist). Denies any cardiac history. No other complaints or concerns reported at this time. [facility] Medical History Pancreatitis Trigger point Insomnia Atypical chest pain Hyperlipidemia Home Medications Medication Instructions Recorded Last Taken Type alprazolam 0.25 mg tablet 0.25 mg PO BID PRN anxiety 11/15/22 Unknown History Allergy/AdvReac Type Severity Reaction Status Date / Time meperidine HCl (From Demerol) AdvReac Vomiting Verified 11/17/22 10:45 morphine AdvReac Upset Verified 11/17/22 10:45 Stomach Family History Father CVA (cerebral vascular accident) Myocardial infarction Grandmother Colon cancer Diabetes Grandmother Myocardial infarction Surgical History Hx of hysterectomy Hx of repair of left rotator cuff Hx of appendectomy Social History Smoking Status: Never smoker how long ago did patient quit smokin alcohol intake: current alcohol intake frequency: holidays/special occasions only substance use type: does not use caffeine: Yes Type: coffee Number of servings: 4 ROS ROS ED Constitutional Constitutional ED: Denies chills or fever(s) Cardiovascular Cardiovascular: Reports as per HPI and chest pain Respiratory/Chest Respiratory/Chest: Denies cough or dyspnea Gastrointestinal Gastrointestinal: Reports abdominal pain and nausea; Denies diarrhea, melena or vomiting Musculoskeletal Musculoskeletal: Reports back pain; Denies arthralgias or myalgias Integumentary Denies rash Neurologic Neurologic: Denies weakness Psychiatric Psychiatric: Reports anxiety EXAM Physical Exam Const Vital Signs: 03/25/25 00:00 03/25/25 00:07 03/25/25 02:28 Temperature 97.6 F L Temperature Source Oral Pulse Rate 91 79 Respiratory Rate 18 12 Respiratory Effort Normal Non-Labored Blood Pressure 167/93 H 132/70 H Blood Pressure Mean 117 90 Pulse Ox 97 97 Oxygen Delivery Method 03/25/25 04:00 03/25/25 06:00 Temperature Temperature Source Pulse Rate 74 67 Respiratory Rate 13 12 Respiratory Effort Blood Pressure 107/76 110/74 Blood Pressure Mean 86 86 Pulse Ox 97 96 Oxygen Delivery Method Room Air Room Air Positive well nourished and well developed General Appearance ED: well developed and NAD; Negative for pallor HEENT Reports moist mucous membranes Eyes PERRL Neck supple and no JVD Chest Wall inspection of chest normal and palpation of chest normal Resp normal respiratory effort and clear to auscultation bilaterally Cardio regular rate, regular rhythm and no murmurs GI soft to palpation and non-distended GI Narrative: Normal bowel sounds. Negative Mcrae sign. No pain at McBurney's point. Tenderness in epigastric region on palpation. No peritoneal signs. Auscultation: Negative for hyperactive bowel sounds Back/Spine no CVA tenderness and no thoracic nor lumbar tenderness Neuro oriented x3 Sensorium / Orientation: awake and alert Motor Exam: Negative for general weakness Psych mental status grossly normal Mood & Affect: anxious Skin no rashes or lesions noted and no wounds General Skin Exam: Negative for jaundice or pallor Heart Score History: Slightly/Non-Suspicious ECG: Normal Age: >45 - <65 years Risk Factors: 1 or 2 Risk Factors Troponin: </= Normal Limit Score: 2 MDM MDM MDM Narrative Medical decision making narrative: Patient evaluated for sternal chest pain that is now in her epigastric region. Differential includes atypical ACS, gastritis, esophagitis, bleeding ulcer, pancreatitis, cholecystitis. Low suspicion pain with pathology. Is equal pulses in her extremities and blood pressure only minimally elevated the emergency room. Patient given fentanyl, pantoprazole, Zofran and IV fluids for symptom control. Will obtain cardiac and GI workup. Cardiac workup largely normal. Patient is feeling improved after additional intervention. Does have a mild leukocytosis of 11.5 which is not on specific. No left shift present. She also has a mild elevation of her AST and ALT (261 and 194 respectively) with a normal total bilirubin. Possible for biliary colic as a cause of her symptoms. Lipase is normal. After further discussion she notes that she did have [employer] today and her symptoms do correlate with food. Will obtain CT abdomen pelvis for further evaluation. CT shows a distended mildly thickened gallbladder with mild intrahepatic biliary ductal dilation and dilated common bile duct measuring 10.7 mm. She is feeling improved but still has some mild pain. Given additional dose of fentanyl. Will obtain ultrasound of the gallbladder for concern of possible choledocholithiasis versus recently passed gallstone. She is afebrile and nontoxic appearing. Lower concern for ascending cholangitis. Ultrasound concerning for acute cholecystitis but also the common bile duct dilation of 8 mm. Case discussed with general surgery, Dr. Bull will be coming down to evaluate the patient. Patient currently pain-free at this time after second dose of fentanyl. Is ordered Zosyn. Lab Data Attestation: I reviewed the patient's lab results. Labs: Laboratory Results - last 24 hr 03/25/25 03/25/25 03/25/25 00:03 00:55 02:39 WBC 11.5 H RBC 5.51 H Hgb 13.8 Hct 44.8 MCV 81.3 MCH 25.0 L MCHC 30.8 L RDW Std Deviation 42.1 RDW Coeff of Lul 14.4 Plt Count 303 MPV 9.8 Immature Gran % (Auto) 0.300 Neut % (Auto) 68.3 Lymph % (Auto) 23.8 [place] % (Auto) 6.5 Eos % (Auto) 0.8 Baso % (Auto) 0.3 Absolute Neuts (auto) 7.9 H Absolute Lymphs (auto) 2.74 Nucleated RBC % 0 Sodium 139 Potassium 3.2 L Chloride 102 Carbon Dioxide 23.5 Anion Gap 13 BUN 15 Creatinine 0.76 Estim Creat Clear Calc 65.43 Est GFR (MDRD) Non-Af 88 BUN/Creatinine Ratio 19.3 Glucose 114 H Calcium 10.0 Total Bilirubin 0.99 Direct Bilirubin 0.57 H AST 261 H ALT 194 H Alkaline Phosphatase 91 Troponin T High Sens < 6 Troponin T Hi Sens 2 Hr < 6 Total Protein 7.5 Albumin 4.7 Globulin 2.8 Lipase 51 Urine Color Yellow Urine Clarity Clear Urine pH 6.5 Ur Specific [place] 1.020 Urine Protein 15 H Urine Glucose (UA) Normal Urine Ketones Negative Urine Occult Blood 25 H Urine Nitrite Negative Urine Bilirubin Negative Urine Urobilinogen Normal Ur Leukocyte Esterase 25 H Urine RBC 0-5 SEEN Urine WBC 0-5 SEEN Ur Squamous Epith Cells 0-5 SEEN Urine Bacteria 1+ Urine Mucus 0 SEEN Radiography Chest X-Ray - ED: 2 View, Read by ED Physician, Read by Radiologist and No Acute Disease Diagnostic Testing: Clinical Impression(s) from Imaging Studies Chest X-Ray 03/25/25 01:10 IMPRESSION: No evidence for acute abnormality. Reading Location: [facility] Abdomen/Pelvis CT 03/25/25 02:05 IMPRESSION: Distended, mildly thickened gallbladder. Mild intrahepatic biliary ductal dilatation. Dilated common bile duct measuring 10.7 mm. Prior hysterectomy. Mild bilateral fullness of the collecting systems, probably reflux. Uncomplicated colonic diverticulosis. Moderate amount of fecal residue in the cecum. Reading [facility] Gallbladder Ultrasound 03/25/25 04:35 IMPRESSION: Multiple gallstones and gallbladder wall thickening suggestive of acute cholecystitis. The common bile duct is dilated measuring 8 mm. Fatty infiltration of the liver. Right parapelvic renal cyst. Reading Location: [id number] Rhythm Strip Rhythm Strip: Sinus Rhythm Rate: 88 Ectopy: None EKG Initial EKG: Attestation: I personally reviewed and interpreted this EKG as follows: Interpretation: Sinus Rhythm Comments: Normal sinus rhythm at a rate of 63 bpm Normal axis Low voltage QRS Normal ST segments Compared to prior EKG on 05/09/2016–no acute change Discharge Plan Triage Chief Complaint: Chest Pain ED Provider: Prema Michaels Dx/Rx/DC Orders Clinical Impression: Acute cholecystitis, Transaminitis Prescriptions: No Action alprazolam 0.25 mg tablet 0.25 mg PO BID PRN (Reason: anxiety) Primary Care Provider: Yoly Black NP Referrals: Yoly Black NP, [employer] [Primary Care Provider, Medical] Print Language: Wallisian
[2025-03-25] MEDS: fentaNYL 100 MCG/2 ML Ampul 50 MCG IV ×3 (00:58→19:36)
[2025-03-25] MEDS: 0.9% Normal Saline (1000mL) 1,000 ML 999 ML IV ×4 (00:58→21:55)
[2025-03-25] MEDS: Pantoprazole Sodium 40 MG in 0.9% Normal Saline (100mL MB+) 100 ML 300 MG IV (00:59)
[2025-03-25 01:05] LABS: Mucous, Urine 0 SEEN /hpf (<or=2+)
[2025-03-25 01:08] LABS: Color, Urine Yellow (Yellow); Glucose, Dipstick Normal (Normal); Ketone-Dipstick Negative (Negative); Leukocyte Esterase-Dipstick 25 /ul (Negative); Nitrite-Dipstick Negative (Negative); Occult Blood-Urine 25 /ul (Negative); Protein-Dipstick 15 mg/dl (Negative); Specific Gravity, Urine 1.020 (1.002-1.030); Urine Bilirubin Dipstick Negative (Negative)
[2025-03-25 01:10] LABS: AST(SGOT) 261 U/L (<=31); Alanine Aminotransfer ALT/SGPT 194 U/L (<=34); Albumin, Serum 4.7 g/dL (3.4-4.8); Alkaline Phosphatase 91 U/L (35-104); Anion Gap 13 (5-15); BUN 15 mg/dL (4-19); BUN/Creat Ratio 19.3 RATIO (10-20); Bilirubin, Direct 0.57 mg/dL (0.00-0.30); Calcium,Total 10.0 mg/dL (7.6-11.0); Carbon Dioxide 23.5 mmol/L (21.0-32.0); Chloride 102 mmol/L (98-108); Estimated Creatinine Clearance 65.43 ml/min (50-250); Globulin 2.8 g/dL (2.2-4.2); Glucose 114 mg/dL (70-99); Lipase 51 U/L (13-75); Potassium 3.2 mmol/L (3.3-5.1); Troponin T High Sensitivity < 6 ng/L (<=14)
--- NOTE | 2025-03-25 01:10 | RAD_ITS ---
PROCEDURE: CHEST PA AND LATERAL 03/25/2025 REASON FOR EXAM: CHEST PAIN TECHNIQUE: Procedure Code: RADCXR Modality: DX Procedure: CHEST PA AND LATERAL COMPARISON: None. FINDINGS: The lungs are expanded. There is no demonstrated parenchymal abnormality. There is no demonstrated pleural abnormality. Normal heart and pericardium. Normal mediastinum and alen. Normal visualized pulmonary arteries. Normal visualized aortic arch and descending thoracic aorta. Normal visualized thoracic spine. Normal visualized ribs, clavicles, and shoulders. There is no demonstrated abnormality of the visualized soft tissue structures of the upper abdomen. RAD/Chest PA and Lateral IMPRESSION: No evidence for acute abnormality. Reading [facility]
[2025-03-25 01:22] LABS: Squamous Epithelial Cells - UA 0-5 SEEN /hpf (5-10)
[2025-03-25 01:25] LABS: Red Blood Cells-Urine 0-5 SEEN /hpf (0-5)
--- NOTE | 2025-03-25 02:05 | CT_ITS ---
PROCEDURE: ABDOMEN/PELVIS W IV CONT ONLY 03/25/2025 REASON FOR EXAM: UPPER ABD PAIN, TRANSAMINITIS TECHNIQUE: Procedure Code: [id number] Modality: CT Procedure: ABDOMEN/PELVIS W IV CONT ONLY Coronal and Sagittal reconstruction series were provided. CONTRAST: OMNIPAQUE 350 VOLUME: 100 mL One or more dose reduction techniques were used (e.g., Automated exposure control, adjustment of the mA and/or kV according to patient size, use of iterative reconstruction technique. RADIATION DOSE SUMMARY: CTDlvol: 8.46 mGy DLP: 100.69 mGycm COMPARISON: None. FINDINGS: Distended, mildly thickened gallbladder. Mild intrahepatic biliary ductal dilatation. Dilated common bile duct measuring 10.7 mm. Prior hysterectomy. Mild bilateral fullness of the collecting systems, probably reflux. Uncomplicated colonic diverticulosis. Moderate amount of fecal residue in the cecum. The visualized lung bases are unremarkable. Normal liver. Normal spleen. Normal pancreas. Normal bilateral adrenal glands. Normal size of the right kidney. There is no right renal mass. There are no right renal calculi. Normal size of the left kidney. There is no left renal mass. There are no left renal calculi. Normal visualized stomach. Normal small intestine. The appendix is not visualized and appears normal. There is no demonstrated peritoneal fluid. Normal abdominal aorta. Normal inferior vena cava. Normal retroperitoneum. Normal urinary bladder. There is no pelvic mass lesion or lymphadenopathy. There is no pelvic fluid. Normal abdominal wall. Mild diffuse spondylosis. CT/Abdomen/Pelvis W IV Cont ONLY IMPRESSION: Distended, mildly thickened gallbladder. Mild intrahepatic biliary ductal dilatation. Dilated common bile duct measuring 10.7 mm. Prior hysterectomy. Mild bilateral fullness of the collecting systems, probably reflux. Uncomplicated colonic diverticulosis. Moderate amount of fecal residue in the cecum. Reading Location: [facility]
[2025-03-25 03:04] LABS: Troponin T High Sens 2 HR < 6 ng/L (<=14)
--- NOTE | 2025-03-25 04:35 | US_ITS ---
PROCEDURE: GALLBLADDER 03/25/2025 REASON FOR EXAM: PAIN, TRANSAMINITIS, ABNORMAL CT TECHNIQUE: Procedure Code: USGB Modality: US Procedure: GALLBLADDER COMPARISON: Prior CT scan of the abdomen and pelvis done earlier in the day. FINDINGS: Liver: Diffusely echogenic suggesting fatty infiltration. Gallbladder: Multiple echogenic gallstones are identified. Gallbladder wall is thickened measuring 5 mm. Common bile duct: Dilated measuring up to 8 mm. . Pancreas: Normal Other: Visualized portions of the right kidney are unremarkable except for a 3.5 cm x 2 cm 1.7 cm right parapelvic cyst.. No right upper quadrant ascites. US/Gallbladder IMPRESSION: Multiple gallstones and gallbladder wall thickening suggestive of acute cholecy stitis. The common bile duct is dilated measuring 8 mm. Fatty infiltration of the liver. Right parapelvic renal cyst. Reading Location: [id number]
[2025-03-25] MEDS: Piperacil/Tazobactam 3.375 GM in 0.9% Normal Saline (50mL MB+) 50 ML IV ×3 (08:18→22:57)
--- NOTE | 2025-03-25 09:15 | HP.PCM_ITS ---
HPI - General General Date of Admission: 03/25/25 Date of Service: 03/25/25 Chief Complaint: Right upper quadrant pain and epigastric pain HPI Narrative VENUS RENAE, is a 64 F who presents with 1 day history of upper chest/ sternal pain. Patient notes she thought she may be having indigestion and took Pepcid along with an aspirin as she thought she may be having a heart attack. Patient notes a history of indigestion for which she follows with Dr. Montejo. Patient states Dr. Montejo has followed her for a 20 year history of H pylori. She notes this is now resolved after seeing GI at a tertiary facility. Patient states she started with indigestion around 5:30 pm last night with associated nausea. She notes the pain had relocated to the epigastric region. She notes having pancreatitis a few years ago. She is unsure of the cause of the pancreatitis at that time. She notes starting a GLP-1 approximately 2 months ago. Her last dose was on Tuesday. She notes her is unaware that she is on this medication. She notes being placed on this due to her HgbA1C being over 6 and elevated cholesterol. She notes her starting weight was 155 and she is now down to 140-144. Patient notes a previous abdominal surgery (appendectomy). CT scan of the ab/pel demonstrated: IMPRESSION: Distended, mildly thickened gallbladder. Mild intrahepatic biliary ductal dilatation. Dilated common bile duct measuring 10.7 mm. Prior hysterectomy. Mild bilateral fullness of the collecting systems, probably reflux. Uncomplicated colonic diverticulosis. Moderate amount of fecal residue in the cecum. RUQ u/s demonstrated: IMPRESSION: Multiple gallstones and gallbladder wall thickening suggestive of acute cholecystitis. The common bile duct is dilated measuring 8 mm. Fatty infiltration of the liver. Right parapelvic renal cyst. WBC 11.5, Hgb 13.8, Hct 44.8, Plt 303. Liver enzymes: T Bili 0.99, AST 261, ALT 194, Alk Phos 91 [facility] Medical History Pancreatitis Trigger point Insomnia Atypical chest pain Hyperlipidemia Home Medications Medication Instructions Recorded Last Taken Type alprazolam 0.25 mg tablet 0.25 mg PO BID PRN anxiety 0 11/15/22 Unknown History Allergy/AdvReac Type Severity Reaction Status Date / Time meperidine HCl (From Demerol) AdvReac Vomiting Verified 11/17/22 10:45 morphine AdvReac Upset Verified 11/17/22 10:45 Stomach Family History Father CVA (cerebral vascular accident) Myocardial infarction Grandmother Colon cancer Diabetes Grandmother Myocardial infarction Surgical History Hx of hysterectomy Hx of repair of left rotator cuff Hx of appendectomy Social History Smoking Status: Never smoker how long ago did patient quit smokin alcohol intake: current alcohol intake frequency: holidays/special occasions only substance use type: does not use caffeine: Yes Type: coffee Number of servings: 4 ROS Constitutional Constitutional: Reports systems reviewed and no addt'l complaints, except as documented Eyes Eyes: Reports systems reviewed and no addt'l complaints, except as documented ENT HEENT: Reports systems reviewed and no addt'l complaints, except as documented Cardiovascular Cardiovascular: Reports systems reviewed and no addt'l complaints, except as documented Respiratory/Chest Respiratory/Chest: Reports systems reviewed and no addt'l complaints, except as documented Gastrointestinal Gastrointestinal: Reports systems reviewed and no addt'l complaints, except as documented Genitourinary Genitourinary: Reports systems reviewed and no addt'l complaints, except as documented Musculoskeletal Musculoskeletal: Reports systems reviewed and no addt'l complaints, except as documented Integumentary Integumentary: Reports systems reviewed and no addt'l complaints, except as documented Neurologic Neurologic: Reports systems reviewed and no addt'l complaints, except as documented Psychiatric Psychiatric: Reports systems reviewed and no addt'l complaints, except as documented Endocrine Endocrinology: Reports systems reviewed and no addt'l complaints, except as documented Hematologic/Lymphatic Hematologic/Lymphatic: Reports systems reviewed and no addt'l complaints, except as documented Allergic/Immunologic Allergic/Immunologic: Reports systems reviewed and no addt'l complaints, except as documented Vital Signs Vital Signs Vital Signs: 03/25/25 00:00 03/25/25 00:07 03/25/25 02:28 Temperature 97.6 F L Temperature Source Oral Pulse Rate 91 79 Respiratory Rate 18 12 Respiratory Effort Normal Non-Labored Blood Pressure 167/93 H 132/70 H Blood Pressure Mean 117 90 Pulse Ox 97 97 Oxygen Delivery Method 03/25/25 04:00 03/25/25 05:30 03/25/25 05:45 Temperature Temperature Source Pulse Rate 74 76 67 Respiratory Rate 13 14 12 Respiratory Effort Blood Pressure 107/76 Blood Pressure Mean 86 Pulse Ox 97 96 95 Oxygen Delivery Method Room Air 03/25/25 06:00 03/25/25 06:00 03/25/25 06:00 Temperature Temperature Source Pulse Rate 67 73 Respiratory Rate 12 12 Respiratory Effort Blood Pressure 110/74 110/74 110/74 Blood Pressure Mean 86 85 85 Pulse Ox 96 95 Oxygen Delivery Method Room Air 03/25/25 06:15 03/25/25 06:30 03/25/25 06:49 Temperature Temperature Source Pulse Rate 70 70 Respiratory Rate 12 13 Respiratory Effort Blood Pressure Blood Pressure Mean Pulse Ox 96 96 98 Oxygen Delivery Method 03/25/25 07:00 03/25/25 07:00 03/25/25 07:15 Temperature Temperature Source Pulse Rate 64 Respiratory Rate 15 Respiratory Effort Blood Pressure 115/73 115/73 Blood Pressure Mean 86 86 Pulse Ox 96 96 Oxygen Delivery Method 03/25/25 07:30 03/25/25 07:45 03/25/25 08:00 Temperature Temperature Source Pulse Rate 66 73 83 Respiratory Rate 13 15 17 Respiratory Effort Blood Pressure 112/84 H Blood Pressure Mean 95 Pulse Ox 96 96 97 Oxygen Delivery Method 03/25/25 08:47 Temperature 98.3 F Temperature Source Pulse Rate 70 Respiratory Rate 12 Respiratory Effort Blood Pressure 112/4 L Blood Pressure Mean 40 Pulse Ox 97 Oxygen Delivery Method Weight Weight: 140 lb 14.006 oz Body Mass Index (BMI) 24.1 Physical Exam Const alert, oriented x3 and no apparent distress HEENT normocephalic and head/scalp atraumatic Eyes PERRL Neck full ROM Resp normal respiratory effort and clear to auscultation bilaterally Cardio regular rate and regular rhythm GI GI Narrative: Abdomen- soft, tenderness in the right upper quadrant and epigastric region no CVA tenderness Back/Spine no CVA tenderness Extremity normal to inspection Skin no rashes or lesions noted Neuro no focal motor deficits and no sensory deficits noted Psych mental status grossly normal and thought process normal Results Lab / Micro Data 03/25/25 00:03 03/25/25 00:03 Labs: Laboratory Results - last 24 hr 03/25/25 00:03: WBC 11.5 H, RBC 5.51 H, Hgb 13.8, Hct 44.8, MCV 81.3, MCH 25.0 L , MCHC 30.8 L, RDW Std Deviation 42.1, RDW Coeff of Lul 14.4, Plt Count 303, MPV 9.8, Immature Gran % (Auto) 0.300, Neut % (Auto) 68.3, Lymph % (Auto) 23.8, [place] % (Auto) 6.5, Eos % (Auto) 0.8, Baso % (Auto) 0.3, Absolute Neuts (auto) 7.9 H, Absolute Lymphs (auto) 2.74, Nucleated RBC % 0, Sodium 139, Potassium 3.2 L, Chloride 102, Carbon Dioxide 23.5, Anion Gap 13, BUN 15, Creatinine 0.76, Estim Creat Clear Calc 65.43, Est GFR (MDRD) Non-Af 88, BUN/Creatinine Ratio 19.3, G lucose 114 H, Calcium 10.0, Total Bilirubin 0.99, Direct Bilirubin 0.57 H, AST 261 H, ALT 194 H, Alkaline Phosphatase 91, Troponin T High Sens < 6, Total Protein 7.5, Albumin 4.7, Globulin 2.8, Lipase 51 03/25/25 00:55: Urine Color Yellow, Urine Clarity Clear, Urine pH 6.5, Ur Specific [place] 1.020, Urine Protein 15 H, Urine Glucose (UA) Normal, Urine Ketones Negative, Urine Occult Blood 25 H, Urine Nitrite Negative, Urine Bilirubin Negative, Urine Urobilinogen Normal, Ur Leukocyte Esterase 25 H, Urine RBC 0-5 SEEN, Urine WBC 0-5 SEEN, Ur Squamous Epith Cells 0-5 SEEN, Urine Bacteria 1+, Urine Mucus 0 SEEN 03/25/25 02:39: Troponin T Hi Sens 2 Hr < 6 Rhythm Strip Rhythm Strip: Sinus Rhythm Rate: 88 Ectopy: None Imaging Radiology Impression Chest X-Ray 03/25/25 01:10 IMPRESSION: No evidence for acute abnormality. Reading Location: [place] [id number] Abdomen/Pelvis CT 03/25/25 02:05 IMPRESSION: Distended, mildly thickened gallbladder. Mild intrahepatic biliary ductal dilatation. Dilated common bile duct measuring 10.7 mm. Prior hysterectomy. Mild bilateral fullness of the collecting systems, probably reflux. Uncomplicated colonic diverticulosis. Moderate amount of fecal residue in the cecum. Reading [facility] Gallbladder Ultrasound 03/25/25 04:35 IMPRESSION: Multiple gallstones and gallbladder wall thickening suggestive of acute cholecystitis. The common bile duct is dilated measuring 8 mm. Fatty infiltration of the liver. Right parapelvic renal cyst. Reading Location: [id number] Assessment & Plan Assessment/Plan (1) Choledocholithiasis with cholecystitis: PLAN: I am seeing this patient in conjunction with Dr. Bull. He has independently evaluated this patient. Patient is a 64 y/o pleasant female who presents with a history of pancreatitis of unknown etiology. Patient had a 1 day history of epigastric pain with associated nausea. She was under the impression this could be a heart attack and proceeded to the ED. CT scan and RUQ u/s demonstrated acute cholecystitis with possible choledocholithiasis. Plan will be to admit patient to the floor and schedule her for a laparoscopic cholecystectomy with intraoperative cholangiogram with Dr. Bull for tomorrow. We will consult Dr. Mora to see patient from GI to perform an ERCP. Procedure details, risks and benefits have been explained to the patient. Patient has had the opportunity to ask and have questions answered. Patient verbally understands and agrees with the plan. Patient is anxious to proceed with the procedures as she was not expecting to receive surgery. Last dose of GLP-1 was on Tuesday. Charges/Coding Visit Charges Inpatient E&M: 98795 Init Hosp L2
[2025-03-25] MEDS: 0.9% Normal Saline (1000mL) 1,000 ML 100 ML IV (10:56)
--- NOTE | 2025-03-25 11:22 | HP.PCM_ITS ---
[facility] - General General Date of Admission: 03/25/25 Chief Complaint: Right upper quadrant pain and epigastric pain [facility] Narrative VENUS RENAE, is a 64-year-old female presents with worsening indigestion and new-onset chest/epigastric abdominal pain.she says that for the past few weeks, she has experienced worsening acid reflux/indigestion despite taking daily Pepcid. Around 5 PM last night, after drinking water, she developed nausea, pain in the center of her chest, and intense pressure in her stomach. The pain also radiates to her back, which she describes as more diffuse than in the lower back. She took aspirin and additional Pepcid prior to arrival with no significant relief. She has a past Medical History Hyperlipidemia, pancreatitis, fatty liver and hyperglycemia possibly secondary to type 2 diabetes. She takes Ozempic (started 2 months ago), Pepcid, Aspirin, Statin (for hyperlipidemia, implied). WBC 11.5 H, Hgb 13.8, MCV 81.3, Plt Count 303, Sodium 139, Potassium 3.2 L, Chloride 102, Carbon Dioxide 23.5, Anion Gap 13, BUN 15, Creatinine 0.76,, Calcium 10.0, Total Bilirubin 0.99, Direct Bilirubin 0.57 H, AST 261 H, ALT 194 H, Alkaline Phosphatase 91, Troponin T High Sens < 6, Total Protein 7.5, Albumin 4.7, Globulin 2.8, Lipase 51. FINDINGS on CTscan: Distended, mildly thickened gallbladder. Mild intrahepatic biliary ductal dilatation. Dilated common bile duct measuring 10.7 mm. . [facility] Medical History Pancreatitis Trigger point Insomnia Atypical chest pain Hyperlipidemia Home Medications Medication Instructions Recorded Last Taken Type alprazolam 0.25 mg tablet 0.25 mg PO BID PRN anxiety 0 11/15/22 Unknown History Allergy/AdvReac Type Severity Reaction Status Date / Time meperidine HCl (From Demerol) AdvReac Vomiting Verified 11/17/22 10:45 morphine AdvReac Upset Verified 11/17/22 10:45 Stomach Family History Father CVA (cerebral vascular accident) Myocardial infarction Grandmother Colon cancer Diabetes Grandmother Myocardial infarction Surgical History Hx of hysterectomy Hx of repair of left rotator cuff Hx of appendectomy Social History Smoking Status: Never smoker how long ago did patient quit smokin alcohol intake: current alcohol intake frequency: holidays/special occasions only substance use type: does not use caffeine: Yes Type: coffee Number of servings: 4 ROS Constitutional Constitutional: Reports systems reviewed and no addt'l complaints, except as documented Eyes Eyes: Reports systems reviewed and no addt'l complaints, except as documented Vital Signs Vital Signs Vital Signs: 03/25/25 00:00 03/25/25 00:07 03/25/25 02:28 Temperature 97.6 F L Temperature Source Oral Pulse Rate 91 79 Respiratory Rate 18 12 Respiratory Effort Normal Non-Labored Blood Pressure 167/93 H 132/70 H Blood Pressure Mean 117 90 Blood Pressure Source Blood Pressure Position Blood Pressure Location Pulse Ox 97 97 Oxygen Delivery Method 03/25/25 04:00 03/25/25 05:30 03/25/25 05:45 Temperature Temperature Source Pulse Rate 74 76 67 Respiratory Rate 13 14 12 Respiratory Effort Blood Pressure 107/76 Blood Pressure Mean 86 Blood Pressure Source Blood Pressure Position Blood Pressure Location Pulse Ox 97 96 95 Oxygen Delivery Method Room Air 03/25/25 06:00 03/25/25 06:00 03/25/25 06:00 Temperature Temperature Source Pulse Rate 67 73 Respiratory Rate 12 12 Respiratory Effort Blood Pressure 110/74 110/74 110/74 Blood Pressure Mean 86 85 85 Blood Pressure Source Blood Pressure Position Blood Pressure Location Pulse Ox 96 95 Oxygen Delivery Method Room Air 03/25/25 06:15 03/25/25 06:30 03/25/25 06:49 Temperature Temperature Source Pulse Rate 70 70 Respiratory Rate 12 13 Respiratory Effort Blood Pressure Blood Pressure Mean Blood Pressure Source Blood Pressure Position Blood Pressure Location Pulse Ox 96 96 98 Oxygen Delivery Method 03/25/25 07:00 03/25/25 07:00 03/25/25 07:15 Temperature Temperature Source Pulse Rate 64 Respiratory Rate 15 Respiratory Effort Blood Pressure 115/73 115/73 Blood Pressure Mean 86 86 Blood Pressure Source Blood Pressure Position Blood Pressure Location Pulse Ox 96 96 Oxygen Delivery Method 03/25/25 07:30 03/25/25 07:45 03/25/25 08:00 Temperature Temperature Source Pulse Rate 66 73 83 Respiratory Rate 13 15 17 Respiratory Effort Blood Pressure 112/84 H Blood Pressure Mean 95 Blood Pressure Source Blood Pressure Position Blood Pressure Location Pulse Ox 96 96 97 Oxygen Delivery Method 03/25/25 08:47 03/25/25 09:00 03/25/25 10:00 Temperature 98.3 F Temperature Source Pulse Rate 70 72 72 Respiratory Rate 12 12 16 Respiratory Effort Blood Pressure 112/4 L 125/82 H 132/86 H Blood Pressure Mean 40 95 100 Blood Pressure Source Blood Pressure Position Blood Pressure Location Pulse Ox 97 96 97 Oxygen Delivery Method 03/25/25 10:26 Temperature 97.8 F Temperature Source Temporal Pulse Rate 76 Respiratory Rate 18 Respiratory Effort Blood Pressure 149/93 H Blood Pressure Mean 111 Blood Pressure Source Monitor Blood Pressure Position Semi-Fowlers Blood Pressure Location Left Arm Pulse Ox 97 Oxygen Delivery Method Room Air Weight Weight: 144 lb 14.4 oz Body Mass Index (BMI) 24.8 Physical Exam Const alert, oriented x3, no apparent distress and healthy appearing General Appearance: cooperative GI normal to inspection, nondistended, normoactive bowel sounds, soft to palpation, non-tender and non-distended Percussion: normal to percussion Rectal Exam: deferred Results Lab / Micro Data 03/25/25 00:03 03/25/25 00:03 Labs: Laboratory Results - last 24 hr 03/25/25 00:03: WBC 11.5 H, RBC 5.51 H, Hgb 13.8, Hct 44.8, MCV 81.3, MCH 25.0 L , MCHC 30.8 L, RDW Std Deviation 42.1, RDW Coeff of Lul 14.4, Plt Count 303, MPV 9.8, Immature Gran % (Auto) 0.300, Neut % (Auto) 68.3, Lymph % (Auto) 23.8, [place] % (Auto) 6.5, Eos % (Auto) 0.8, Baso % (Auto) 0.3, Absolute Neuts (auto) 7.9 H, Absolute Lymphs (auto) 2.74, Nucleated RBC % 0, Sodium 139, Potassium 3.2 L, Chloride 102, Carbon Dioxide 23.5, Anion Gap 13, BUN 15, Creatinine 0.76, Estim Creat Clear Calc 65.43, Est GFR (MDRD) Non-Af 88, BUN/Creatinine Ratio 19.3, G lucose 114 H, Calcium 10.0, Total Bilirubin 0.99, Direct Bilirubin 0.57 H, AST 261 H, ALT 194 H, Alkaline Phosphatase 91, Troponin T High Sens < 6, Total Protein 7.5, Albumin 4.7, Globulin 2.8, Lipase 51 03/25/25 00:55: Urine Color Yellow, Urine Clarity Clear, Urine pH 6.5, Ur Specific [place] 1.020, Urine Protein 15 H, Urine Glucose (UA) Normal, Urine Ketones Negative, Urine Occult Blood 25 H, Urine Nitrite Negative, Urine Bilirubin Negative, Urine Urobilinogen Normal, Ur Leukocyte Esterase 25 H, Urine RBC 0-5 SEEN, Urine WBC 0-5 SEEN, Ur Squamous Epith Cells 0-5 SEEN, Urine Bacteria 1+, Urine Mucus 0 SEEN 03/25/25 02:39: Troponin T Hi Sens 2 Hr < 6 Rhythm Strip Rhythm Strip: Sinus Rhythm Rate: 88 Ectopy: None Imaging Radiology Impression Chest X-Ray 03/25/25 01:10 IMPRESSION: No evidence for acute abnormality. Reading Location: [place] [id number] Abdomen/Pelvis CT 03/25/25 02:05 IMPRESSION: Distended, mildly thickened gallbladder. Mild intrahepatic biliary ductal dilatation. Dilated common bile duct measuring 10.7 mm. Prior hysterectomy. Mild bilateral fullness of the collecting systems, probably reflux. Uncomplicated colonic diverticulosis. Moderate amount of fecal residue in the cecum. Reading Location: [place] [address] Gallbladder Ultrasound 03/25/25 04:35 IMPRESSION: Multiple gallstones and gallbladder wall thickening suggestive of acute cholecystitis. The common bile duct is dilated measuring 8 mm. Fatty infiltration of the liver. Right parapelvic renal cyst. Reading Location: [id number] Assessment & Plan Assessment/Plan (1) Transaminitis: (2) Acute cholecystitis: (3) Hepatic steatosis: (4) Pancreatitis: (5) Choledocholithiasis with cholecystitis: PLAN: 64-year-old female with a history of hyperlipidemia, pancreatitis, and fatty liver who developed worsening indigestion, chest, and epigastric pain after starting Ozempic. The workup revealed a dilated CBD (10.7 mm) and elevated liver transaminases (AST, ALT) with an elevated direct bilirubin, suggesting a biliary obstruction. While pancreatitis is in the differential, a normal lipase level makes it less likely at present. Keys findings: * Elevated direct bilirubin with a normal total bilirubin: This can indicate cholestasis or a biliary obstruction. * Dilated CBD and gallbladder: These findings on CT scan are strong indicators of an obstructive process in the biliary system. * Abnormal liver enzymes (AST/ALT): These can be elevated in biliary obstruction due to back pressure on the liver. * Normal lipase: This makes acute pancreatitis less likely as the primary cause of the current symptoms, though the patient has a history of it. * Ozempic: While Ozempic can cause gastrointestinal side effects like indigestion and has been linked to gallbladder problems and pancreatitis, it is not the immediate cause of the obstruction. Instead, it may have precipitated or unmasked the biliary issue. * Differential Diagnoses: * Biliary Obstruction: Highly likely given the clinical presentation and CT findings. Common causes include gallstones, inflammation, or malignancy. The CT showed gallbladder thickening and distention, suggesting a possible gallstone blockage. * Pancreatitis: History of pancreatitis and new epigastric/back pain are concerning, but the normal lipase makes it a less probable primary diagnosis for this episode. Chronic pancreatitis can also cause biliary obstruction. * Ozempic-related gastrointestinal side effects: Ozempic frequently causes nausea and indigestion, but the specific findings of biliary dilation suggest a more specific pathological process. Plan * Inpatient admission for further evaluation and management of biliary obstruction. * Endoscopic Retrograde Cholangiopancreatography (ERCP) to identify and relieve the obstruction. * Additional labs: Repeat comprehensive metabolic panel (CMP), lipase, and liver enzymes to monitor trends. Check IgG4, AMADOU, ANCA, celiac profile * Discontinue Ozempic temporarily and re-evaluate its necessity after addressing the acute issue. * Pain management: Administer analgesics as needed, avoiding NSAIDs due to aspirin use. * NPO Charges/Coding Visit Charges Inpatient E&M: 18163 Init Hosp L3
--- NOTE | 2025-03-25 15:08 | PRE.ANES_ITS ---
ASA Classification* ASA Classification ASA Classification: 2 and E Assessment & Plan Anesthesia* Anesthesia Assessment Anesthesia Assessment: Discussed sedation and/or anesthesia options, risks, benefits, and alternatives with patient/parents/legal guardian/POA. Questions invited. The patient/parents/legal guardian/POA seems to understand and agrees to proceed with anesthesia plan. Reviewed the physical assessment, medical history, allergy history and patient home medications list prior to surgery/procedure/anesthetic and documented any changes. Performed airway and anesthesia risk assessments. Anesthesia Type Anesthesia Type: General History Source History Obtained from:: Patient and Chart Anesthesia Focused Assessment* Temperature: 97.9 F Pulse Rate: 76 Blood Pressure: 130/80 Respiratory Rate: 18 Pulse Ox: 97 Oxygen Delivery Method: Room Air Airway Assessment Mouth opens: >3 cm Mallampati Score: IV Teeth Condition: Caps/Crowns (Multiple crowns. They are all tight.) Neck Range of motion (ROM): Limited ROM (Slight Decrease) Labs Anesthesia Preop lab: CBC WBC, (4.4-11.0) 11.5 K/mm3 H Today, 00:03 RBC, (4.2-5.4) 5.51 M/mm3 H Today, 00:03 Hgb, (12.0-15.0) 13.8 g/dL Today, 00:03 Hct, (37-47) 44.8 % Today, 00:03 Plt Count, (150-450) 303 K/mm3 Today, 00:03 CHEMISTRY Potassium, (3.3-5.1) 3.2 mmol/L L Today, 00:03 Sodium, (133-145) 139 mmol/L Today, 00:03 BUN, (4-19) 15 mg/dL Today, 00:03 Creatinine, (0.70-1.20) 0.76 mg/dL Today, 00:03 Glucose, (70-99) 114 mg/dL H Today, 00:03 POC Glucose, (70-110) 103 mg/dL 01/15/13, 14:25 TSH, (0.358-3.74) 1.56 uIU/mL 08/11/21, 08:58 COAG PT, (11.9-14.4) 12.3 SECONDS 01/15/13, 14:35 Pre-Assessment Diagnosis/Proposed Procedure Planned Operative Procedure(s): Endoscopic retrograde cholangiopancreatography. 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 When Was Last Pacemaker Check QUESTION #4 FULL TEXT: You/Your Family Experience fever (hyperthermia) with Anesthesia Last Oral Intake Last Oral intake: Last Oral Intake NPO since 13:00 03/24/25 03/25/25 10:29 Meds taken in AM with sips of No 03/25/25 10:29 water? 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 Has anyone observed you stop No 03/25/25 10:12 breathing during sleep? STOP Results Negative 03/25/25 10:12 QUESTION #5 FULL TEXT : Do you snore loudly (louder than talking or can be heard through closed doors)? 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 Specify any problems Hx of Preganancy in last 3 No 03/25/25 10:12 Months Nurse Filling Out Transfusion KMESSENGE 03/25/25 10:12 & Questions: Date: 03/25/25 03/25/25 10:12 Time: 10:21 03/25/25 10:12 Patient unable to answer at this time (ie. 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 Hx Now No 03/25/25 10:13 Gestational Age (in weeks): EDC: Hx Hx Para Hx Section SAB No 03/25/25 10:13 Active Medications Active Medications: Current Medications Generic Name Dose Route Start Last Admin Trade Name Freq PRN Reason Stop Dose Admin Acetaminophen 650 mg 03/25/25 10:11 Acetaminophen 325 Mg Tablet PO Q6H PRN PRN Pain 1-10 Or Fever >100.7 Alprazolam 0.25 mg 03/25/25 10:11 Alprazolam 0.25 Mg Tablet PO BID PRN ANXIETY Docusate Sodium 100 mg 03/25/25 10:11 Docusate Sodium 100 Mg Capsule PO BID PRN PRN Constipation Sodium Chloride 1,000 mls @ 100 mls/hr 03/25/25 10:11 03/25/25 10:56 IV 100 mls/hr .Q10H CHERIE Administration Piperacillin Sod/Tazobactam 50 mls @ 12.5 mls/hr 03/25/25 14:00 03/25/25 13:33 Sod 3.375 gm/ Sodium Chloride IV 12.5 mls/hr Q8 CHERIE Administration Sodium Chloride 250 mls @ 15 mls/hr 03/25/25 10:12 IV .[id number] PRN Saline Flush Sodium Chloride 250 mls @ 15 mls/hr 03/25/25 10:12 IV .[id number] PRN Additional IVPB Infusion Ondansetron HCl 4 mg 03/25/25 10:11 Ondansetron 4 Mg/2 Ml Vial IV Q8H PRN PRN NAUSEA/VOMITING Oxycodone HCl 5 mg 03/25/25 10:11 Oxycodone 5 Mg Tablet PO Q4H PRN PRN Pain Score 4-10 Sodium Chloride 10 - 40 ml 03/25/25 10:12 0.9% Saline Lock 10 Ml Syringe IV UD PRN SALINE FLUSH PFSH Medical History Pancreatitis Trigger point Insomnia Atypical chest pain Hyperlipidemia Home Medications Medication Instructions Recorded Last Taken Type alprazolam 0.25 mg tablet 0.25 mg PO BID PRN anxiety 0 11/15/22 Unknown History Ozempic QWEEK weight loss 03/25/25 1 History Allergy/AdvReac Type Severity Reaction Status Date / Time meperidine HCl (From Demerol) AdvReac Vomiting Verified 11/17/22 10:45 morphine AdvReac Upset Verified 11/17/22 10:45 Stomach Family History Father CVA (cerebral vascular accident) Myocardial infarction Grandmother Colon cancer Diabetes Grandmother Myocardial infarction Surgical History (Updated 03/25/25 @ 15:[address] Aneudy Portillo MD) S/P colonoscopy Hx of hysterectomy Hx of repair of left rotator cuff Hx of appendectomy Social History Smoking Status: Never smoker how long ago did patient quit smokin alcohol intake: current alcohol intake frequency: holidays/special occasions only substance use type: does not use caffeine: Yes Type: coffee Number of servings: 4 Review of Systems (Anesthesia) ROS Narrative System reviewed and no additional complaints, except as documented.
--- NOTE | 2025-03-25 17:33 | SUR.PREOP ---
resting in bed, family at bedside up to bathroom- gait steady antbx completed aware of reason for delay
--- OUTSIDE RECORDS SUMMARY | 2025-03-25 18:08 | XMS RPT_ITS | CCD ---
Author Organization [facility] Care Team Providers Care Manager File Name Role Phone Bear Au MD Primary Care Provider Bear Au MD Unavailable HUNTER HUDSON Consulting Unavailable Sheri Hunter DO Attending Unavailmable subramanian PCP, None Primary Care Unavailable Dr. Bear Au Primary Care Provider Dr. Bear Au Referring Provider Dr. Manjeet Thapa Attending Provider Marshall PAID SEARCH ANALYST, PAID SEARCH ANALYST-Deena Elkins Attending Provider DR WYATT YEE MD Attending Unavailabl e JACK DRIVER DO Primary Care Unavailable DR WYATT YEE MD Attending Unavailabl JACK Carter DO Primary Care Unavailable BEAR AU Primary Care Unavailable SURAJ SAINI Attending Unavailable Jack Driver DO Primary Care Provider Unavailable Primary Care Provider Unavailabl e JACK DRIVER DO Primary Care Physician JACK DRIVER DO Primary Care Unavailable DR WYATT YEE MD Attending Unavailabl BLAISE Pablo Attending Unavailable BLAISE CARROLL Attending Unavailable SONYA MCDERMOTT Attending Unavailable JACK DRIVER Primary Care Unavailable JESSICA ORDAZ Referring Unavailable NEISHA JACKCLAUDETTE MAE Primary Care Unavailable JESSICA ORDAZ Attending Unavailable JACK DRIVER Primary Care Unavailable SONYA MCDERMOTT Attending Unavailable NEISHA JACKCLAUDETTE MAE Primary Care Unavailable NEISHA JACKCLAUDETTE ROGERSCIL Primary Care Unavailable SONYA MCDERMOTT Attending Unavailable JACK DRIVER Primary Care Unavailable JACK DRIVER DO Primary Care Unavailable JORDI VAZQUEZ CNP Attending Unavail able JACK DRIVER DO Primary Care Unavailable STACEY BENITO MD Attending Unavail able Yoly Black Primary Care Unavailable Ashley Herndon Attending Unavailable Ashley Herndon Referring Unavailable TANNA WILEY Attending Unavailable TANNA WILEY Referring Unavailable Yoly Black Primary Care Unavailable Miguel Bull Admitting Unavailable Abraham Leon Consulting Unavailable Miguel Bull Attending Unavailable Wayne Yolytony Lujan Primary Care Unavailable Deep Mora Consulting Unavailable Suzanne Land Consulting Unavailable Court Stevens Consulting Unavailable Lamar Kong Consulting Unavailable Deep Mora Attending Unavailable Miguel Bull Consulting Unavailable Allergies Allergy Classification Reported Allergen(s) Allergy Type Date of Onset Reaction(s) Facility (9 sources) Meperidine; Translations: [meperidine HCl] Drug Allergy 05-09-2016 [facility] (20 sources) Morphine; Translations: [MORPHINE] Drug Allergy 02-03-2012 [facility] (12 sources) Meperidine; Translations: [MEPERIDINE (PF)] Drug Allergy 02-03-2012 [facility] (20 sources) Midazolam; Translations: [MIDAZOLAM] Drug Allergy 02-03-2012 [facility] (1 source) Meperidine Drug Allergy 10-09-2022 [facility] (2 sources) Morphine Drug Allergy 10-09-2022 [facility] (9 sources) Meperidine; Translations: [meperidine] Drug Allergy 02-03-2012 [facility] Medications Current Medications Medication Drug Class(es) Dates [...] 01/05/2024 11/21/2024 Discontinued Start: 01-05-2024 HYDROcodone-ac etaminophen ([place]) 5-325 MG tablet 01/05/2024 Active take 1 tablet by nii th every eight hours as needed HYDROcodone-acetaminophen ([place]) 5-325 mg per tablet Take 1 tablet by mouth every 8 hours as needed for pain. 0 Active [id number] 200 actuat albuterol 0.09 mg/actuat metered dose [...] Claustrophobia; Translations: [Claustrophobia] Onset: 04-20-2024 04-20-2024 Chronic Biliary tract disease (2 sources) Acute cholecystitis; Translations: [Calculus of bile duct with cholecystitis, unspecified, without obstruction] Onset: 03-25-2025 Episodic Complications of surgical procedures or medical care [...] liver, not elsewhere classified] 11-17-2022 Chronic Other liver diseases (1 source) Fatty (change of) liver, not elsewhere classified; Translations: [Fatty (change of) liver, not elsewhere classified] Onset: 03-25-2025 Chronic Pancreatic disorders (not diabetes) (6 sources) Pancreatitis; Translations: [Acute pancreatitis without necrosis or infection, unspecified] Onset: 03-25-2025 11-17-2022 Episodic Residual codes; unclassified (7 sources) History of clinical finding in subject; Translations: [Personal history of other specified conditions] Onset: 03-19-2024 03-19-2024 Episodic Transient cerebral ischemia (7 sources) Transient cerebral ischemia; Translations: [Transient cerebral ischemic attack, unspecified] Onset: 03-19-2024 03-19-2024 Chronic Unclassified (1 source) Breast feeding (infant) (observable entity) 08-25-2018 Comment on above: System added from do cumentation. Breast feeding Status documented as Yes on Admission Unclassified (1 source) Established Patient Onset: 05-07-2024 Unclassified (1 source) Elevation of levels of liver transaminase levels; Translations: [Elevation of levels of liver transaminase levels] Onset: 03-25-2025 Past or Other Problems Problem Classification Problem [...] Translations: [Other fatigue] Onset: 06-26-2024 Episodic Other screening for suspected conditions (not mental disorders or infectious disease) (1 source) Encounter for screening mammogram for malignant neoplasm of breast; Translations: [Encounter for screening mammogram for malignant neoplasm of breast] Onset: 07-23-2024 Episodic Spondylosis; intervertebral disc disorders; other back problems (20 sources) Cervical radiculopathy; Translations: [Radiculopathy, cervical region] Onset: 02-28-2024 02-28-2024 Episodic Urinary tract infections (10 sources) Urinary tract infectious disease; Translations: [Urinary tract infection, site not specified] Onset: 02-03-2012 02-03-2012 Episodic Results Test Name Value Interpretation Reference Range Facility Abdomen/Pelvis W IV Cont ONL Yon 03-25-2025 Abdomen/Pelvis W IV Cont ONLY [facility] Imaging Services [address] [place], [place] [id number] Abdomen/Pelvis W IV Cont ONLY MR#: [id number] Acct: [id number] Name: VENUS SPIVEY Rep #: [id number] : 1960 F 64 From: Irma ellis MD PCP: Yoly Black, PAID SEARCH ANALYST-C Status: REG ER Study: Abdomen/Pelvis W IV Cont ONLY Date of Exam: Exam# [id number] Ordering Dr: Prema Michaels DO PROCEDURE: ABDOMEN/PELVIS W IV CONT ONLY 03/25/2025 REASON FOR EXAM: UPPER ABD PAIN, TRANSAMINITIS TECHNIQUE: Procedure Code: CTABDPELIV Modality: CT Procedure: ABDOMEN/PELVIS W IV CONT ONLY Coronal and Sagittal reconstruction series were provided. CONTRAST: OMNIPAQUE 350 VOLUME: 100 mL One or more dose reduction techniques were used (e.g., Automated exposure control, adjustment of the mA and/or kV according to patient size, use of iterative reconstruction technique. RADIATION DOSE SUMMARY: CTDlvol: 8.46 mGy DLP: 100.69 mGycm COMPARISON: None. FINDINGS: Distended, mildly thickened gallbladder. Mild intrahepatic biliary ductal dilatation. Dilated common bile duct measuring 10.7 mm. Prior hysterectomy. Mild bilateral fullness of the collecting systems, probably reflux. Uncomplicated colonic diverticulosis. Moderate amount of fecal residue in the cecum. The visualized lung bases are unremarkable. Normal liver. Normal spleen. Normal pancreas. Normal bilateral adrenal glands. Normal size of the right kidney. There is no right renal mass. There are no right renal calculi. Normal size of the left kidney. There is no left renal mass. There are no left renal calculi. Normal visualized stomach. Normal small intestine. The appendix is not visualized and appears normal. There is no demonstrated peritoneal fluid. Normal abdominal aorta. Normal inferior vena cava. Normal retroperitoneum. Normal urinary bladder. There is no pelvic mass lesion or lymphadenopathy. There is no pelvic fluid. Normal abdominal wall. Mild diffuse spondylosis. CT/Abdomen/Pelvis W IV Cont ONLY IMPRESSION: Distended, mildly thickened gallbladder. Mild intrahepatic biliary ductal dilatation. Dilated common bile duct measuring 10.7 mm. Prior hysterectomy. Mild bilateral fullness of the collecting systems, probably reflux. Uncomplicated colonic diverticulosis. Moderate amount of fecal residue in the cecum. Reading Location: [place] [address] CC: DONTE Black; Dr. Prema Michaels DO Banking Services Officer: Signed Normal [facility] Basic Metabolic Profile (BMP )on 03-25-2025 BUN/CRE 19.3 RATIO Normal 10-20 [facility] Comment on above: Performed By: #### L 100.0100, L500.3400, L500.2500, L501.2450, L501.4021 ####[facility] [address] [facility] [address] Calcium [Mass/Vol] 10.0 mg/dL Normal 7.6-11.0 [facility] Comment on above: Performed By: #### L 100.0100, L500.3400, L500.2500, L501.2450, L501.4021 ####[facility] [address] [facility] [address] Chloride [Moles/Vol] 102 mmol/L Normal 98-108 [facility] Comment on above: Performed By: #### L 100.0100, L500.3400, L500.2500, L501.2450, L501.4021 ####[facility] [address] [place], [address] CO2 [Moles/Vol] 23.5 mmol/L Normal 21.0-32.0 [facility] Comment on above: Performed By: #### L 100.0100, L500.3400, L500.2500, L501.2450, L501.4021 ####[facility] [address] [place], [address] Creatinine [Mass/Vol] 0.76 mg/dL Normal 0.70-1.20 [facility] Comment on above: Performed By: #### L 100.0100, L500.3400, L500.2500, L501.2450, L501.4021 ####[facility] [address] [place], [address] ECRCL 65.43 ml/min Normal 50-250 [facility] Comment on above: Performed By: #### L 100.0100, L500.3400, L500.2500, L501.2450, L501.4021 ####[facility] [address] [place], [address] GAP 13 Normal 5-15 [facility] Comment on above: Performed By: #### L 100.0100, L500.3400, L500.2500, L501.2450, L501.4021 ####[facility] [address] [place], [address] GFR/1.73 sq M.predicted among non-blacks MDRD (S/P/Bld) [Vol rate/Area] 88 mL/min/{1.73_m2} Normal >60 [facility] Comment on above: Result Comment: mL/m in/1.73m2 CKD-EPI Creatinine Equation (2020) Performed By: #### L 100.0100, L500.3400, L500.2500, L501.2450, L501.4021 ####[facility] [address] [place], [address] Glucose [Mass/Vol] 114 mg/dL High 70-99 [facility] Comment on above: Performed By: #### L 100.0100, L500.3400, L500.2500, L501.2450, L501.4021 ####[facility] [address] [place], [address] Potassium [Moles/Vol] 3.2 mmol/L Low 3.3-5.1 [facility] Comment on above: Performed By: #### L 100.0100, L500.3400, L500.2500, L501.2450, L501.4021 ####[facility] [address] [place], [address] Sodium [Moles/Vol] 139 mmol/L Normal 133-145 [facility] Comment on above: Performed By: #### L 100.0100, L500.3400, L500.2500, L501.2450, L501.4021 ####[facility] [address] [place], [address] Urea nitrogen [Mass/Vol] 15 mg/dL Normal 4-19 [facility] Comment on above: Performed By: #### L 100.0100, L500.3400, L500.2500, L501.2450, L501.4021 ####[facility] [address] [place], [address] CBC W/Diff, Automatedon 10-2 Absolute Lymph 2.74 X10 3/uL Normal 0.83-4.51 [facility] Comment on above: Performed By: #### L 100.0100, L500.3400, L500.2500, L501.2450, L501.4021 #### [facility] Laboratory [address] [place], [address] Absolute Neut 7.9 X10 3/uL High 2.0-7.7 [facility] Comment on above: Performed By: #### L 100.0100, L500.3400, L500.2500, L501.2450, L501.4021 #### [facility] [address] [place], [address] Basophils/100 WBC (Bld) 0.3 % Normal 0-1 [facility] Comment on above: Performed By: #### L 100.0100, L500.3400, L500.2500, L501.2450, L501.4021 #### [facility] [address] [place], [address] Eosinophils/100 WBC (Bld) 0.8 % Normal 0-5 [facility] Comment on above: Performed By: #### L 100.0100, L500.3400, L500.2500, L501.2450, L501.4021 #### [facility] [address] [place], [address] Erythrocyte distribution width (RBC) [Ratio] 14.4 % Normal 11.6-14.6 [facility] Comment on above: Performed By: #### L 100.0100, L500.3400, L500.2500, L501.2450, L501.4021 #### [facility] [address] [place], [address] Hematocrit (Bld) [Volume fraction] 44.8 % Normal 37-47 [facility] Comment on above: Performed By: #### L 100.0100, L500.3400, L500.2500, L501.2450, L501.4021 #### [facility] [address] [place], [address] Hemoglobin (Bld) [Mass/Vol] 13.8 g/dL Normal 12.0-15.0 [facility] Comment on above: Performed By: #### L 100.0100, L500.3400, L500.2500, L501.2450, L501.4021 #### [facility] [address] [place], [address] IG% 0.300 Normal 0.0-0.9 [facility] Comment on above: Result Comment: IG% - Immature Granulocytes (promyelocytes, myelocytes and metamyelocytes) > 1% indicates that a LEFT SHIFT is Present. Performed By: #### L 100.0100, L500.3400, L500.2500, L501.2450, L501.4021 #### [facility] [address] [place], [address] Lymphocytes/100 WBC (Bld) 23.8 % Normal 19-41 [facility] Comment on above: Performed By: #### L 100.0100, L500.3400, L500.2500, L501.2450, L501.4021 #### [facility] [address] [place], [address] MCH (RBC) [Entitic mass] 25.0 pg Low 27.0-32.0 [facility] Comment on above: Performed By: #### L 100.0100, L500.3400, L500.2500, L501.2450, L501.4021 #### [facility] [address] [place], [address] MCHC (RBC) [Mass/Vol] 30.8 g/dL Low 32-36 [facility] Comment on above: Performed By: #### L 100.0100, L500.3400, L500.2500, L501.2450, L501.4021 #### [facility] [address] [place], [address] MCV (RBC) [Entitic vol] 81.3 fL Normal 81-99 [facility] Comment on above: Performed By: #### L 100.0100, L500.3400, L500.2500, L501.2450, L501.4021 #### [facility] [address] [place], [address] Monocytes/100 WBC (Bld) 6.5 % Normal 0-10 [facility] Comment on above: Performed By: #### L 100.0100, L500.3400, L500.2500, L501.2450, L501.4021 #### [facility] [address] [place], [address] Neutrophils/100 WBC (Bld) 68.3 % Normal 47-70 [facility] Comment on above: Performed By: #### L 100.0100, L500.3400, L500.2500, L501.2450, L501.4021 #### [facility] [address] [place], [address] Nucleated RBC (Bld) [#/Vol] 0 10*3/uL Normal 0-5 [facility] Comment on above: Performed By: #### L 100.0100, L500.3400, L500.2500, L501.2450, L501.4021 #### [facility] [address] [place], [address] Platelet mean volume (Bld) [Entitic vol] 9.8 fL Normal 6.2-12.0 [facility] Comment on above: Performed By: #### L 100.0100, L500.3400, L500.2500, L501.2450, L501.4021 #### [facility] [address] [place], [address] Platelets (Bld) [#/Vol] 303 10*3/uL Normal 150-450 [facility] Comment on above: Performed By: #### L 100.0100, L500.3400, L500.2500, L501.2450, L501.4021 #### [facility] [address] [place], [address] RBC (Bld) [#/Vol] 5.51 10*6/uL High 4.2-5.4 [facility] Comment on above: Performed By: #### L 100.0100, L500.3400, L500.2500, L501.2450, L501.4021 #### [facility] [address] [place], [address] RDW SD 42.1 fl Normal 35.1-43.9 [facility] Comment on above: Performed By: #### L 100.0100, L500.3400, L500.2500, L501.2450, L501.4021 #### [facility] [address] [place], [address] WBC (Bld) [#/Vol] 11.5 10*3/uL High 4.4-11.0 [facility] Comment on above: Performed By: #### L 100.0100, L500.3400, L500.2500, L501.2450, L501.4021 #### [facility] [address] [place], [address] Chest PA and Lateralon 03-25 Chest PA and Lateral [facility] Imaging Services [address] [place] [address] Chest PA and Lateral MR#: [id number] Acct: [id number] Name: VENUS SPIVEY Rep #: [id number] : 1960 F 64 From: Irma ellis MD PCP: Yoly Black, PAID SEARCH ANALYST-C Status: [facility] ER Study: Chest PA and Lateral Date of Exam: 03/25/25 Exam# [id number] Ordering Dr: Prema Michaels DO PROCEDURE: CHEST PA AND LATERAL 03/25/2025 REASON FOR EXAM: CHEST PAIN TECHNIQUE: Procedure Code: RADCXR Modality: DX Procedure: CHEST PA AND LATERAL COMPARISON: None. FINDINGS: The lungs are expanded. There is no demonstrated parenchymal abnormality. There is no demonstrated pleural abnormality. Normal heart and pericardium. Normal mediastinum and alen. Normal visualized pulmonary arteries. Normal visualized aortic arch and descending thoracic aorta. Normal visualized thoracic spine. Normal visualized ribs, clavicles, and shoulders. There is no demonstrated abnormality of the visualized soft tissue structures of the upper abdomen. RAD/Chest PA and Lateral IMPRESSION: No evidence for acute abnormality. Reading [facility] CC: PAID SEARCH ANALYSTMuC Yoly Black; Dr. Prema Michaels DO Banking Services Officer: Signed Normal [facility] Emergency Department Summary on 03-25-2025 Emergency Department Summary [facility] Medical Records Department [address] [place] [address] Emergency Department Summary 03/25/25 MR#: [id number] Acct: [id number] Name: VENUS SPIVEY Rep #: [id number] : 1960 64 From: Prema Michaels DO PCP: DONTE Callaway Status:REG ER Location: ED HPI History of Present Illness Chief Complaint: Chest Pain Informant: patient Narrative Narrative: Patient is a 64-year-old female with history of hyperlipidemia, pancreatitis, fatty liver presenting with worsening indigestion and now chest/epigastric abdominal pain. Patient states the past few weeks she has had worsening acid reflux/indigestion. She is taking daily Pepcid. She was around 5 PM tonight she drank some water and afterward started to get nauseous and have pain in the center of her chest. She then felt that there was intense pressure in her stomach and has pain in that area. She took aspirin as well as Pepcid prior to arrival. She notes that she is having pain in her back which he does more diffuse than in the lower back. She feels that she cannot get comfortable. Denies any fever. Denies any vomiting. States her bowel moods been normal denies any blood in her stool. PSHx includes appendectomy. Does follow with Dr. Yee on has been trying to get in with him if she think she likely needs another scope. Notes that she is on a new weight loss injection (sounds like a GLP-1 agonist). Denies any cardiac history. No other complaints or concerns reported at this time. [facility] Medical History Pancreatitis Trigger point Insomnia Atypical chest pain Hyperlipidemia Home Medications ???Medication ???Instructions ???Recorded ???Last Taken ???Type alprazolam 0.25 mg tablet 0.25 mg PO BID PRN anxiety 3 Unknown History Allergy/AdvReac Type Severity Reaction Status Date / Time meperidine HCl (From Demerol) AdvReac Vomiting Verified 11/17/22 10:45 morphine AdvReac Upset Verified 11/17/22 10:45 Stomach Family History Father CVA (cerebral vascular accident) Myocardial infarction Grandmother Colon cancer Diabetes Grandmother Myocardial infarction Surgical History Hx of hysterectomy Hx of repair of left rotator cuff Hx of appendectomy Social History Smoking Status: Never smoker how long ago did patient quit smokin alcohol intake: current alcohol intake frequency: holidays/special occasions only substance use type: does not use caffeine: Yes Type: coffee Number of servings: 4 ROS ROS ED Constitutional Constitutional ED: Denies chills or fever(s) Cardiovascular Cardiovascular: Reports as per HPI and chest pain Respiratory/Chest Respiratory/Chest: Denies cough or dyspnea Gastrointestinal Gastrointestinal: Reports abdominal pain and nausea; Denies diarrhea, melena or vomiting Musculoskeletal Musculoskeletal: Reports back pain; Denies arthralgias or myalgias Integumentary Denies rash Neurologic Neurologic: Denies weakness Psychiatric Psychiatric: Reports anxiety EXAM Physical Exam Const Vital Signs: 03/25/25 00:00 03/25/25 00:07 03/25/25 02:28 Temperature 97.6 F L Temperature Source Oral Pulse Rate 91 79 Respiratory Rate 18 12 Respiratory Effort Normal Non-Labored Blood Pressure 167/93 H 132/70 H Blood Pressure Mean 117 90 Pulse Ox 97 97 Oxygen Delivery Method 03/25/25 04:00 03/25/25 06:00 Temperature Temperature Source Pulse Rate 74 67 Respiratory Rate 13 12 Respiratory Effort Blood Pressure 107/76 110/74 Blood Pressure Mean 86 86 Pulse Ox 97 96 Oxygen Delivery Method Room Air Room Air Positive well nourished and well developed General Appearance ED: well developed and NAD; Negative for pallor HEENT Reports moist mucous membranes Eyes PERRL Neck supple and no JVD Chest Wall inspection of chest normal and palpation of chest normal Resp normal respiratory effort and clear to auscultation bilaterally Cardio regular rate, regular rhythm and no murmurs GI soft to palpation and non-distended GI Narrative: Normal bowel sounds. Negative Mcrae sign. No pain at McBurney's point. Tenderness in epigastric region on palpation. No peritoneal signs. Auscultation: Negative for hyperactive bowel sounds Back/Spine no CVA tenderness and no thoracic nor lumbar tenderness Neuro oriented x3 Sensorium / Orientation: awake and alert Motor Exam: Negative for general weakness Psych mental status grossly normal Mood Affect: anxious Skin no rashes or lesions noted and no wounds General Skin Exam: Negative fo (more content not included)... Normal [facility] Gallbladderon 03-25-2025 Gallbladder [facility] Imaging Services [address] [place] [id number] Gallbladder MR#: [id number] Acct: [id number] Name: VENUS SPIVEY Rep #: [id number] : 1960 F 64 From: Taqueria mckeon MD PCP: Yoly Black PAID SEARCH ANALYST-C Status: REG ER Study: Gallbladder Date of Exam: 03/25/25 Exam# [id number] Ordering Dr: Prema Michaels DO PROCEDURE: GALLBLADDER 03/25/2025 REASON FOR EXAM: PAIN, TRANSAMINITIS, ABNORMAL CT TECHNIQUE: Procedure Code: USGB Modality: US Procedure: GALLBLADDER COMPARISON: Prior CT scan of the abdomen and pelvis done earlier in the day. FINDINGS: Liver: Diffusely echogenic suggesting fatty infiltration. Gallbladder: Multiple echogenic gallstones are identified. Gallbladder wall is thickened measuring 5 mm. Common bile duct: Dilated measuring up to 8 mm. . Pancreas: Normal Other: Visualized portions of the right kidney are unremarkable except for a 3.5 cm x 2 cm 1.7 cm right parapelvic cyst.. No right upper quadrant ascites. US/Gallbladder IMPRESSION: Multiple gallstones and gallbladder wall thickening suggestive of acute cholecystitis. The common bile duct is dilated measuring 8 mm. Fatty infiltration of the liver. Right parapelvic renal cyst. Reading Location: [id number] CC: DONTE Black; Dr. Prema Michaels DO Banking Services Officer: Signed Normal [facility] L501.4021on 03-25-2025 Trop T High Sen < 6 Normal <=14 [facility] Comment on above: Performed By: #### L 100.0100, L500.3400, L500.2500, L501.2450, L501.4021 ####[facility] [address] [place], [address] Lipaseon 03-25-2025 Lipase [Catalytic activity/Vol] 51 U/L Normal 13-75 [facility] Comment on above: Result Comment: Lien hale note: LIPASE revised reference range effective 22. New Lipase methodology. Expected to produce lower values than the previous assay method. NEW Reference Range: 13 - 75 U/L Performed By: #### L 100.0100, L500.3400, L500.2500, L501.2450, L501.4021 ####[facility] [address] [place], [address] Liver Profileon 03-25-2025 Albumin [Mass/Vol] 4.7 g/dL Normal 3.4-4.8 [facility] Comment on above: Performed By: #### L 100.0100, L500.3400, L500.2500, L501.2450, L501.4021 ####[facility] [address] [place], [address] ALK PHOS 91 U/L Normal 35-104 [facility] Comment on above: Performed By: #### L 100.0100, L500.3400, L500.2500, L501.2450, L501.4021 ####[facility] [address] [place], [address] ALT [Catalytic activity/Vol] 194 U/L High <=34 [facility] Comment on above: Performed By: #### L 100.0100, L500.3400, L500.2500, L501.2450, L501.4021 ####[facility] [address] [place], [address] AST [Catalytic activity/Vol] 261 U/L High <=31 [facility] Comment on above: Performed By: #### L 100.0100, L500.3400, L500.2500, L501.2450, L501.4021 ####[facility] [address] [place], [address] Bilirubin [Mass/Vol] 0.99 mg/dL Normal 0.00-1.30 [facility] Comment on above: Performed By: #### L 100.0100, L500.3400, L500.2500, L501.2450, L501.4021 ####[facility] [address] [place], [address] Bilirubin.direct [Mass/Vol] 0.57 mg/dL High 0.00-0.30 [facility] Comment on above: Performed By: #### L 100.0100, L500.3400, L500.2500, L501.2450, L501.4021 ####[facility] [address] [place], [address] Globulin (S) [Mass/Vol] 2.8 g/dL Normal 2.2-4.2 [facility] Comment on above: Performed By: #### L 100.0100, L500.3400, L500.2500, L501.2450, L501.4021 ####[facility] [address] [place], [address] T PROT 7.5 g/dL Normal 5.9-8.4 [facility] Comment on above: Performed By: #### L 100.0100, L500.3400, L500.2500, L501.2450, L501.4021 ####[facility] [address] [place], [address] Troponin T HS 2 HRon 03-25-2 025 Trop T High Sen < 6 Normal <=14 [facility] Comment on above: Performed By: #### L 499.0042 #### [facility] Laboratory [address] [place], [address] Troponin T HS 4 HRon --2 025 Trop T High Sen Normal <=14 [facility] Comment on above: Result Comment: Anjelica young via OM: Ordered Performed By: #### L 499.0043 #### [facility] [address] [place], [address] Urinalysis, Completeon 03-25 RBC 0-5 SEEN Normal 0-5 [facility] Comment on above: Order Comment: CLEAN CATCH Performed By: #### L 400.0001 ####[facility] [address] [place], [address] BACTERIA 1+ /hpf Normal None Seen [facility] Comment on above: Order Comment: CLEAN CATCH Performed By: #### L 400.0001 ####[facility] [address] [place], [address] EPI,SQUAMOUS 0-5 SEEN Normal 5-10 [facility] Comment on above: Order Comment: CLEAN CATCH Performed By: #### L 400.0001 ####[facility] [address] [place], [address] WBC 0-5 SEEN Normal 0-5 [facility] Comment on above: Order Comment: CLEAN CATCH Performed By: #### L 400.0001 ####[facility] [address] [place], [address] Mucus Ql (Urine sed) 0 SEEN Normal [facility] Comment on above: Order Comment: CLEAN CATCH Performed By: #### L 400.0001 ####[facility] [address] [place], [address] B12on 12-25-2024 Cobalamin (Vitamin B12) [Mass/Vol] 505 pg/mL Normal 211-911 [facility] Comment on above: Performed By: #### Ismael 12ELICEO FES #### [place] [address] Ashlee 12-25-2024 Ferritin [Mass/Vol] 186.3 ng/mL Normal 8.0-252.0 [facility] Comment on above: Performed By: #### B 12ELICEO FES #### [place] [address] FESon 12-25-2024 Iron [Mass/Vol] 89 ug/dL Normal 50-170 [facility] Comment on above: Performed By: #### B 12ELICEO FES #### [place] [address] Iron Sat 32 % Normal [facility] Comment on above: Performed By: #### B 12ELICEO, FES #### [place] [address] TIBC 282 mcg/dL Normal 250-500 [facility] Comment on above: Performed By: #### B 12ELICEO FES #### [place] [address] CNOVon 11-21-2024 CNOV Office Visit (NEAGCL M) VENUS SPIVEY ([id number]) 1960 F Date Time Provider Department 11/21/24 12:45 PM SONYA MCDERMOTT During your visit today, we recorded the following information about you: Pulse Respiration Blood pressure Weight 70/minute 16/minute 116/77 68.8 kg Height 1.626 m Sonya Mcdermott I, MD 11/21/2024 2:08 PM Signed NEUROSURGERY FOLLOW UP OFFICE NOTE Chair, Clinical Neurosciences Director, Spinal Neurosurgery [facility] Date of visit: November 21, 2024 Patient Name: Ms.Jeanette Spivey Date of : 1960 Current Age: [age] year old Sex: female MRN/E# [id number] Last Office Visit: 07/23/2024 Chief Complaint: Patient [...] do. Again I explained this was a yibgvug-fd-sglr issue would not a critical surgery. She [...] as diff (more content not included)... Normal [facility] XR CERVICAL 4V AP/LAT/FLX/EX Ton 11-21-2024 [...] are normal. IMPRESSION: Degenerative changes as described. Banking Services Officer: PARI Transcribe Date/Time: Nov 28 2024 5:44A Dictated by : JOSE LAGUNA MD This examination was interpreted and the report reviewed and electronically signed by: JOSE LAGUNA MD on Nov 28 2024 5:45AM EST [id number] Normal [facility] CNOVon 07-23-2024 CNOV Office Visit (NEAGCL M) VENUS SPIVEY ([id number]) 1960 F Date Time Provider Department 07/23/24 1:30 PM SONYA MCDERMOTT I NEAGCLM During your visit today, we recorded the following information about you: Pulse Respiration Blood pressure Weight 73/minute 16/minute 163/84 71.3 kg Height 1.626 m Sonya Mcdermott I, MD 07/23/2024 2:10 PM Signed NEUROSURGERY FOLLOW UP OFFICE NOTE Chair, Clinical Neurosciences Director, Spinal Neurosurgery [facility] Date of visit: July 23, 2024 Patient Name: Ms.Jeanette Spivey Date of : 1960 Current Age: [age] year old Sex: female MRN/E# [id number] Last Office Visit: 05/28/2024 Chief Complaint: Patient [...] do. Again I explained this was a xnvqtbu-ok-skhk issue would not a critical surgery. She [...] image review. PREVIOUS CONSERVATIVE TREATMENT: -Medication: Meloxicam, [place] -Physical therapy: Previous participation at [facility]- minimal symptom improvement. She has continued participation in home exercises/stretches as guided by physical therapy recommendations on routine basis as tolerated to present day. [facility] consultation notes can be found under scanned documents. -Previous healthca (more content not included)... Normal [facility] SCRN MAMM (CAD)W/LUIS BILATo n 07-09-2024 SCRN M[facility] ([facility])W/[facility] Imaging Services [address] [place] [address] SCRN MAMM (CAD)W/[facility] MR#: [id number] Acct: [id number] Name: VENUS SPIVEY Rep #: [id number] : 1960 F 63 From: Taqueria cmkeon MD PCP: Yoly Black, PAID SEARCH ANALYST-C Status: REG CLI Study: SCRN MAMM (CAD)W/LUIS BILAT Date of Exam: 06/30 Exam# [id number] Ordering Dr: Ashley Herndon MD PROCEDURE: SCRN MAMM (CAD)W/LIUS BILAT REASON FOR EXAM: F, Age 63 [...] of the results by letter. Reading Location: [place] [address] CC: PAID SEARCH ANALYST-C Yoly Black; Dr. Ashley Herndon MD Banking Services Officer: Signed Normal [facility] Ashlee 06-26-2024 Ferritin [Mass/Vol] 165.5 ng/mL Normal 8.0-252.0 [facility] Comment on above: Performed By: #### F ERR, FES #### [address] [address] FESon 06-26-2024 Iron [Mass/Vol] 71 ug/dL Normal 50-170 [facility] Comment on above: Performed By: #### F ERR, FES #### [facility] [address] [place] [address] Iron Sat 25 % Normal [facility] Comment on above: Performed By: #### F ERR, FES #### [address] [address] TIBC 289 mcg/dL Normal 250-500 [facility] Comment on above: Performed By: #### F ERR, FES #### [address] [address] Spine Cervical without Contr ason 06-19-2024 Spine Cervical without Contras [facility] Imaging Services [address] [facility] [facility] [place], [place] [address] Spine Cervical without Contras MR#: [id number] Acct: [id number] Name: VENUS SPIVEY Rep #: [id number] : 1960 F 63 From: Ricardo blanc MD PCP: Yoly Black, PAID SEARCH ANALYST-C Status: REG CLI Study: Spine Cervical without Contras Date of Exam: 0 06/19/24 Exam# [id number] Ordering Dr: JESSICA ORDAZ [id number] INDICATION: SPINAL STENOSIS EXAMINATION: CT CERVICAL SPINE [...] Signed: Ricardo Corral MD at 13:38 EST , CC: DONTE Black; JESSICA ORDAZ Banking Services Officer: Signed Normal [facility] 05-28-2024 CNPN Telephone (NEAGCLM) VENUS SPIVEY ([id number]) 1960 F Date Time Provider Department 05/28/24 JESSICA ORDAZ NEAGCLM During your visit today, we recorded the following information about you: Verenice Bishop 05/28/2024 1:43 PM Signed [facility] called requesting CT authorization. Patient is scheduled with them on Tuesday. Updated facility information on authorization and faxed updated CT auth to number provided ([phone]). Allergies As of Date: 05/28/2024 Noted Allergy [...] Encounter Status:Closed by VERENICE BISHOP on 05/28/24 [facility] CNOVon 05-07-2024 CNOV Office Visit (NEAGCL M) VENUS SPIVEY ([id number]) 1960 F Date Time Provider Department 05/07/24 1:00 PM SONYA MCDERMOTT I NEAGCLM During your visit today, we recorded the following information about you: Pulse Respiration Blood pressure Weight 72/minute 16/minute 114/80 70.6 kg Sonya Mcdermott I, MD 05/07/2024 1:34 PM Signed NEUROSURGERY FOLLOW UP OFFICE NOTE Chair, Clinical Neurosciences Director, Spinal Neurosurgery [facility] Date of visit: May 07, 2024 Patient Name: Ms.Jeanette Spivey Date of : 1960 Current Age: [age] year old Sex: female MRN/E# [id number] Last Office Visit: 04/30/2024 Chief Complaint: Patient [...] this time. PREVIOUS CONSERVATIVE TREATMENT: -Medication: Meloxicam, [place] -Physical therapy: Previous participation at [facility]- minimal symptom improvement. She has continued participation in home exercises/stretches as guided by physical therapy recommendations on routine basis as tolerated to present day. [facility] consultation notes can be found under scanned documents. -Previous healthcare providers: [place]- Dr. Carroll and was recommended a C5-C7 ACDF -Pain Management: Follows with [facility] - consult note can be found under scanned documents -Injections: Cervical injection at [facility] - 30% symptom relief that lasted for [...] reflux disease) Hyperlipemia Lymphadenitis Mental disorder Stroke ([facility]) 2012 PAST SURGICAL HISTORY Procedure [...] this visit. REVI (more content not included)... [facility] 04-30-2024 [facility] Telephone (NEAGCLM) VENUS SPIVEY ([id number]) 1960 F Date Time Provider Department 04/30/24 [facility] During your visit today, we recorded the following information about you: Verenice Bishop 04/30/2024 11:02 AM Signed Patient requested to have MRI at [facility]. Received authorization. Faxed order and authorization information to [facility]. Allergies As of Date: 04/30/2024 Noted Allergy Reaction DEMEROL (MEPERIDINE (PF)) 02/03/2012 11 - Vomiting VERSED (MIDAZOLAM) 02/03/2012 11 - Vomiting MORPHINE 02/03/2012 11 - Vomiting Date Reviewed: 04/20/2024 Reviewed by: Yvonne Aldridge MA - Fully Assessed Reason for Visit: MRI Appointment [1569] Prescriptions as of 04/30/2024 - HYDROcodone-acetaminophen (NORCO) [...] Encounter Status:Closed by VERENICE BISHOP on 04/30/24 [facility] CNOVon 04-20-2024 CNOV Office Visit (NEAGCL M) PATRIC,VENUS ([id number]) 1960 F Date Time Provider Department 04/20/24 [...] Age: [age] year old Sex: female MRN/E# [id number] Last Office Visit: Visit date not found [...] bladder incontinence. PREVIOUS CONSERVATIVE TREATMENT: -Medication: Meloxicam, [place] -Physical therapy: Previous participation at [facility]- minimal symptom improvement. She has continued participation in home exercises/stretches as guided by physical therapy recommendations on routine basis as tolerated to present day. [facility] consultation notes can be found under scanned documents. -Previous healthcare providers: [facility]- Dr. Carroll and was recommended a C5-C7 ACDF -Pain Management: Follows with [facility] - consult note can be found under scanned documents -Injections: Cervical injection at [facility] - 30% symptom relief that lasted for [...] for difficulty (more content not included)... Normal [facility] VENUS SPIVEY ([id number]) 1960 F Date Time Provider Department 04/20/24 JESSICA ORDAZ [facility] During your visit today, we recorded the [...] Encounter Status:Closed by EDER HARRISON on 04/20/24 [facility] XR CERVICAL 4V AP/LAT/FLX/EX Ton 04-20-2024 XR [...] in the facets. IMPRESSION: Severe degenerative changes. Banking Services Officer: PSCB Transcribe Date/Time: Apr 24 2024 12:28P Dictated by : SON BOYER MD This examination was interpreted and the report reviewed and electronically signed by: SON BOYER MD on Apr 24 2024 12:29PM EST [id number] [facility] 36on 04-10-2024 36 Spoke with pt and re layed note. They verbalized understanding. [facility] 36 Unfortunately, we ar e not very familiar with the [facility] spine provider to be able to make a recommendation. Please let her know. Thank you. [facility] 36 Pt called stating th at she really wants to have surgery done with you, but you are out of network with her insurance. Pt would like to know if you have a surgeon that you would recommend within [facility]. [facility] 36on 03-20-2024 36 Pt states she want t o change insurance and wait until the new year to have Sx with Dr. Carroll. Pt was notified to call me with updated ins info YUAN. Tentative date of 06/18/2023 given to pt. [facility] 36 Received email from ins verification. Pt's ins is OON and will need to pay 50% and single case agreement will need to be submitted. LVM for cb to discuss with pt. [facility] CBC (HEMOGRAM)on 03-19-2024 Erythrocyte distribution width (RBC) [Ratio] 14.1 % Normal 11.5-15.0 [facility] Comment on above: Performed By: #### L AB294 ####Ballroom Dancer: CLINT PANTOJA ([id number])[facility] ([facility])[address] [place] [address] Hematocrit (Bld) [Volume fraction] 43.9 % Normal 35.0-47.0 [facility] Comment on above: Performed By: #### L AB294 ####Ballroom Dancer: CLINT PANTOJA ([phone])[facility])[address] [place] [address] Hemoglobin (Bld) [Mass/Vol] 13.3 g/dL Normal 11.7-16.0 [facility] Comment on above: Performed By: #### L AB294 ####Ballroom Dancer: CLINT PANTOJA ([phone])[facility])[address] [place] [address] MCH (RBC) [Entitic mass] 24.8 pg Low 26.0-34.0 [facility] Comment on above: Performed By: #### L AB294 ####Ballroom Dancer: CLINT PANTOJA ([id number])[facility] ([facility])[address] [place] [address] MCHC 30.3 % Low 30.5-36.0 [facility] Comment on above: Performed By: #### L AB294 ####Ballroom Dancer: CLINT PANTOJA ([phone])[facility])[address] [place] [address] MCV (RBC) [Entitic vol] 81.8 fL Normal 77.0-99.0 [facility] Comment on above: Performed By: #### L AB294 ####Ballroom Dancer: CLINT PANTOJA ([phone])[facility])[address] [place] [address] Platelet mean volume (Bld) [Entitic vol] 9.7 fL Normal 9.0-12.7 [facility] Comment on above: Performed By: #### L AB294 ####Ballroom Dancer: CLINT PANTOJA ([phone])[facility])[address] [place] [address] Platelets (Bld) [#/Vol] 283 10*3/uL Normal 140-440 [facility] Comment on above: Performed By: #### L AB294 ####Ballroom Dancer: CLINT PANTOJA ([id number])[facility])[address] [place] [address] RBC (Bld) [#/Vol] 5.37 10*6/uL High 3.80-5.20 [facility] Comment on above: Performed By: #### L AB294 ####Ballroom Dancer: CLINT PANTOJA ([phone])[facility])[address] [place] [address] WBC (Bld) [#/Vol] 6.4 10*3/uL Normal 3.6-10.7 [facility] Comment on above: Performed By: #### L AB294 ####Ballroom Dancer: CLINT PANTOJA ([id number])[facility])[address] [place] [address] PREPROCINSon 03-19-2024 PREPROCINS Medication List Accurate as [...] HYDROcodone-acetaminophen 5-325 MG tablet Commonly known as: [place] Notes to patient: Not taking meloxicam 15 MG tablet Commonly known as: Mobic Notes to patient: Hold 7 days prior to surgery omeprazole OTC 20 MG EC tablet Commonly known as: PriLOSEC OTC Notes to patient: May take if needed Additional Instructions: DIRECTOR FINANCIAL ANALYSIS AND PARKING IN THE MAIN DECK ARE [...] your scheduled surgery time. Please bring your [facility] Surgical folder and medication list with you day of surgery. We encourage you to write down any questions you may have for the surgeon, anesthesiologist, or other members of the surgical team and bring it with you the day of surgery. Please bring photo ID and insurance information. Normal [facility] Progress Noteon 03-19-2024 Progress Note [facility] Spivey : 1960 Primary Care Physician: No primary care provider on file. The patient and/or family/surrogate voluntarily agreed to participate in ACP services. Patient?s cognitive capacity: Patient is Alert and [place] to person, place and time Code Status: [x] [FULL CODE - Continue all advanced life support: CPR,intubation,invasive procedures] [_] [DNR-CCA - DO NOT do CPR, intubation] [_] [DNR-REGULATED PROGRAM MANAGER - Comfort care only] [_] DNR form [was/was not] signed Summary of discussion: The patient health care POA/ surrogate is the following: Marc Braunr, spouse. [Condition that instigated the ACP on [...] patient and/or family/surrogate. Rosemary Cabello APRN - [employer]IC [facility] care [facility] 03/19/2024, 2:58 PM [facility] XR ESOPHOGRAM W/BARIUM TABLE Ton 03-15-2024 XR [...] 03/15/2024 1:24:47 PM Ordering Provider: WYATT YEE [facility] 36on 02-29-2024 36 Spoke with pt and te ntative Sx date on 03/26 was given. Spoke with SAM Arriaga. Ref #: [id number] Surg 03/26 730 PAT 03/19 230 PO 04/10 10 Case# [id number] Patient aware of all appointments and times [facility] 36 ----- Message from Jonny Carroll MD sent at 02/28/2024 12:13 PM EDT ----- Anterior cervical 5-6 and 6-7 disc replacements 2 hours 1 night [id number] [facility] Office Visiton 02-28-2024 Follow-up visit [id number] Milo Spivey 1960 F Date Provider Department Center 02/28/2024 [id number] CARROLL [facility] None No family history on file Level of Service:82792 [place] OFFICE/OUTPATIENT NEW MODERATE MDM 45 MINUTES Reason for Visit and Comments: New Patient [542] - bulging disc. will bring imaging with them to their appointment [facility] Progress Noteon 02-28-2024 Progress Note NEUROSURGERY CONSULT [...] by mouth. 11/15/22 Yes Historical Provider, HYDROcodone-acetaminophen ([place]) 5-325 MG tablet 01/05/24 Yes Historical Provider, [...] C5-C7 disce (more content not included)... Normal [facility] 36on 02-21-2024 36 Patient states she i s not sure if her most recent imaging has been within the last year. She will bring a disk for review if so. Normal [facility] CNOVon 04-18-2023 CNOV Office Visit (UCMMAS ) VENUS SPIVEY ([id number]) 1960 F Date Time Provider Department 04/18/23 6:25 PM SURAJ SAINI UCMMAS During your visit today, we recorded the following information about you: Temperature Pulse Respiration Blood pressure 98.2 degrees 81/minute 16/minute 110/70 Weight 69.9 kg Suraj Saini MD 04/18/2023 7:11 PM Signed Venus Spivey is a 62 year old [...] (gastroesophageal reflux disease) Lymphadenitis Mental disorder Stroke ([facility]) 2012 ACTIVE PROBLEM LIST Hematuria Left Lower [...] Order(s):TDAP VACCINE, AGE 7+ YR (ADACEL, BOOSTRIX) [99014VCT] Order #: [id number] cephALEXin (KEFLEX) 500 mg capsuleTake 1 capsule [...] Encounter Status:Closed by SURAJ SAINI on 04/18/23 [facility] Final Surgical Pathology Rep adolph 12-09-2022 Final Surgical Pathology Report . Pathology Reports Accession: Collected Date/Time: Received Date/Time: Pathologist: [id number] 12/02/2022 11:59 EDT 12/03/2022 13:44 EDT BISHNU [...] All parts labelled with patient name and [id number] A. Received in formalin labeled "gastric biopsy" are multiple estrada tissue fragments aggregating 1.0 x 0.3 x 0.1 cm. TS-1 B. Received in formalin labeled "esophageal biopsy" are 3 wispy white tissue fragments measuring less than 0.1 to 0.4 x 0.2 cm. TS-1 Bita Stevenson, Grossing Litigator/ Dr. Bishnu Al, Pathologist Dictated by Bita Stevenson MICROSCOPIC DESCRIPTION: The microscopic examination is performed, except in the case of Gross Only. Electronically Signed by Pathology Report verified by [facility] BISHNU AL Sign out Date: 12/09/2022 12:40 Performing Lab: [facility], [address] [place] [address] Pathology Dept Disclaimer If ancillary studies were utilized, the following Laboratory Developed Test (LDT) disclaimer will apply: Under CLIA requirements, [facility] is qualified to perform high complexity testing. For all ancillary stains, positive and negative controls stain appropriately. Performance characteristics of immunohistochemical and chromogenic in-situ hybridization tests have been determined by [facility]. These tests are used for clinical purposes, They should not be regarded as investigational or for research. Normal [facility] ([place]) Basophil percentageOrdered B y: Dr. Yee on 11-17-2022 Bilirubin [Mass/Vol] 0.20 mg/dL 0.20-1.00 [facility] Comment on above: For patients on eltr ombopag therapy, use of Dimension Bishop TBIL is not recommended. Chloride [Moles/Vol] 106 mmol/L 98-107 [facility] Glucose [Mass/Vol] 90 mg/dL 74-106 [facility] Potassium [Moles/Vol] 4.3 mmol/L 3.5-5.1 [facility] Protein [Mass/Vol] 7.1 g/dL 6.4-8.2 [facility] Sodium [Moles/Vol] 142 mmol/L 136-145 [facility] WBC (Bld) [#/Vol] 6.3 10*3/uL 4.4-11.0 [facility] Blood erythrocytes count (nu mber/volume)Ordered By: Dr. Yee on 11-17-2022 RBC (Bld) [#/Vol] 5.18 10*6/uL 4.2-5.4 [facility] Blood hemoglobin measurement (mass/volume)Ordered By: Dr. Yee on 11-17-2022 Hemoglobin (Bld) [Mass/Vol] 13.2 g/dL 12.0-15.0 [facility] Blood platelet mean volumeOr dered By: Dr. Yee on 11-17-2022 Platelet mean volume (Bld) [Entitic vol] 10.4 fL 6.2-12.0 [facility] Determination of erythrocyte mean corpuscular volume (MCV)Ordered By: Dr. Yee on 11-17-2022 MCV (RBC) [Entitic vol] 84.2 fL 81-99 [facility] Hematocrit Auto (Bld) [Volum e fraction]Ordered By: Dr. Yee on 11-17-2022 Hematocrit (Bld) [Volume fraction] 43.6 % 37-47 [facility] Laboratory - Chemistry and C hemistry - challengeOrdered By: Dr. Yee on 11-17-2022 ALP [Catalytic activity/Vol] 89 U/L 45-117 [facility] ALT [Catalytic activity/Vol] 31 U/L 13-56 [facility] CO2 [Moles/Vol] 28.0 mmol/L 21.0-32.0 [facility] Cobalamin (Vitamin B12) [Mass/Vol] 426 pg/mL 211-911 [facility] Globulin (S) [Mass/Vol] 3.1 g/dL 2.2-4.2 [facility] Lipase [Catalytic activity/Vol] 50 U/L 13-75 [facility] Comment on above: Please note:LIPASE r evised reference range effective 22. New Lipase methodology. Expected to produce lower values than the previous assay method. NEW Reference Range: 13 - 75 U/L Urea nitrogen/Creatinine [Mass ratio] 26.6 mg/mg 10-20 [facility] Laboratory - Hematology and Cell countsOrdered By: Dr. Yee on 11-17-2022 Erythrocyte distribution width (RBC) [Entitic vol] 44.4 fL 35.1-43.9 [facility] Erythrocyte distribution width (RBC) [Ratio] 14.5 % 11.6-14.6 [facility] MCH (RBC) [Entitic mass] 25.5 pg 27.0-32.0 [facility] MCHC Auto (RBC) [Mass/Vol]Or dered By: Dr. Yee on 11-17-2022 MCHC (RBC) [Mass/Vol] 30.3 g/dL 32-36 [facility] No Panel InformationOrdered By: Dr. Yee on 11-17-2022 Estimated GFR (MDRD) Amer 121 mL/min >60 [facility] Comment on above: GFR Calc Estimated GFR (MDRD) Non-Af Amer 100 mL/min >60 [facility] Comment on above: Non- GFR Calc Platelets bldOrdered By: Dr. Yee on 11-17-2022 Platelets (Bld) [#/Vol] 250 10*3/uL 150-450 [facility] Serum or plasma C reactive p rotein measurement (mass/volume)Ordered By: Dr. Yee on 11-17-2022 CRP [Mass/Vol] mg/L 0.0-3.0 [facility] Comment on above: C-Reactive Protein ( CRP) provides useful information for thediagnosis, therapy and monitoring of inflammatory processesand associated diseases. For the evaluation of Relative Riskfor Cardiovascular Disease, a High Sensitivity CRP (HSCRP)should be ordered. Serum or plasma albumin aniya urement (mass/volume)Ordered By: Dr. Yee on 11-17-2022 Albumin [Mass/Vol] 4.0 g/dL 3.2-5.0 [facility] Serum or plasma albumin/glob ulin mass ratioOrdered By: Dr. Yee on 11-17-2022 Albumin/Globulin [Mass ratio] 1.3 {ratio} 0.9-2.4 [facility] Serum or plasma calcium aniya urement (mass/volume)Ordered By: Dr. Yee on 11-17-2022 Calcium [Mass/Vol] 9.5 mg/dL 8.5-10.1 [facility] Serum or plasma creatinine m easurement (mass/volume)Ordered By: Dr. Yee on 11-17-2022 Creatinine [Mass/Vol] 0.64 mg/dL 0.55-1.02 [facility] Comment on above: The validity of the calculated GFR & GFRAA in patients over 70 years has not been determined. Clinical correlation is essential. Serum or plasma urea nitroge n measurement (mass/volume)Ordered By: Dr. Yee on 11-17-2022 Urea nitrogen [Mass/Vol] 17 mg/dL 7-18 [facility] Thin prep Papanicolaou smear with manual screeningOrdered By: Dr. Yee on 11-17-2022 Thin prep Papanicolaou smear with manual screening 15 U/L 15-37 [facility] Thin prep Papanicolaou smear with manual screening 8 5-15 [facility] BASIC METABOLIC PANELon 05- Anion gap [Moles/Vol] 12 mmol/L Normal 9-18 [facility] Comment on above: Order Comment: @ COL L DATE was changed from 10/09/22 to 10/10/22 @ by 2053. Old specimen was [id number]. Performed By: #### L IPA 1, BMP, CKMB 1, CBC, PT, TROP 1 #### Main Lab - [facility] [address] [place], [place] [address] BUN/CREATININE RATIO 25.0 Ratio Normal 5.0-42.0 [facility] Comment on above: Order Comment: @ COL L DATE was changed from 10/09/22 to 10/10/22 @ by 2053. Old specimen was [id number]. Performed By: #### L IPA 1, BMP, CKMB 1, CBC, PT, TROP 1 #### Main Lab - [facility] [address] [place] [address] Calcium [Mass/Vol] 10.5 mg/dL High 8.4-10.2 [facility] Comment on above: Order Comment: @ COL L DATE was changed from 10/09/22 to 10/10/22 @ by 2053. Old specimen was [id number]. Performed By: #### L IPA 1, BMP, CKMB 1, CBC, PT, TROP 1 #### Main Lab - [facility] [address] [place] [address] Chloride [Moles/Vol] 106 mmol/L Normal 98-107 [facility] Comment on above: Order Comment: @ COL L DATE was changed from 10/09/22 to 10/10/22 @ by 2053. Old specimen was [id number]. Performed By: #### L IPA 1, BMP, CKMB 1, CBC, PT, TROP 1 #### Main Lab - [facility] [address] [place] [address] CO2 [Moles/Vol] 28 mmol/L Normal 22-31 [facility] Comment on above: Order Comment: @ COL L DATE was changed from 10/09/22 to 10/10/22 @ by 2053. Old specimen was [id number]. Performed By: #### L IPA 1, BMP, CKMB 1, CBC, PT, TROP 1 #### Main Lab - [facility] [address] [place] [address] Creatinine [Mass/Vol] 0.64 mg/dL Low 0.80-1.30 [facility] Comment on above: Order Comment: @ COL L DATE was changed from 10/09/22 to 10/10/22 @ by 2053. Old specimen was [id number]. Performed By: #### L IPA 1, BMP, CKMB 1, CBC, PT, TROP 1 #### Main Lab - [facility] [address] [place] [address] ESTIMATED CREAT CLEARANCE 79.71 Normal [facility] Comment on above: Order Comment: @ COL L DATE was changed from 10/09/22 to 10/10/22 @ by 2053. Old specimen was [id number]. Result Comment: COCK CROFT-GAULT FORMULA 1973 Performed By: #### L IPA 1, BMP, CKMB 1, CBC, PT, TROP 1 #### Main Lab - [facility] [place], [place] [address] ESTIMATED GLOMERULAR FILT RATE > 60.000 Normal [facility] Comment on above: Order Comment: @ COL L DATE was changed from 10/09/22 to 10/10/22 @ by 2053. Old specimen was [id number]. Performed By: #### L IPA 1, BMP, CKMB 1, CBC, PT, TROP 1 #### Main Lab - [facility] [address] [place] [address] Glucose [Mass/Vol] 124 mg/dL High 70-99 [facility] Comment on above: Order Comment: @ COL L DATE was changed from 10/09/22 to 10/10/22 @ by 2053. Old specimen was [id number]. Result Comment: The glucose range is based on recommendations from the [place] [employer] for fasting blood glucose range. Performed By: #### L IPA 1, BMP, CKMB 1, CBC, PT, TROP 1 #### Main Lab - [facility] [address] [place] [address] Potassium [Moles/Vol] 3.6 mmol/L Normal 3.6-5.0 [facility] Comment on above: Order Comment: @ COL L DATE was changed from 10/09/22 to 10/10/22 @ by 2053. Old specimen was [id number]. Performed By: #### L IPA 1, BMP, CKMB 1, CBC, PT, TROP 1 #### Main Lab - [facility] [place], [place] [address] Sodium [Moles/Vol] 142 mmol/L Normal 137-145 [facility] Comment on above: Order Comment: @ COL L DATE was changed from 10/09/22 to 10/10/22 @ by 2053. Old specimen was [id number]. Performed By: #### L IPA 1, BMP, CKMB 1, CBC, PT, TROP 1 #### [facility] - [address] [address] Urea nitrogen [Mass/Vol] 16 mg/dL Normal 7-21 [facility] Comment on above: Order Comment: @ COL L DATE was changed from 10/09/22 to 10/10/22 @ by 2053. Old specimen was [id number]. Performed By: #### L IPA 1, BMP, CKMB 1, CBC, PT, TROP 1 #### Main Lab - [address] [address] AGE,PATIENT 62 Years Normal [facility] Comment on above: Order Comment: @ COL L DATE was changed from 10/09/22 to 10/10/22 @ by 2053. Old specimen was [id number]. Performed By: #### L IPA 1, BMP, CKMB 1, CBC, PT, TROP 1 #### [facility] - [place] [id number] CBC WITH AUTO DIFFon 023 BASO, ABSOLUTE (AUTO) 0.0 10 3/uL Normal 0.0-0.2 [facility] Comment on above: Order Comment: @ COL L DATE was changed from 10/09/22 to 10/10/22 @ by 2053. Old specimen was [id number]. Performed By: #### L IPA 1, BMP, CKMB 1, CBC, PT, TROP 1 #### [facility] - [address] [address] Basophils/100 WBC (Bld) 0.6 % Normal 0.0-1.0 [facility] Comment on above: Order Comment: @ COL L DATE was changed from 10/09/22 to 10/10/22 @ by 2053. Old specimen was [id number]. Performed By: #### L IPA 1, BMP, CKMB 1, CBC, PT, TROP 1 #### [facility] - [address] [address] EOSINOPHILS, ABSOLUTE (AUTO) 0.1 10 3/uL Normal 0.0-0.7 [facility] Comment on above: Order Comment: @ COL L DATE was changed from 10/09/22 to 10/10/22 @ by 2053. Old specimen was [id number]. Performed By: #### L IPA 1, BMP, CKMB 1, CBC, PT, TROP 1 #### Main Lab - [address] [address] Eosinophils/100 WBC (Bld) 0.8 % Normal 0.0-5.0 [facility] Comment on above: Order Comment: @ COL L DATE was changed from 10/09/22 to 10/10/22 @ by 2053. Old specimen was [id number]. Performed By: #### L IPA 1, BMP, CKMB 1, CBC, PT, TROP 1 #### Main Lab - [address] [address] Erythrocyte distribution width (RBC) [Ratio] 14.8 % High 11.5-14.0 [facility] Comment on above: Order Comment: @ COL L DATE was changed from 10/09/22 to 10/10/22 @ by 2053. Old specimen was [id number]. Performed By: #### L IPA 1, BMP, CKMB 1, CBC, PT, TROP 1 #### [facility] - [address] [address] Hematocrit (Bld) [Volume fraction] 41.4 % Normal 34.8-45.0 [facility] Comment on above: Order Comment: @ COL L DATE was changed from 10/09/22 to 10/10/22 @ by 2053. Old specimen was [id number]. Performed By: #### L IPA 1, BMP, CKMB 1, CBC, PT, TROP 1 #### Main Lab - [facility] [address] Hemoglobin (Bld) [Mass/Vol] 13.7 g/dL Normal 11.6-14.9 [facility] Comment on above: Order Comment: @ COL L DATE was changed from 10/09/22 to 10/10/22 @ by 2053. Old specimen was [id number]. Performed By: #### L IPA 1, BMP, CKMB 1, CBC, PT, TROP 1 #### Main Lab - [address] [address] LYMPHOCYTES, ABSOLUTE (AUTO) 1.3 10 3/uL Normal 1.0-3.5 [facility] Comment on above: Order Comment: @ COL L DATE was changed from 10/09/22 to 10/10/22 @ by 2053. Old specimen was [id number]. Performed By: #### L IPA 1, BMP, CKMB 1, CBC, PT, TROP 1 #### Main Lab - [address] [address] Lymphocytes/100 WBC (Bld) 16.3 % Low 24.0-44.0 [facility] Comment on above: Order Comment: @ COL L DATE was changed from 10/09/22 to 10/10/22 @ by 2053. Old specimen was [id number]. Performed By: #### L IPA 1, BMP, CKMB 1, CBC, PT, TROP 1 #### [facility] - [address] [address] MCH (RBC) [Entitic mass] 25.7 pg Low 27.0-31.0 [facility] Comment on above: Order Comment: @ COL L DATE was changed from 10/09/22 to 10/10/22 @ by 2053. Old specimen was [id number]. Performed By: #### L IPA 1, BMP, CKMB 1, CBC, PT, TROP 1 #### [facility] - [address] [address] MCHC (RBC) [Mass/Vol] 33.0 g/dL Normal 32.0-36.0 [facility] Comment on above: Order Comment: @ COL L DATE was changed from 10/09/22 to 10/10/22 @ by 2053. Old specimen was [id number]. Performed By: #### L IPA 1, BMP, CKMB 1, CBC, PT, TROP 1 #### [facility] - [address] [address] MCV (RBC) [Entitic vol] 77.8 fL Low 78.0-100.0 [facility] Comment on above: Order Comment: @ COL L DATE was changed from 10/09/22 to 10/10/22 @ by 2053. Old specimen was [id number]. Performed By: #### L IPA 1, BMP, CKMB 1, CBC, PT, TROP 1 #### Main Lab - [facility] [address] [place] [address] MONOCYTES, ABSOLUTE (AUTO) 0.3 10 3/uL Normal 0.2-0.8 [facility] Comment on above: Order Comment: @ COL L DATE was changed from 10/09/22 to 10/10/22 @ by 2053. Old specimen was [id number]. Performed By: #### L IPA 1, BMP, CKMB 1, CBC, PT, TROP 1 #### Main Lab - [facility] [address] [place] [address] Monocytes/100 WBC (Bld) 4.1 % Normal 1.7-9.3 [facility] Comment on above: Order Comment: @ COL L DATE was changed from 10/09/22 to 10/10/22 @ by 2053. Old specimen was [id number]. Performed By: #### L IPA 1, BMP, CKMB 1, CBC, PT, TROP 1 #### Main Lab - [facility] [address] NEUTROPHILS, ABSOLUTE (AUTO) 6.3 10 3/uL Normal 1.5-6.7 [facility] Comment on above: Order Comment: @ COL L DATE was changed from 10/09/22 to 10/10/22 @ by 2053. Old specimen was [id number]. Performed By: #### L IPA 1, BMP, CKMB 1, CBC, PT, TROP 1 #### Main Lab - [address] [address] Neutrophils/100 WBC (Bld) 78.2 % High 36.0-66.0 [facility] Comment on above: Order Comment: @ COL L DATE was changed from 10/09/22 to 10/10/22 @ by 2053. Old specimen was [id number]. Performed By: #### L IPA 1, BMP, CKMB 1, CBC, PT, TROP 1 #### Main Lab - [facility] [place], [place] [address] PLATELET COUNT 280 10 3/uL Normal 150-450 [facility] Comment on above: Order Comment: @ COL L DATE was changed from 10/09/22 to 10/10/22 @ by 2053. Old specimen was [id number]. Performed By: #### L IPA 1, BMP, CKMB 1, CBC, PT, TROP 1 #### Main Lab - [address] [address] Platelet mean volume (Bld) [Entitic vol] 8.3 fL Normal 6.0-9.5 [facility] Comment on above: Order Comment: @ COL L DATE was changed from 10/09/22 to 10/10/22 @ by 2053. Old specimen was [id number]. Performed By: #### L IPA 1, BMP, CKMB 1, CBC, PT, TROP 1 #### Main Lab - [address] [address] RED BLOOD COUNT 5.32 x10 6/uL High 3.89-5.30 [facility] Comment on above: Order Comment: @ COL L DATE was changed from 10/09/22 to 10/10/22 @ by 2053. Old specimen was [id number]. Performed By: #### L IPA 1, BMP, CKMB 1, CBC, PT, TROP 1 #### Main Lab - [address] [address] WHITE BLOOD COUNT 8.1 10 3/uL Normal 4.0-10.5 [facility] Comment on above: Order Comment: @ COL L DATE was changed from 10/09/22 to 10/10/22 @ by 2053. Old specimen was [id number]. Performed By: #### L IPA 1, BMP, CKMB 1, CBC, PT, TROP 1 #### Main Lab - [address] [address] CREATINE KINASE MBon 2 023 CK.MB [Mass/Vol] 1.9 ng/mL Normal 0.0-3.7 [facility] Comment on above: Order Comment: @ COL L DATE was changed from 10/09/22 to 10/10/22 @ by 2053. Old specimen was [id number]. Performed By: #### L IPA 1, BMP, CKMB 1, CBC, PT, TROP 1 #### Main Lab - [facility] [address] [place] [address] ED Physician Documentationon 10-10-2022 ED Physician Documentation [address] [address] Physician Documentation Signed: Name: VENUS SPIVEY MRUN: [id number] : 1960 Loc: ED Age / Sex: 62/ F Adm Status: REG ER Adm Date:10/09/22 Room/Bed: Disposition Decision - General Final diagnosis: Chest pain, unspecified Qualifiers: Chest pain type: unspecified Qualified Code(s): R07.9 - Chest pain, unspecified Disposition: HOME, SELF-CARE Condition: Good Instructions: ED Chest [...] GI/Abdominal Exam: (more content not included)... Normal [facility] LIPASEon 10-10-2022 Lipase [Catalytic activity/Vol] 44 U/L Normal 23-300 [facility] Comment on above: Order Comment: @ COL L DATE was changed from 10/09/22 to 10/10/22 @ by 2053. Old specimen was [id number]. Performed By: #### L IPA 1, BMP, CKMB 1, CBC, PT, TROP 1 #### Main Lab - [facility] [address] [place] [address] PT WITH INRon 10-10-2022 INR Coag (PPP) [Relative time] 0.8 {INR} Normal [facility] Comment on above: Order Comment: @ COL L DATE was changed from 10/09/22 to 10/10/22 @ by 2053. Old specimen was [id number]. Result Comment: JOSE MMENDED RANGES FOR INR: Therapeutic range for standard therapy INR: 2.0-3.0 Therapeutic range for high dose therapy INR: 2.5-3.5 Performed By: #### L IPA 1, BMP, CKMB 1, CBC, PT, TROP 1 #### Main Lab - [facility] [address] [place] [address] PT Coag (PPP) [Time] 11.6 s Normal 11.3-14.8 [facility] Comment on above: Order Comment: @ COL L DATE was changed from 10/09/22 to 10/10/22 @ by 2053. Old specimen was [id number]. Performed By: #### L IPA 1, BMP, CKMB 1, CBC, PT, TROP 1 #### Main Lab - [facility] [address] [place] [address] TROPONIN Ion 10-10-2022 Troponin I.cardiac [Mass/Vol] ng/mL Normal 0.0-0.03 [facility] Comment on above: Result Comment: Refe rence Interval < or = 0.03 ng/mL Clinical Correlation Needed 0.03 - 0.11 ng/mL AMI Cutoff, Presumptive = or > 0.12 ng/mL Performed By: #### T ROP 1 #### Main Lab - [facility] [address] [place] [address] Troponin I.cardiac [Mass/Vol] ng/mL Normal 0.0-0.03 [facility] Comment on above: Order Comment: @ COL L DATE was changed from 10/09/22 to 10/10/22 @ by 2053. Old specimen was [id number]. Result Comment: Refe rence Interval < or = 0.03 ng/mL Clinical Correlation Needed 0.03 - 0.11 ng/mL AMI Cutoff, Presumptive = or > 0.12 ng/mL Performed By: #### L IPA 1, BMP, CKMB 1, CBC, PT, TROP 1 #### Main Lab - [facility] [place], [place] [address] URINE PROTOCOLon 10-10-2022 AMORPHOUS SEDIMENT,UR MOD Normal [facility] Comment on above: Order Comment: Clean Catch None Apply Asymptomatic Performed By: #### U A w RFX x2 #### Main Lab - [facility] [address] [place] [address] BLOOD,URINE SMALL Abnormal NEGATIVE [facility] Comment on above: Order Comment: Clean Catch None Apply Asymptomatic Performed By: #### U A w RFX x2 #### Main Lab - [facility] [address] [place] [address] Clarity (U) CLOUDY Abnormal [facility] Comment on above: Order Comment: Clean Catch None Apply Asymptomatic Performed By: #### U A w RFX x2 #### Main Lab - [facility] [place], [place] [address] Color (U) YELLOW Normal [facility] Comment on above: Order Comment: Clean Catch None Apply Asymptomatic Performed By: #### U A w RFX x2 #### Main Lab - [facility] [address] [place] [address] Glucose Ql (U) Negative Normal NEGATIVE [facility] Comment on above: Order Comment: Clean Catch None Apply Asymptomatic Performed By: #### U A w RFX x2 #### Main Lab - [facility] [place], [place] [address] Ketones Ql (U) Negative Normal NEGATIVE [facility] Comment on above: Order Comment: Clean Catch None Apply Asymptomatic Performed By: #### U A w RFX x2 #### Main [facility] - [facility] [address] [place] [address] Leukocyte esterase Test strip Ql (U) TRACE Abnormal NEGATIVE [facility] Comment on above: Order Comment: Clean Catch None Apply Asymptomatic Performed By: #### U A w RFX x2 #### Main Lab - [facility] [address] [place], [place] [address] MUCUS,URINE TRACE Normal [facility] Comment on above: Order Comment: Clean Catch None Apply Asymptomatic Performed By: #### U A w RFX x2 #### Main Lab - [facility] [address] [place], [place] [address] NITRITE,URINE Negative Normal NEGATIVE [facility] Comment on above: Order Comment: Clean Catch None Apply Asymptomatic Performed By: #### U A w RFX x2 #### Main Lab - [facility] [address] [place], [place] [address] OTHER CRYSTALS,URINE FEW Normal [facility] Comment on above: Order Comment: Clean Catch None Apply Asymptomatic Performed By: #### U A w RFX x2 #### Main Lab - [facility] [address] [place], [place] [address] pH (U) 7.0 [pH] Normal 5.0-8.0 [facility] Comment on above: Order Comment: Clean Catch None Apply Asymptomatic Performed By: #### U A w RFX x2 #### Main Lab - [facility] [address] [place], [place] [address] PROTEIN,URINE Negative Normal NEGATIVE [facility] Comment on above: Order Comment: Clean Catch None Apply Asymptomatic Performed By: #### U A w RFX x2 #### Main Lab - [facility] [address] [place], [place] [address] RBC,URINE 0-3 Normal [facility] Comment on above: Order Comment: Clean Catch None Apply Asymptomatic Performed By: #### U A w RFX x2 #### Main Lab - [facility] [address] [place], [place] [address] SPECIFIC GRAVITY,URINE 1.010 SP.GR. Normal <1.029 [facility] Comment on above: Order Comment: Clean Catch None Apply Asymptomatic Performed By: #### U A w RFX x2 #### Main Lab - [facility] [address] [place], [place] [address] UROBILINOGEN,URINE Negative Normal <2 mg/dL [facility] Comment on above: Order Comment: Clean Catch None Apply Asymptomatic Performed By: #### U A w RFX x2 #### Main Lab - [facility] [address] [place] [address] WBC,URINE 0-5 Normal [facility] Comment on above: Order Comment: Clean Catch None Apply Asymptomatic Result Comment: Unle ss otherwise noted, urine microscopic evaluation is normal. Performed By: #### U A w RFX x2 #### Main Lab - [facility] [address] [place] [address] Waveform Imaging Reporton Waveform Imaging Report [facility] [address] [place] [id number] Waveform Imaging Report : [id number] Signed Name: VENUS SPIVEY MRUN: [id number] : 1960 Loc: ED Age / Sex: 62 / F ADM Status: REG ER ADM Date: 10/09/22 Room/Bed: Ordering Physician: Sheri Hunter DO Procedure: EKG Order Number(s): [id number] Ordered Date: 10/09/22 Ordered Time: 2325 Test Date: 2022-10-09 22:33:43 Pat Name: VENUS SPIVEY Department: ED Room: Gender: F Litigator: : 1960 Requested By: Sheri Frankel Order Number: [id number] Reading MD: Sheri Hunter Measurements Intervals [place] Rate: 94 P: 62 SC: 150 QRS: 105 QRSD: 98 T: 62 [...] Hunter Signed Date/Time: 10/09/222327 Transcribed Date/Time: Normal [facility] XR PORTABLE CHEST (1VIEW)on 10-10-2022 XR PORTABLE CHEST (1VIEW) [facility] Diagnostic Imaging [address] [id number] Diagnostic Imaging Report : [id number] Signed Name: VENUS SPIVEY MRUN: [id number] : 1960 Loc: ED Age / Sex: 62 / F ADM Status: REG ER ADM Date: 10/09/22 Room/Bed: Ordering Physician: Sheri Hunter DO Procedure: XR PORTABLE CHEST (1VIEW) Order Number(s): [id number] Ordered Date: 10/09/22 Ordered Time: 2325 EXAMINATION: [...] Signed Date/Time: 10/10/2249 Transcribed Date/Time: 10/10/2246 Normal [facility] ED REPORTon 05-21-2022 [place] [address] HEALTH INFORMATION MANAGEMENT EMERGENCY DEPARTMENT REPORT Patient: VENUS SPIVEY HUNTER HUDSON as dictated by DONTE FISH [id number] [age] F Status: [facility] ER ED Date of Service: 05/20/22 CHIEF [...] swelling or discoloration throughout her body. SKIN: [place], warm, and dry. Pulses bilaterally radially are [...] with primary care provider. 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.; HUNTER HUDSON << Signature on File>> Reported By: HUNTER HUDSON Signed By: HUNTER HUDSON Tests performed at: [address] [id number] Normal [facility] No Panel Informationon 08-11 Thyroid Stimulating Hormone (TSH) 1.56 uIU/mL 0.358-3.74 [facility] Work Phone: CNPOndina 02-23[facility]2021 [facility] VENUS SPIVEY ([id number]) 1960 F [facility] Date Time Provider Department 02/23/21 DAMIÁN [...] - Fully Assessed Reason for Visit: Question [1327] Prescriptions as of 03/16/2021 - diphenhydrAMINE (BENADRYL) [...] Status:Closed by RIZWANA LOUIS LPN on 03/16/21 [facility] Kwaku 12-31-2020 [facility] Telephone (VANESA) PATRICVENUS ([id number]) 1960 F [facility] Date Time Provider Department 12/31/20 DAMIÁN [...] once a day. Can not go to [facility] not in her network. Has seen Dr. Yee before . 2. Order for H-pylori stool check she completed medications from another doctor 2 weeks ago. She wants to make sure this is gone. This needs to be done at [facility] fax orders. Please advise pt. She is aware the doctor is out of the office till next week. Claudia Thomas Pss 01/09/2021 1:47 PM Signed Patient would prefer to stay local please fax referral to Dr Yee office. Rizwana Louis LPN 01/09/2021 4:58 PM Signed Referral faxed to Dr. Yee. Order for H-Pylori stool fax to [facility]. Allergies As of Date: 12/31/2020 Noted [...] Status:Closed by RIZWANA LOUIS LPN on 01/09/21 [facility] 12-24-2020 [facility] Telephone (VANESA) VENUS SPIVEY ([id number]) 1960 [facility] Date Time Provider Department 12/24/20 DAMIÁN KIMBLE During your visit today, we recorded the following information about you: Jennifer Chisholm Pss 12/24/2020 3:02 PM Signed Patient is asking for another stool sample test to see if medication is helping. She is requesting that be put through [facility]. Patient states she was unable to be seen in [place] due to insurance. She would like a [...] tract infection [N39.0] 02/03/2012 Encounter Status:Closed by JENNIFER [facility]EZ [facility] (VANESA) VENUS SPIVEY ([id number]) 1960 F [facility] Date Time Provider Department 11/20/20 DAMIÁN KIMBLE During your visit today, we recorded the following information about you: Tiara Jessica RN 11/20/2020 9:04 AM Signed Daria from [facility] called, verified pt by name and birthdate. Daria states she is not able to schedule pt until a referral is placed and then [facility] Referral to [facility] pended. Insurance referral for at [facility] also placed and submitted for approval. Tiara Kimble APRN.GEETHA 11/20/2020 1:15 PM Signed Signed order. GI referral for EGD with [facility] for refractory H pylori Thanks Damián Kimble APRN.GEETHA Louis LPN 12/02/2020 3:19 PM Signed Fax sent to [facility] asking status of referral. Rizwana Louis LPN 12/04/2020 10:40 AM Signed Response from [facility] is that they are waiting on insurance approval prior to scheduling patient. Rizwana Louis LPN 12/16/2020 1:19 PM Signed Patient states that the referral to [facility] was denied. She is following with ID in [place] and was prescribed several medications. She will [...] B96.81] Order(s):CONSULT TO GASTROENTEROLOGY [9010] Order #: [id number]: 1 FUTURE Prescriptions as of 12/16/2020 - [...] Status:Closed by RIZWANA LOUIS LPN on 12/16/20 [facility] CNOVnico 11-11-2020 CNOV Office Visit (VANESA ) VENUS SPIVEY ([id number]) 1960 F [facility] Date Time Provider Department 11/11/20 11:00 AM DAMIÁN KIMBLE During your visit today, we recorded the following information about you: Pulse Blood pressure Weight Height 73/minute 106/78 64.4 kg 1.64 m Damián Kimble APRN.CNP 11/11/2020 12:58 PM Signed DEPARTMENT OF GASTROENTEROLOGY [...] of heart (more content not included)... Normal [facility] HISTORY PHYSICALon 1 HISTORY PHYSICAL HNO ID: [id number] Author: Damián Kimble APRN.ELECTRONIC [employer] MECHANIC Service: ? Author Type: Nurse Practitioner Type: [...] up r (more content not included)... Normal [facility] LIPIDon 04-28-2020 Cholesterol [Mass/Vol] 196 MG/dL Normal 0-199 [facility] Comment on above: Performed By: #### L [id number] #### [facility] [employer] [place] [address] Cholesterol in HDL [Mass/Vol] 80 mg/dL Normal [place] 40 [facility] Comment on above: Result Comment: Victoria ents receiving Metamizole prior to venipuncture, may have falsely depressed results. Performed By: #### L [id number] #### [facility] [employer] [place] [address] Cholesterol in LDL [Mass/Vol] 91 mg/dL Normal [facility] Comment on above: Result Comment: ___C HOLESTEROL/HDL RATIO RISK___ CHD RISK = Total CHOL LDL HDL (CHOL/HDL) Recommended <200 <130 >40 <3.4 Borderline 200-239 130-159 3.4-4.99 High >240 >160 >5.0 Performed By: #### L [id number] #### [facility] [address] [place] [address] Triglyceride [Mass/Vol] 127 mg/dL Normal 30-149 [facility] Comment on above: Result Comment: Victoria ents receiving either N-Acetylcysteine (NAC) or Metamizole prior to venipuncture, may have falsely depressed results. Performed By: #### L [id number] #### [facility] [address] [place] [address] Vital Signs Date Time Vital Sign Value Performing Clinician Facility 11-21-2024 12:05-0400 Body height 162.6 cm Sonya Monte MD Work Phone: [facility] 11-21-2024 12:05-0400 Body mass index (BMI) [Ratio] 26.04 kg/m2 Sonya Monte MD Work Phone: [facility] 11-21-2024 12:05-0400 Body weight 68.8 kg Sonya Monte MD Work Phone: [facility] 11-21-2024 12:05-0400 Diastolic blood pressure 77 mm[Hg] Sonya Monte MD Work Phone: [facility] 11-21-2024 12:05-0400 Heart rate 70 /min Sonya Monte MD Work Phone: [facility] 11-21-2024 12:05-0400 Respiratory rate 16 /min Sonya Mnote MD Work Phone: [facility] 11-21-2024 12:05-0400 SaO2% (BldA) [Mass fraction] 97 % Sonya Monte MD Work Phone: [facility] 11-21-2024 12:05-0400 Systolic blood pressure 116 mm[Hg] Sonya Monte MD Work Phone: [facility] 07-23-2024 13:28-0500 Body height 162.6 cm Sonya Monte MD Work Phone: [facility] 07-23-2024 13:28-0500 Body mass index (BMI) [Ratio] 26.98 kg/m2 Sonya Monte MD Work Phone: [facility] 07-23-2024 13:28-0500 Body weight 71.3 kg Sonya Monte MD Work Phone: [facility] 07-23-2024 13:28-0500 Diastolic blood pressure 84 mm[Hg] Sonya Monte MD Work Phone: [facility] 07-23-2024 13:28-0500 Heart rate 73 /min Sonya Monte MD Work Phone: [facility] 07-23-2024 13:28-0500 Respiratory rate 16 /min Sonya Monte MD Work Phone: [facility] 07-23-2024 13:28-0500 SaO2% (BldA) [Mass fraction] 98 % Sonya Monte MD Work Phone: [facility] 07-23-2024 13:28-0500 Systolic blood pressure 163 mm[Hg] Sonya Monte MD Work Phone: [facility] 05-07-2024 13:00-0500 Body mass index (BMI) [Ratio] 26.72 kg/m2 Sonya Monte MD Work Phone: [facility] 05-07-2024 13:00-0500 Body weight 70.6 kg Sonya Monte MD Work Phone: [facility] 05-07-2024 13:00-0500 Diastolic blood pressure 80 mm[Hg] Sonya Monte MD Work Phone: [facility] 05-07-2024 13:00-0500 Heart rate 72 /min Sonya Monte MD Work Phone: [facility] 05-07-2024 13:00-0500 Respiratory rate 16 /min Sonya Monte MD Work Phone: [facility] 05-07-2024 13:00-0500 SaO2% (BldA) [Mass fraction] 99 % Sonya Monte MD Work Phone: [facility] 05-07-2024 13:00-0500 Systolic blood pressure 114 mm[Hg] Sonya Monte MD Work Phone: [facility] 04-20-2024 13:14-0500 Body height 162.6 cm Jessica Ordaz APRN.[employer] MECHANIC Work Phone: [facility] 04-20-2024 13:14-0500 Body mass index (BMI) [Ratio] 25.75 kg/m2 Jessica Ordaz APRN.ELECT[employer] MECHANIC Work Phone: [facility] 04-20-2024 13:14-0500 Body weight 68.04 kg Jessica Ordaz APRN.ELECTRONIC [employer]UST[employer] CONTR[employer] MECHANIC Work Phone: [facility] 04-20-2024 13:14-0500 Diastolic blood pressure 81 mm[Hg] Jessica Ordaz APRN.ELECTRONIC [employer] MECHANIC Work Phone: [facility] 04-20-2024 13:14-0500 Heart rate 69 /min Jessica Ordaz APRN.ELECTRONIC [employer] MECHANIC Work Phone: [facility] 04-20-2024 13:14-0500 SaO2% (BldA) [Mass fraction] 98 % Jessica Ordaz APRN.ELECTRONIC [employer]USTRIAL CONTROLS MECHANIC Work Phone: [facility] 04-20-2024 13:14-0500 Systolic blood pressure 118 mm[Hg] Jessica Ordaz APRN.ELECTRONIC [employer] CONTR[employer] MECHANIC Work Phone: [facility] 02-28-2024 11:04-0400 Body height 163.8 cm Blaise Carroll MD Work Phone: [facility] 02-28-2024 11:04-0400 Body mass index (BMI) [Ratio] 26.53 kg/m2 Blaise Carroll MD Work Phone: [facility] 02-28-2024 11:04-0400 Body weight 71.22 kg Blaise Carroll MD Work Phone: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 would not a critical surgery. She [...] image review. PREVIOUS CONSERVATIVE TREATMENT: -Medication: Meloxicam, [place] -Physical therapy: Previous participation at [facility]- minimal symptom improvement. She has continued participation in home exercises/stretches as guided by physical therapy recommendations on routine basis as tolerated to present day. [facility] consultation notes can be found under scanned documents. -Previous healthcare providers: [place]- Dr. Carroll and was recommended a C5-C7 ACDF -Pain Management: Follows with [facility] - consult note can be found under scanned documents -Injections: Cervical injection at [facility] - 30% symptom relief that lasted for only 1 week and therefore w (more content not included)... [facility] 05-07-2024 History of Presen t illness Narrative Images from the original note were not included. NEUROSURGERY FOLLOW UP OFFICE NOTE Chair, Clinical Neurosciences Director, Spinal Neurosurgery [facility] Date of visit: May 07, 2024 Patient Name: Ms.Jeanette Spivey Date of : 1960 Current Age: [age] year old Sex: female MRN/E# [id number] Last Office Visit: 04/30/2024 Chief Complaint: Patient [...] this time. PREVIOUS CONSERVATIVE TREATMENT: -Medication: Meloxicam, [place] -Physical therapy: Previous participation at [facility]- minimal symptom improvement. She has continued participation in home exercises/stretches as guided by physical therapy recommendations on routine basis as tolerated to present day. [facility] consultation notes can be found under scanned documents. -Previous healthcare providers: [place]- Dr. Carroll and was recommended a C5-C7 ACDF -Pain Management: Follows with [facility] - consult note can be found under scanned documents -Injections: Cervical injection at [facility] - 30% symptom relief that lasted for [...] do. Again I explained this was a gwttdnq-en-unoh issue would not a critical surgery. She has no central canal stenosis. No neurological complaints. Simply a pain related issue. Another option would be to consider radiofrequency ablation to help with the neck pain specifically. She is not sure it can be done in [place]. I suggested we obtain a CT scan [...] Chair, Clinical Neurosciences Director, Spinal Neurosurgery [facility] This note was partially generated using [employer] voice recognition system, and there may be some incorrect words, spellings, and punctuation that were not noted in checking the note before saving. documented in this encounter [facility] 05-07-2024 Note HNO ID: [id number] Author: SONYA MCDERMOTT MD Service: ? Author Type: Physician Type: Progress Notes Filed: 05/07/2024 13:34 Note Text: NEUROSURGERY FOLLOW UP OFFICE NOTE Chair, Clinical Neurosciences Director, Spinal Neurosurgery [facility] Date of visit: May 07, 2024 Patient Name: Ms.Jeanette Spivey Date of : 1960 Current Age: [age] year old Sex: female MRN/E# [id number] Last Office Visit: 04/30/2024 Chief Complaint: Patient [...] this time. PREVIOUS CONSERVATIVE TREATMENT: -Medication: Meloxicam, [place] -Physical therapy: Previous participation at [facility]- minimal symptom improvement. She has continued participation in home exercises/stretches as guided by physical therapy recommendations on routine basis as tolerated to present day. [facility] consultation notes can be found under scanned documents. -Previous healthcare providers: [place]- Dr. Carroll and was recommended a C5-C7 ACDF -Pain Management: Follows with [facility] - consult note can be found under scanned documents -Injections: Cervical injection at [facility] - 30% symptom relief that lasted for [...] shortness of breat (more content not included)... [facility] 04-30-2024 Telephone encounter Note Patient requested to have MRI at [facility]. Received authorization. Faxed order and authorization information to [facility]. [facility] 04-30-2024 Miscellaneous Notes Patient requested to have MRI at [facility]. Received authorization. Faxed order and authorization information to [facility]. documented in this encounter [facility] 04-20-2024 Telephone encounter Note Patient is to call in to let us know MRI location, once we are informed of that we can fax over order and get prior aut, patient will need to schedule a CT and [address] Mcdermott after MRI date is given to office [facility] 04-20-2024 Miscellaneous Notes Patient is to call in to let us know MRI location, once we are informed of that we can fax over order and get prior aut, patient will need to schedule a CT and [address] Mcdermott after MRI date is given to office documented in this encounter [facility] 04-20-2024 History of Presen t illness Narrative Images from the original note were not included. SPINE SURGERY CONSULT NOTE Jessica Ordaz APRN-[employer] Date of visit: April 20, 2024 Patient Name: Ms.Jeanette Spivey Date of : 1960 Current Age: [age] year old Sex: female MRN/E# [id number] Last Office Visit: Visit date not found [...] bladder incontinence. PREVIOUS CONSERVATIVE TREATMENT: -Medication: Meloxicam, [place] -Physical therapy: Previous participation at [facility]- minimal symptom improvement. She has continued participation in home exercises/stretches as guided by physical therapy recommendations on routine basis as tolerated to present day. [facility] consultation notes can be found under scanned documents. -Previous healthcare providers: [place]- Dr. Carroll and was recommended a C5-C7 ACDF -Pain Management: Follows with [facility] - consult note can be found under scanned documents -Injections: Cervical injection at [facility] - 30% symptom relief that lasted for [...] Quadriceps 5/5 5/5 DF 5/5 5/5 EHL 5/5 5/5 PF 5/5 5/5 Data Review: MRI cervical spine completed in [...] she is willing to obtain here at [facility] the same day she presents for evaluation with Dr. Mcdermott. This will need to be scheduled when she contacts our office after MRI date is scheduled. -Follow up with Dr. Mcdermott for a 30 minute appointment which was communicated to staff. [facility] This note was partially generated using [employer] voice recognition system, and there may be some incorrect words, spellings, and punctuation that were not noted in checking the note before saving. documented in this encounter [facility] 04-20-2024 Note HNO ID: [id number] Author: JESSICA ORDAZ APRN.CNP Service: ? Author Type: Nurse Practitioner Type: Progress Notes Filed: 04/20/2024 15:52 Note Text: SPINE SURGERY CONSULT NOTE TESHA Warren Date of visit: April 20, 2024 Patient Name: Ms.Jeanette Spivey Date of : 1960 Current Age: [age] year old Sex: female MRN/E# [id number] Last Office Visit: Visit date not found [...] bladder incontinence. PREVIOUS CONSERVATIVE TREATMENT: -Medication: Meloxicam, [place] -Physical therapy: Previous participation at [facility]- minimal symptom improvement. She has continued participation in home exercises/stretches as guided by physical therapy recommendations on routine basis as tolerated to present day. [facility] consultation notes can be found under scanned documents. -Previous healthcare providers: [place]- Dr. Carroll and was recommended a C5-C7 ACDF -Pain Management: Follows with [facility] - consult note can be found under scanned documents -Injections: Cervical injection at [facility] - 30% symptom relief that lasted for [...] and food al (more content not included)... [facility] 04-10-2024 Telephone encounter Note Spoke with pt and relayed note. They verbalized understanding. [facility] 04-10-2024 Miscellaneous Notes Spoke with pt and relayed note. They verbalized understanding. Unfortunately, we are not very familiar with the [facility] spine provider to be able to make a recommendation. Please let her know. Thank you. Pt called stating that she really wants to have surgery done with you, but you are out of network with her insurance. Pt would like to know if you have a surgeon that you would recommend within [facility]. Pt states she want to change insurance [...] given. Spoke with SAM Arriaga. Ref #: [id number] Surg 03/26 730 PAT 03/19 230 PO 04/10 10 Case# [id number] Patient aware of all appointments and times ----- Message from Blaise Carroll MD sent at 02/28/2024 12:13 PM EDT ----- Anterior cervical 5-6 and 6-7 disc replacements 2 hours 1 night [id number] documented in this encounter [facility] 04-10-2024 Telephone encounter Note Unfortunately, we are not very familiar with the [facility] spine provider to be able to make a recommendation. Please let her know. Thank you. Quip [facility] Work Phone: 04-10-2024 Telephone encounter Note Pt called stating that she really wants to have surgery done with you, but you are out of network with her insurance. Pt would like to know if you have a surgeon that you would recommend within [facility]. [employer] 03-20-2024 Telephone encounter Note Pt states she want to change insurance and wait until the new year to have Sx with Dr. Carroll. Pt was notified to call me with updated ins info YUAN. Tentative date of 06/18/2023 given to pt. [facility] 03-20-2024 Miscellaneous Notes Pt states she want [...] given. Spoke with SAM Arriaga. Ref #: [id number] Surg 03/26 730 PAT 03/19 230 PO 04/10 10 Case# [id number] Patient aware of all appointments and times ----- Message from Blaise Carroll MD sent at 02/28/2024 12:13 PM EDT ----- Anterior cervical 5-6 and 6-7 disc replacements 2 hours 1 night [id number] documented in this encounter [facility] 03-20-2024 Telephone encounter Note Received email from ins verification. Pt's ins is OON and will need to pay 50% and single case agreement will need to be submitted. LVM for cb to discuss with pt. [facility] 03-19-2024 Note Patient: Venus vora Procedure Information Date/Time: 03/26/24729 Procedure: ANTERIOR CERVICAL 5-6 AND 6-7 DISC REPLACEMENTS - 2 HOUR CASE Location: [facility] OR [address] [place] [address] Operating Room Surgeons: Blaise Carroll MD Relevant [...] previous visit. Equipment Requests: Additional Equipment Requests [facility] 03-19-2024 Note Comprehensive Pre [place] rgical History and Physical ? Name: Venus Spivey : 1960 (Age-63 y.o.) Date of Service: Pt seen/examined on 03/19/2024 Procedure Information Date/Time: 03/26/24 07 Procedure: ANTERIOR CERVICAL 5-6 AND 6-7 DISC REPLACEMENTS - 2 HOUR CASE Location: [address] Operating Room Surgeons: Blaise Carroll MD Chief [...] for pre-operative evaluation prior to ? Case: [id number] Date/Time: 03/26/24729 Procedure: ANTERIOR CERVICAL 5-6 AND 6-7 DISC REPLACEMENTS [13222 CPT(R)] - 2 HOUR CASE Anesthesia type: General Diagnosis: Radiculopathy, cervical region [M54.12] Pre-op diagnosis: Radiculopathy, cervical region [M54.12] Location: [address] Operating Room Surgeons: Blaise Carroll MD From [...] constipation. Patient denies hx of CAD, CHF, VT, diabetes, COPD, asthma, RUTH ANN, DVT/PE. Past [...] mouth Nightly. HYDROcodone-acetaminop (more content not included)... [facility] 03-15-2024 Note ORIGINAL EXAMINATION: SINGLE CONTRAST [...] 03/15/2024 1:24:47 PM Ordering Provider: WYATT YEE [facility] 02-29-2024 Telephone encounter Note Spoke with pt and tentative Sx date on 03/26 was given. Spoke with SAM Arriaga. Ref #: [id number] Surg 03/26 730 PAT 03/19 230 PO 04/10 10 Case# [id number] Patient aware of all appointments and times [facility] 02-29-2024 Telephone encounter Note ----- Message from Blaise Carroll MD sent at 02/28/2024 12:13 PM EDT ----- Anterior cervical 5-6 and 6-7 disc replacements 2 hours 1 night [id number] [facility] 02-28-2024 History of Presen t illness Narrative [...] by mouth. 11/15/22 Yes Historical Provider, HYDROcodone-acetaminophen ([place]) 5-325 MG tablet 01/05/24 Yes Historical Provider, [...] 1. Cervical radiculopathy documented in this encounter [facility] 02-22-2024 History of Presen t illness Narrative [...] necessary. Melly Robles documented in this encounter [facility] 04-18-2023 Note HNO ID: [id number] Author: Suraj Saini MD Service: ? Author [...] discussed with patient patient tolerated procedure well. [facility] Evaluation + Plan note No data available for this section [facility] Evaluation note No assessment inform ation available [facility] Work Phone: Evaluation note Diagnosis Onset Date Atypical chest pain acute [facility] Work Phone: Evaluation note* Diagnosis Laceration of blood vessel of index finger- Primary [facility] Diagnosis Cervical radiculopathy- Primary Brachial neuritis or radiculitis nos documented in this encounter [facility] note* Diagnosis Spinal stenosis of cervical region- Primary Spinal stenosis in cervical region Claustrophobia Other isolated or specific phobias [facility] Diagnosis Spinal stenosis of cervical region Spinal stenosis in cervical region documented [facility] this [facility]* Diagnosis Cervical disc disorder with radiculopathy- Primary Brachial neuritis or radiculitis nos documented in this [facility]* Diagnosis Cervical disc disorder with radiculopathy- Primary Brachial neuritis or radiculitis nos documented [facility]* Diagnosis Cervical disc disorder with radiculopathy- Primary Brachial neuritis or radiculitis nos [facility] Diagnosis Cervical disc disorder with radiculopathy Brachial neuritis or radiculitis nos [facility] No data available for this section [facility] Progress note No data available for this section [facility] Reason for visit Narrative* Diagnostic Procedure Only (Routine) - Closed Specialty Diagnoses / Procedures Referred By Contac t Referred To Contact XR IMAGING Diagnoses Spinal stenosis of cervical region Procedures XR CERV OTHER 4V AP/LAT/FLX/EXT RADEX SPINE CERVICAL 4 OR 5 VIEWS Jessica Ordaz, THO.[employer]LECT[employer]IC INDUSTRIAL CONTROLS MECHANIC [address] [facility] [place] [address] [place] [address] Referral ID Status Reason Start Date Expiration Date V isits Requested Visits Authorized [id number] Closed Auto-Generate d Referral 04/20/2024 05/20/2025 1 1 [facility] for visit Narrative* Diagnostic Procedure Only (Routine) - Closed Specialty Diagnoses / Procedures Referred By Contac t Referred To Contact XR IMAGING Diagnoses Cervical disc disorder with radiculopathy Procedures XR CERV OTHER 4V AP/LAT/FLX/EXT RADEX SPINE CERVICAL 4 OR 5 VIEWS Sonya Mcdermott I, [address] [facility] [place] [address] Phone: tel: fax: [place] [address] Referral ID Status Reason Start Date Expiration Date V isits Requested Visits Authorized [id number] Closed Auto-Generate d Referral 10/26/2024 11/25/2025 1 1 [facility] Summary Purpose Family History No Family History [...] October 17, 2014 1 :31pm Power of Options Advisor No October 17, 2014 1:31pm Advance Directive Response Recorded Date/ Time Advance Directives October 17 5 12:31pm Living Will No October 17, 2014 1 2:31pm Power of Options Advisor No October 17, 2014 12:31pm Chief Complaint [...] Referral Specialty Diagnoses / Procedures Referred By Contac t Referred To Contact CT IMAGING Diagnoses Spinal stenosis of cervical region Procedures CT CERVICAL SPINE WO IVCON CT CERVICAL SPINE W/O CONTRAST MATERIAL Jessica Ordaz, DAT INSTRUCTOR.ELECTRONIC INDUSTRIAL CONTROLS MECHANIC [address] [place] [address] [place] [address] Referral ID Status Reason Start Date Expiration Date V isits Requested Visits Authorized [id number] Open Auto-Generate d Referral 04/20/2024 05/20/2025 1 1 Specialty Diagnoses / Procedures Referred By Contac t Referred To Contact XR IMAGING Diagnoses Spinal stenosis of cervical region Procedures XR CERV OTHER 4V AP/LAT/FLX/EXT RADEX SPINE CERVICAL 4 OR 5 VIEWS Jessica Ordaz, DAT INSTRUCTOR.ELECTRONIC INDUSTRIAL CONTROLS MECHANIC [address] [place] [address] [place] [address] Referral ID Status Reason Start Date Expiration Date V isits Requested Visits Authorized [id number] Closed Auto-Generate d Referral 04/20/2024 05/20/2025 1 1 Specialty Diagnoses / Procedures Referred By Contac t Referred To Contact MR IMAGING Diagnoses Spinal stenosis of cervical region Procedures MRI CERVICAL SPINE WO IVCON MRI SPINAL CANAL CERVICAL W/O CONTRAST Jessica Small, DAT INSTRUCTOR.ELECTRONIC INDUSTRIAL CONTROLS MECHANIC [address] [place] [address] [place] [address] Referral ID Status Reason Start Date Expiration Date Visits Requested Visits Authorized [id number] New Request Auto-Generat ed Referral 4 05/20/2025 1 1 Additional Source Comments INFORMATION SOURCE (unrecogn ized section and content) DATE CREATED AUTHOR 04/30/2020 [facility] DATE CREATED AUTHOR AUTHOR'S ORGANIZ ATION 06/15/2021 [facility] DATE CREATED AUTHOR AUTHOR'S ORGANIZ ATION 05/27/2022 [facility] DATE CREATED AUTHOR AUTHOR'S ORGANIZ ATION 10/11/2022 [facility] DATE CREATED AUTHOR AUTHOR'S ORGANIZ ATION 04/11/2023 [facility] DATE CREATED AUTHOR AUTHOR'S ORGANIZ ATION 04/20/2023 [employer] [facility] DATE CREATED AUTHOR AUTHOR'S ORGANIZ ATION 03/18/2024 [facility] DATE CREATED AUTHOR AUTHOR'S ORGANIZ ATION 04/13/2024 [facility] DATE CREATED AUTHOR AUTHOR'S ORGANIZ ATION 11/30/2024 [facility] DATE CREATED AUTHOR AUTHOR'S ORGANIZ ATION 01/08/2025 [facility] DATE CREATED AUTHOR AUTHOR'S ORGANIZ ATION 03/25/2025 [facility] Goals (unrecognized section and content) Goals may [...] or prosecute any alcohol or drug abuse patient.[facility] the event this information is protected by the Federal Confidentiality of Alcohol and Drug Abuse Patient Records regulations: The Federal rules restrict any use of the information to criminally investigate or prosecute any alcohol or drug abuse patient.[facility] the event this information is protected by the Federal Confidentiality of Alcohol and Drug Abuse Patient Records regulations: The Federal rules restrict any use of the information to criminally investigate or prosecute any alcohol or drug abuse patient.[facility] the event this information is protected by the Federal Confidentiality of Alcohol and Drug Abuse Patient Records regulations: The Federal rules restrict any use of the information to criminally investigate or prosecute any alcohol or drug abuse patient.[facility] the event this information is protected by the Federal Confidentiality of Alcohol and Drug Abuse Patient Records regulations: The Federal rules restrict any use of the information to criminally investigate or prosecute any alcohol or drug abuse patient.[facility] the event this information is protected by the Federal Confidentiality of Alcohol and Drug Abuse Patient Records regulations: The Federal rules restrict any use of the information to criminally investigate or prosecute any alcohol or drug abuse patient.[facility] the event this information is protected by the Federal Confidentiality of Alcohol and Drug Abuse Patient Records regulations: The Federal rules restrict any use of the information to criminally investigate or prosecute any alcohol or drug abuse patient.[facility] the event this information is protected by the Federal Confidentiality of Alcohol and Drug Abuse Patient Records regulations: The Federal rules restrict any use of the information to criminally investigate or prosecute any alcohol or drug abuse patient.[facility] the event this information is protected by the Federal Confidentiality of Alcohol and Drug Abuse Patient Records regulations: The Federal rules restrict any use of the information to criminally investigate or prosecute any alcohol or drug abuse patient.[facility] the event this information is protected by the Federal Confidentiality of Alcohol and Drug Abuse Patient Records regulations: The Federal rules restrict any use of the information to criminally investigate or prosecute any alcohol or drug abuse patient.[facility] Care Teams (unrecognized sec tion and content) Manager File Relationship Specialty Start Date End Date Bear [...] Bear Au MD Primary Care Provider Active DONTE Love Attending Provider, Referring Pro vider Active Team [...] Primary Care Provider Active Emery Olivares NP, PAID SEARCH ANALYST-C Attending Provider Active Team Status: Inactive Member [...] Jack Driver DO Primary Care Provider Active Damián Hayes NP-C Attending Provider, Referring Provi arabella Active Manager File Relationship Specialty [place] [address] [address] PCP - General Internal Medicine 02/22/24 Manager File Relationship Specialty [place] [address] 289559 PCP - General Internal Medicine 02/22/24 Manager File Relationship Specialty [place] [address] [address] PCP - General Internal Medicine 02/22/24 Manager File Relationship [place]ty [place] [address] [address] PCP - General Internal Medicine 02/22/24 Manager File Relationship Specialty [place] [address] [address] PCP - General Internal Medicine 02/22/24 Manager File Relationship Specialty [place] [address] [address] PCP - General Internal Medicine 02/22/24 Manager File Relationship Specialty [place] [address] [address] PCP - General Internal Medicine 02/22/24 Manager File Relationship Specialty [place] [address] [address] PCP - General Internal Medicine 02/22/24 Reason [...] BE BASED ON THE PRIMARY CLINICAL RECORDS. [facility] [employer] [facility]. provides no warranty or guarantee of the accuracy or completeness of information in this document.
[2025-03-25] MEDS: 0.9% Normal Saline (1000mL) 700 ML IV (19:31)
[2025-03-25] MEDS: Lidocaine 1% (5 ml sdv) 5 ML Vial 3 ML IV (19:37)
--- NOTE | 2025-03-25 20:00 | RAD_ITS ---
PROCEDURE: ERCP BILIARY/PANCREAS 03/25/2025 REASON FOR EXAM: ERCP TECHNIQUE: Procedure Code: RADERCP Modality: DX Procedure: ERCP BILIARY/PANCREAS. Fluoroscopic services provided for ERCP. Fluoroscopy: 18.7 seconds. Radiation dose: 6.48 mGy. A cine loop was performed. COMPARISON: None FINDINGS: Contrast was injected into the common bile duct. A balloon catheter is seen. A biliary stent was placed. RAD/ERCP Biliary/Pancreas IMPRESSION: Fluoroscopic imaging provided for ERCP. Reading Location: [id number]
--- NOTE | 2025-03-25 20:25 | OP.ERCP_ITS ---
Patient Name: Deanna Spivey Procedure Date: 03/25/2025 3:28 PM Date of : 1960 Age: 64 Procedure: ERCP Indications: Bile duct stone(s), Abdominal pain of suspected biliary origin, Abdominal pain of suspected pancreatic origin, Abdominal pain of suspected biliary or pancreatic origin, Biliary dilation on Computed Tomogram Scan, Biliary dilation on Ultrasound, Suspected ascending cholangitis, Elevated liver enzymes, Suspected acute pancreatitis Providers: Deep Mora DO Medicines: General Anesthesia Patient Profile: This is a 64 year old female. Refer to note in patient chart for documentation of history and physical. Patient has symptoms of acute abdominal cramping, acute right upper quadrant abdominal pain, acute epigastric abdominal pain, acute dyspepsia, acute jaundice and acute nausea. This patient has no history of previous ERCP. This patient has no history of surgical alteration of the upper digestive tract anatomy. Complications: No immediate complications. Procedure: Pre-Anesthesia Assessment: - Prior to the procedure, a History and Physical was performed, and patient medications and allergies were reviewed. The patient is competent. The risks and benefits of the procedure and the sedation options and risks were discussed with the patient. All questions were answered and informed consent was obtained. Patient identification and proposed procedure were verified by the physician in the pre-procedure area. Mental Status Examination: alert and oriented. Airway Examination: normal oropharyngeal airway and neck mobility. Respiratory Examination: clear to auscultation. Prophylactic Antibiotics: The patient does not require prophylactic antibiotics. Prior Anticoagulants: The patient has taken no anticoagulant or antiplatelet agents except for NSAID medication. ASA Grade Assessment: II - A patient with mild systemic disease. After reviewing the risks and benefits, the patient was deemed in satisfactory condition to undergo the procedure. The anesthesia plan was to use general anesthesia. Immediately prior to administration of medications, the patient was re-assessed for adequacy to receive sedatives. The heart rate, respiratory rate, oxygen saturations, blood pressure, adequacy of pulmonary ventilation, and response to care were monitored throughout the procedure. The physical status of the patient was re-assessed after the procedure. After obtaining informed consent, the scope was passed under direct vision. Throughout the procedure, the patient's blood pressure, pulse, and oxygen saturations were monitored continuously. The Duodenoscope was introduced through the mouth, and advanced to the duodenum and used to inject contrast into the bile duct and ventral pancreatic duct. The ERCP was accomplished without difficulty. The patient tolerated the procedure well. Scope In: 7:55:15 PM Scope Out: 8:14:31 PM Total Procedure Duration Time 0 hours 19 minutes 16 seconds Findings: The professor of literacy film was normal. The esophagus was successfully intubated under direct vision. The scope was advanced to a normal major papilla in the descending duodenum without detailed examination of the pharynx, larynx and associated structures, and upper GI tract. The upper GI tract was grossly normal. The ventral pancreatic duct was deeply cannulated with the short-nosed traction sphincterotome. Contrast was injected. Opacification of the entire pancreatic ductal system was successful. The maximum diameter of the ducts was 3 mm. The entire opacified area was normal. A long 0.021 inch Jagwire was passed into the ventral pancreatic duct. One 4 Fr by 5 cm temporary stent with a single internal pigtail was placed 5 cm into the ventral pancreatic duct. Clear fluid flowed through the stent. The stent was in good position. A long 0.025 inch Jagwire was passed into the biliary tree. The short-nosed traction sphincterotome was passed over the guidewire and the bile duct was then deeply cannulated. Contrast was injected. Opacification of the entire biliary tree except for the cystic duct and gallbladder and main bile duct was successful. The maximum diameter of the ducts was 10 mm. The middle third of the main bile duct contained one stone, which was 6 mm in diameter. The main bile duct, common bile duct, common hepatic duct, hepatic duct bifurcation, left and right hepatic ducts and all intrahepatic branches and entire biliary tree were diffusely dilated, with a stone causing an obstruction. The largest diameter was 5 mm. A 5 mm biliary sphincterotomy was made with a traction (standard) sphincterotome using ERBE electrocautery. The sphincterotomy oozed blood. The biliary tree was swept with a 12 mm balloon starting at the upper third of the main bile duct, middle third of the main bile duct, lower third of the main duct, bifurcation, left intrahepatic duct(s), left main hepatic duct, right intrahepatic duct(s) and right main hepatic duct. All stones were removed. One 10 Fr by 5 cm temporary stent was placed 5 cm into the common bile duct. Bile flowed through the stent. The stent was in good position. Impression: - The entire main bile duct, entire biliary tree, left and right hepatic ducts and all intrahepatic branches, common bile duct and common hepatic duct were dilated, with a stone causing an obstruction. - Choledocholithiasis was found. Complete removal was accomplished by biliary sphincterotomy and balloon extraction. - One temporary stent was placed into the ventral pancreatic duct. - A biliary sphincterotomy was performed. - The biliary tree was swept. - One temporary stent was placed into the common bile duct. Procedure Code(s): --- Professional --- 90360, Endoscopic retrograde cholangiopancreatography (ERCP); with placement of endoscopic stent into biliary or pancreatic duct, including pre- and post-dilation and guide wire passage, when performed, including sphincterotomy, when performed, each stent 05761, 59, Endoscopic retrograde cholangiopancreatography (ERCP); with placement of endoscopic stent into biliary or pancreatic duct, including pre- and post-dilation and guide wire passage, when performed, including sphincterotomy, when performed, each stent [id number], Endoscopic retrograde cholangiopancreatography (ERCP); with removal of calculi/debris from biliary/pancreatic duct(s) CPT copyright 2021 [employer]. All rights reserved. The codes documented in this report are preliminary and upon process stripper review may be revised to meet current compliance requirements. Deep Mora DO 03/25/2025 8:24:56 PM This report has been signed electronically. Number of Addenda: 0 Note Initiated On: 03/25/2025 3:28 PM
--- NOTE | 2025-03-25 20:26 | OP.PROVAT_ITS ---
03/25/2025 Yoly Black Silk Folder, Silk Folder-c Re : ERCP procedure for Deanna Alvarezr [place] This procedure was performed on Tuesday, March 25, 2025. My impressions and recommendations are as follows: Impressions : - The entire main bile duct, entire biliary tree, left and right hepatic ducts and all intrahepatic branches, common bile duct and common hepatic duct were dilated, with a stone causing an obstruction. - Choledocholithiasis was found. Complete removal was accomplished by biliary sphincterotomy and balloon extraction. - One temporary stent was placed into the ventral pancreatic duct. - A biliary sphincterotomy was performed. - The biliary tree was swept. - One temporary stent was placed into the common bile duct. Recommendations : My findings are described in the full procedure note, which is enclosed. If I can be of further assistance, please feel free to contact me at . Sincerely, Deep Mora, 03/25/2025 8:24:56 PM This report has been signed electronically.
--- NOTE | 2025-03-25 20:35 | PCM.POST.ANE ---
Anesthesia: Postop Eval I Current Vital Signs Temperature: 98.4 F Pulse Rate: 84 Blood Pressure: 118/66 Respiratory Rate: 16 Pulse Ox: 99 Oxygen Delivery Method: Room Air Assessment Airway patent: Yes Spontaneous unlabored respirations: Yes Mental status: Asleep nausea: No Vomiting: No Anesthesia Complication: No Fluid Hydration Crystalloid volume administer (ml): 700 Total IV fluid infused: 700 Progress Note Anesthesia document: Postop Eval 1 completed: Yes
--- NOTE | 2025-03-25 21:08 | PCM.POSTANE2 ---
Anesthesia Postop Eval I Sum Postop Eval Completion status Anesthesia document: Postop Eval 1 completed: Yes Anesthesia Postop Eval I Summary Anesthesia Postop Eval I Summary: Anesthesia Postop Eval I: Assessment Summary Airway patent Yes 03/25/25 20:41 Spontaneous unlabored Yes 03/25/25 20:41 respirations Mental status Asleep 03/25/25 20:41 nausea No 03/25/25 20:41 Vomiting No 03/25/25 20:41 Anesthesia Postop Eval I: Fluid Summary Crystalloid volume administer 700 03/25/25 20:41 (ml) Colloids volume administered ( ml) Blood Product volume administered (ml) Total IV fluid infused 700 03/25/25 20:41 Anesthesia Postop Eval I: Summary Notes Anesthesia Complication No 03/25/25 20:41 Anesthesia Complication Comment: Post-operative progress note Anesthesia: Postop Eval II Evaluation Mental status: Awake and Calm Pain Level: 0 nausea: No Vomiting: No Complications Anesthesia Complication: No
[2025-03-25] MEDS: 0.9% Normal Saline (1000mL) 1,000 ML 200 ML IV (22:56)
[2025-03-26] VITALS (12 sets, daily range): BP systolic 80–134; BP diastolic 48–82; PULSE 62–97; RESP 12–18; TEMP 36.4–37.2; O2SAT 93–98; BMI 24.7
[2025-03-26] MEDS: 0.9% Normal Saline (1000mL) 1,000 ML 200 ML IV ×2 (01:14→06:05)
[2025-03-26 04:09] LABS: Hematocrit 40.3 % (37-47); Hemoglobin 12.4 g/dL (12.0-15.0); Immature Granulocytes Count 0.020 X10^3/uL (0.0-0.0); Mean Corp Hgb Conc 30.8 g/dL (32-36); Mean Corpuscular Volume 81.7 fL (81-99); Mean Platelet Vol. 9.4 fl (6.2-12.0); NRBC Flagged by Analyzer 0 % (0-5); Platelet Count 223 K/mm3 (150-450); RBC Distribution Width CV 14.6 % (11.6-14.6); RBC Distribution Width SD 43.4 fl (35.1-43.9); Red Blood Count 4.93 M/mm3 (4.2-5.4); White Blood Count 6.6 K/mm3 (4.4-11.0)
[2025-03-26] MEDS: Piperacil/Tazobactam 3.375 GM in 0.9% Normal Saline (50mL MB+) 50 ML IV ×3 (04:59→21:46)
[2025-03-26 05:02] LABS: AST(SGOT) 132 U/L (<=31); Alanine Aminotransfer ALT/SGPT 316 U/L (<=34); Albumin, Serum 3.8 g/dL (3.4-4.8); Alkaline Phosphatase 90 U/L (35-104); Anion Gap 9 (5-15); BUN 7 mg/dL (4-19); BUN/Creat Ratio 14.3 RATIO (10-20); Calcium,Total 7.9 mg/dL (7.6-11.0); Carbon Dioxide 20.2 mmol/L (21.0-32.0); Chloride 112 mmol/L (98-108); Estimated Creatinine Clearance 109.66 ml/min (50-250); Globulin 2.1 g/dL (2.2-4.2); Glucose 114 mg/dL (70-99); Potassium 3.5 mmol/L (3.3-5.1)
--- NOTE | 2025-03-26 08:39 | PN.SURG_ITS ---
Subjective Subjective Patient evaluated resting comfortably in the chair. She notes abdominal pain is feeling improved. She denies any questions or concerns in regards to up coming procedure. Objective Data Objective Data Vital Signs: Vital Signs Temp Pulse Resp BP Pulse Ox O2 Del Method 97.5 F L 87 16 116/75 96 Room Air 03/26/25 05:01 03/26/25 05:01 03/26/25 05:01 03/26/25 05:01 03/26/25 05:01 03/26/25 05:01 Oxygen Delivery Method Room Air Weight: 144 lb 14.4 oz Body Mass Index (BMI) 24.8 Intake & Output: Intake and Output for Last 24 Hours 03/24/25 03/25/25 03/26/25 23:59 23:59 23:59 Intake Total 6011.67 / 6011.67 1530 / 1530 Output Total Balance 6010.67 / 6010.67 1530 / 1530 Lab / Micro Data 03/26/25 03:47 03/26/25 03:47 Labs: Laboratory Results - last 24 hr 03/26/25 03:47: WBC 6.6, RBC 4.93, Hgb 12.4, Hct 40.3, MCV 81.7, MCH 25.2 L, M CHC 30.8 L, RDW Std Deviation 43.4, RDW Coeff of Lul 14.6, Plt Count 223, MPV 9.4, Immature Gran % (Auto) 0.300, Neut % (Auto) 86.6 H, Lymph % (Auto) 11.8 L, Sequoyah % (Auto) 1.1, Eos % (Auto) 0.0, Baso % (Auto) 0.2, Absolute Neuts (auto) 5.7, Absolute Lymphs (auto) 0.78 L, Nucleated RBC % 0, Sodium 141, Potassium 3.5, Chloride 112 H, Carbon Dioxide 20.2 L, Anion Gap 9, BUN 7, Creatinine 0.49 L, Estim Creat Clear Calc 109.66, Est GFR (MDRD) Non-Af 106, BUN/Creatinine Ratio 14.3, Glucose 114 H, Calcium 7.9, Total Bilirubin 0.34, AST 132 H, ALT 316 H, Alkaline Phosphatase 90, Total Protein 5.9, Albumin 3.8, Globulin 2.1 L, Albumin/Globulin Ratio 1.8 Rhythm Strip Rhythm Strip: Sinus Rhythm Rate: 88 Ectopy: None Physical Exam GI GI Narrative: Abdomen- soft, benign Assessment & Plan Assessment/Plan (1) Choledocholithiasis with cholecystitis: PLAN: I am following this patient in conjunction with Dr. Bull. He has independently evaluated this patient. Labs reviewed. Lap dat with IOC today around 12:30 with Ml We will continue to monitor this patient Charges/Coding Visit Charges Inpatient E&M: 58534 Subs Hosp L1 (no charge; pre-op)
--- NOTE | 2025-03-26 11:17 | CASEMGMT ---
Dx:acute choleycystitis LACE:2 6-Clicks:24 Medical record reviewed and patient evaluated for identification of discharge planning needs. Based on this review, at this time criteria are not present to indicate a need for discharge planning. Will remain available to assist with discharge planning needs as identified or requested.
--- NOTE | 2025-03-26 11:30 | RAD_ITS ---
PROCEDURE: CHOLANGIOGRAM/ O R,INITIAL 03/26/2025 REASON FOR EXAM: LAP NIKO W/ IOC TECHNIQUE: Procedure Code: RADCHO Modality: DX Procedure: CHOLANGIOGRAM/ O R,INITIAL. Intraoperative fluoroscopic services provided. Fluoroscopy: 18.7 seconds. Radiation dose: 6.48 mGy. COMPARISON: None FINDINGS: Fluoroscopic services for intraoperative cholangiogram provided. A stent is seen within the common bile duct. Contrast was injected. There is free flow of contrast into the duodenum. There is narrowing of the distal portion of the common bile duct. RAD/Cholangiogram/ O R,Initial IMPRESSION: Stent seen in the common bile duct. There is good flow into the duodenum. Reading Location: [facility]
--- NOTE | 2025-03-26 11:38 | NURSING ---
Pt to OR via bed.
[2025-03-26] MEDS: 0.9% Normal Saline (1000mL) 1,000 ML 15 ML IV (12:00)
--- NOTE | 2025-03-26 12:14 | PCM.PRE.AN2 ---
ASA Classification* ASA Classification ASA Classification: 2 and E Assessment & Plan Anesthesia* Anesthesia Assessment Anesthesia Assessment: Discussed sedation and/or anesthesia options, risks, benefits, and alternatives with patient/parents/legal guardian/POA. Questions invited. The patient/parents/legal guardian/POA seems to understand and agrees to proceed with anesthesia plan. Reviewed the physical assessment, medical history, allergy history and patient home medications list prior to surgery/procedure/anesthetic and documented any changes. Performed airway and anesthesia risk assessments. Anesthesia Type Anesthesia Type: General History Source History Obtained from:: Patient and Chart Anesthesia Focused Assessment* Temperature: 97.9 F Pulse Rate: 97 Blood Pressure: 125/82 Respiratory Rate: 16 Pulse Ox: 98 Oxygen Delivery Method: Room Air Airway Assessment Mouth opens: >3 cm Mallampati Score: II Teeth Condition: Intact Neck Range of motion (ROM): Full ROM Labs Anesthesia Preop lab: CBC WBC, (4.4-11.0) 6.6 K/mm3 Today, 03:47 RBC, (4.2-5.4) 4.93 M/mm3 Today, 03:47 Hgb, (12.0-15.0) 12.4 g/dL Today, 03:47 Hct, (37-47) 40.3 % Today, 03:47 Plt Count, (150-450) 223 K/mm3 Today, 03:47 CHEMISTRY Potassium, (3.3-5.1) 3.5 mmol/L Today, 03:47 Sodium, (133-145) 141 mmol/L Today, 03:47 BUN, (4-19) 7 mg/dL Today, 03:47 Creatinine, (0.70-1.20) 0.49 mg/dL L Today, 03:47 Glucose, (70-99) 114 mg/dL H Today, 03:47 POC Glucose, (70-110) 103 mg/dL 01/15/13, 14:25 TSH, (0.358-3.74) 1.56 uIU/mL 08/11/21, 08:58 COAG PT, (11.9-14.4) 12.3 SECONDS 01/15/13, 14:35 Pre-Assessment Diagnosis/Proposed Procedure Planned Operative Procedure(s): Laparoscopic cholecystectomy Anesthesia History Anesthesia History - petroleum sampler: Anesthesia History - petroleum sampler Hx Hospitalization Any Problems With Anesthesia No 03/25/25 10:13 Cholinesterase deficiency No 03/25/25 10:13 You/Your Family Experience No 03/25/25 10:13 fever (hyperthermia) with Relationship Recent Exposure to Contagious No 03/25/25 10:13 Disease Does patient have nerve No 03/25/25 10:13 stimulator Patient instructed to have No 03/25/25 10:13 device shut off --Does patient have Pacemaker No 03/26/25 10:03 or ICD? When Was Last Pacemaker Check QUESTION #4 FULL TEXT: You/Your Family Experience fever (hyperthermia) with Anesthesia Last Oral Intake Last Oral intake: Last Oral Intake NPO since 00:00 03/26/25 10:03 Meds taken in AM with sips of No 03/26/25 10:03 water? Meds patient instructed to take am of surgery PONV PONV - petroleum sampler: PONV - petroleum sampler Female HX of Motion Sickness HX of N/V After Surgery Non-Smoker Duration of Surgery greater than 60 minutes Number of Risk Factors PONV Score Height & Weight Height & Weight: Anesthesia: Height & Weight Height 5 ft 4.17 in 03/26/25 10:03 Weight: 65.72 kg 03/26/25 10:03 Body Mass Index (BMI) 24.7 03/26/25 10:03 Respiratory Assessment Respiratory Assessment - petroleum sampler: Respiratory Tract Infection Hx - petroleum sampler Hx Respiratory Tract Infection No 03/25/25 10:13 STOP Sleep Apnea STOP Sleep Apnea - petroleum sampler: STOP Sleep Apnea - petroleum sampler Hx Hypertension No 03/25/25 10:12 Hx Sleep Apnea No 03/25/25 21:00 CPAP BIPAP No 03/25/25 10:12 Do you snore loudly (louder No 03/25/25 10:12 than talking or can be heard Do you often feel tired/ No 03/25/25 10:12 fatigued/ sleepy during daytime? Has anyone observed you stop No 03/25/25 10:12 breathing during sleep? STOP Results Negative 03/25/25 10:12 QUESTION #5 FULL TEXT : Do you snore loudly (louder than talking or can be heard through closed doors)? Tobacco Use History Tobacco Use History - petroleum sampler: Tobacco Use History - petroleum sampler Tobacco Use Non-smoker 11/11/20 12:37 Smoking Status Never smoker 03/25/25 10:12 Hx Tobacco Use No 03/25/25 10:12 Years Smoking Packs Smoked per Day Smoking Cessation Date was within the last 15 years Hx Smoking Cessation Date Hx Smoking Cessation Counseling Hematologic Medial History Hematologic Hx - petroleum sampler: Hematologic Medical Hx - shoe singer Hx of Blood Transfusion No 03/25/25 10:12 Hx of Transfusion in last 3 No 03/25/25 10:12 Months Date of Last Transfusion (if within last 3 months) Ever experience any problems No 03/25/25 10:12 with transfusion(s)? Specify any problems Hx of Preganancy in last 3 No 03/25/25 10:12 Months Nurse Filling Out Transfusion KMESSENGE 03/25/25 10:12 & Questions: Date: 03/25/25 03/25/25 10:12 Time: 10:03/25/25 10:12 Patient unable to answer at this time (ie. confused, unrespo /Reproduction History /Reproductive History - petroleum sampler: /Reproductive Hx- petroleum sampler Hx Now No 03/25/25 10:13 Gestational Age (in weeks): EDC: Hx Hx Para Hx Section SAB No 03/25/25 10:13 Active Medications Active Medications: Current Medications Generic Name Dose Route Start Last Admin Trade Name Freq PRN Reason Stop Dose Admin Acetaminophen 650 mg 03/25/25 10:11 03/25/25 23:06 Acetaminophen 325 Mg Tablet PO 650 mg Q6H PRN PRN Administration Pain 1-10 Or Fever >100.7 Alprazolam 0.25 mg 03/25/25 10:11 Alprazolam 0.25 Mg Tablet PO BID PRN ANXIETY Docusate Sodium 100 mg 03/25/25 10:11 Docusate Sodium 100 Mg Capsule PO BID PRN PRN Constipation Piperacillin Sod/Tazobactam 50 mls @ 12.5 mls/hr 03/25/25 14:00 03/26/25 04:59 Sod 3.375 gm/ Sodium Chloride IV 12.5 mls/hr Q8 CHERIE Administration Sodium Chloride 250 mls @ 15 mls/hr 03/25/25 10:12 IV .[id number] PRN Saline Flush Sodium Chloride 250 mls @ 15 mls/hr 03/25/25 10:12 IV .[id number] PRN Additional IVPB Infusion Sodium Chloride 1,000 mls @ 15 mls/hr 03/26/25 11:55 03/26/25 12:00 IV 15 mls/hr .Q48H CHERIE Administration Ondansetron HCl 4 mg 03/25/25 10:11 Ondansetron 4 Mg/2 Ml Vial IV Q8H PRN PRN NAUSEA/VOMITING Oxycodone HCl 5 mg 03/25/25 10:11 03/26/25 04:58 Oxycodone 5 Mg Tablet PO 5 mg Q4H PRN PRN Administration Pain Score 4-10 Sodium Chloride 10 - 40 ml 03/25/25 10:12 0.9% Saline Lock 10 Ml Syringe IV UD PRN SALINE FLUSH PFSH Medical History Pancreatitis Trigger point Insomnia Atypical chest pain Hyperlipidemia Home Medications Medication Instructions Recorded Last Taken Type alprazolam 0.25 mg tablet 0.25 mg PO BID PRN anxiety 11/15/22 Unknown History Ozempic QWEEK weight loss 03/25/25 03/22/25 History Allergy/AdvReac Type Severity Reaction Status Date / Time meperidine HCl (From Demerol) AdvReac Vomiting Verified 11/17/22 10:45 morphine AdvReac Upset Verified 11/17/22 10:45 Stomach Family History Father CVA (cerebral vascular accident) Myocardial infarction Grandmother Colon cancer Diabetes Grandmother Myocardial infarction Surgical History S/P colonoscopy Hx of hysterectomy Hx of repair of left rotator cuff Hx of appendectomy Social History Smoking Status: Never smoker how long ago did patient quit smokin alcohol intake: current alcohol intake frequency: holidays/special occasions only substance use type: does not use caffeine: Yes Type: coffee Number of servings: 4 Review of Systems (Anesthesia) ROS Narrative System reviewed and no additional complaints, except as documented.
--- NOTE | 2025-03-26 12:30 | GALL_PTH ---
PATIENT: VENUS RENAE LOC: [facility] U#:[id number] AGE/SX: 64/F ROOM: KS317 RE03/25/[address]: Dr. Miguel Bull MD : 1960 BED: 1 DIS: 03/27/2025 SPEC #: [id number] RECD: 03/26/25 17:32 STATUS: EVA REAlma #: [id number] RAFY: 03/26/25 12:[address]: Miguel Bull DEPT: SURGICAL PATHOLOGY RECD BY: Michael Florez ENTERED: 03/27/25 10:25 SP TYPE: EVERARDO SIMMONS DR: MD Dr. Deep Brantley, DO Yoly Black, SLPS-C DONTE Bingham SLPSYANIRA Alcazar Tissues: A - Gallbladder, NOS Procedures: Surgery Specimen Level III HEADER OPERATION: Laparoscopic, cholecystectomy with IOC PRE-OP DIAGNOSIS: Transaminitis, acute cholecystitis, hepatic steatosis, pancreatitis, choledocholithiasis with cholecystitis TISSUE SUBMITTED: A- Gallbladder MICROSCOPIC DIAGNOSIS A. Gallbladder, laparoscopic cholecystectomy: - Cholelithiasis, mild chronic inflammation. MICROSCOPIC DESCRIPTION Slides are reviewed. GROSS DESCRIPTION A. Received in formalin labeled with the patient's name and date of . Designated as "gallbladder" is a 7.6 x 2.8 x 2.3 cm estrada-pink to light green, edematous and intact gallbladder with attached patent cystic duct (inked black, shaved). A lymph node is not present. Opening reveals light green bile and multiple, yellow and bosselated choleliths, ranging <0.1 cm to 0.3 cm. The mucosa is dark green and granular with focally edematous cut surfaces and a maximum wall thickness of 0.5 cm. Cholesterolosis is not present. Director Of Graduate Medical Education sections are submitted in 2 cassettes as follows: A1: Margin, cross-sectionsA2: Edematous cross-sections MA 03/27/2025 CPT:81957
[2025-03-26] MEDS: Bupiv/Epi 0.25% 30 ML Vial (14:20)
--- NOTE | 2025-03-26 14:20 | PCM.OPRPT ---
Procedures Digestive 40xxx-49xxx: [id number] Laparo cholecystectomy/graph Operative Report (Standard) Operative Information Date of Procedure: 03/26/25 Pre-Operative Diagnosis: 1. Acute cholecystitis 2. Choledocholithiasis status post ERCP with stone removal and common bile duct stenting Post-Operative Diagnosis: Same Surgery/Procedure Performed: Laparoscopic cholecystectomy with intraoperative cholangiography carpet cleaning technician: Yes Child And Adolescent Therapist: Caridad Sullivan Tasks completed by catering assistant: Opening & closing Type of Anesthesia: General/Supplemental RN Documented Start/Stop Times: Operation Date: 03/26/25 12:30 Case Time Into Pre-Op 03/26/25 11:49 Out of Pre-Op 03/26/25 12:49 Anesthesia Start 03/26/25 12:53 Into Room 03/26/25 12:53 Procedure Start 03/26/25 13:17 Procedure End 03/26/25 14:26 Anesthesia End 03/26/25 14:31 Out of Room 03/26/25 14:31 Into Recovery 03/26/25 14:32 Out of Recovery 03/26/25 16:25 Procedure Start Time: 13:17 Procedure Stop Time: 14:26 Select all DRAINS/GRAFTS/IMPLANTS that apply: None Estimated Blood Loss: 10 Specimen collected: Yes Description of specimen(s) removed: Gallbladder Description of surgery: After proper identification in the preoperative holding area the patient was brought to the operating room where she was positioned supine on the operating room table. Preoperatively SCDs were connected and antibiotics were administered with 2 g Ancef for surgical incision prophylaxis. General anesthesia was then induced and an orogastric tube was passed. Patient's abdomen was prepped and draped in usual sterile fashion. A formal timeout was conducted to confirm both patient and the procedure. Procedure was begun with a supraumbilical incision which was extended deeply down to the level of the fascia. The fascia was elevated and incised, as well as the peritoneum. A finger sweep was performed to ensure there were no underlying adhesions and a 12 mm balloon trocar was inserted. Pneumoperitoneum was established at 15 mmHg. Three additional trocars (all 5 mm) were placed in the epigastrium and in the right upper quadrant. Inspection of the peritoneum revealed no inadvertent injury to the viscera below. The gallbladder was visualized with mild to moderate acute inflammation. The gallbladder fundus was then grasped and elevated cephalad. Then, using careful dissection the peritoneum was opened and the structures of the hepatocystic triangle were delineated. An acute edema plane was exploited to remove the inflammatory rind from the gallbladder proper. Once the critical view of safety was obtained, the cystic duct was singly clipped and partially divided with a ductotomy. The proximal duct was milked of any debris until there was backflow of bile. Using an Patterson Dorothy clamp, a cholangiocatheter was fed into the proximal segment of the cystic duct and clamped into place. Under fluoroscopy a cholangiogram was then obtained showing a standard length cystic duct flowing into a common bile duct containing a send with unobstructed antegrade flow of contrast into the duodenum. There was also retrograde flow through the common hepatic duct into the right and left hepatic ducts. Satisfied with this result, the cholangiocatheter was withdrawn and the proximal cystic duct was sealed with clips and the cystic duct was completely transected. The same process was used for the cystic artery. The gallbladder was then removed from the gallbladder fossa with the use of electrocautery. Selective electrocautery was used to obtain hemostasis in the gallbladder fossa. The gallbladder was placed in an Endo Catch bag and removed from the peritoneum. Morison's pouch was irrigated and the effluent was suctioned free of the peritoneum. Hemostasis was again confirmed. Pneumoperitoneum was evacuated and the fascia of the 12 mm port sites was closed with #1Vicryl in a [id number] fashion. A total of 30 mL of anesthetic was injected at the port sites for postoperative pain control. The skin of each port site was then closed in subcuticular fashion using 4-0 Monocryl. Steri-Strips and bandages were applied as dressings. Patient tolerated the procedure well without any apparent complications. On emergence from their anesthetic the patient was taken to PACU for ongoing recovery. Surgical Findings: – Acutely inflamed gallbladder with significant inflammation approaching the infundibulum – Normal cholangiogram with common bile duct stent intact Complications Complications: No Admit VTE Documentation VTE Mechan Device Prophylaxis: SCD's
--- NOTE | 2025-03-26 14:52 | PCM.POST.ANE ---
Anesthesia: Postop Eval I Current Vital Signs Temperature: 97.9 F Pulse Rate: 62 Blood Pressure: 80/50 Respiratory Rate: 12 Pulse Ox: 98 Oxygen Delivery Method: Nasal Cannula Oxygen Flow Rate (L/min): 2 Assessment Airway patent: Yes Spontaneous unlabored respirations: Yes Mental status: Asleep nausea: No Vomiting: No Anesthesia Complication: No Fluid Hydration Crystalloid volume administer (ml): 900 Total IV fluid infused: 900 Progress Note Anesthesia document: Postop Eval 1 completed: Yes
--- NOTE | 2025-03-26 15:23 | PCM.POSTANE2 ---
Anesthesia Postop Eval I Sum Postop Eval Completion status Anesthesia document: Postop Eval 1 completed: Yes Anesthesia Postop Eval I Summary Anesthesia Postop Eval I Summary: Anesthesia Postop Eval I: Assessment Summary Airway patent Yes 03/26/25 14:53 [email or web address] Spontaneous unlabored Yes 03/26/25 14:53 [email or web address] respirations Mental status Asleep 03/26/25 14:53 [email or web address] nausea No 03/26/25 14:53 [email or web address] Vomiting No 03/26/25 14:53 [email or web address] Anesthesia Postop Eval I: Fluid Summary Crystalloid volume administer 900 03/26/25 14:53 [email or web address] (ml) Colloids volume administered ( ml) Blood Product volume administered (ml) Total IV fluid infused 900 03/26/25 14:53 [email or web address] Anesthesia Postop Eval I: Summary Notes Anesthesia Complication No 03/26/25 14:53 [email or web address] Anesthesia Complication Comment: Post-operative progress note Anesthesia: Postop Eval II Evaluation Mental status: Awake and Calm Pain Level: 1 nausea: No Vomiting: No Complications Anesthesia Complication: No
--- NOTE | 2025-03-26 17:39 | PN_ITS ---
Progress Note 64-year-old pleasant woman with a recent diagnosis of acute cholecystitis and acute choledocholithiasis. She was admitted and underwent an ERCP yesterday for stone removal and placement of both a biliary stent and a prophylactic pancreatic stent. She reports no abdominal pain since the ERCP, no nausea, and no vomiting. She is tolerating a clear liquid diet well. No fever or chills reported. Physical Exam Const alert, oriented x3, no apparent distress and healthy appearing General Appearance: cooperative GI normal to inspection, nondistended, normoactive bowel sounds, soft to palpation, non-tender and non-distended Percussion: normal to percussion Rectal Exam: deferred Assessment & Plan Assessment/Plan (1) Choledocholithiasis with cholecystitis: (2) Transaminitis: (3) Acute cholecystitis: (4) Hepatic steatosis: PLAN: Assessment * Post-ERCP Status: The patient is post-ERCP with stone removal and stent placement, with improving labs and no signs of post-procedure pancreatitis or infection. Her stable condition indicates the ERCP was successful in clearing the common bile duct and that prophylactic measures were effective. * Condition for Surgery: The patient is now medically optimized for her scheduled elective cholecystectomy. The common bile duct is clear, and she is without active symptoms. Patient is for surgery today. P: Plan * Surgical: Proceed with scheduled elective laparoscopic cholecystectomy today. * Pre-operative: * Continue NPO status before surgery. * Continue current IV fluids and antibiotics as ordered. * Post-operative: * Monitor for any post-operative complications. * Advance diet as tolerated as per surgery * Manage pain with analgesics as per surgery * Post-operative antibiotics as indicated as per surgery Visit Charges Inpatient E&M: 52695 [facility] L3
[2025-03-27 00:26] VITALS: BP 133/79; PULSE 77; RESP 16; TEMP 36.8; O2SAT 95
[2025-03-27 00:27] VITALS: BMI 24.7
[2025-03-27 04:26] VITALS: BP 123/72; PULSE 74; RESP 16; TEMP 36.6; O2SAT 96; BMI 24.7
[2025-03-27] MEDS: Piperacil/Tazobactam 3.375 GM in 0.9% Normal Saline (50mL MB+) 50 ML IV (05:07)
[2025-03-27 06:54] LABS: Hematocrit 37.4 % (37-47); Hemoglobin 11.9 g/dL (12.0-15.0); Immature Granulocytes Count 0.040 X10^3/uL (0.0-0.0); Mean Corp Hgb Conc 31.8 g/dL (32-36); Mean Corpuscular Volume 80.1 fL (81-99); Mean Platelet Vol. 9.5 fl (6.2-12.0); NRBC Flagged by Analyzer 0 % (0-5); Platelet Count 247 K/mm3 (150-450); RBC Distribution Width CV 14.6 % (11.6-14.6); RBC Distribution Width SD 42.2 fl (35.1-43.9); Red Blood Count 4.67 M/mm3 (4.2-5.4); White Blood Count 10.1 K/mm3 (4.4-11.0)
[2025-03-27 07:31] LABS: AST(SGOT) 51 U/L (<=31); Alanine Aminotransfer ALT/SGPT 192 U/L (<=34); Albumin, Serum 3.7 g/dL (3.4-4.8); Alkaline Phosphatase 75 U/L (35-104); Anion Gap 10 (5-15); BUN 8 mg/dL (4-19); BUN/Creat Ratio 14.3 RATIO (10-20); Calcium,Total 8.3 mg/dL (7.6-11.0); Carbon Dioxide 22.6 mmol/L (21.0-32.0); Chloride 107 mmol/L (98-108); Estimated Creatinine Clearance 101.38 ml/min (50-250); Globulin 2.0 g/dL (2.2-4.2); Glucose 98 mg/dL (70-99); Potassium 3.2 mmol/L (3.3-5.1)
--- NOTE | 2025-03-27 07:53 | PCM.DC.SUM ---
Providers Date of Admission: 03/25/25 Primary Care Physician: Yoly Black, DONTE Consultations 03/25/25 10:46 Consult: Gastroenterology Routine Consulting Provider: [facility] Reason for Consult: Choledocholithiasis; pancreatitis EMERGENT Consult: No MD Notified: Yes Date Notified: 03/25/25 Time Notified: 10:47 Method of Notification: Text Reason For Visit: ACUTE CHOLECYSTITIS Diagnosis Discharge Diagnosis (1) Choledocholithiasis with cholecystitis: Status: Acute Code(s): K80.40 - Calculus of bile duct with cholecystitis, unspecified, without obstruction Plan: I am following this patient in conjunction with Dr. Bull. He has independently evaluated this patient. Labs reviewed. Humera daugherty with IOC today around 12:30 with Ml We will continue to monitor this patient (2) Transaminitis: Status: Acute Code(s): R74.01 - Elevation of levels of liver transaminase levels (3) Acute cholecystitis: Status: Acute Code(s): K81.0 - Acute cholecystitis (4) Hepatic steatosis: Status: Acute Code(s): K76.0 - Fatty (change of) liver, not elsewhere classified Medications at Discharge Home Medications alprazolam 0.25 mg tablet 0.25 mg PO BID PRN anxiety 11/15/22 Ozempic QWEEK weight loss 03/25/25 acetaminophen 325 mg tablet 650 mg (2 x 325 mg) PO Q6H PRN PRN Pain 1-10 Or Fever >100.7 #0 tabs 03/27/25 oxycodone 5 mg tablet 5 mg PO Q4H PRN PRN Pain Score 4-10 2 days #7 tabs 03/27/25 Hospital Course Operations cholecystecomy (03/26/25) and ERCP (03/25/25) Summary of Care Provided Minutes Spent on Discharge: 30 Hospital Course: Patient is a 64 y/o who presented with a 1 day history of right upper quadrant pain/chest pain. CT scan of ab/pel demonstrated dilated common bile duct, midly thickened gallbladder. RUQ u/s demonstrated acute cholecystitis and CBD measures [address] Mora performed an ERCP with stone removal and stent placement x 2 on 03/25/25. Dr. Bull performed a laparoscopic cholecystectomy with intraoperative cholangiogram on 03/26/25. Patient tolerated the procedure well. Patient had an uneventful hospitalization. Upon discharge, patient notes minimal amount of incisional discomfort. She denies any nausea, vomiting, fever. She is tolertaing a regular diet. Weight / BMI Weight Weight: 144 lb 14.205 oz Body Mass Index (BMI) 24.7 ABG / Lab / Microbiology Data 03/27/25 06:30 03/27/25 06:30 Laboratory: Laboratory Results - last 24 hr 03/27/25 06:30: WBC 10.1, RBC 4.67, Hgb 11.9 L, Hct 37.4, MCV 80.1 L, MCH 25.5 L, MCHC 31.8 L, RDW Std Deviation 42.2, RDW Coeff of Lul 14.6, Plt Count 247, MPV 9.5, Immature Gran % (Auto) 0.400, Neut % (Auto) 69.7, Lymph % (Auto) 20.3, [place] % (Auto) 9.4, Eos % (Auto) 0.1, Baso % (Auto) 0.1, Absolute Neuts (auto) 7.0, Absolute Lymphs (auto) 2.05, Nucleated RBC % 0, Sodium 140, Potassium 3.2 L, Chloride 107, Carbon Dioxide 22.6, Anion Gap 10, BUN 8, Creatinine 0.53 L, Estim Creat Clear Calc 101.38, Est GFR (MDRD) Non-Af 104, BUN/Creatinine Ratio 14.3, Glucose 98, Calcium 8.3, Total Bilirubin 0.34, AST 51 H, ALT 192 H, Alkaline Phosphatase 75, Total Protein 5.7 L, Albumin 3.7, Globulin 2.0 L, Albumin/Globulin Ratio 1.8 Radiography Diagnostic Testing: Radiology Impression Cholangiogram 03/26/25 11:30 IMPRESSION: Stent seen in the common bile duct. There is good flow into the duodenum. Reading Location: [id number] Instructions Discharge Activity: May Not Drive (3-5 days) and May Shower (1 day) Lifting Restricted to (Lbs): 15 Lifting Restrictions: 15 pounds x 2 weeks Call your doctor if your incision/area has: Continuous Slow Oozing, Sudden Increased Bleeding, Increased Pain/ Swelling, Increased Redness, Foul Smelling Discharge and Swelling at the incision site Call your doctor if you observe: Fever of 101 or Higher Suture Line Care: Avoid Pulling/Pushing and Avoid Pinching/Bending Remove Dressing in: 2 days Cleanse incision/area with: Soap & Water DC O2, CPAP, BIPAP Needs Home O2 Discharge instructions: No Please Follow Up With: Yoly Vivar PA-C When: Your follow-up appointment is scheduled for 04/08 at 1:30 pm Meaningful Use Info Meaningful Use Meaningful Use Diagnoses (Choose all that apply): None applicable Discharge Plan Admission Admit Date/Time: 03/25/25 09:06 Primary Reason for Your Visit: Choledocholithiasis with cholecystitis Attending Provider: Miguel Bull Primary Care Provider: Yoly Black NP Consulting Providers: Abraham Leon; Deep Mora; Suzanne Land; Court Stevens; Lamar Kong Instructions Additional Instructions / Restrictions: Cholecystectomy Diet · Start light with soups and soft bland foods. You may advance diet as tolerated. Activity · You may drive in 3-5 days but not while taking narcotic pain medication. · I encourage walking. You may go up steps, one at a time. · Do not swim or use hot tubs for 2 weeks. · For comfort, you may use warm compresses or ice as needed for 15-20 minutes at a time. Lifting · You may lift up to 15 pounds for 2 weeks. No strenuous activity for 4 weeks from the procedure Dressings/Incision · You may shower OVER your plastic dressings in 1 day · Do NOT tub bathe for 1 week · Leave plastic dressings on for 2 days. · When plastic dressings are removed, you will find steri strips. It is okay to continue showering with them in place, pat them dry. · You may remove steri-strips after 1 week. We recommend getting them soaking wet for easier removal. Medications · Anesthesia used during surgery and pain medications may cause constipation. I recommend initiating on the day of surgery a fiber supplement like, Metamucil, Citrucel, FiberCon, Benefiber, or a generic form of these medications. 1 heaping tablespoon in water daily. You may continue to utilize any bowel regimen or oral laxatives that you routinely take. Recommend taking daily Miralax and Probiotic for 1 week after discharge. · As long as you are not intolerant to Tylenol, acetaminophen, ibuprofen, Motrin, Advil, Aleve, or similar medications, I would recommend transitioning to these [id number] medicines as soon as possible instead of continued use of narcotic pain medication. Follow up · If you need to contact our office, you will contact us at [facility] [phone] option 4. Your follow-up appointment is scheduled for 04/08 at 1:30 pm with Yoly Vivar PA-C Discharge Orders/Prescriptions Prescriptions: New acetaminophen 325 mg Tablet 650 mg PO Q6H PRN PRN (Reason: Pain 1-10 Or Fever >100.7) Qty: 0 0RF oxycodone 5 mg Tablet 5 mg PO Q4H PRN PRN (Reason: Pain Score 4-10) 2 Days Qty: 7 0RF Continued alprazolam 0.25 mg tablet 0.25 mg PO BID PRN (Reason: anxiety) Ozempic QWEEK Referrals / Follow Up: Yoly Black NP, SENIOR [employer] SOFTWARE ENGINEER-C [Primary Care Provider, Medical] Yoly Vivar PA-C [Med Staff - Replaced By [facility], Surgery] - 04/08/25 1:30 pm Disposition Disposition (needs filled in before D/C Order can be placed): Home, Self Care Charges/Coding Visit Charges Inpatient E&M: 17101 Disch Hosp (no charge; post-op)
[2025-03-27 08:25] VITALS: BP 139/77; PULSE 84; RESP 18; TEMP 36.6; O2SAT 96; BMI 24.7
--- NOTE | 2025-03-27 09:59 | PN.GI_ITS ---
Subjective Subjective 64y/o female with PMH hyperlipidemia, pancreatitis, fatty liver, acute cholecystitis, and choledocholithiasis; underwent ERCP (03/25/2025) with CBD and pancreatic duct stent placement followed by laparoscopic cholecystectomy w/ IOC (03/26/2025). She is now clinically improved, tolerating oral intake, ambulatory, and has clean, intact incision sites. She endorses mild indigestion, likely related to ongoing semaglutide therapy for weight loss. Todays labs are consistent with expected postoperative changes and successful biliary intervention (HGB 11.9, WBC 10.1, K+ 3.2, AST 51, ALT 192, ALP 75, T. Bili 0.34). Objective Data Objective Data Vital Signs: Vital Signs Temp Pulse Resp BP Pulse Ox O2 Del Method O2 Flow Rate 97.8 F 84 18 139/77 H 96 Room Air 2 03/27/25 08:25 03/27/25 08:25 03/27/25 08:25 03/27/25 08:25 03/27/25 08:25 03/27/25 08:25 03/26/25 14:53 Oxygen Flow Rate (L/min) 2 Oxygen Delivery Method Room Air Weight: 144 lb 14.205 oz Body Mass Index (BMI) 24.7 Intake & Output: Intake and Output for Last 24 Hours 03/25/25 03/26/25 03/27/25 23:59 23:59 23:59 Intake Total 6011.67 / 6011.67 2997 / 3197 471.04 / 471.04 Output Total Balance 6010.67 / 6010.67 2982 / 3182 471.04 / 471.04 Lab / Micro Data Attestation: I reviewed the patient's lab results. 03/27/25 06:30 03/27/25 06:30 Labs: Laboratory Results - last 24 hr 03/27/25 06:30: WBC 10.1, RBC 4.67, Hgb 11.9 L, Hct 37.4, MCV 80.1 L, MCH 25.5 L , MCHC 31.8 L, RDW Std Deviation 42.2, RDW Coeff of Lul 14.6, Plt Count 247, MPV 9.5, Immature Gran % (Auto) 0.400, Neut % (Auto) 69.7, Lymph % (Auto) 20.3, [place] % (Auto) 9.4, Eos % (Auto) 0.1, Baso % (Auto) 0.1, Absolute Neuts (auto) 7.0, Absolute Lymphs (auto) 2.05, Nucleated RBC % 0, Sodium 140, Potassium 3.2 L, Chloride 107, Carbon Dioxide 22.6, Anion Gap 10, BUN 8, Creatinine 0.53 L, Estim Creat Clear Calc 101.38, Est GFR (MDRD) Non-Af 104, BUN/Creatinine Ratio 14.3, Glucose 98, Calcium 8.3, Total Bilirubin 0.34, AST 51 H, ALT 192 H, Alkaline Phosphatase 75, Total Protein 5.7 L, Albumin 3.7, Globulin 2.0 L, Albumin/Globulin Ratio 1.8 Radiography Diagnostic Testing: Radiology Impression Cholangiogram 03/26/25 11:30 IMPRESSION: Stent seen in the common bile duct. There is good flow into the duodenum. Reading Location: [id number] Rhythm Strip Rhythm Strip: Sinus Rhythm Rate: 88 Ectopy: None Physical Exam Const alert, oriented x3, no apparent distress, average body habitus and healthy appearing General Appearance: cooperative and comfortable Exam Limitations: no limitations Eyes PERRL Neck full ROM General: normal visual inspection Resp Effort and Inspection: able to speak in complete sentences and symmetric chest movement GI GI Narrative: ABD soft, non-distended Assessment & Plan Assessment/Plan (1) Choledocholithiasis with cholecystitis: PLAN: Plan - Temporary biliary stents are placed to maintain ductal patency and reduce risk of recurrent obstruction. Stent removal is recommended at 6–8 weeks post- procedure. GI office to contact patient to arrange. - Persistent dyspepsia is common with semaglutide and can be managed with dietary modifications (smaller, slower meals, avoiding high-fat foods) and daily PPI. Note: [employer] speech recognition supervisor wire rope fabrication software was used to create portions of this document. Sound-alike and misspelled words, as well as other supervisor wire rope fabrication errors may be contained in the documentation.
--- NOTE | 2025-03-27 10:00 | PHA.DC.COU.R ---
Pharmacy [facility] has performed discharge medication counseling for this patient. The patient was counseled on the following discharge medications and changes in medications for homegoing review. - Oxycodone 5 mg tablet The Reason for Use, instructions for use, and potential side effects were reviewed for all new medications. The patient's questions regarding all of their medications were answered. - Retail pharmacy alerted that patient would like her medication delivered to her room before she leaves. The patient was able to verbally demonstrate an understanding of their discharge medications. Medications at Discharge Home Medications alprazolam 0.25 mg tablet 0.25 mg PO BID PRN anxiety 11/15/22 Ozempic QWEEK weight loss 03/25/25 acetaminophen 325 mg tablet 650 mg (2 x 325 mg) PO Q6H PRN PRN Pain 1-10 Or Fever >100.7 #0 tabs 03/27/25 oxycodone 5 mg tablet 5 mg PO Q4H PRN PRN Pain Score 4-10 2 days #7 tabs 03/27/25
== END 2025-03-27 11:24 | disposition home or self-care (01) | DRG 419 ==
LOC: ED 03-25 08:38 → MS3 03-25 09:53
PROVIDERS: Physician Assistant; Admitting Provider Surgery; Emergency Provider Emergency Medicine; PCP Nurse Practitioner Family; Visit Provider Surgery
DX: K80.63 Calculus of gallbladder and bile duct with acute cholecystitis with obstruction (principal); E78.5 Hyperlipidemia, unspecified; K76.0 Fatty (change of) liver, not elsewhere classified; F41.9 Anxiety disorder, unspecified; R11.0 Nausea; K30 Functional dyspepsia; Z90.49 Acquired absence of other specified parts of digestive tract; R73.9 Hyperglycemia, unspecified; T38.3X5A Adverse effect of insulin and oral hypoglycemic [antidiabetic] drugs, initial encounter; Z79.85 Long-term (current) use of injectable non-insulin antidiabetic drugs; Z79.82 Long term (current) use of aspirin; Z79.899 Other long term (current) drug therapy; Z87.19 Personal history of other diseases of the digestive system
CPT/HCPCS: 36415; 71046; 74177; 74300; 74330; 76000; 76705; 80048; 80053; 80076; 81001; 83690; 84484; 85025; 88304; 93005; 94668; 99285; C2625; Q9967; A4216; J2405

== ENCOUNTER → 2025-04-09 | Outpatient (CLI) | payer OTHER, SELFPAY ==
[2025-04-09 13:39] LABS: Hematocrit 42.9 % (37-47); Hemoglobin 13.1 g/dL (12.0-15.0); Immature Granulocytes Count 0.030 X10^3/uL (0.0-0.0); Mean Corp Hgb Conc 30.5 g/dL (32-36); Mean Corpuscular Volume 81.7 fL (81-99); Mean Platelet Vol. 9.7 fl (6.2-12.0); NRBC Flagged by Analyzer 0 % (0-5); Platelet Count 384 K/mm3 (150-450); RBC Distribution Width CV 14.5 % (11.6-14.6); RBC Distribution Width SD 42.5 fl (35.1-43.9); Red Blood Count 5.25 M/mm3 (4.2-5.4); White Blood Count 8.2 K/mm3 (4.4-11.0)
[2025-04-09 14:26] LABS: AST(SGOT) 23 U/L (<=31); Alanine Aminotransfer ALT/SGPT 40 U/L (<=34); Albumin, Serum 4.5 g/dL (3.4-4.8); Alkaline Phosphatase 79 U/L (35-104); Anion Gap 9 (5-15); BUN 10 mg/dL (4-19); BUN/Creat Ratio 15.5 RATIO (10-20); Calcium,Total 9.6 mg/dL (7.6-11.0); Carbon Dioxide 26.0 mmol/L (21.0-32.0); Chloride 105 mmol/L (98-108); Globulin 2.7 g/dL (2.2-4.2); Glucose 105 mg/dL (70-99); Lipase 54 U/L (13-75); Potassium 4.2 mmol/L (3.3-5.1)
== END | disposition home or self-care (01) ==
LOC: LAB 13:18
PROVIDERS: PCP Nurse Practitioner Family; Referring Provider Student in an Organized Health Care Education/Training Program; Visit Provider Student in an Organized Health Care Education/Training Program
DX: Z90.49 Acquired absence of other specified parts of digestive tract (principal); Z98.890 Other specified postprocedural states
CPT/HCPCS: 36415; 80053; 83690; 85025

== ENCOUNTER 2025-04-20 11:52 | Emergency (ER) | payer OTHER, SELFPAY ==
[2025-04-20 11:53] VITALS: BP 131/87; PULSE 78; RESP 14; TEMP 36.6; O2SAT 98; BMI 22.4
--- OUTSIDE RECORDS SUMMARY | 2025-04-20 13:22 | XMS RPT_ITS | CCD ---
Author Organization [facility] Care Team Providers Care Airfield Manager Name Role Phone Bear Au MD Primary Care Provider [phone] Bear Au MD Unavailable [phone] HUNETR HUDSON Consulting Unavailable Sheri Hunter DO Attending Unavailmable subramanian PCP, None Primary Care Unavailable Dr. Bear Au Primary Care Provider Dr. Bear Au Referring Provider Dr. Manjeet Thapa Attending Provider Marshall TECHNICAL SYSTEMS ARCHITECT, TECHNICAL SYSTEMS ARCHITECT-Deena Elkins Attending Provider DR WYATT YEE MD Attending Unavailabl e JACK DRIVER DO Primary Care Unavailable DR WYATT YEE MD Attending Unavailabl JACK Carter DO Primary Care Unavailable BEAR AU Primary Care Unavailable SURAJ SAINI Attending Unavailable Jack Driver DO Primary Care Provider [phone] Unavailable Primary Care Provider Unavailabl e JACK DRIVER DO Primary Care Physician JACK DRIVER DO Primary Care Unavailable DR WYATT YEE MD Attending Unavailabl BLAISE Pablo Attending Unavailable BLAISE CARROLL Attending Unavailable SONYA MCDERMOTT Attending Unavailable JACK DRIVER Primary Care Unavailable JESSICA ORDAZ Referring Unavailable NEISHA JCAKCLAUDETTE MAE Primary Care Unavailable JESSICA ORDAZ Attending Unavailable JACK DRIVER Primary Care Unavailable SONYA MCDERMOTT Attending Unavailable NEISHA JACKCLAUDETTE MAE Primary Care Unavailable NEISHA JACKCLAUDETTE ROGERSCIL Primary Care Unavailable SONYA MCDERMOTT Attending Unavailable JACK DRIVER Primary Care Unavailable NEISHA DO, JACK W Primary Care Unavailable TAYLOR INIGUEZ, JORDI Attending Unavail able NEISHA DO, JACK W Primary Care Unavailable STACEY BENITO MD Attending Unavail able Wayne TECHNICAL SYSTEMS ARCHITECT, [facility] Care Unavailabl e Miguel Bull Admitting Unavailable Edward, Abraham Consulting Unavailable Cb PA, Yoly Attending Unavailable Friend, Deep Consulting Unavailable Emery Suzanne Consulting Unavailable Court Stevens Consulting Unavailable Lamar Kong Consulting Unavailable Miguel Bull Consulting Unavailable Miguel Bull Admitting Unavailable Miguel Bull Attending Unavailable Wayne TECHNICAL SYSTEMS ARCHITECT, [facility] Primary Care Unavailabl e Edward, Abraham Consulting Unavailable Friend, Deep Consulting Unavailable Suzanne Land Consulting Unavailable Court Stevens Consulting Unavailable Lamar Kong Consulting Unavailable Lamar Kong Referring Unavailable Lamar Kong Attending Unavailable Lakeshaer TECHNICAL SYSTEMS ARCHITECT, [facility] Primary Care Unavailabl e Wayne TECHNICAL SYSTEMS ARCHITECT, [facility] Primary Care Unavailabl e LISA MANDUJANO Referring Unavailable LISA MANDUJANO Attending Unavailable Ashley Herndon Referring Unavailable Ashley Herndon Attending Unavailable Wayne TECHNICAL SYSTEMS ARCHITECT, [facility] Primary Care Unavailabl e Abby, Deep Attending Unavailable Wayne TECHNICAL SYSTEMS ARCHITECT, [facility] Primary Care Unavailmable e Miguel Bull Admitting Unavailable Miguel Bull Attending Unavailable Wayne TECHNICAL SYSTEMS ARCHITECT, [facility] Care Unavailabl e Edward, Abraham Consulting Unavailable Friend, Deep Consulting Unavailable Emery, Suzanne Consulting Unavailable Court Stevens Consulting Unavailable Lamar Kong Consulting Unavailable Miguel Bull Consulting Unavailable Deep Moar Attending Unavailable Miguel Bull Referring Unavailable Cb PA, Yoly Attending Unavailable Deep Mora Referring Unavailable Court Stevens Attending Unavailable Lakeshaer TECHNICAL SYSTEMS ARCHITECT, [facility] Primary Care Unavailabl e Wayne TECHNICAL SYSTEMS ARCHITECT, [facility] Referring Unavailabl e Cb PA, Yoly Attending Unavailable Lamar Kong Attending Unavailable Wayne TECHNICAL SYSTEMS ARCHITECT, [facility] Primary Care Unavailabl e Kapper TECHNICAL SYSTEMS ARCHITECT, Yoly Le Referring Unavailabl e Deep Mora Attending Unavailable Miguel Bull Referring Unavailable Allergies Allergy Classification Reported Allergen(s) Allergy Type Date of Onset Reaction(s) Facility (9 sources) Meperidine; Translations: [meperidine HCl] Drug Allergy 05-09-2016 Vomiting [facility] (20 sources) Morphine; Translations: [MORPHINE] Drug Allergy 02-03-2012 Vomiting [facility] (12 sources) Meperidine; Translations: [MEPERIDINE (PF)] Drug Allergy 02-03-2012 Vomiting [facility] (20 sources) Midazolam; Translations: [MIDAZOLAM] Drug Allergy 02-03-2012 Vomiting [facility] (1 source) Meperidine Drug Allergy 10-09-2022 [facility] (2 sources) Morphine Drug Allergy 10-09-2022 [facility] (9 sources) Meperidine; Translations: [meperidine] Drug Allergy 02-03-2012 [facility] Egnyte Medications Current Medications Medication Drug Class(es) Dates [...] 01/05/2024 11/21/2024 Discontinued Start: 01-05-2024 HYDROcodone-ac etaminophen (Humphrey) 5-325 MG tablet 01/05/2024 Active take 1 tablet by nii th every eight hours as needed HYDROcodone-acetaminophen (NORCO) 5-325 mg per tablet Take 1 tablet by mouth every 8 hours as needed for pain. 0 Active [id number] 200 actuat albuterol 0.09 mg/actuat metered dose [...] Problem Classification Problem Date Documented Date Episodic/Chronic Abdominal pain (13 sources) Left lower quadrant pain; Translations: [Left lower quadrant pain] Onset: 02-03-2012 02-03-2012 Episodic Anxiety disorders (2 sources) Claustrophobia; Translations: [Claustrophobia] Onset: 04-20-2024 04-20-2024 Chronic Biliary tract disease (2 sources) Acute cholecystitis; Translations: [Calculus of bile duct with cholecystitis, unspecified, without obstruction] Onset: 04-11-2025 Episodic Complications of surgical procedures or medical [...] (change of) liver, not elsewhere classified] Onset: 04-11-2025 Chronic Pancreatic disorders (not diabetes) (6 sources) Pancreatitis; Translations: [Acute pancreatitis without necrosis or infection, unspecified] Onset: 04-11-2025 11-17-2022 Episodic Residual codes; unclassified (7 sources) History of clinical finding in subject; Translations: [Personal history of other specified conditions] Onset: 03-19-2024 03-19-2024 Episodic Residual codes; unclassified (1 source) Acquired absence of other specified parts of digestive tract; Translations: [Acquired absence of other specified parts of digestive tract] Onset: 04-11-2025 Episodic Residual codes; unclassified (1 source) Other specified postprocedural states; Translations: [Other specified postprocedural states] Onset: 04-11-2025 Episodic Transient cerebral ischemia (7 sources) Transient [...] of levels of liver transaminase levels] Onset: 04-11-2025 Past or Other Problems Problem Classification Problem Date Documented Da te Episodic/Chronic Deficiency and other anemia (2 sources) Iron [...] Test Name Value Interpretation Reference Range Facility Gastroenterology Visit Repor [facility] 04-11-2025 Gastroenterology Visit Report [facility] Gastroenterology [address] [place] [address] OFFICE VISIT Date of Service: 04/11/25 MR#: [id number] Acct: [id number] Name: VENUS SPIVEY Rep #: [id number] : 1960 Provider: YANIRA Martinez Age/Sex: 64/F [place] [facility] Status: Signed Intake Vital Signs 03/26/25 10:03 Height 5 ft 4.17 in Intake Visit Reasons: DISCUSS AND SCHEDULE STENT REMOVAL-PAIN Chief Complaint: Status post ERCP Four Roll Calender Operator Required: No Accompanied by: Self Is patient in pain?: No Allergies meperidine HCl (From Demerol) Adverse Reaction (Verified 04/11/25 14:07) Vomiting morphine Adverse Reaction (Verified 04/11/25 14:07) Upset Stomach Medications ???Medication ???Instructions ???Recorded ???Confirmed ???Type acetaminophen 325 mg tablet 650 mg (2 x 325 mg) PO Q6H PRN PRN 03/27/25 04/11/25 Rx Pain 1-10 Or Fever >100.7 #0 tabs aspirin 81 mg tablet 81 mg PO QDAY 04/11/25 04/11/25 Hi story ezetimibe 10 mg tablet (Zetia) 10 mg PO QDAY 04/11/25 04/11/25 Hi story mecobalamin (vitamin B12) 10,000 mcg IM 04/11/25 04/11/25 History mcg solution for injection PFSH Medical History (Updated 04/11/25 @ 14:11 by Johanna Rosales) GERD (gastroesophageal reflux disease) High cholesterol Migraines Emotional problems Gallstones Bone fracture Pancreatitis Trigger point Insomnia Atypical chest pain Hyperlipidemia Surgical History (Updated 04/09/25 @ 11:51 by YANIRA Martinez) S/P cholecystectomy S/P colonoscopy Hx of hysterectomy Hx of repair of left rotator cuff Hx of appendectomy Family History Father CVA (cerebral vascular accident) Myocardial infarction Grandmother Colon cancer Diabetes Grandmother Myocardial infarction Social History (Updated 04/11/25 @ 14:12 by Johanna Rosales) Smoking Status: Never smoker how long ago did patient quit smokin alcohol intake: current alcohol intake frequency: holidays/special occasions only substance use type: does not use caffeine: Yes Type: coffee Number of servings: 4 what type of physical activity do you participate in: walking frequency: 3-4 times per week HPI HPI Chief Complaint: Status post ERCP Details: VENUS SPIVEY, is a 64 F who presents to the office today for follow-up [facility] admission 03/25/2025 - 03/27/2025 after presentation to the ED with abdominal pain CT demonstrating distended mildly thickened gallbladder with intrahepatic biliary duct dilation and dilated CBD measuring 2.7 mm. Ultrasound concerning for acute cholecystitis. Laboratory findings of leukocytosis, elevated AST, ALT and normal alk phos. ERCP 03/25/2025 - The entire main bile duct, entire biliary tree, left and right hepatic ducts and all intrahepatic branches, common bile duct and common hepatic duct were dilated, with a stone causing an obstruction. - Choledocholithiasis was found. Complete removal was accomplished by biliary sphincterotomy and balloon extraction. - One temporary stent was placed into the ventral pancreatic duct. - A biliary sphincterotomy was performed. - The biliary tree was swept. - One temporary stent was placed into the common bile duct. Cholecystectomy 03/26/2025 Surgery visit 04/08/2025 no restrictions. Having epigastric pain. OV 04/11/2025 - Patient having epigastric pain when bending over -Pain is not constant or associated with oral intake - Wonders if the stent is poking her organs - Denies other GI symptoms ROS Const Constitutional: Positive for fatigue, fever(s) and weight change (loss) ENT ENT: No difficulty swallowing Gastro GI: Positive for abdominal pain; No belching, bloating, change in bowel habits, change in stool character, coffee ground emesis, constipation, cramping, diarrhea, heartburn, difficulty swallowing, feeling full early, excessive flatus, incontinent of stools, Vomiting blood/hematemesis, Blood in stool, loose stools, Black,tarry stools, nausea/dyspepsia, pain with swallowing, vomiting or other Musc Musculoskeletal: Positive for restless legs; No joint pain Skin Skin: No yellowing of the eye or itchy eyes Neuro Neurology: Positive for dizziness and restless legs Psych Psychiatric: No anxiety and Positive for depression Endo Endocrine: Positive for fatigue and weight change (loss) Aller/Imm Allergy/Immunologic: No itchy eyes Paddy/Lymp Hematologic/Lymphatic: No easy bleeding or easy bruising Exam Const General: cooperative, healthy appearing and comfortable Orientation: alert [facility] Head: normal to inspection Neck Neck: normal visual inspection Chest Chest palpation inspection: normal inspection of the chest GI Inspection: normal to inspection Assessment and P (more content not included)... Normal [facility] CBC W/Diff, Automatedon 11 Absolute Lymph 2.47 X10 3/uL Normal 0.83-4.51 [facility] Comment on above: Performed By: #### L 501.2450, L500.4050, L100.0100 ####[facility] [address] [place], [address] Absolute Neut 4.7 X10 3/uL Normal 2.0-7.7 [facility] Comment on above: Performed By: #### L 501.2450, L500.4050, L100.0100 ####[facility] [address] [place], [address] Basophils/100 WBC (Bld) 0.9 % Normal 0-1 [facility] Comment on above: Performed By: #### L 501.2450, L500.4050, L100.0100 ####[facility] [address] [place], [address] Eosinophils/100 WBC (Bld) 5.5 % High 0-5 [facility] Comment on above: Performed By: #### L 501.2450, L500.4050, L100.0100 ####[facility] [address] [place], [address] Erythrocyte distribution width (RBC) [Ratio] 14.5 % Normal 11.6-14.6 [facility] Comment on above: Performed By: #### L 501.2450, L500.4050, L100.0100 ####[facility] [address] [place], [address] Hematocrit (Bld) [Volume fraction] 42.9 % Normal 37-47 [facility] Comment on above: Performed By: #### L 501.2450, L500.4050, L100.0100 ####[facility] [address] [place], [address] Hemoglobin (Bld) [Mass/Vol] 13.1 g/dL Normal 12.0-15.0 [facility] Comment on above: Performed By: #### L 501.2450, L500.4050, L100.0100 ####[facility] [address] [place], [address] IG% 0.400 Normal 0.0-0.9 [facility] Comment on above: Result Comment: IG% - Immature Granulocytes (promyelocytes, myelocytes and metamyelocytes) > 1% indicates that a LEFT SHIFT is Present. Performed By: #### L 501.2450, L500.4050, L100.0100 ####[facility] [address] [place], [address] Lymphocytes/100 WBC (Bld) 30.1 % Normal 19-41 [facility] Comment on above: Performed By: #### L 501.2450, L500.4050, L100.0100 ####[facility] [address] [place], [address] MCH (RBC) [Entitic mass] 25.0 pg Low 27.0-32.0 [facility] Comment on above: Performed By: #### L 501.2450, L500.4050, L100.0100 ####[facility] [address] [place], [address] MCHC (RBC) [Mass/Vol] 30.5 g/dL Low 32-36 [facility] Comment on above: Performed By: #### L 501.2450, L500.4050, L100.0100 ####[facility] [address] [place], [address] MCV (RBC) [Entitic vol] 81.7 fL Normal 81-99 [facility] Comment on above: Performed By: #### L 501.2450, L500.4050, L100.0100 ####[facility] [address] [place], [address] Monocytes/100 WBC (Bld) 6.5 % Normal 0-10 [facility] Comment on above: Performed By: #### L 501.2450, L500.4050, L100.0100 ####[facility] [address] [place], [address] Neutrophils/100 WBC (Bld) 56.6 % Normal 47-70 [facility] Comment on above: Performed By: #### L 501.2450, L500.4050, L100.0100 ####[facility] [address] [place], [address] Nucleated RBC (Bld) [#/Vol] 0 10*3/uL Normal 0-5 [facility] Comment on above: Performed By: #### L 501.2450, L500.4050, L100.0100 ####[facility] [address] [place], [address] Platelet mean volume (Bld) [Entitic vol] 9.7 fL Normal 6.2-12.0 [facility] Comment on above: Performed By: #### L 501.2450, L500.4050, L100.0100 ####[facility] [address] [place], [address] Platelets (Bld) [#/Vol] 384 10*3/uL Normal 150-450 [facility] Comment on above: Performed By: #### L 501.2450, L500.4050, L100.0100 ####[facility] [address] [place], [address] RBC (Bld) [#/Vol] 5.25 10*6/uL Normal 4.2-5.4 [facility] Comment on above: Performed By: #### L 501.2450, L500.4050, L100.0100 ####[facility] [address] [place], [address] RDW SD 42.5 fl Normal 35.1-43.9 [facility] Comment on above: Performed By: #### L 501.2450, L500.4050, L100.0100 ####[facility] [address] [place], [address] WBC (Bld) [#/Vol] 8.2 10*3/uL Normal 4.4-11.0 [facility] Comment on above: Performed By: #### L 501.2450, L500.4050, L100.0100 ####[facility] [address] [place], [address] Comprehensive Metabolic Prof [facility] 04-09-2025 Albumin [Mass/Vol] 4.5 g/dL Normal 3.4-4.8 [facility] Comment on above: Performed By: #### L 501.2450, L500.4050, L100.0100 ####[facility] [address] [place], [address] Albumin/Globulin [Mass ratio] 1.6 {ratio} Normal 0.9-2.4 [facility] Comment on above: Performed By: #### L 501.2450, L500.4050, L100.0100 ####[facility] [address] [place], [address] ALK PHOS 79 U/L Normal 35-104 [facility] Comment on above: Performed By: #### L 501.2450, L500.4050, L100.0100 ####[facility] [address] [place], [address] ALT [Catalytic activity/Vol] 40 U/L High <=34 [facility] Comment on above: Performed By: #### L 501.2450, L500.4050, L100.0100 ####[facility] [address] [place], [address] AST [Catalytic activity/Vol] 23 U/L Normal <=31 [facility] Comment on above: Performed By: #### L 501.2450, L500.4050, L100.0100 ####[facility] [address] [place], [address] Bilirubin [Mass/Vol] 0.21 mg/dL Normal 0.00-1.30 [facility] Comment on above: Performed By: #### L 501.2450, L500.4050, L100.0100 ####[facility] [address] [place], [address] BUN/CRE 15.5 RATIO Normal 10-20 [facility] Comment on above: Performed By: #### L 501.2450, L500.4050, L100.0100 ####[facility] [address] [place], [address] Calcium [Mass/Vol] 9.6 mg/dL Normal 7.6-11.0 [facility] Comment on above: Performed By: #### L 501.2450, L500.4050, L100.0100 ####[facility] [address] [place], [address] Chloride [Moles/Vol] 105 mmol/L Normal 98-108 [facility] Comment on above: Performed By: #### L 501.2450, L500.4050, L100.0100 ####[facility] [address] [place], [address] CO2 [Moles/Vol] 26.0 mmol/L Normal 21.0-32.0 [facility] Comment on above: Performed By: #### L 501.2450, L500.4050, L100.0100 ####[facility] [address] [place], [address] Creatinine [Mass/Vol] 0.64 mg/dL Low 0.70-1.20 [facility] Comment on above: Performed By: #### L 501.2450, L500.4050, L100.0100 ####[facility] [address] [place], [address] GAP 9 Normal 5-15 [facility] Comment on above: Performed By: #### L 501.2450, L500.4050, L100.0100 ####[facility] [address] [place], [address] GFR/1.73 sq M.predicted among non-blacks MDRD (S/P/Bld) [Vol rate/Area] 99 mL/min/{1.73_m2} Normal >60 [facility] Comment on above: Result Comment: mL/m in/1.73m2 CKD-EPI Creatinine Equation (2020) Performed By: #### L 501.2450, L500.4050, L100.0100 ####[facility] [address] [place], [address] Globulin (S) [Mass/Vol] 2.7 g/dL Normal 2.2-4.2 [facility] Comment on above: Performed By: #### L 501.2450, L500.4050, L100.0100 ####[facility] [address] [place], [address] Glucose [Mass/Vol] 105 mg/dL High 70-99 [facility] Comment on above: Performed By: #### L 501.2450, L500.4050, L100.0100 ####[facility] [address] [place], [address] Potassium [Moles/Vol] 4.2 mmol/L Normal 3.3-5.1 [facility] Comment on above: Performed By: #### L 501.2450, L500.4050, L100.0100 ####[facility] [address] [place], [address] Sodium [Moles/Vol] 140 mmol/L Normal 133-145 [facility] Comment on above: Performed By: #### L 501.2450, L500.4050, L100.0100 ####[facility] [address] [place], [address] T PROT 7.2 g/dL Normal 5.9-8.4 [facility] Comment on above: Performed By: #### L 501.2450, L500.4050, L100.0100 ####[facility] [address] [place], [address] Urea nitrogen [Mass/Vol] 10 mg/dL Normal 4-19 [facility] Comment on above: Performed By: #### L 501.2450, L500.4050, L100.0100 ####[facility] [address] [place], [address] Lipaseon 04-09-2025 Lipase [Catalytic activity/Vol] 54 U/L Normal 13-75 [facility] Comment on above: Result Comment: Lien hale note: LIPASE revised reference range effective 22. New Lipase methodology. Expected to produce lower values than the previous assay method. NEW Reference Range: 13 - 75 U/L Performed By: #### L 501.2450, L500.4050, L100.0100 ####[facility] [address] [place], [address] Surgery Visit Reporton 04-08 Surgery Visit Report [facility] [address] [place] [address] OFFICE VISIT Date of Service: 04/08/25 MR#: [id number] Acct: [id number] Name: VENUS SPIVEY Rep #: [id number] : 1960 Provider: ANNIE harris Age/Sex: 64/F Location: [facility] Status: Signed Intake Vital Signs 03/26/25 10:03 Height 5 ft 4.17 in Intake Visit Reasons: s/p lap niko Chief Complaint: s/p lap niko Is patient in pain?: Yes (complains of pain around umbilicus when bending over) Allergies meperidine HCl (From Demerol) Adverse Reaction (Verified 04/08/25 13:28) Vomiting morphine Adverse Reaction (Verified 04/08/25 13:28) Upset Stomach Medications ???Medication ???Instructions ???Recorded ???Confirmed ???Type alprazolam 0.25 mg tablet 0.25 mg PO BID PRN anxiety 3 04/08/25 History Ozempic QWEEK weight loss 03/25/25 5 History acetaminophen 325 mg tablet 650 mg (2 x 325 mg) PO Q6H PRN PRN 03/27/25 04/08/25 Rx Pain 1-10 Or Fever >100.7 #0 tabs Subjective Details: Patient is a 64 y/o F I am following s/p laparoscopic cholecystectomy with intraoperative cholangiogram by Dr. Bull on 03/26/25. Patient tolerated the procedure well. Patient is also s/p ERCP with stone removal and stent placement by Dr. Mora on 03/25/25. Patient notes since she feels full early. She notes normal bowel habits. She states she has been having pain near her umbilicus and epigastric region. She also notes she may be spitting a suture. She denies notes intermittent nausea. She denies any vomiting. She notes she is no longer taking any weight loss injections as she was placed on cholesterol medication despite her weight loss. Patient is blaming her gallbladder disease on the weight loss medication. Pathology reviewed with patient and demonstrated: MICROSCOPIC DIAGNOSIS A. Gallbladder, laparoscopic cholecystectomy: - Cholelithiasis, mild chronic inflammation Objective Details: Abdomen- soft, tenderness to the right of the umbilicus likely muscle related. Tenderness with palpation in the epigastric region. No RUQ pain. Incisions cd/i. No erythema or infection noted. Small spitting suture noted and trimmed with success. Coding Level of Care Code Global Post Op Diagnoses S/P cholecystectomy Z90.49 [facility] Medical History (Updated 04/04/25 @ 00:01 by Jamie Hall) Pancreatitis Trigger point Insomnia Atypical chest pain Hyperlipidemia Surgical History (Updated 04/08/25 @ 13:29 by Macie Muhammad) S/P cholecystectomy S/P colonoscopy Hx of hysterectomy Hx of repair of left rotator cuff Hx of appendectomy Family History Father CVA (cerebral vascular accident) Myocardial infarction Grandmother Colon cancer Diabetes Grandmother Myocardial infarction Social History Smoking Status: Never smoker how long ago did patient quit smokin alcohol intake: current alcohol intake frequency: holidays/special occasions only substance use type: does not use caffeine: Yes Type: coffee Number of servings: 4 Assessment and Plan (No Qualifiers) Assessment and Plan (1) S/P cholecystectomy: Status: Acute Plan: No restrictions at this time Recommend contacting GI to see if procedure is able to be moved up also to clarify when procedure is truly scheduled for. I also discussed letting them know that she is having pain in the epigastric region Discussed signs of infection and when to contact our office I will also send a message to GI No RTW letter needed Follow-up as needed 04/08/25 4766 Date Yoly Dillard Signature: Date (if applicable) CC: TECHNICAL SYSTEMS ARCHITECT-C Yoly Black Normal [facility] CBC W/Diff, Automatedon 10-2 Absolute Lymph 2.05 X10 3/uL Normal 0.83-4.51 [facility] Comment on above: Performed By: #### L 100.0100, L500.4050 ####[facility] [address] [place], [address] Absolute Neut 7.0 X10 3/uL Normal 2.0-7.7 [facility] Comment on above: Performed By: #### L 100.0100, L500.4050 ####[facility] [address] [place], [address] Basophils/100 WBC (Bld) 0.1 % Normal 0-1 [facility] Comment on above: Performed By: #### L 100.0100, L500.4050 ####[facility] [address] [place], [address] Eosinophils/100 WBC (Bld) 0.1 % Normal 0-5 [facility] Comment on above: Performed By: #### L 100.0100, L500.4050 ####[facility] [address] [place], [address] Erythrocyte distribution width (RBC) [Ratio] 14.6 % Normal 11.6-14.6 [facility] Comment on above: Performed By: #### L 100.0100, L500.4050 ####[facility] [address] [place], [address] Hematocrit (Bld) [Volume fraction] 37.4 % Normal 37-47 [facility] Comment on above: Performed By: #### L 100.0100, L500.4050 ####[facility] [address] [place], [address] Hemoglobin (Bld) [Mass/Vol] 11.9 g/dL Low 12.0-15.0 [facility] Comment on above: Performed By: #### L 100.0100, L500.4050 ####[facility] [address] [place], [address] IG% 0.400 Normal 0.0-0.9 [facility] Comment on above: Result Comment: IG% - Immature Granulocytes (promyelocytes, myelocytes and metamyelocytes) > 1% indicates that a LEFT SHIFT is Present. Performed By: #### L 100.0100, L500.4050 ####[facility] [address] [place], [address] Lymphocytes/100 WBC (Bld) 20.3 % Normal 19-41 [facility] Comment on above: Performed By: #### L 100.0100, L500.4050 ####[facility] [address] [place], [address] MCH (RBC) [Entitic mass] 25.5 pg Low 27.0-32.0 [facility] Comment on above: Performed By: #### L 100.0100, L500.4050 ####[facility] [address] [place], [address] MCHC (RBC) [Mass/Vol] 31.8 g/dL Low 32-36 [facility] Comment on above: Performed By: #### L 100.0100, L500.4050 ####[facility] [address] [place], [address] MCV (RBC) [Entitic vol] 80.1 fL Low 81-99 [facility] Comment on above: Performed By: #### L 100.0100, L500.4050 ####[facility] [address] [place], [address] Monocytes/100 WBC (Bld) 9.4 % Normal 0-10 [facility] Comment on above: Performed By: #### L 100.0100, L500.4050 ####[facility] [address] [place], [address] Neutrophils/100 WBC (Bld) 69.7 % Normal 47-70 [facility] Comment on above: Performed By: #### L 100.0100, L500.4050 ####[facility] [address] [place], [address] Nucleated RBC (Bld) [#/Vol] 0 10*3/uL Normal 0-5 [facility] Comment on above: Performed By: #### L 100.0100, L500.4050 ####[facility] [address] [place], [address] Platelet mean volume (Bld) [Entitic vol] 9.5 fL Normal 6.2-12.0 [facility] Comment on above: Performed By: #### L 100.0100, L500.4050 ####[facility] [address] [place], [address] Platelets (Bld) [#/Vol] 247 10*3/uL Normal 150-450 [facility] Comment on above: Performed By: #### L 100.0100, L500.4050 ####[facility] [address] [place], [address] RBC (Bld) [#/Vol] 4.67 10*6/uL Normal 4.2-5.4 [facility] Comment on above: Performed By: #### L 100.0100, L500.4050 ####[facility] [address] [place], [address] RDW SD 42.2 fl Normal 35.1-43.9 [facility] Comment on above: Performed By: #### L 100.0100, L500.4050 ####[facility] [address] [place], [address] WBC (Bld) [#/Vol] 10.1 10*3/uL Normal 4.4-11.0 [facility] Comment on above: Performed By: #### L 100.0100, L500.4050 ####[facility] [address] [place], [address] Comprehensive Metabolic Prof ilon 03-27-2025 Albumin [Mass/Vol] 3.7 g/dL Normal 3.4-4.8 [facility] Comment on above: Performed By: #### L 100.0100, L500.4050 ####[facility] [address] [place], [address] Albumin/Globulin [Mass ratio] 1.8 {ratio} Normal 0.9-2.4 [facility] Comment on above: Performed By: #### L 100.0100, L500.4050 ####[facility] [address] [place], [address] ALK PHOS 75 U/L Normal 35-104 [facility] Comment on above: Performed By: #### L 100.0100, L500.4050 ####[facility] [address] [place], [address] ALT [Catalytic activity/Vol] 192 U/L High <=34 [facility] Comment on above: Performed By: #### L 100.0100, L500.4050 ####[facility] [address] [place], [address] AST [Catalytic activity/Vol] 51 U/L High <=31 [facility] Comment on above: Performed By: #### L 100.0100, L500.4050 ####[facility] [address] [place], [address] Bilirubin [Mass/Vol] 0.34 mg/dL Normal 0.00-1.30 [facility] Comment on above: Performed By: #### L 100.0100, L500.4050 ####[facility] [address] [place], [address] BUN/CRE 14.3 RATIO Normal 10-20 [facility] Comment on above: Performed By: #### L 100.0100, L500.4050 ####[facility] [address] [place], [address] Calcium [Mass/Vol] 8.3 mg/dL Normal 7.6-11.0 [facility] Comment on above: Performed By: #### L 100.0100, L500.4050 ####[facility] [address] [place], [address] Chloride [Moles/Vol] 107 mmol/L Normal 98-108 [facility] Comment on above: Performed By: #### L 100.0100, L500.4050 ####[facility] [address] [place], [address] CO2 [Moles/Vol] 22.6 mmol/L Normal 21.0-32.0 [facility] Comment on above: Performed By: #### L 100.0100, L500.4050 ####[facility] [address] [place], [address] Creatinine [Mass/Vol] 0.53 mg/dL Low 0.70-1.20 [facility] Comment on above: Performed By: #### L 100.0100, L500.4050 ####[facility] [address] [place], [address] ECRCL 101.38 ml/min Normal 50-250 [facility] Comment on above: Performed By: #### L 100.0100, L500.4050 ####[facility] [address] [place], [address] GAP 10 Normal 5-15 [facility] Comment on above: Performed By: #### L 100.0100, L500.4050 ####[facility] [address] [place], [address] GFR/1.73 sq M.predicted among non-blacks MDRD (S/P/Bld) [Vol rate/Area] 104 mL/min/{1.73_m2} Normal >60 [facility] Comment on above: Result Comment: mL/m in/1.73m2 CKD-EPI Creatinine Equation (2020) Performed By: #### L 100.0100, L500.4050 ####[facility] [address] [place], [address] Globulin (S) [Mass/Vol] 2.0 g/dL Low 2.2-4.2 [facility] Comment on above: Performed By: #### L 100.0100, L500.4050 ####[facility] [address] [place], [address] Glucose [Mass/Vol] 98 mg/dL Normal 70-99 [facility] Comment on above: Performed By: #### L 100.0100, L500.4050 ####[facility] [address] [place], [address] Potassium [Moles/Vol] 3.2 mmol/L Low 3.3-5.1 [facility] Comment on above: Performed By: #### L 100.0100, L500.4050 ####[facility] [address] [place], [address] Sodium [Moles/Vol] 140 mmol/L Normal 133-145 [facility] Comment on above: Performed By: #### L 100.0100, L500.4050 ####[facility] [address] [place], [address] T PROT 5.7 g/dL Low 5.9-8.4 [facility] Comment on above: Performed By: #### L 100.0100, L500.4050 ####[facility] [address] [place], [address] Urea nitrogen [Mass/Vol] 8 mg/dL Normal 4-19 [facility] Comment on above: Performed By: #### L 100.0100, L500.4050 ####[facility] [address] [place], [address] MR/PN.GIon 03-27-2025 MR/PN.GI [facility] Medical Records Department [address] [place] [address] Progress Note - GI 03/27/2559 MR#: [id number] Acct: [id number] Name: VENUS SPIVEY Rep #: [id number] : 1960 64 From: Court Stevens NP-C PCP: DONTE Callaway Status:DIS IN Location: [place] [id number] Subjective Subjective 64y/o female with PMH hyperlipidemia, pancreatitis, fatty liver, acute cholecystitis, and choledocholithiasis; underwent ERCP (03/25/2025) with CBD and pancreatic duct stent placement followed by laparoscopic cholecystectomy w/ IOC (03/26/2025). She is now clinically improved, tolerating oral intake, ambulatory, and has clean, intact incision sites. She endorses mild indigestion, likely related to ongoing semaglutide therapy for weight loss. Todays labs are consistent with expected postoperative changes and successful biliary intervention (HGB 11.9, WBC 10.1, K+ 3.2, AST 51, ALT 192, ALP 75, T. Bili 0.34). Objective Data Objective Data Vital Signs: Vital Signs Temp Pulse Resp BP Pulse Ox O2 Del Method O2 Flow Rate 97.8 F 84 18 139/77 H 96 Room Air 2 03/27/25 08:25 03/27/25 08:25 03/27/25 08:25 03/27/25 08:25 03/27/25 08:25 03/27/25 08:25 03/26/25 14:53 Oxygen Flow Rate (L/min) 2 Oxygen Delivery Method Room Air Weight: 144 lb 14.205 oz Body Mass Index (BMI) 24.7 Intake Output: Intake and Output for Last 24 Hours 03/25/25 03/26/25 03/27/25 23:59 23:59 23:59 Intake Total 6011.67 / 6011.67 2997 / 3197 471.04 / 471.04 Output Total Balance 6010.67 / 6010.67 2982 / 3182 471.04 / 471.04 Lab / Micro Data Attestation: I reviewed the patient's lab results. 03/27/25 06:30 03/27/25 06:30 Labs: Laboratory Results - last 24 hr 03/27/25 06:30: WBC 10.1, RBC 4.67, Hgb 11.9 L, Hct 37.4, MCV 80.1 L, MCH 25.5 L, MCHC 31.8 L, RDW Std Deviation 42.2, RDW Coeff of Lul 14.6, Plt Count 247, MPV 9.5, Immature Gran % (Auto) 0.400, Neut % (Auto) 69.7, Lymph % (Auto) 20.3, Borden % (Auto) 9.4, Eos % (Auto) 0.1, Baso % (Auto) 0.1, Absolute Neuts (auto) 7.0, Absolute Lymphs (auto) 2.05, Nucleated RBC % 0, Sodium 140, Potassium 3.2 L, Chloride 107, Carbon Dioxide 22.6, Anion Gap 10, BUN 8, Creatinine 0.53 L, Estim Creat Clear Calc 101.38, Est GFR (MDRD) Non-Af 104, BUN/Creatinine Ratio 14.3, Glucose 98, Calcium 8.3, Total Bilirubin 0.34, AST 51 H, ALT 192 H, Alkaline Phosphatase 75, Total Protein 5.7 L, Albumin 3.7, G lobulin 2.0 L, Albumin/Globulin Ratio 1.8 Radiography Diagnostic Testing: Radiology Impression Cholangiogram 03/26/25 11:30 IMPRESSION: Stent seen in the common bile duct. There is good flow into the duodenum. Reading Location: [facility] Rhythm Strip Rhythm Strip: Sinus Rhythm Rate: 88 Ectopy: None Physical Exam Const alert, oriented x3, no apparent distress, average body habitus and healthy appearing General Appearance: cooperative and comfortable Exam Limitations: no limitations Eyes PERRL Neck full ROM General: normal visual inspection Resp Effort and Inspection: able to speak in complete sentences and symmetric chest movement GI GI Narrative: ABD soft, non-distended Assessment Plan Assessment/Plan (1) Choledocholithiasis with cholecystitis: PLAN: Plan - Temporary biliary stents are placed to maintain ductal patency and reduce risk of recurrent obstruction.???Stent removal is recommended at 6???8 weeks post-procedure. GI office to contact patient to arrange. - Persistent dyspepsia is common with semaglutide and can be managed with dietary modifications (smaller, slower meals, avoiding high-fat foods) and???daily PPI. Note: [employer] speech recognition route delivery service driver software was used to create portions of this document. Sound-alike and misspelled words, as well as other route delivery service driver errors may be contained in the documentation. 03/27/25 1156 Cosigner Signature (if applicable): CC: Signed Normal [facility] CBC W/Diff, Automatedon 10-2 Absolute Lymph 0.78 X10 3/uL Low 0.83-4.51 [facility] Comment on above: Performed By: #### L 500.4050, L100.0100 #### [facility] [address] [place], [address] Absolute Neut 5.7 X10 3/uL Normal 2.0-7.7 [facility] Comment on above: Performed By: #### L 500.4050, L100.0100 #### [facility] [address] [place], [address] Basophils/100 WBC (Bld) 0.2 % Normal 0-1 [facility] Comment on above: Performed By: #### L 500.4050, L100.0100 #### [facility] [address] [place], [address] Eosinophils/100 WBC (Bld) 0.0 % Normal 0-5 [facility] Comment on above: Performed By: #### L 500.4050, L100.0100 #### [facility] [address] [place], [address] Erythrocyte distribution width (RBC) [Ratio] 14.6 % Normal 11.6-14.6 [facility] Comment on above: Performed By: #### L 500.4050, L100.0100 #### [facility] [address] [place], [address] Hematocrit (Bld) [Volume fraction] 40.3 % Normal 37-47 [facility] Comment on above: Performed By: #### L 500.4050, L100.0100 #### [facility] [address] [place], [address] Hemoglobin (Bld) [Mass/Vol] 12.4 g/dL Normal 12.0-15.0 [facility] Comment on above: Performed By: #### L 500.4050, L100.0100 #### [facility] [address] [place], [address] IG% 0.300 Normal 0.0-0.9 [facility] Comment on above: Result Comment: IG% - Immature Granulocytes (promyelocytes, myelocytes and metamyelocytes) > 1% indicates that a LEFT SHIFT is Present. Performed By: #### L 500.4050, L100.0100 #### [facility] [address] [place], [address] Lymphocytes/100 WBC (Bld) 11.8 % Low 19-41 [facility] Comment on above: Performed By: #### L 500.4050, L100.0100 #### [facility] [address] [place], [address] MCH (RBC) [Entitic mass] 25.2 pg Low 27.0-32.0 [facility] Comment on above: Performed By: #### L 500.4050, L100.0100 #### [facility] [address] [place], [address] MCHC (RBC) [Mass/Vol] 30.8 g/dL Low 32-36 [facility] Comment on above: Performed By: #### L 500.4050, L100.0100 #### [facility] [address] [place], [address] MCV (RBC) [Entitic vol] 81.7 fL Normal 81-99 [facility] Comment on above: Performed By: #### L 500.4050, L100.0100 #### [facility] [address] [place], [address] Monocytes/100 WBC (Bld) 1.1 % Normal 0-10 [facility] Comment on above: Performed By: #### L 500.4050, L100.0100 #### [facility] [address] [place], [address] Neutrophils/100 WBC (Bld) 86.6 % High 47-70 [facility] Comment on above: Performed By: #### L 500.4050, L100.0100 #### [facility] [address] [place], [address] Nucleated RBC (Bld) [#/Vol] 0 10*3/uL Normal 0-5 [facility] Comment on above: Performed By: #### L 500.4050, L100.0100 #### [facility] [address] [place], [address] Platelet mean volume (Bld) [Entitic vol] 9.4 fL Normal 6.2-12.0 [facility] Comment on above: Performed By: #### L 500.4050, L100.0100 #### [facility] [address] [place], [address] Platelets (Bld) [#/Vol] 223 10*3/uL Normal 150-450 [facility] Comment on above: Performed By: #### L 500.4050, L100.0100 #### [facility] [address] [place], [address] RBC (Bld) [#/Vol] 4.93 10*6/uL Normal 4.2-5.4 [facility] Comment on above: Performed By: #### L 500.4050, L100.0100 #### [facility] [address] [place], [address] RDW SD 43.4 fl Normal 35.1-43.9 [facility] Comment on above: Performed By: #### L 500.4050, L100.0100 #### [facility] [address] [place], [address] WBC (Bld) [#/Vol] 6.6 10*3/uL Normal 4.4-11.0 [facility] Comment on above: Performed By: #### L 500.4050, L100.0100 #### [facility] [address] [place], [address] Cholangiogram/ O R,Initialon 03-26-2025 Cholangiogram/ O R,Initial [facility] Imaging Services [address] [place] [address] Cholangiogram/ O R,Initial MR#: [id number] Acct: [id number] Name: VENUS SPIVEY Rep #: [id number] : 1960 F 64 From: Taqueria mckeon MD PCP: Yoly Black, TECHNICAL SYSTEMS ARCHITECT-C Status: ADM IN Study: Cholangiogram/ O R,Initial Date of Exam: 03/26 Exam# [id number] Ordering Dr: Miguel Bull MD PROCEDURE: CHOLANGIOGRAM/ O R,INITIAL 03/26/2025 REASON FOR EXAM: LAP NIKO W/ IOC TECHNIQUE: Procedure Code: RADCHO Modality: DX Procedure: CHOLANGIOGRAM/ O R,INITIAL. Intraoperative fluoroscopic services provided. Fluoroscopy: 18.7 seconds. Radiation dose: 6.48 mGy. COMPARISON: None FINDINGS: Fluoroscopic services for intraoperative cholangiogram provided. A stent is seen within the common bile duct. Contrast was injected. There is free flow of contrast into the duodenum. There is narrowing of the distal portion of the common bile duct. RAD/Cholangiogram/ O R,Initial IMPRESSION: Stent seen in the common bile duct. There is good flow into the duodenum. Reading Location: [facility] CC: DONTE Black; Dr. Miguel Bull MD Dungeon Master: Signed Normal [facility] Comprehensive Metabolic Prof ilon 03-26-2025 Albumin [Mass/Vol] 3.8 g/dL Normal 3.4-4.8 [facility] Comment on above: Performed By: #### L 500.4050, L100.0100 #### [facility] [address] [place], [address] Albumin/Globulin [Mass ratio] 1.8 {ratio} Normal 0.9-2.4 [facility] Comment on above: Performed By: #### L 500.4050, L100.0100 #### [facility] [address] [place], [address] ALK PHOS 90 U/L Normal 35-104 [facility] Comment on above: Performed By: #### L 500.4050, L100.0100 #### [facility] [address] [place], [address] ALT [Catalytic activity/Vol] 316 U/L High <=34 [facility] Comment on above: Performed By: #### L 500.4050, L100.0100 #### [facility] [address] [place], [address] AST [Catalytic activity/Vol] 132 U/L High <=31 [facility] Comment on above: Performed By: #### L 500.4050, L100.0100 #### [facility] [address] [place], [address] Bilirubin [Mass/Vol] 0.34 mg/dL Normal 0.00-1.30 [facility] Comment on above: Performed By: #### L 500.4050, L100.0100 #### [facility] [address] [place], [address] BUN/CRE 14.3 RATIO Normal 10-20 [facility] Comment on above: Performed By: #### L 500.4050, L100.0100 #### [facility] [address] [place], [address] Calcium [Mass/Vol] 7.9 mg/dL Normal 7.6-11.0 [facility] Comment on above: Performed By: #### L 500.4050, L100.0100 #### [facility] [address] [place], [address] Chloride [Moles/Vol] 112 mmol/L High 98-108 [facility] Comment on above: Performed By: #### L 500.4050, L100.0100 #### [facility] [address] [place], [address] CO2 [Moles/Vol] 20.2 mmol/L Low 21.0-32.0 [facility] Comment on above: Performed By: #### L 500.4050, L100.0100 #### [facility] [address] [place], [address] Creatinine [Mass/Vol] 0.49 mg/dL Low 0.70-1.20 [facility] Comment on above: Performed By: #### L 500.4050, L100.0100 #### [facility] [address] [place], [address] ECRCL 109.66 ml/min Normal 50-250 [facility] Comment on above: Performed By: #### L 500.4050, L100.0100 #### [facility] [address] [place], [address] GAP 9 Normal 5-15 [facility] Comment on above: Performed By: #### L 500.4050, L100.0100 #### [facility] [address] [place], [address] GFR/1.73 sq M.predicted among non-blacks MDRD (S/P/Bld) [Vol rate/Area] 106 mL/min/{1.73_m2} Normal >60 [facility] Comment on above: Result Comment: mL/m in/1.73m2 CKD-EPI Creatinine Equation (2020) Performed By: #### L 500.4050, L100.0100 #### [facility] [address] [place], [address] Globulin (S) [Mass/Vol] 2.1 g/dL Low 2.2-4.2 [facility] Comment on above: Performed By: #### L 500.4050, L100.0100 #### [facility] [address] [place], [address] Glucose [Mass/Vol] 114 mg/dL High 70-99 [facility] Comment on above: Performed By: #### L 500.4050, L100.0100 #### [facility] [address] [place], [address] Potassium [Moles/Vol] 3.5 mmol/L Normal 3.3-5.1 [facility] Comment on above: Performed By: #### L 500.4050, L100.0100 #### [facility] [address] [place], [address] Sodium [Moles/Vol] 141 mmol/L Normal 133-145 [facility] Comment on above: Performed By: #### L 500.4050, L100.0100 #### [facility] [address] [place], [address] T PROT 5.9 g/dL Normal 5.9-8.4 [facility] Comment on above: Performed By: #### L 500.4050, L100.0100 #### [facility] [address] [place], [address] Urea nitrogen [Mass/Vol] 7 mg/dL Normal 4-19 [facility] Comment on above: Performed By: #### L 500.4050, L100.0100 #### [facility] [address] [place], [address] MR/POSTOP.ANEon 03-26-2025 MR/POSTOP.ANE [facility] Medical Records Department [address] [place] [address] Anesthesia Postop Eval I 03/26/25 1452 MR#: [id number] Acct: [id number] Name: VENUS SPIVEY Rep #: [id number] : 1960 64 From: Rodriguez Berrios PCP: Yoly Black, TECHNICAL SYSTEMS ARCHITECT-C Status:ADM IN Y Race: C [id number] Anesthesia: Postop Eval I Current Vital Signs Temperature: 97.9 F Pulse Rate: 62 Blood Pressure: 80/50 Respiratory Rate: 12 Pulse Ox: 98 Oxygen Delivery Method: Nasal Cannula Oxygen Flow Rate (L/min): 2 Assessment Airway patent: Yes Spontaneous unlabored respirations: Yes Mental status: Asleep nausea: No Vomiting: No Anesthesia Complication: No Fluid Hydration Crystalloid volume administer (ml): 900 Total IV fluid infused: 900 Progress Note Anesthesia document: Postop Eval 1 completed: Yes 03/26/251452 Date Rodriguez Dillard Signature: Date CC: Signed Normal [facility] MR/[id number] 03-26-2025 MR/POSTOPAN2 [facility] Medical Records Department [address] [address] Anesthesia Postop Eval II 03/26/25 1523 MR#: [id number] Acct: [id number] Name: VENUS SPIVEY Rep #: [id number] : 1960 64 From: Rashaad Cardenas MD PCP: Yoly Black, TECHNICAL SYSTEMS ARCHITECT-C Status:ADM IN Y Race: C Location: [place] [address] Anesthesia Postop Eval I Sum Postop Eval Completion status Anesthesia document: Postop Eval 1 completed: Yes Anesthesia Postop Eval I Summary Anesthesia Postop Eval I Summary: Anesthesia Postop Eval I: Assessment Summary Airway patent Yes 03/26/25 14:53 [email or web address] Spontaneous unlabored Yes 03/26/25 14:53 [email or web address] respirations Mental status Asleep 03/26/25 14:53 [email or web address] nausea No 03/26/25 14:53 [email or web address] Vomiting No 03/26/25 14:53 [email or web address] Anesthesia Postop Eval I: Fluid Summary Crystalloid volume administer 900 03/26/25 14:53 [email or web address] (ml) Colloids volume administered ( ml) Blood Product volume administered (ml) Total IV fluid infused 900 03/26/25 14:53 [email or web address] Anesthesia Postop Eval I: Summary Notes Anesthesia Complication No 03/26/25 14:53 [email or web address] Anesthesia Complication Comment: Post-operative progress note Anesthesia: Postop Eval II Evaluation Mental status: Awake and Calm Pain Level: 1 nausea: No Vomiting: No Complications Anesthesia Complication: No 03/26/25 182 Rashaad Dillard Signature: Date CC: Signed Normal [facility] Operative Reporton 5 Operative Report [facility] Medical Records Department [address] [place] [address] Operative Report 03/26/25 1420 MR#: [id number] Acct: [id number] Name: VENUS SPIVEY Rep #: [id number] : 1960 64 From: Miguel Bull MD PCP: Yoly Black TECHNICAL SYSTEMS ARCHITECT-C Status:ADM IN Location: [place] [address] Procedures Digestive 40xxx-49xxx: [id number] Laparo cholecystectomy/graph Operative Report (Standard) Operative Information Date of Procedure: 03/26/25 Pre-Operative Diagnosis: 1. Acute cholecystitis 2. Choledocholithiasis status post ERCP with stone removal and common bile duct stenting Post-Operative Diagnosis: Same Surgery/Procedure Performed: Laparoscopic cholecystectomy with intraoperative cholangiography drop crew laborer: Yes Hot Man: Caridad Sullivan Tasks completed by assistant manager airside operations: Opening closing Type of Anesthesia: General/Supplemental RN Documented Start/Stop Times: Operation Date: 03/26/25 12:30 Case Time Into Pre-Op 03/26/25 11:49 Out of Pre-Op 03/26/25 12:49 Anesthesia Start 03/26/25 12:53 Into Room 03/26/25 12:53 Procedure Start 03/26/25 13:17 Procedure End 03/26/25 14:26 Anesthesia End 03/26/25 14:31 Out of Room 03/26/25 14:31 Into Recovery 03/26/25 14:32 Out of Recovery 03/26/25 16:25 Procedure Start Time: 13:17 Procedure Stop Time: 14:26 Select all DRAINS/GRAFTS/IMPLANTS that apply: None Estimated Blood Loss: 10 Specimen collected: Yes Description of specimen(s) removed: Gallbladder Description of surgery: After proper identification in the preoperative holding area the patient was brought to the operating room where she was positioned supine on the operating room table. Preoperatively SCDs were connected and antibiotics were administered with 2 g Ancef for surgical incision prophylaxis. General anesthesia was then induced and an orogastric tube was passed. Patient's abdomen was prepped and draped in usual sterile fashion. A formal timeout was conducted to confirm both patient and the procedure. Procedure was begun with a supraumbilical incision which was extended deeply down to the level of the fascia. The fascia was elevated and incised, as well as the peritoneum. A finger sweep was performed to ensure there were no underlying adhesions and a 12 mm balloon trocar was inserted. Pneumoperitoneum was established at 15 mmHg. Three additional trocars (all 5 mm) were placed in the epigastrium and in the right upper quadrant. Inspection of the peritoneum revealed no inadvertent injury to the viscera below. The gallbladder was visualized with mild to moderate acute inflammation. The gallbladder fundus was then grasped and elevated cephalad. Then, using careful dissection the peritoneum was opened and the structures of the hepatocystic triangle were delineated. An acute edema plane was exploited to remove the inflammatory rind from the gallbladder proper. Once the critical view of safety was obtained, the cystic duct was singly clipped and partially divided with a ductotomy. The proximal duct was milked of any debris until there was backflow of bile. Using an Patterson Sizerock clamp, a cholangiocatheter was fed into the proximal segment of the cystic duct and clamped into place. Under fluoroscopy a cholangiogram was then obtained showing a standard length cystic duct flowing into a common bile duct containing a send with unobstructed antegrade flow of contrast into the duodenum. There was also retrograde flow through the common hepatic duct into the right and left hepatic ducts. Satisfied with this result, the cholangiocatheter was withdrawn and the proximal cystic duct was sealed with clips and the cystic duct was completely transected. The same process was used for the cystic artery. The gallbladder was then removed from the gallbladder fossa with the use of electrocautery. Selective electrocautery was used to obtain hemostasis in the gallbladder fossa. The gallbladder was placed in an Endo Catch bag and removed from the peritoneum. Morison's pouch was irrigated and the effluent was suctioned free of the peritoneum. Hemostasis was again confirmed. Pneumoperitoneum was evacuated and the fascia of the 12 mm port sites was closed with #1Vicryl in a gtiinl-[id number] fashion. A total of 30 mL of anesthetic was injected at the port sites for postoperative pain control. The skin of each port site was then closed in subcuticular fashion using 4-0 Monocryl. Steri-Strips and bandages were applied as dressings. Patient tolerated the procedure well without any apparent complications. On emergence from their anesthetic the patient was taken to PACU for ongoing recovery. Surgical Findings: ??? Acutely inflamed gallbladder with significant inflammation approaching the infundibulum ??? Normal cholangiogram with common bile duct stent intact Complications Complications: No Admit VTE Documentation (more content not included)... Normal [facility] Surgery Specimen Level IIIon 03-26-2025 Surgery Specimen Level III Patient Age/Sex Location Account Attending Physician VENUS SPIVEY 64/F MS3 [id number] Dr. Miguel Bull MD Specimen: [id number] Received: 03/26/25 Status: EVA Mclean Num: [id number] Spec Type: EVERARDO De Oliveira Dr: Dr. Miguel Bull MD HEADER OPERATION: Laparoscopic, cholecystectomy with IOC PRE-OP DIAGNOSIS: Transaminitis, acute cholecystitis, hepatic steatosis, pancreatitis, choledocholithiasis with cholecystitis TISSUE SUBMITTED: A- Gallbladder MICROSCOPIC DIAGNOSIS A. Gallbladder, laparoscopic cholecystectomy: - Cholelithiasis, mild chronic inflammation. MICROSCOPIC DESCRIPTION Slides are reviewed. GROSS DESCRIPTION A. Received in formalin labeled with the patient's name and date of . Designated as gallbladder is a 7.6 x 2.8 x 2.3 cm estrada-pink to light green, edematous and intact gallbladder with attached patent cystic duct (inked black, shaved). A lymph node is not present. Opening reveals light green bile and multiple, yellow and bosselated choleliths, ranging <0.1 cm to 0.3 cm. The mucosa is dark green and granular with focally edematous cut surfaces and a maximum wall thickness of 0.5 cm. Cholesterolosis is not present. Cost Analyst sections are submitted in 2 cassettes as follows: A1: Margin, cross-sectionsA2: Edematous cross-sections WA 03/27/2025 CPT:93917 Patient Age/Sex Location Account Attending Physician VENUS SPIVEY 64/F MS3 [id number] Dr. Miguel Bull MD Signed (signature on file) Dr. Korin Hathaway MD 04/05/25 1626 Normal [facility] Comment on above: Performed By: #### P SUIII ####[facility] [address] [facility] [place], [place], [address] Abdomen/Pelvis W IV Cont ONL Yon 03-25-2025 Abdomen/Pelvis W IV Cont ONLY [facility] Imaging Services [address] [place], [place] [address] Abdomen/Pelvis W IV Cont ONLY MR#: [id number] Acct: [id number] Name: VENUS SPIVEY Rep #: [id number] : 1960 F 64 From: Irma ellis MD PCP: Yoly Black TECHNICAL SYSTEMS ARCHITECTIvette Status: REG ER Study: Abdomen/Pelvis W IV Cont ONLY Date of Exam: Exam# [id number] Ordering Dr: Prema Michaels DO PROCEDURE: ABDOMEN/PELVIS [...] fecal residue in the cecum. Reading [facility] CC: DONTE Black; Dr. Prema Michaels DO Dungeon Master: Signed Normal [facility] Basic Metabolic Profile (BMP )on 03-25-2025 BUN/CRE 19.3 RATIO Normal - [facility] Comment on above: Performed By: #### L 501.2450, L501.4021, L100.0100, L500.3400, L500.2500 #### [facility] [address] [place], [address] Calcium [Mass/Vol] 10.0 mg/dL Normal 7.6-11.0 [facility] Comment on above: Performed By: #### L 501.2450, L501.4021, L100.0100, L500.3400, L500.2500 #### [facility] [address] [place], [address] Chloride [Moles/Vol] 102 mmol/L Normal 98-108 [facility] Comment on above: Performed By: #### L 501.2450, L501.4021, L100.0100, L500.3400, L500.2500 #### [facility] [address] [place], [address] CO2 [Moles/Vol] 23.5 mmol/L Normal 21.0-32.0 [facility] Comment on above: Performed By: #### L 501.2450, L501.4021, L100.0100, L500.3400, L500.2500 #### [facility] [address] [place], [address] Creatinine [Mass/Vol] 0.76 mg/dL Normal 0.70-1.20 [facility] Comment on above: Performed By: #### L 501.2450, L501.4021, L100.0100, L500.3400, L500.2500 #### [facility] [address] [place], [address] ECRCL 65.43 ml/min Normal 50-250 [facility] Comment on above: Performed By: #### L 501.2450, L501.4021, L100.0100, L500.3400, L500.2500 #### [facility] [address] [place], [address] GAP 13 Normal 5-15 [facility] Comment on above: Performed By: #### L 501.2450, L501.4021, L100.0100, L500.3400, L500.2500 #### [facility] [address] [place], [address] GFR/1.73 sq M.predicted among non-blacks MDRD (S/P/Bld) [Vol rate/Area] 88 mL/min/{1.73_m2} Normal >60 [facility] Comment on above: Result Comment: mL/m in/1.73m2 CKD-EPI Creatinine Equation (2020) Performed By: #### L 501.2450, L501.4021, L100.0100, L500.3400, L500.2500 #### [facility] [address] [place], [address] Glucose [Mass/Vol] 114 mg/dL High 70-99 [facility] Comment on above: Performed By: #### L 501.2450, L501.4021, L100.0100, L500.3400, L500.2500 #### [facility] [address] [place], [address] Potassium [Moles/Vol] 3.2 mmol/L Low 3.3-5.1 [facility] Comment on above: Performed By: #### L 501.2450, L501.4021, L100.0100, L500.3400, L500.2500 #### [facility] [address] [place], [address] Sodium [Moles/Vol] 139 mmol/L Normal 133-145 [facility] Comment on above: Performed By: #### L 501.2450, L501.4021, L100.0100, L500.3400, L500.2500 #### [facility] [address] [place], [address] Urea nitrogen [Mass/Vol] 15 mg/dL Normal 4-19 [facility] Comment on above: Performed By: #### L 501.2450, L501.4021, L100.0100, L500.3400, L500.2500 #### [facility] [address] [place], [address] CBC W/Diff, Automatedon 10-2 Absolute Lymph 2.74 X10 3/uL Normal 0.83-4.51 [facility] Comment on above: Performed By: #### L 501.2450, L501.4021, L100.0100, L500.3400, L500.2500 #### [facility] [address] [place], [address] Absolute Neut 7.9 X10 3/uL High 2.0-7.7 [facility] Comment on above: Performed By: #### L 501.2450, L501.4021, L100.0100, L500.3400, L500.2500 #### [facility] [address] [place], [address] Basophils/100 WBC (Bld) 0.3 % Normal 0-1 [facility] Comment on above: Performed By: #### L 501.2450, L501.4021, L100.0100, L500.3400, L500.2500 #### [facility] [address] [place], [address] Eosinophils/100 WBC (Bld) 0.8 % Normal 0-5 [facility] Comment on above: Performed By: #### L 501.2450, L501.4021, L100.0100, L500.3400, L500.2500 #### [facility] [address] [place], [address] Erythrocyte distribution width (RBC) [Ratio] 14.4 % Normal 11.6-14.6 [facility] Comment on above: Performed By: #### L 501.2450, L501.4021, L100.0100, L500.3400, L500.2500 #### [facility] [address] [place], [address] Hematocrit (Bld) [Volume fraction] 44.8 % Normal 37-47 [facility] Comment on above: Performed By: #### L 501.2450, L501.4021, L100.0100, L500.3400, L500.2500 #### [facility] [address] [place], [address] Hemoglobin (Bld) [Mass/Vol] 13.8 g/dL Normal 12.0-15.0 [facility] Comment on above: Performed By: #### L 501.2450, L501.4021, L100.0100, L500.3400, L500.2500 #### [facility] [address] [place], [address] IG% 0.300 Normal 0.0-0.9 [facility] Comment on above: Result Comment: IG% - Immature Granulocytes (promyelocytes, myelocytes and metamyelocytes) > 1% indicates that a LEFT SHIFT is Present. Performed By: #### L 501.2450, L501.4021, L100.0100, L500.3400, L500.2500 #### [facility] [address] [place], [address] Lymphocytes/100 WBC (Bld) 23.8 % Normal 19-41 [facility] Comment on above: Performed By: #### L 501.2450, L501.4021, L100.0100, L500.3400, L500.2500 #### [facility] [address] [place], [address] MCH (RBC) [Entitic mass] 25.0 pg Low 27.0-32.0 [facility] Comment on above: Performed By: #### L 501.2450, L501.4021, L100.0100, L500.3400, L500.2500 #### [facility] [address] [place], [address] MCHC (RBC) [Mass/Vol] 30.8 g/dL Low 32-36 [facility] Comment on above: Performed By: #### L 501.2450, L501.4021, L100.0100, L500.3400, L500.2500 #### [facility] [address] [place], [address] MCV (RBC) [Entitic vol] 81.3 fL Normal 81-99 [facility] Comment on above: Performed By: #### L 501.2450, L501.4021, L100.0100, L500.3400, L500.2500 #### [facility] [address] [place], [address] Monocytes/100 WBC (Bld) 6.5 % Normal 0-10 [facility] Comment on above: Performed By: #### L 501.2450, L501.4021, L100.0100, L500.3400, L500.2500 #### [facility] [address] [place], [address] Neutrophils/100 WBC (Bld) 68.3 % Normal 47-70 [facility] Comment on above: Performed By: #### L 501.2450, L501.4021, L100.0100, L500.3400, L500.2500 #### [facility] [address] [place], [address] Nucleated RBC (Bld) [#/Vol] 0 10*3/uL Normal 0-5 [facility] Comment on above: Performed By: #### L 501.2450, L501.4021, L100.0100, L500.3400, L500.2500 #### [facility] [address] [place], [address] Platelet mean volume (Bld) [Entitic vol] 9.8 fL Normal 6.2-12.0 [facility] Comment on above: Performed By: #### L 501.2450, L501.4021, L100.0100, L500.3400, L500.2500 #### [facility] [address] [place], [address] Platelets (Bld) [#/Vol] 303 10*3/uL Normal 150-450 [facility] Comment on above: Performed By: #### L 501.2450, L501.4021, L100.0100, L500.3400, L500.2500 #### [facility] [address] [place], [address] RBC (Bld) [#/Vol] 5.51 10*6/uL High 4.2-5.4 [facility] Comment on above: Performed By: #### L 501.2450, L501.4021, L100.0100, L500.3400, L500.2500 #### [facility] [address] [place], [address] RDW SD 42.1 fl Normal 35.1-43.9 [facility] Comment on above: Performed By: #### L 501.2450, L501.4021, L100.0100, L500.3400, L500.2500 #### [facility] [address] [place], [address] WBC (Bld) [#/Vol] 11.5 10*3/uL High 4.4-11.0 [facility] Comment on above: Performed By: #### L 501.2450, L501.4021, L100.0100, L500.3400, L500.2500 #### [facility] [address] [place], [address] Chest PA and Lateralon 03-25 Chest PA and Lateral [facility] Imaging Services [address] [place] [address] Chest PA and Lateral MR#: [id number] Acct: [id number] Name: VENUS SPIVEY Rep #: [id number] : 1960 F 64 From: Irma ellis MD PCP: CASTILLO CallawayC Status: REG ER Study: Chest PA and Lateral Date of Exam: 03/25/25 Exam# [id number] Ordering Dr: Prema Michaels DO PROCEDURE: CHEST [...] No evidence for acute abnormality. Reading Location: [place] [address] CC: TECHNICAL SYSTEMS ARCHITECT-C Yoly Black; Dr. Prema Michaels DO Dungeon Master: Signed Normal [facility] ERCP Biliary/Pancreason 02-28 ERCP Biliary/Pancreas [facility] Imaging Services [address] [place] [address] ERCP Biliary/Pancreas MR#: [id number] Acct: [id number] Name: VENUS SPIVEY Rep #: [id number] : 1960 F 64 From: Taqueria mckeon MD PCP: CASTILLO CallawayC Status: DIS IN Study: ERCP Biliary/Pancreas Date of Exam: 03/25/25 Exam# [id number] Ordering Dr: Deep Mora DO PROCEDURE: ERCP BILIARY/PANCREAS 03/25/2025 REASON FOR EXAM: ERCP TECHNIQUE: Procedure Code: RADERCP Modality: DX Procedure: ERCP BILIARY/PANCREAS. Fluoroscopic services provided for ERCP. Fluoroscopy: 18.7 seconds. Radiation dose: 6.48 mGy. A cine loop was performed. COMPARISON: None FINDINGS: Contrast was injected into the common bile duct. A balloon catheter is seen. A biliary stent was placed. RAD/ERCP Biliary/Pancreas IMPRESSION: Fluoroscopic imaging provided for ERCP. Reading Location: [id number] CC: TECHNICAL SYSTEMS ARCHITECT-C Yoly Black; Deep Mora DO Dungeon Master: Signed Normal [facility] ERCP Reporton 03-25-2025 ERCP Report [facility] Medical Records Department [address] [place] [address] ERCP Report MR#: [id number] Acct: [id number] Name: VENUS SPIVEY Rep #: [id number] : 1960 64 From: Deep Mora DO PCP: DONTE Callaway Status:ADM IN Patient Name: Venus Spivey Procedure Date: 03/25/2025 3:28 PM Date of : 1960 Age: 64 Procedure: ERCP Indications: Bile duct stone(s), Abdominal pain of suspected biliary origin, Abdominal pain of suspected pancreatic origin, Abdominal pain of suspected biliary or pancreatic origin, Biliary dilation on Computed Tomogram Scan, Biliary dilation on Ultrasound, Suspected ascending cholangitis, Elevated liver enzymes, Suspected acute pancreatitis Providers: Deep Mora DO Medicines: General Anesthesia Patient Profile: This is a 64 year old female. Refer to note in patient chart for documentation of history and physical. Patient has symptoms of acute abdominal cramping, acute right upper quadrant abdominal pain, acute epigastric abdominal pain, acute dyspepsia, acute jaundice and acute nausea. This patient has no history of previous ERCP. This patient has no history of surgical alteration of the upper digestive tract anatomy. Complications: No immediate complications. Procedure: Pre-Anesthesia Assessment: - Prior to the procedure, a History and Physical was performed, and patient medications and allergies were reviewed. The patient is competent. The risks and benefits of the procedure and the sedation options and risks were discussed with the patient. All questions were answered and informed consent was obtained. Patient identification and proposed procedure were verified by the physician in the pre-procedure area. Mental Status Examination: alert and oriented. Airway Examination: normal oropharyngeal airway and neck mobility. Respiratory Examination: clear to auscultation. Prophylactic Antibiotics: The patient does not require prophylactic antibiotics. Prior Anticoagulants: The patient has taken no anticoagulant or antiplatelet agents except for NSAID medication. ASA Grade Assessment: II - A patient with mild systemic disease. After reviewing the risks and benefits, the patient was deemed in satisfactory condition to undergo the procedure. The anesthesia plan was to use general anesthesia. Immediately prior to administration of medications, the patient was re-assessed for adequacy to receive sedatives. The heart rate, respiratory rate, oxygen saturations, blood pressure, adequacy of pulmonary ventilation, and response to care were monitored throughout the procedure. The physical status of the patient was re-assessed after the procedure. After obtaining informed consent, the scope was passed under direct vision. Throughout the procedure, the patient's blood pressure, pulse, and oxygen saturations were monitored continuously. The Duodenoscope was introduced through the mouth, and advanced to the duodenum and used to inject contrast into the bile duct and ventral pancreatic duct. The ERCP was accomplished without difficulty. The patient tolerated the procedure well. Scope In: 7:55:15 PM Scope Out: 8:14:31 PM Total Procedure Duration Time 0 hours 19 minutes 16 seconds Findings: The operational meteorologist film was normal. The esophagus was successfully intubated under direct vision. The scope was advanced to a normal major papilla in the descending duodenum without detailed examination of the pharynx, larynx and associated structures, and upper GI tract. The upper GI tract was grossly normal. The ventral pancreatic duct was deeply cannulated with the short-nosed traction sphincterotome. Contrast was injected. Opacification of the entire pancreatic ductal system was successful. The maximum diameter of the ducts was 3 mm. The entire opacified area was normal. A long 0.021 inch Jagwire was passed into the ventral pancreatic duct. One 4 Fr by 5 cm temporary stent with a single internal pigtail was placed 5 cm into the ventral pancreatic duct. Clear fluid flowed through the stent. The stent was in good position. A long 0.025 inch Jagwire was passed into the biliary tree. The short-nosed traction sphincterotome was passed over the guidewire and the bile duct was then deeply cannulated. Contrast was injected. Opacification of the entire biliary tree except for the cystic duct and gallbladder and main bile duct was successful. The maximum diameter of the ducts was 10 mm. The middle third of the main bile duct contained one stone, which was 6 mm in diameter. The main bile duct, common bile duct, common hepatic duct, hepatic duct bifurcation, left and right hepatic ducts and all intrahepatic branches and entire biliary tree were diffusely dilated, with a stone causing an obstruction. The largest diameter was 5 mm. (more content not included)... Normal [facility] Emergency Department Summary on 03-25-2025 Emergency Department Summary [facility] Medical Records Department [address] [place] [address] Emergency Department Summary 03/25/25 MR#: [id number] Acct: [id number] Name: VENUS SPIVEY Rep #: [id number] : 1960 64 From: Prema Michaels DO [...] complaints or concerns reported at this time. [facility] Medical History Pancreatitis Trigger point Insomnia [...] Negative fo (more content not included)... Normal [facility] Gallbladderon 03-25-2025 Gallbladder [facility] Imaging Services [address] [place], [place] [address] Gallbladder MR#: [id number] Acct: [id number] Name: VENUS SPIVEY Rep #: [id number] : 1960 F 64 From: Taqueria mckeon MD PCP: Yoly Black, TECHNICAL SYSTEMS ARCHITECT-C Status: REG ER Study: Gallbladder Date of Exam: 03/25/25 Exam# [id number] Ordering Dr: Prema Michaels DO PROCEDURE: GALLBLADDER [...] liver. Right parapelvic renal cyst. Reading Location: [id number] CC: DONTE Black; Dr. Prema Michaels, Dungeon Master: Signed Normal [facility] L501.4021on 03-25-2025 Trop T High Sen < 6 Normal <=14 [facility] Comment on above: Performed By: #### L 501.2450, L501.4021, L100.0100, L500.3400, L500.2500 ####[facility] [address] [place], [address] Lipaseon 03-25-2025 Lipase [Catalytic activity/Vol] 51 U/L Normal 13-75 [facility] Comment on above: Result Comment: Plea se note: LIPASE revised reference range effective 22. New Lipase methodology. Expected to produce lower values than the previous assay method. NEW Reference Range: 13 - 75 U/L Performed By: #### L 501.2450, L501.4021, L100.0100, L500.3400, L500.2500 ####[facility] [address] [place], [address] Liver Profileon 03-25-2025 Albumin [Mass/Vol] 4.7 g/dL Normal 3.4-4.8 [facility] Comment on above: Performed By: #### L 501.2450, L501.4021, L100.0100, L500.3400, L500.2500 ####[facility] [address] [place], [address] ALK PHOS 91 U/L Normal 35-104 [facility] Comment on above: Performed By: #### L 501.2450, L501.4021, L100.0100, L500.3400, L500.2500 ####[facility] [address] [place], [address] ALT [Catalytic activity/Vol] 194 U/L High <=34 [facility] Comment on above: Performed By: #### L 501.2450, L501.4021, L100.0100, L500.3400, L500.2500 ####[facility] [address] [place], [address] AST [Catalytic activity/Vol] 261 U/L High <=31 [facility] Comment on above: Performed By: #### L 501.2450, L501.4021, L100.0100, L500.3400, L500.2500 ####[facility] [address] [place], [address] Bilirubin [Mass/Vol] 0.99 mg/dL Normal 0.00-1.30 [facility] Comment on above: Performed By: #### L 501.2450, L501.4021, L100.0100, L500.3400, L500.2500 ####[facility] [address] [place], [address] Bilirubin.direct [Mass/Vol] 0.57 mg/dL High 0.00-0.30 [facility] Comment on above: Performed By: #### L 501.2450, L501.4021, L100.0100, L500.3400, L500.2500 ####[facility] [address] [place], [address] Globulin (S) [Mass/Vol] 2.8 g/dL Normal 2.2-4.2 [facility] Comment on above: Performed By: #### L 501.2450, L501.4021, L100.0100, L500.3400, L500.2500 ####[facility] [address] [place], [address] T PROT 7.5 g/dL Normal 5.9-8.4 [facility] Comment on above: Performed By: #### L 501.2450, L501.4021, L100.0100, L500.3400, L500.2500 ####[facility] [address] [place], [address] MR/OP.PROVATon 03-25-2025 MR[facility]AT [facility] Department [address] [place] [address] Provation Physician Letter MR#: [id number] Acct: [id number] Name: VENUS SPIVEY Rep #: [id number] : 1960 64 From: Deep Mora DO PCP: DONTE Callaway Status:ADM IN 03/25/2025 Yoly Black Np, Floating Labor Gang Supervisor-c Re : ERCP procedure for Venus Spivey Jignesh Black This procedure was performed on Tuesday, March 25, 2025. My impressions and recommendations are as follows: Impressions : - The entire main bile duct, entire biliary tree, left and right hepatic ducts and all intrahepatic branches, common bile duct and common hepatic duct were dilated, with a stone causing an obstruction. - Choledocholithiasis was found. Complete removal was accomplished by biliary sphincterotomy and balloon extraction. - One temporary stent was placed into the ventral pancreatic duct. - A biliary sphincterotomy was performed. - The biliary tree was swept. - One temporary stent was placed into the common bile duct. Recommendations : My findings are described in the full procedure note, which is enclosed. If I can be of further assistance, please feel free to contact me at . Sincerely, Deep Mora DO 03/25/2025 8:24:56 PM This report has been signed electronically. 03/25/252024 Date Deep Friend DO Cosigner Signature: Date (if indicated) CC: DONTE Black; DONTE Land; DONTE Stevens; Dr. Miguel Bull MD; Dr. Abraham Leon MD; YANIRA Martinez; Deep Mora DO Date Dictated: 03/25/251527 Date Transcribed: Dungeon Master: RF Signed [facility] MR/POSTOP.ANE 03-25-2025 MR/POSTOP.[facility] Medical Records Department [address] [place] [address] Anesthesia Postop Eval I 03/25/252034 MR#: [id number] Acct: [id number] Name: VENUS SPIVEY Rep #: [id number] : 1960 64 From: Aneudy Portillo MD PCP: DONTE Callaway Status:ADM IN Y Race: C Location: [place] [address] Anesthesia: Postop Eval I Current Vital Signs Temperature: 98.4 F Pulse Rate: 84 Blood Pressure: 118/66 Respiratory Rate: 16 Pulse Ox: 99 Oxygen Delivery Method: Room Air Assessment Airway patent: Yes Spontaneous unlabored respirations: Yes Mental status: Asleep nausea: No Vomiting: No Anesthesia Complication: No Fluid Hydration Crystalloid volume administer (ml): 700 Total IV fluid infused: 700 Progress Note Anesthesia document: Postop Eval 1 completed: Yes 03/25/252040 Date Aneudy Dillard Signature: Date CC: Signed [facility] MR/[id number] 03-25-2025 MR/POSTOPAN2 [facility] Medical Records Department [address] [place] [address] Anesthesia Postop Eval II 03/25/252107 MR#: [id number] Acct: [id number] Name: VENUS SPIVEY Rep #: [id number] : 1960 64 From: Aneudy Portillo MD PCP: Yoly Black, TECHNICAL SYSTEMS ARCHITECT-C Status:ADM IN Y Race: C Location: [facility] [id number] Anesthesia Postop Eval I Sum Postop Eval Completion status Anesthesia document: Postop Eval 1 completed: Yes Anesthesia Postop Eval I Summary Anesthesia Postop Eval I Summary: Anesthesia Postop Eval I: Assessment Summary Airway patent Yes 03/25/25 20:41 Spontaneous unlabored Yes 03/25/25 20:41 respirations Mental status Asleep 03/25/25 20:41 nausea No 03/25/25 20:41 Vomiting No 03/25/25 20:41 Anesthesia Postop Eval I: Fluid Summary Crystalloid volume administer 700 03/25/25 20:41 (ml) Colloids volume administered ( ml) Blood Product volume administered (ml) Total IV fluid infused 700 03/25/25 20:41 Anesthesia Postop Eval I: Summary Notes Anesthesia Complication No 03/25/25 20:41 Anesthesia Complication Comment: Post-operative progress note Anesthesia: Postop Eval II Evaluation Mental status: Awake and Calm Pain Level: 0 nausea: No Vomiting: No Complications Anesthesia Complication: No 03/25/252107 Date Aneudy Portillo MD Cosigner Signature: Date CC: Signed Normal [facility] Troponin T HS 2 HRon 025 Trop T High Sen < 6 Normal <=14 [facility] Comment on above: Performed By: #### L 499.0042 ####[facility] [address] [place], [address] Troponin T HS 4 HRon 025 Trop T High Sen Normal <=14 [facility] Comment on above: Result Comment: Canc elled via OM: MD Ordered Performed By: #### L 499.0043 #### [facility] [address] [place], [address] Urinalysis, Completeon 03-25 RBC 0-5 SEEN Normal 0-5 [facility] Comment on above: Order Comment: CLEAN CATCH Performed By: #### L 400.0001 #### [facility] [address] [place], [address] BACTERIA 1+ /hpf Normal None Seen [facility] Comment on above: Order Comment: CLEAN CATCH Performed By: #### L 400.0001 #### [facility] [address] [place], [address] EPI,SQUAMOUS 0-5 SEEN Normal 5-10 [facility] Comment on above: Order Comment: CLEAN CATCH Performed By: #### L 400.0001 #### [facility] [address] [place], [address] WBC 0-5 SEEN Normal 0-5 [facility] Comment on above: Order Comment: CLEAN CATCH Performed By: #### L 400.0001 #### [facility] [address] [place], [address] Mucus Ql (Urine sed) 0 SEEN Normal [facility] Comment on above: Order Comment: CLEAN CATCH Performed By: #### L 400.0001 #### [facility] [address] [place], [address] B12on 12-25-2024 Cobalamin (Vitamin B12) [Mass/Vol] 505 pg/mL Normal 211-911 [facility] Comment on above: Performed By: #### B 12, FERR, FES #### [place] [address] [place] 12-25-2024 Ferritin [Mass/Vol] 186.3 ng/mL Normal 8.0-252.0 [facility] Comment on above: Performed By: #### B 12, FERR, FES #### [place] [address] FESon 12-25-2024 Iron [Mass/Vol] 89 ug/dL Normal 50-170 [facility] Comment on above: Performed By: #### B 12, FERR, FES #### [place] [address] Iron Sat 32 % Normal [facility] Comment on above: Performed By: #### B 12, FERR, FES #### [place] [address] TIBC 282 mcg/dL Normal 250-500 [facility] Comment on above: Performed By: #### B 12, FERR, FES #### [place] [address] CNOVon 11-21-2024 CNOV Office Visit (NEAGCL M) VENUS SPIVEY ([id number]) 1960 F Date Time Provider Department 11/21/24 12:45 PM SONYA MCDERMOTT I NEAGCLM During your visit today, we recorded the following information about you: Pulse Respiration Blood pressure Weight 70/minute 16/minute 116/77 68.8 kg Height 1.626 m Sonya Mcdermott I, MD 11/21/2024 2:08 PM Signed NEUROSURGERY FOLLOW UP OFFICE NOTE Chair, Clinical Neurosciences Director, Spinal Neurosurgery [facility] Date of visit: November 21, 2024 Patient Name: Ms.Jeanette Spivey Date of : 1960 Current Age: [age] year old Sex: female MRN/E# [id number] Last Office Visit: 07/23/2024 Chief Complaint: Patient [...] do. Again I explained this was a lifncgu-zi-wdsk issue would not a critical surgery. She [...] as diff (more content not included)... Normal [facility] XR CERVICAL 4V AP/LAT/FLX/EX Ton 11-21-2024 [...] are normal. IMPRESSION: Degenerative changes as described. Dungeon Master: PSCB Transcribe Date/Time: Nov 28 2024 5:44A Dictated by : JOSE LAGUNA MD This examination was interpreted and the report reviewed and electronically signed by: JOSE LAGUNA MD on Nov 28 2024 5:45AM EST [id number] Normal [facility] CNOVon 07-23-2024 CNOV Office Visit (NEAGCL M) VENUS SPIVEY ([id number]) 1960 F Date Time Provider Department 07/23/24 1:30 PM SONYA MCDERMOTT I NEAGCLM During your visit today, we recorded the following information about you: Pulse Respiration Blood pressure Weight 73/minute 16/minute 163/84 71.3 kg Height 1.626 m Sonya Mcdermott I, MD 07/23/2024 2:10 PM Signed NEUROSURGERY FOLLOW UP OFFICE NOTE Chair, Clinical Neurosciences Director, Spinal Neurosurgery [facility] Date of visit: July 23, 2024 Patient Name: Ms.Jeanette Spivey Date of : 1960 Current Age: [age] year old Sex: female MRN/E# [id number] Last Office Visit: 05/28/2024 Chief Complaint: Patient [...] do. Again I explained this was a qwppctj-vs-iwlc issue would not a critical surgery. She [...] image review. PREVIOUS CONSERVATIVE TREATMENT: -Medication: Meloxicam, Humphrey -Physical therapy: Previous participation at [facility]- minimal symptom improvement. She has continued participation in home exercises/stretches as guided by physical therapy recommendations on routine basis as tolerated to present day. [facility] consultation notes can be found under scanned documents. -Previous healthca (more content not included)... Normal [facility] SCRN MAMM (CAD)W/LUIS BILATo n 07-09-2024 SCRN MAMM (CAD)W/LUIS BILAT [facility] Imaging Services [address] [place], [place] [id number] SCRN MAMM (CAD)W/LUIS BILAT MR#: [id number] Acct: [id number] Name: VENUS SPIVEY Rep #: [id number] : 1960 F 63 From: Taqueria mckeon MD PCP: Yoly Black TECHNICAL SYSTEMS ARCHITECT-C Status: REG CLI Study: SCRN MAMM (CAD)W/LUIS BILAT Date of Exam: 06/30 Exam# [id number] Ordering Dr: Ashley Herndon MD PROCEDURE: SCRN [...] of the results by letter. Reading Location: [place] [address] CC: DONTE Black; Dr. Ashley Herndon MD Dungeon Master: Signed Normal [facility] [place] 06-26-2024 Ferritin [Mass/Vol] 165.5 ng/mL Normal 8.0-252.0 [facility] Comment on above: Performed By: #### F ERR, FES #### [place] [address] FESon 06-26-2024 Iron [Mass/Vol] 71 ug/dL Normal 50-170 [facility] Comment on above: Performed By: #### F ERR, FES #### [place] [address] Iron Sat 25 % Normal [facility] Comment on above: Performed By: #### F ERR, FES #### [place] [id number] TIBC 289 mcg/dL Normal 250-500 [facility] Comment on above: Performed By: #### F ERR, FES #### [place] [id number] Spine Cervical without Contr ason 06-19-2024 Spine Cervical without Contras [facility] Imaging Services [address] [place] [address] Spine Cervical without Contras MR#: [id number] Acct: [id number] Name: VENUS SPIVEY Rep #: [id number] : 1960 F 63 From: Ricardo blanc MD PCP: Yoly Black, TECHNICAL SYSTEMS ARCHITECT-C Status: REG CLI Study: Spine Cervical without Contras Date of Exam: 0 06/19/24 Exam# [id number] Ordering Dr: JESSICA ORDAZ [id number] INDICATION: SPINAL STENOSIS EXAMINATION: CT CERVICAL SPINE [...] Corral MD at 13:38 EST , CC: TECHNICAL SYSTEMS ARCHITECT-C Yoly Black; JESSICA ORDAZ Dungeon Master: Signed [facility] 05-28-2024 CNPN Telephone (NEAGCLM) VENUS SPIVEY ([id number]) 1960 F Date Time Provider Department 05/28/24 JESSICA ORDAZ NEAGCLM During your visit today, we recorded the following information about you: Verenice Bishop 05/28/2024 1:43 PM Signed [facility] called requesting CT authorization. Patient is scheduled with them on Tuesday. Updated facility information on authorization and faxed updated CT auth to number provided ([phone]). Allergies As of Date: 05/28/2024 Noted Allergy [...] Encounter Status:Closed by VERENICE BISHOP on 05/28/24 [facility] CNOVon 05-07-2024 CNOV Office Visit (NEAGCL M) VENUS SPIVEY ([id number]) 1960 F Date Time Provider Department 05/07/24 1:00 PM SONYA MCDERMOTT I NEAGCLM During your visit today, we recorded the following information about you: Pulse Respiration Blood pressure Weight 72/minute 16/minute 114/80 70.6 kg Sonya Mcdermott I, MD 05/07/2024 1:34 PM Signed NEUROSURGERY FOLLOW UP OFFICE NOTE Chair, Clinical Neurosciences Director, Spinal Neurosurgery [facility] Date of visit: May 07, 2024 Patient Name: Ms.Jeanette Spivey Date of : 1960 Current Age: [age] year old Sex: female MRN/E# [id number] Last Office Visit: 04/30/2024 Chief Complaint: Patient [...] for a second opinion was seen by ANYN Warren, GEETHA. She reported she was scheduled [...] this time. PREVIOUS CONSERVATIVE TREATMENT: -Medication: Meloxicam, Humphrey -Physical therapy: Previous participation at [facility]- minimal symptom improvement. She has continued participation in home exercises/stretches as guided by physical therapy recommendations on routine basis as tolerated to present day. [facility] consultation notes can be found under scanned documents. -Previous healthcare providers: Faviola Carroll and was recommended a C5-C7 ACDF -Pain Management: Follows with [facility] - consult note can be found under scanned documents -Injections: Cervical injection at [facility] - 30% symptom relief that lasted for [...] this visit. REVI (more content not included)... [facility] Telephone (NEAGCLM) VENUS SPIVEY ([id number]) 1960 F Date Time Provider Department 04/30/24 JESSICA ORDAZ NEAGCLM During your visit today, we recorded the following information about you: Verenice Bishop 04/30/2024 11:02 AM Signed Patient requested to have MRI at [facility]. Received authorization. Faxed order and authorization information to [facility]. Allergies As of Date: 04/30/2024 Noted Allergy Reaction DEMEROL (MEPERIDINE (PF)) 02/03/2012 11 - Vomiting VERSED (MIDAZOLAM) 02/03/2012 11 - Vomiting MORPHINE 02/03/2012 11 - Vomiting Date Reviewed: 04/20/2024 Reviewed by: Yvonne Aldridge MA - Fully Assessed Reason for Visit: MRI Appointment [3267] Prescriptions as of 04/30/2024 - HYDROcodone-acetaminophen (NORCO) [...] by VERENICE BISHOP on 04/30/24 [facility] CNOVon 04-20-2024 [facility] Office Visit (NEAGCL M) VENUS SPIVEY ([id number]) 1960 F Date Time Provider Department 04/20/24 [...] Age: [age] year old Sex: female MRN/E# [id number] Last Office Visit: Visit date not found [...] bladder incontinence. PREVIOUS CONSERVATIVE TREATMENT: -Medication: Meloxicam, Humphrey -Physical therapy: Previous participation at [facility]- minimal symptom improvement. She has continued participation in home exercises/stretches as guided by physical therapy recommendations on routine basis as tolerated to present day. [facility] consultation notes can be found under scanned documents. -Previous healthcare providers: [place]- Dr. Carroll and was recommended a C5-C7 ACDF -Pain Management: Follows with [facility] - consult note can be found under scanned documents -Injections: Cervical injection at [facility] - 30% symptom relief that lasted for [...] for difficulty (more content not included)... Normal [facility] [place] 04-20-2024 [facility] Telephone (NEAGCLM) VENUS SPIVEY ([id number]) 1960 F Date Time Provider Department 04/20/24 JESSICA ORDAZ NEAGCLM During your visit today, [...] Encounter Status:Closed by EDER HARRISON on 04/20/24 [facility] XR CERVICAL 4V AP/LAT/FLX/EX Ton [...] in the facets. IMPRESSION: Severe degenerative changes. Dungeon Master: PARI Transcribe Date/Time: Apr 24 2024 12:28P Dictated by : SON BOYER MD This examination was interpreted and the report reviewed and electronically signed by: SON BOYER MD on Apr 24 2024 12:29PM EST [id number] [facility] 36on 04-10-2024 36 Spoke with pt and re layed note. They verbalized understanding. [facility] 36 Unfortunately, we ar e not very familiar with the [facility] spine provider to be able to make a recommendation. Please let her know. Thank you. [facility] 36 Pt called stating th at she really wants to have surgery done with you, but you are out of network with her insurance. Pt would like to know if you have a surgeon that you would recommend within [facility]. [facility] 36on 03-20-2024 36 Pt states she want t o change insurance and wait until the new year to have Sx with Dr. Carroll. Pt was notified to call me with updated ins info YUAN. Tentative date of 06/18/2023 given to pt. [facility] 36 Received email from ins verification. Pt's ins is OON and will need to pay 50% and single case agreement will need to be submitted. LVM for cb to discuss with pt. [facility] CBC (HEMOGRAM)on 03-19-2024 Erythrocyte distribution width (RBC) [Ratio] 14.1 % Normal 11.5-15.0 [facility] Comment on above: Performed By: #### L AB294 ####Drug Purchaser: CLINT PANTOJA ([id number])[facility] ([address] Hematocrit (Bld) [Volume fraction] 43.9 % Normal 35.0-47.0 [facility] Comment on above: Performed By: #### L AB294 ####Drug Purchaser: CLINT PANTOJA ([id number])[facility] ([facility])[address] [place] [address] Hemoglobin (Bld) [Mass/Vol] 13.3 g/dL Normal 11.7-16.0 [facility] Comment on above: Performed By: #### L AB294 ####Drug Purchaser: CLINT PANTOJA ([id number])[facility])[address] [place] [address] MCH (RBC) [Entitic mass] 24.8 pg Low 26.0-34.0 [facility] Comment on above: Performed By: #### L AB294 ####Drug Purchaser: CLINT PANTOJA ([id number])[facility])[address] [place] [address] MCHC 30.3 % Low 30.5-36.0 [facility] Comment on above: Performed By: #### L AB294 ####Drug Purchaser: CLINT PANTOJA ([id number])[facility] ([facility])[address] [place] [address] MCV (RBC) [Entitic vol] 81.8 fL Normal 77.0-99.0 [facility] Comment on above: Performed By: #### L AB294 ####Drug Purchaser: CLINT PANTOJA ([id number])[facility] ([facility])[address] [place] [address] Platelet mean volume (Bld) [Entitic vol] 9.7 fL Normal 9.0-12.7 [facility] Comment on above: Performed By: #### L AB294 ####Drug Purchaser: CLINT PANTOJA ([id number])[facility] ([facility])[address] [place] [address] Platelets (Bld) [#/Vol] 283 10*3/uL Normal 140-440 [facility] Comment on above: Performed By: #### L AB294 ####Drug Purchaser: CLINT PANTOJA ([id number])[facility])[address] [place] [address] RBC (Bld) [#/Vol] 5.37 10*6/uL High 3.80-5.20 [facility] Comment on above: Performed By: #### L AB294 ####Drug Purchaser: CLINT PANTOJA ([id number])[facility] ([facility])[address] [place] [address] WBC (Bld) [#/Vol] 6.4 10*3/uL Normal 3.6-10.7 [facility] Comment on above: Performed By: #### L AB294 ####Drug Purchaser: CLINT JOANNADAVID ([id number])[facility] ([facility])[address] [place] [address] PREPROCINSon 03-19-2024 PREPROCINS Medication List Accurate as [...] HYDROcodone-acetaminophen 5-325 MG tablet Commonly known as: Humphrey Notes to patient: Not taking meloxicam 15 MG tablet Commonly known as: Mobic Notes to patient: Hold 7 days prior to surgery omeprazole OTC 20 MG EC tablet Commonly known as: PriLOSEC OTC Notes to patient: May take if needed Additional Instructions: HORSERADISH MAKER AND PARKING IN THE MAIN DECK ARE [...] your scheduled surgery time. Please bring your [facility] Surgical folder and medication list with you day of surgery. We encourage you to write down any questions you may have for the surgeon, anesthesiologist, or other members of the surgical team and bring it with you the day of surgery. Please bring photo ID and insurance information. Normal [facility] Progress Noteon 03-19-2024 Progress Note [facility]AN[facility]ALVA INDIRA Sancheztler : 1960 Primary Care Physician: No primary care provider on file. The patient and/or family/surrogate voluntarily agreed to participate in ACP services. Patient?s cognitive capacity: Patient is Alert and [place] to person, place and time Code Status: [x] [FULL CODE - Continue all advanced life support: CPR,intubation,invasive procedures] [_] [DNR-CCA - DO NOT do CPR, intubation] [_] [DNR-HARDWARE TEST ENGINEER - Comfort care only] [_] DNR form [was/was not] signed Summary of discussion: The patient health care POA/ surrogate is the following: Marc Spivey, spouse. [Condition that instigated the ACP on [...] patient and/or family/surrogate. Rosemary Cabello APRN - ROASTER HELPER [facility] care solutions 03/19/2024, 2:58 PM [facility] XR ESOPHOGRAM W/BARIUM TABLE Ton 03-15-2024 XR [...] by: Miguel Reynaga MD Preliminary Report By: iMguel Reynaga MD Electronically signed By Miguel Reynaga MD Dictated Date: 03/15/2024 1:21:40 PM Prelim Date: 03/15/2024 1:24:47 PM Sign Date: 03/15/2024 1:24:47 PM Ordering Provider: WYATT YEE [facility] 36on 02-29-2024 36 Spoke with pt and te ntative Sx date on 03/26 was given. Spoke with SAM Arriaga. Ref #: [id number] Surg 03/26 730 PAT 03/19 230 PO 04/10 10 Case# [id number] Patient aware of all appointments and times [facility] 36 ----- Message from Jonny Carroll MD sent at 02/28/2024 12:13 PM EDT ----- Anterior cervical 5-6 and 6-7 disc replacements 2 hours 1 night [id number] Normal [facility] Office Visiton 02-28-2024 Follow-up visit [id number] Milo Spivey 1960 F Date Provider Department Center 02/28/2024 85976-FRWHMNBLAISE CARROLL [facility] NROSURG None No family history on file Level of Service:94721 CT OFFICE/OUTPATIENT NEW MODERATE MDM 45 MINUTES Reason for Visit and Comments: New Patient [542] - bulging disc. will bring imaging with them to their appointment Normal [facility] Progress Noteon 02-28-2024 Progress Note NEUROSURGERY CONSULT [...] by mouth. 11/15/22 Yes Historical Provider, HYDROcodone-acetaminophen (Humphrey) 5-325 MG tablet 01/05/24 Yes Historical Provider, [...] C5-C7 disce (more content not included)... Normal [facility] 36on 02-21-2024 36 Patient states she i s not sure if her most recent imaging has been within the last year. She will bring a disk for review if so. Normal [facility] CNOVon 04-18-2023 CNOV Office Visit (UCMMAS ) VENUS SPIVEY ([id number]) 1960 F Date Time Provider Department 04/18/23 [...] (gastroesophageal reflux disease) Lymphadenitis Mental disorder Stroke ([facility]) 2012 ACTIVE PROBLEM LIST Hematuria Left Lower [...] Order(s):TDAP VACCINE, AGE 7+ YR (ADACEL, BOOSTRIX) [[id number]] Order #: [id number] cephALEXin (KEFLEX) 500 mg capsuleTake 1 capsule [...] Encounter Status:Closed by SURAJ SAINI on 04/18/23 [facility] Final Surgical Pathology Rep adolph 12-09-2022 Final Surgical Pathology Report . Pathology Reports Accession: Collected Date/Time: Received Date/Time: Pathologist: [id number] 12/02/2022 11:59 EDT 12/03/2022 13:44 EDT BISHNU [...] All parts labelled with patient name and [id number] A. Received in formalin labeled gastric biopsy are multiple estrada tissue fragments aggregating 1.0 x 0.3 x 0.1 cm. TS-1 B. Received in formalin labeled esophageal biopsy are 3 wispy white tissue fragments measuring less than 0.1 to 0.4 x 0.2 cm. TS-1 Bita Stevenson, Grossing Tank Wagon Operator/ Dr. Bishnu Al, Pathologist Dictated by Bita Stevenson MICROSCOPIC DESCRIPTION: The microscopic examination is performed, except in the case of Gross Only. Electronically Signed by Pathology Report verified by [facility] BISHNU AL Sign out Date: 12/09/2022 12:40 Performing Lab: [facility], [address] [place] [address] Pathology Dept Disclaimer If ancillary studies were utilized, the following Laboratory Developed Test (LDT) disclaimer will apply: Under CLIA requirements, [facility] Pathology Laboratory is qualified to perform high complexity testing. For all ancillary stains, positive and negative controls stain appropriately. Performance characteristics of immunohistochemical and chromogenic in-situ hybridization tests have been determined by [facility] Pathology Laboratory. These tests are used for clinical purposes, They should not be regarded as investigational or for research. Normal [facility] ([place]) Basophil percentageOrdered B y: Dr. Yee on 11-17-2022 Bilirubin [Mass/Vol] 0.20 mg/dL 0.20-1.00 [facility] Comment on above: For patients on eltr ombopag therapy, use of Dimension [place] TBIL is not recommended. Chloride [Moles/Vol] 106 mmol/L 98-107 [facility] Glucose [Mass/Vol] 90 mg/dL 74-106 [facility] Potassium [Moles/Vol] 4.3 mmol/L 3.5-5.1 [facility] Protein [Mass/Vol] 7.1 g/dL 6.4-8.2 [facility] Sodium [Moles/Vol] 142 mmol/L 136-145 [facility] WBC (Bld) [#/Vol] 6.3 10*3/uL 4.4-11.0 [facility] Blood erythrocytes count (nu mber/volume)Ordered By: Dr. Yee on 11-17-2022 RBC (Bld) [#/Vol] 5.18 10*6/uL 4.2-5.4 [facility] Blood hemoglobin measurement (mass/volume)Ordered By: Dr. Yee on 11-17-2022 Hemoglobin (Bld) [Mass/Vol] 13.2 g/dL 12.0-15.0 [facility] Blood platelet mean volumeOr dered By: Dr. Yee on 11-17-2022 Platelet mean volume (Bld) [Entitic vol] 10.4 fL 6.2-12.0 [facility] Determination of erythrocyte mean corpuscular volume (MCV)Ordered By: Dr. Yee on 11-17-2022 MCV (RBC) [Entitic vol] 84.2 fL 81-99 [facility] Hematocrit Auto (Bld) [Volum e fraction]Ordered By: Dr. Yee on 11-17-2022 Hematocrit (Bld) [Volume fraction] 43.6 % 37-47 [facility] Laboratory - Chemistry and C hemistry - challengeOrdered By: Dr. Yee on 11-17-2022 ALP [Catalytic activity/Vol] 89 U/L 45-117 [facility] ALT [Catalytic activity/Vol] 31 U/L 13-56 [facility] CO2 [Moles/Vol] 28.0 mmol/L 21.0-32.0 [facility] Cobalamin (Vitamin B12) [Mass/Vol] 426 pg/mL 211-911 [facility] Globulin (S) [Mass/Vol] 3.1 g/dL 2.2-4.2 [facility] Lipase [Catalytic activity/Vol] 50 U/L 13-75 [facility] Comment on above: Please note:LIPASE r evised reference range effective 22. New Lipase methodology. Expected to produce lower values than the previous assay method. NEW Reference Range: 13 - 75 U/L Urea nitrogen/Creatinine [Mass ratio] 26.6 mg/mg 10-20 [facility] Laboratory - Hematology and Cell countsOrdered By: Dr. Yee on 11-17-2022 Erythrocyte distribution width (RBC) [Entitic vol] 44.4 fL 35.1-43.9 [facility] Erythrocyte distribution width (RBC) [Ratio] 14.5 % 11.6-14.6 [facility] MCH (RBC) [Entitic mass] 25.5 pg 27.0-32.0 [facility] MCHC Auto (RBC) [Mass/Vol]Or dered By: Dr. Yee on 11-17-2022 MCHC (RBC) [Mass/Vol] 30.3 g/dL 32-36 [facility] No Panel InformationOrdered By: Dr. Yee on 11-17-2022 Estimated GFR (MDRD) Amer 121 mL/min >60 [facility] Comment on above: GFR Calc Estimated GFR (MDRD) Non-Af Amer 100 mL/min >60 [facility] Comment on above: Non- GFR Calc Platelets bldOrdered By: Dr. Yee on 11-17-2022 Platelets (Bld) [#/Vol] 250 10*3/uL 150-450 [facility] Serum or plasma C reactive p rotein measurement (mass/volume)Ordered By: Dr. Yee on 11-17-2022 CRP [Mass/Vol] mg/L 0.0-3.0 [facility] Comment on above: C-Reactive Protein ( CRP) provides useful information for thediagnosis, therapy and monitoring of inflammatory processesand associated diseases. For the evaluation of Relative Riskfor Cardiovascular Disease, a High Sensitivity CRP (HSCRP)should be ordered. Serum or plasma albumin aniya urement (mass/volume)Ordered By: Dr. Yee on 11-17-2022 Albumin [Mass/Vol] 4.0 g/dL 3.2-5.0 [facility] Serum or plasma albumin/glob ulin mass ratioOrdered By: Dr. Yee on 11-17-2022 Albumin/Globulin [Mass ratio] 1.3 {ratio} 0.9-2.4 [facility] Serum or plasma calcium aniya urement (mass/volume)Ordered By: Dr. Yee on 11-17-2022 Calcium [Mass/Vol] 9.5 mg/dL 8.5-10.1 [facility] Serum or plasma creatinine m easurement (mass/volume)Ordered By: Dr. Yee on 11-17-2022 Creatinine [Mass/Vol] 0.64 mg/dL 0.55-1.02 [facility] Comment on above: The validity of the calculated GFR & GFRAA in patients over 70 years has not been determined. Clinical correlation is essential. Serum or plasma urea nitroge n measurement (mass/volume)Ordered By: Dr. Yee on 11-17-2022 Urea nitrogen [Mass/Vol] 17 mg/dL - [facility] Thin prep Papanicolaou smear with manual screeningOrdered By: Dr. Yee on 11-17-2022 Thin prep Papanicolaou smear with manual screening 15 U/L 15-37 [facility] Thin prep Papanicolaou smear with manual screening 8 5-15 [facility] BASIC METABOLIC PANELon 05 Anion gap [Moles/Vol] 12 mmol/L Normal 9-18 [facility] Comment on above: Order Comment: @ COL L DATE was changed from 10/09/22 to 10/10/22 @ by 2053. Old specimen was [id number]. Performed By: #### L IPA 1, BMP, CKMB 1, CBC, PT, TROP 1 #### Main Lab - [facility] [address] [place], [place] [address] BUN/CREATININE RATIO 25.0 Ratio Normal 5.0-42.0 [facility] Comment on above: Order Comment: @ COL L DATE was changed from 10/09/22 to 10/10/22 @ by 2053. Old specimen was [id number]. Performed By: #### L IPA 1, BMP, CKMB 1, CBC, PT, TROP 1 #### Main Lab - [facility] [address] [place], [place] [address] Calcium [Mass/Vol] 10.5 mg/dL High 8.4-10.2 [facility] Comment on above: Order Comment: @ COL L DATE was changed from 10/09/22 to 10/10/22 @ by 2053. Old specimen was [id number]. Performed By: #### L IPA 1, BMP, CKMB 1, CBC, PT, TROP 1 #### Main Lab - [facility] [address] [place], [place] [address] Chloride [Moles/Vol] 106 mmol/L Normal 98-107 [facility] Comment on above: Order Comment: @ COL L DATE was changed from 10/09/22 to 10/10/22 @ by 2053. Old specimen was [id number]. Performed By: #### L IPA 1, BMP, CKMB 1, CBC, PT, TROP 1 #### Main Lab - [facility] [address] [place] [address] CO2 [Moles/Vol] 28 mmol/L Normal 22-31 [facility] Comment on above: Order Comment: @ COL L DATE was changed from 10/09/22 to 10/10/22 @ by 2053. Old specimen was [id number]. Performed By: #### L IPA 1, BMP, CKMB 1, CBC, PT, TROP 1 #### Main Lab - [facility] [address] Creatinine [Mass/Vol] 0.64 mg/dL Low 0.80-1.30 [facility] Comment on above: Order Comment: @ COL L DATE was changed from 10/09/22 to 10/10/22 @ by 2053. Old specimen was [id number]. Performed By: #### L IPA 1, BMP, CKMB 1, CBC, PT, TROP 1 #### Main Lab - [facility] [place], [place] [address] ESTIMATED CREAT CLEARANCE 79.[address] [facility] Comment on above: Order Comment: @ COL L DATE was changed from 10/09/22 to 10/10/22 @ by 2053. Old specimen was [id number]. Result Comment: COCK CROFT-GAULT FORMULA 1972 Performed By: #### L IPA 1, BMP, CKMB 1, CBC, PT, TROP 1 #### Main Lab - [facility] [address] [place], [place] [address] ESTIMATED GLOMERULAR FILT RATE > 60.[address] [facility] Comment on above: Order Comment: @ COL L DATE was changed from 10/09/22 to 10/10/22 @ by 2053. Old specimen was [id number]. Performed By: #### L IPA 1, BMP, CKMB 1, CBC, PT, TROP 1 #### [facility] - [address] [address] Glucose [Mass/Vol] 124 mg/dL High 70-99 [facility] Comment on above: Order Comment: @ COL L DATE was changed from 10/09/22 to 10/10/22 @ by 2053. Old specimen was [id number]. Result Comment: The glucose range is based on recommendations from the [place] [employer] for fasting blood glucose range. Performed By: #### L IPA 1, BMP, CKMB 1, CBC, PT, TROP 1 #### [facility] - [address] [address] Potassium [Moles/Vol] 3.6 mmol/L Normal 3.6-5.0 [facility] Comment on above: Order Comment: @ COL L DATE was changed from 10/09/22 to 10/10/22 @ by 2053. Old specimen was [id number]. Performed By: #### L IPA 1, BMP, CKMB 1, CBC, PT, TROP 1 #### [facility] - [address] [address] Sodium [Moles/Vol] 142 mmol/L Normal 137-145 [facility] Comment on above: Order Comment: @ COL L DATE was changed from 10/09/22 to 10/10/22 @ by 2053. Old specimen was [id number]. Performed By: #### L IPA 1, BMP, CKMB 1, CBC, PT, TROP 1 #### Main Lab - [address] [address] Urea nitrogen [Mass/Vol] 16 mg/dL Normal 7-21 [facility] Comment on above: Order Comment: @ COL L DATE was changed from 10/09/22 to 10/10/22 @ by 2053. Old specimen was [id number]. Performed By: #### L IPA 1, BMP, CKMB 1, CBC, PT, TROP 1 #### [facility] - [facility] [address] [place] [address] AGE,PATIENT [address] [facility] Comment on above: Order Comment: @ COL L DATE was changed from 10/09/22 to 10/10/22 @ by 2053. Old specimen was [id number]. Performed By: #### L IPA 1, BMP, CKMB 1, CBC, PT, TROP 1 #### Main Lab - [facility] [address] [place] [address] CBC WITH AUTO DIFFon 023 BASO, ABSOLUTE (AUTO) 0.0 10 3/uL Normal 0.0-0.2 [facility] Comment on above: Order Comment: @ COL L DATE was changed from 10/09/22 to 10/10/22 @ by 2053. Old specimen was [id number]. Performed By: #### L IPA 1, BMP, CKMB 1, CBC, PT, TROP 1 #### [facility] - [address] [address] Basophils/100 WBC (Bld) 0.6 % Normal 0.0-1.0 [facility] Comment on above: Order Comment: @ COL L DATE was changed from 10/09/22 to 10/10/22 @ by 2053. Old specimen was [id number]. Performed By: #### L IPA 1, BMP, CKMB 1, CBC, PT, TROP 1 #### [facility] - [facility] [address] [place] [address] EOSINOPHILS, ABSOLUTE (AUTO) 0.1 10 3/uL Normal 0.0-0.7 [facility] Comment on above: Order Comment: @ COL L DATE was changed from 10/09/22 to 10/10/22 @ by 2053. Old specimen was [id number]. Performed By: #### L IPA 1, BMP, CKMB 1, CBC, PT, TROP 1 #### [facility] - [facility] [address] [place] [address] Eosinophils/100 WBC (Bld) 0.8 % Normal 0.0-5.0 [facility] Comment on above: Order Comment: @ COL L DATE was changed from 10/09/22 to 10/10/22 @ by 2053. Old specimen was [id number]. Performed By: #### L IPA 1, BMP, CKMB 1, CBC, PT, TROP 1 #### Main Lab - [address] [address] Erythrocyte distribution width (RBC) [Ratio] 14.8 % High 11.5-14.0 [facility] Comment on above: Order Comment: @ COL L DATE was changed from 10/09/22 to 10/10/22 @ by 2053. Old specimen was [id number]. Performed By: #### L IPA 1, BMP, CKMB 1, CBC, PT, TROP 1 #### Main Lab - [address] [address] Hematocrit (Bld) [Volume fraction] 41.4 % Normal 34.8-45.0 [facility] Comment on above: Order Comment: @ COL L DATE was changed from 10/09/22 to 10/10/22 @ by 2053. Old specimen was [id number]. Performed By: #### L IPA 1, BMP, CKMB 1, CBC, PT, TROP 1 #### [facility] - [address] [address] Hemoglobin (Bld) [Mass/Vol] 13.7 g/dL Normal 11.6-14.9 [facility] Comment on above: Order Comment: @ COL L DATE was changed from 10/09/22 to 10/10/22 @ by 2053. Old specimen was [id number]. Performed By: #### L IPA 1, BMP, CKMB 1, CBC, PT, TROP 1 #### [facility] - [address] [address] LYMPHOCYTES, ABSOLUTE (AUTO) 1.3 10 3/uL Normal 1.0-3.5 [facility] Comment on above: Order Comment: @ COL L DATE was changed from 10/09/22 to 10/10/22 @ by 2053. Old specimen was [id number]. Performed By: #### L IPA 1, BMP, CKMB 1, CBC, PT, TROP 1 #### [address] [address] Lymphocytes/100 WBC (Bld) 16.3 % Low 24.0-44.0 [facility] Comment on above: Order Comment: @ COL L DATE was changed from 10/09/22 to 10/10/22 @ by 2053. Old specimen was [id number]. Performed By: #### L IPA 1, BMP, CKMB 1, CBC, PT, TROP 1 #### [facility] - [address] [address] MCH (RBC) [Entitic mass] 25.7 pg Low 27.0-31.0 [facility] Comment on above: Order Comment: @ COL L DATE was changed from 10/09/22 to 10/10/22 @ by 2053. Old specimen was [id number]. Performed By: #### L IPA 1, BMP, CKMB 1, CBC, PT, TROP 1 #### [address] [address] MCHC (RBC) [Mass/Vol] 33.0 g/dL Normal 32.0-36.0 [facility] Comment on above: Order Comment: @ COL L DATE was changed from 10/09/22 to 10/10/22 @ by 2053. Old specimen was [id number]. Performed By: #### L IPA 1, BMP, CKMB 1, CBC, PT, TROP 1 #### [address] [address] MCV (RBC) [Entitic vol] 77.8 fL Low 78.0-100.0 [facility] Comment on above: Order Comment: @ COL L DATE was changed from 10/09/22 to 10/10/22 @ by 2053. Old specimen was [id number]. Performed By: #### L IPA 1, BMP, CKMB 1, CBC, PT, TROP 1 #### [address] [address] MONOCYTES, ABSOLUTE (AUTO) 0.3 10 3/uL Normal 0.2-0.8 [facility] Comment on above: Order Comment: @ COL L DATE was changed from 10/09/22 to 10/10/22 @ by 2053. Old specimen was [id number]:[id number]. Performed By: #### L IPA 1, BMP, CKMB 1, CBC, PT, TROP 1 #### Main Lab - [facility] [address] Monocytes/100 WBC (Bld) 4.1 % Normal 1.7-9.3 [facility] Comment on above: Order Comment: @ COL L DATE was changed from 10/09/22 to 10/10/22 @ by 2053. Old specimen was [id number]. Performed By: #### L IPA 1, BMP, CKMB 1, CBC, PT, TROP 1 #### Main Lab - [address] [address] NEUTROPHILS, ABSOLUTE (AUTO) 6.3 10 3/uL Normal 1.5-6.7 [facility] Comment on above: Order Comment: @ COL L DATE was changed from 10/09/22 to 10/10/22 @ by 2053. Old specimen was [id number]. Performed By: #### L IPA 1, BMP, CKMB 1, CBC, PT, TROP 1 #### [facility] - [facility] [address] Neutrophils/100 WBC (Bld) 78.2 % High 36.0-66.0 [facility] Comment on above: Order Comment: @ COL L DATE was changed from 10/09/22 to 10/10/22 @ by 2053. Old specimen was [id number]:[id number]. Performed By: #### L IPA 1, BMP, CKMB 1, CBC, PT, TROP 1 #### Main Lab - [facility] [address] PLATELET COUNT 280 10 3/uL Normal 150-450 [facility] Comment on above: Order Comment: @ COL L DATE was changed from 10/09/22 to 10/10/22 @ by 2053. Old specimen was [id number]. Performed By: #### L IPA 1, BMP, CKMB 1, CBC, PT, TROP 1 #### Main Lab - [facility] [address] Platelet mean volume (Bld) [Entitic vol] 8.3 fL Normal 6.0-9.5 [facility] Comment on above: Order Comment: @ COL L DATE was changed from 10/09/22 to 10/10/22 @ by 2053. Old specimen was [id number]. Performed By: #### L IPA 1, BMP, CKMB 1, CBC, PT, TROP 1 #### Main Lab - [facility] [address] [place] [address] RED BLOOD COUNT 5.32 x10 6/uL High 3.89-5.30 [facility] Comment on above: Order Comment: @ COL L DATE was changed from 10/09/22 to 10/10/22 @ by 2053. Old specimen was [id number]. Performed By: #### L IPA 1, BMP, CKMB 1, CBC, PT, TROP 1 #### Main Lab - [facility] [address] WHITE BLOOD COUNT 8.1 10 3/uL Normal 4.0-10.5 [facility] Comment on above: Order Comment: @ COL L DATE was changed from 10/09/22 to 10/10/22 @ by 2053. Old specimen was [id number]. Performed By: #### L IPA 1, BMP, CKMB 1, CBC, PT, TROP 1 #### Main Lab - [facility] [address] [place] [address] CREATINE KINASE MBon 023 CK.MB [Mass/Vol] 1.9 ng/mL Normal 0.0-3.7 [facility] Comment on above: Order Comment: @ COL L DATE was changed from 10/09/22 to 10/10/22 @ by 2053. Old specimen was 0513:[id number]. Performed By: #### L IPA 1, BMP, CKMB 1, CBC, PT, TROP 1 #### Main Lab - [facility] [address] [place] [address] ED Physician Documentationon 10-10-2022 ED Physician Documentation [address] [address] Physician Documentation Signed:[id number] Name: VENUS SPIVEY MRUN: [id number] : 1960 Loc: ED Age / Sex: [...] GI/Abdominal Exam: (more content not included)... Normal [facility] LIPASEon 10-10-2022 Lipase [Catalytic activity/Vol] 44 U/L Normal 23-300 [facility] Comment on above: Order Comment: @ COL L DATE was changed from 10/09/22 to 10/10/22 @ by 2053. Old specimen was [id number]. Performed By: #### L IPA 1, BMP, CKMB 1, CBC, PT, TROP 1 #### Main Lab - [facility] [address] [place], [place] [address] PT WITH INRon 10-10-2022 INR Coag (PPP) [Relative time] 0.8 {INR} Normal [facility] Comment on above: Order Comment: @ COL L DATE was changed from 10/09/22 to 10/10/22 @ by 2053. Old specimen was 0513:[id number]. Result Comment: JOSE MMENDED RANGES FOR INR: Therapeutic range for standard therapy INR: 2.0-3.0 Therapeutic range for high dose therapy INR: 2.5-3.5 Performed By: #### L IPA 1, BMP, CKMB 1, CBC, PT, TROP 1 #### Main Lab - [facility] [place], [place] [address] PT Coag (PPP) [Time] 11.6 s Normal 11.3-14.8 [facility] Comment on above: Order Comment: @ COL L DATE was changed from 10/09/22 to 10/10/22 @ by 2053. Old specimen was [id number]:[id number]. Performed By: #### L IPA 1, BMP, CKMB 1, CBC, PT, TROP 1 #### Main Lab - [facility] [place], [place] [address] TROPONIN Ion 10-10-2022 Troponin I.cardiac [Mass/Vol] ng/mL Normal 0.0-0.03 [facility] Comment on above: Result Comment: Refe rence Interval < or = 0.03 ng/mL Clinical Correlation Needed 0.03 - 0.11 ng/mL AMI Cutoff, Presumptive = or > 0.12 ng/mL Performed By: #### T ROP 1 #### Main Lab - [facility] [address] [place] [address] Troponin I.cardiac [Mass/Vol] ng/mL Normal 0.0-0.03 [facility] Comment on above: Order Comment: @ COL L DATE was changed from 10/09/22 to 10/10/22 @ by 2053. Old specimen was [id number]. Result Comment: Refe rence Interval < or = 0.03 ng/mL Clinical Correlation Needed 0.03 - 0.11 ng/mL AMI Cutoff, Presumptive = or > 0.12 ng/mL Performed By: #### L IPA 1, BMP, CKMB 1, CBC, PT, TROP 1 #### Main Lab - [facility] [address] [place], [place] [address] URINE PROTOCOLon 10-10-2022 AMORPHOUS SEDIMENT,UR MOD Normal [facility] Comment on above: Order Comment: Clean Catch None Apply Asymptomatic Performed By: #### U A w RFX x2 #### Main Lab - [facility] [address] [place], [place] [address] BLOOD,URINE SMALL Abnormal NEGATIVE [facility] Comment on above: Order Comment: Clean Catch None Apply Asymptomatic Performed By: #### U A w RFX x2 #### Main Lab - [facility] [address] [place] [address] Clarity (U) CLOUDY Abnormal [facility] Comment on above: Order Comment: Clean Catch None Apply Asymptomatic Performed By: #### U A w RFX x2 #### [facility] - [facility] [address] [place], [place] [address] Color (U) YELLOW Normal [facility] Comment on above: Order Comment: Clean Catch None Apply Asymptomatic Performed By: #### U A w RFX x2 #### Main Lab - [facility] [address] [place] [address] Glucose Ql (U) Negative Normal NEGATIVE [facility] Comment on above: Order Comment: Clean Catch None Apply Asymptomatic Performed By: #### U A w RFX x2 #### [facility] [address] [place] [address] Ketones Ql (U) Negative Normal NEGATIVE [facility] Comment on above: Order Comment: Clean Catch None Apply Asymptomatic Performed By: #### U A w RFX x2 #### Main Lab - [facility] [address] [place] [address] Leukocyte esterase Test strip Ql (U) TRACE Abnormal NEGATIVE [facility] Comment on above: Order Comment: Clean Catch None Apply Asymptomatic Performed By: #### U A w RFX x2 #### Main Lab - [facility] [address] [place] [address] MUCUS,URINE TRACE Normal [facility] Comment on above: Order Comment: Clean Catch None Apply Asymptomatic Performed By: #### U A w RFX x2 #### Main Lab - [facility] [address] [place], [place] [address] NITRITE,URINE Negative Normal NEGATIVE [facility] Comment on above: Order Comment: Clean Catch None Apply Asymptomatic Performed By: #### U A w RFX x2 #### Main Lab - [facility] [address] [place], [place] [address] OTHER CRYSTALS,URINE FEW Normal [facility] Comment on above: Order Comment: Clean Catch None Apply Asymptomatic Performed By: #### U A w RFX x2 #### Main Lab - [facility] [address] [place], [place] [address] pH (U) 7.0 [pH] Normal 5.0-8.0 [facility] Comment on above: Order Comment: Clean Catch None Apply Asymptomatic Performed By: #### U A w RFX x2 #### Main Lab - [facility] [place], [place] [address] PROTEIN,URINE Negative Normal NEGATIVE [facility] Comment on above: Order Comment: Clean Catch None Apply Asymptomatic Performed By: #### U A w RFX x2 #### Main Lab - [facility] [address] [place], [place] [address] RBC,URINE 0-[address] [facility] Comment on above: Order Comment: Clean Catch None Apply Asymptomatic Performed By: #### U A w RFX x2 #### Main Lab - [facility] [address] [place], [place] [address] SPECIFIC GRAVITY,URINE 1.010 SP.GR. Normal <1.029 [facility] Comment on above: Order Comment: Clean Catch None Apply Asymptomatic Performed By: #### U A w RFX x2 #### Main Lab - [facility] [address] [place], [place] [address] UROBILINOGEN,URINE Negative Normal <2 mg/dL [facility] Comment on above: Order Comment: Clean Catch None Apply Asymptomatic Performed By: #### U A w RFX x2 #### Main Lab - [facility] [address] [place], [place] [address] WBC,URINE 0-[address] [facility] Comment on above: Order Comment: Clean Catch None Apply Asymptomatic Result Comment: Unle ss otherwise noted, urine microscopic evaluation is normal. Performed By: #### U A w RFX x2 #### Main Lab - [facility] [address] [place] [address] Waveform Imaging Reporton Waveform Imaging Report [facility] [address] [place] [address] Waveform Imaging Report : [id number] Signed Name: VENUS SPIVEY MRUN: [id number] : 1960 Loc: ED Age / Sex: 62 / F ADM Status: REG ER ADM Date: 10/09/22 Room/Bed: Ordering Physician: Sheri Hunter DO Procedure: EKG Order Number(s): [id number] Ordered Date: 10/09/22 Ordered Time: 2325 Test Date: 2022-10-09 22:33:43 Pat Name: VENUS SPIVEY Department: ED Room: Gender: F 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 XR PORTABLE CHEST (1VIEW)on 10-10-2022 XR PORTABLE CHEST (1VIEW) [facility] Diagnostic Imaging [address] [place] [address] Diagnostic Imaging Report : [id number] Signed Name: VENUS SPIVEY MRUN: [id number] : 1960 Loc: ED Age / Sex: 62 / F ADM Status: REG ER ADM Date: 10/09/22 Room/Bed: Ordering Physician: Sheri Hunter DO Procedure: XR PORTABLE CHEST (1VIEW) Order Number(s): [id number] Ordered Date: 10/09/22 Ordered Time: 2325 EXAMINATION: [...] Signed Date/Time: 10/10/2249 Transcribed Date/Time: 10/10/[address] [facility] ED REPORTon 05-21-2022 [place] [address] HEALTH INFORMATION MANAGEMENT EMERGENCY DEPARTMENT REPORT Patient: VENUS SPIVEY HUNTER HUDSON as dictated by DONTE FISH [id number] [age] F Status: [facility] ER ED Date of Service: 05/20/22 CHIEF [...] swelling or discoloration throughout her body. SKIN: [place], warm, and dry. Pulses bilaterally radially are [...] with primary care provider. Report#: Dict ID [id number] / Int ID [id number] 05/23/22 1103 HUNTER HUDSON cc: JACK DRIVER D.O.; HUNTER HUDSON << Signature on File>> Reported By: HUNTER HUDSON Signed By: HUNTER HUDSON Tests performed at: [address] [address] Normal [facility] No Panel Informationon 08-11 Thyroid Stimulating Hormone (TSH) 1.56 uIU/mL 0.358-3.74 [facility] Work Phone: CNPOndina 02-23-2021 CNPN Telephone ([facility]) VENUS SPIVEY ([id number]) 1960 F [facility] Date Time Provider Department 9/27/21 DAMIÁN KIMBLE During your visit today, we [...] Status:Closed by RIZWANA LOUIS LPN on 03/16/21 [facility] Kwaku 12-31-2020 [facility] Telephone (VANESA) VENUS SPIVEY ([id number]) 1960 F [facility] Date Time Provider Department 12/31/20 DAMIÁN KIMBLE During your visit today, we recorded the following information about you: Claudia Anette Gonzales LPN 12/31/2020 11:44 AM Signed Pt calling for the followin. referral to Dr. Yee to be seen for EGD for spitting up blood off and on and constant heartburn. She takes Omeprazole 20 mg 2 tablets once a day. Can not go to [facility] not in her network. Has seen Dr. Yee before . 2. Order for H-pylori stool check she completed medications from another doctor 2 weeks ago. She wants to make sure this is gone. This needs to be done at [facility] fax orders. Please advise pt. She is aware the doctor is out of the office till next week. Claudia Thomas Pss 01/09/2021 1:47 PM Signed Patient would prefer to stay local please fax referral to Dr Yee office. Rizwana Louis LPN 01/09/2021 4:58 PM Signed Referral faxed to Dr. Yee. Order for H-Pylori stool fax to [facility]. Allergies As of Date: 12/31/2020 Noted Allergy [...] Status:Closed by RIZWANA LOUIS LPN on 01/09/21 [facility] 12-24-2020 [facility] Telephone (VANESA) VENUS SPIVEY ([id number]) 1960 F [facility] Date Time Provider Department 12/24/20 DAMIÁN KIMBLE During your visit today, we recorded the following information about you: Jennifer Chisholm Pss 12/24/2020 3:02 PM Signed Patient is asking for another stool sample test to see if medication is helping. She is requesting that be put through [facility]. Patient states she was unable to be seen in [place] due to insurance. She would like a [...] Encounter Status:Closed by JENNIFER SAEZ on 12/28/20 [facility] 11-20-2020 [facility] Telephone (GASTWS) VENUS SPIVEY ([id number]) 1960 F [facility] Date Time Provider Department 11/20/20 DAMIÁN KIMBLE During your visit today, we recorded the following information about you: Tiara Jessica RN 11/20/2020 9:04 AM Signed Daria from [facility] called, verified pt by name and birthdate. Daria states she is not able to schedule pt until a referral is placed and then pt has visits approved for [facility]. Referral to GI pended. Insurance referral for at [facility] also placed and submitted for approval. Tiara Kimble APRN.GEETHA 11/20/2020 1:15 PM Signed Signed order. GI referral for EGD with [facility] for refractory H pylori Thanks Damián Kimble APRN.GEETHA Louis LPN 12/02/2020 3:19 PM Signed Fax sent to [facility] asking status of referral. Rizwana Louis LPN 12/04/2020 10:40 AM Signed Response from [facility] is that they are waiting on insurance approval prior to scheduling patient. Rizwana Louis LPN 12/16/2020 1:19 PM Signed Patient states that the referral to [facility] was denied. She is following with ID in [place] and was prescribed several medications. She will [...] B96.81] Order(s):CONSULT TO GASTROENTEROLOGY [9010] Order #: [id number]: [id number] FUTURE Prescriptions as of 12/16/2020 - [...] Status:Closed by RIZWANA LOUIS LPN on 12/16/20 [facility] CNOVon 11-11-2020 CNOV Office Visit (VANESA ) VENUS SPIVEY ([id number]) 1960 F [facility] Date Time Provider Department 11/11/20 11:00 [...] EXAMINATION BP 106/78 Pulse 73 Ht 5' 4.567 (1.64m) Wt 142 lb (64.4kg) SpO2 99% [...] of heart (more content not included)... [facility] HISTORY PHYSICALon HISTORY PHYSICAL HNO ID: [id number] Author: Damián Kimble APRN.ROASTER HELPER Service: ? Author Type: Nurse Practitioner Type: [...] EXAMINATION BP 106/78 Pulse 73 Ht 5' 4.567 (1.64m) Wt 142 lb (64.4kg) SpO2 99% [...] up r (more content not included)... [facility] LIPIDon 04-28-2020 Cholesterol [Mass/Vol] 196 MG/dL Normal 0-199 [facility] Comment on above: Performed By: #### L [id number] #### [facility] [address] [place] [address] Cholesterol in HDL [Mass/Vol] 80 mg/dL Normal [place] 40 [facility] Comment on above: Result Comment: Victoria ents receiving Metamizole prior to venipuncture, may have falsely depressed results. Performed By: #### L [id number] #### [facility] [address] [place] [address] Cholesterol in LDL [Mass/Vol] 91 mg/dL Normal [facility] Comment on above: Result Comment: ___C HOLESTEROL/HDL RATIO RISK___ CHD RISK = Total CHOL LDL HDL (CHOL/HDL) Recommended <200 <130 >40 <3.4 Borderline 200-239 130-159 3.4-4.99 High >240 >160 >5.0 Performed By: #### L [id number] #### [facility] [address] [place] [address] Triglyceride [Mass/Vol] 127 mg/dL Normal 30-149 [facility] Comment on above: Result Comment: Victoria ents receiving either N-Acetylcysteine (NAC) or Metamizole prior to venipuncture, may have falsely depressed results. Performed By: #### L [id number] #### [facility] [place] [address] Vital Signs Date Time Vital Sign Value Performing Clinician Facility 11-21-2024 12:05-0400 Body height 162.6 cm Sonya Monte MD Work Phone: [facility] 11-21-2024 12:05-0400 Body mass index (BMI) [Ratio] 26.04 kg/m2 Sonya Monte MD Work Phone: [facility] 11-21-2024 12:05-0400 Body weight 68.8 kg Sonya Motne MD Work Phone: [facility] 11-21-2024 12:05-0400 Diastolic blood pressure 77 mm[Hg] Sonya Monte MD Work Phone: [facility] 11-21-2024 12:05-0400 Heart rate 70 /min Sonya Monte MD Work Phone: [facility] 11-21-2024 12:05-0400 Respiratory rate 16 /min Sonya Monte MD Work Phone: [facility] 11-21-2024 12:05-0400 SaO2% (BldA) [Mass fraction] 97 % Sonya Monte MD Work Phone: [facility] 11-21-2024 12:05-0400 Systolic blood pressure 116 mm[Hg] Sonya Monte MD Work Phone: [facility] 07-23-2024 13:28-0500 Body height 162.6 cm Sonya Monte MD Work Phone: [facility] 07-23-2024 13:28-0500 Body mass index (BMI) [Ratio] 26.98 kg/m2 Sonya Monte MD Work Phone: [facility] 07-23-2024 13:28-0500 Body weight 71.3 kg Sonya Monte MD Work Phone: [facility] 07-23-2024 13:28-0500 Diastolic blood pressure 84 mm[Hg] Sonya Monte MD Work Phone: [facility] 07-23-2024 13:28-0500 Heart rate 73 /min Sonya Monte MD Work Phone: [facility] 07-23-2024 13:28-0500 Respiratory rate 16 /min Sonya Monte MD Work Phone: [facility] 07-23-2024 13:28-0500 SaO2% (BldA) [Mass fraction] 98 % Sonya Monte MD Work Phone: [facility] 07-23-2024 13:28-0500 Systolic blood pressure 163 mm[Hg] Sonya Monte MD Work Phone: [facility] 05-07-2024 13:00-0500 Body mass index (BMI) [Ratio] 26.72 kg/m2 Sonya Monte MD Work Phone: [facility] 05-07-2024 13:00-0500 Body weight 70.6 kg Sonya Monte MD Work Phone: [facility] 05-07-2024 13:00-0500 Diastolic blood pressure 80 mm[Hg] Sonya Monte MD Work Phone: [facility] 05-07-2024 13:00-0500 Heart rate 72 /min Sonya Monte MD Work Phone: [facility] 05-07-2024 13:00-0500 Respiratory rate 16 /min Sonya Monte MD Work Phone: [facility] 05-07-2024 13:00-0500 SaO2% (BldA) [Mass fraction] 99 % Sonya Monte MD Work Phone: [facility] 05-07-2024 13:00-0500 Systolic blood pressure 114 mm[Hg] Sonya Monte MD Work Phone: [facility] 04-20-2024 13:14-0500 Body height 162.6 cm Jessica Ordaz APRN.ROASTER HELPER Work Phone: [facility] 04-20-2024 13:14-0500 Body mass index (BMI) [Ratio] 25.75 kg/m2 Jessica Ordaz APRN.ROASTER HELPER Work Phone: [facility] 04-20-2024 13:14-0500 Body weight 68.04 kg Jessica Ordaz APRN.ROASTER HELPER Work Phone: [facility] 04-20-2024 13:14-0500 Diastolic blood pressure 81 mm[Hg] Jessica Ordaz APRN.ROASTER HELPER Work Phone: [facility] 04-20-2024 13:14-0500 Heart rate 69 /min Jessica Ordaz APRN.ROASTER HELPER Work Phone: [facility] 04-20-2024 13:14-0500 SaO2% (BldA) [Mass fraction] 98 % Jessica Ordaz APRN.ROASTER HELPER Work Phone: [facility] 04-20-2024 13:14-0500 Systolic blood pressure 118 mm[Hg] Jessica Ordaz APRN.CNP Work Phone: [facility] 02-28-2024 11:04-0400 Body height 163.8 cm Blaise Carroll MD Work Phone: [facility] 02-28-2024 11:04-0400 Body mass index (BMI) [Ratio] 26.53 kg/m2 Blaise Carroll MD Work Phone: [facility] 02-28-2024 11:04-0400 Body weight 71.22 kg Blaise Carroll MD Work Phone: [facility] 02-28-2024 11:04-0400 Diastolic blood pressure 82 mm[Hg] Blaise Carroll MD Work Phone: [facility] 02-28-2024 11:04-0400 Heart rate 66 /min Blaise Carroll MD Work Phone: [facility] 02-28-2024 11:04-0400 Systolic blood pressure 127 mm[Hg] Blaise Carroll MD Work Phone: [facility] 02-22-2024 13:27-0400 Body mass index (BMI) [Ratio] 25.97 kg/m2 Melly Travis DO Work Phone: [facility] 02-22-2024 13:27-0400 Body temperature 97.81 [degF] Melly Robles DO Work Phone: [facility] 02-22-2024 13:27-0400 Body weight 69.85 kg Melly Robles DO Work Phone: [facility] 02-22-2024 13:27-0400 Diastolic blood pressure 70 mm[Hg] Melly Robles DO Work Phone: [facility] 02-22-2024 13:27-0400 Heart rate 71 /min Melly Robles DO Work Phone: [facility] 02-22-2024 13:27-0400 Respiratory rate 18 /min Melly Robles DO Work Phone: [facility] 02-22-2024 13:27-0400 SaO2% (BldA) [Mass fraction] 98 % Melly Carpentern DO Work Phone: [facility] 02-22-2024 13:27-0400 Systolic blood pressure 120 mm[Hg] Melly Robles DO Work Phone: [facility] 11-17-2022 10:42-0400 Body height 162.[address] Bear Au Work Phone: [facility] 11-17-2022 10:42-0400 Body mass index (BMI) [Ratio] 26.2 kg/m2 Dr. Bear Au Work Phone: [facility] 11-17-2022 10:42-0400 Body weight 69.[address] Bear Au Work Phone: [facility] 11-17-2022 10:42-0400 Diastolic blood pressure 74 mm[Hg] Dr. Bear Au Work Phone: [facility] 11-17-2022 10:42-0400 Heart rate 69 /min Dr. Bear Au Work Phone: [facility] 11-17-2022 10:42-0400 Respiratory rate 16 /min Dr. Bear Au Work Phone: [facility] 11-17-2022 10:42-0400 Systolic blood pressure 111 mm[Hg] Dr. Bear Au Work Phone: [facility] Encounters Encounter Date Encounter Type Care Provider Facility Start: 04-11-2025 End: 04-11-2025 ambulatory Lamar [facility] Start: 04-08-2025 End: 04-09[facility] Start: 03-25-2025 ambulatory Yoly Black NP Fa cility:[facility] Start: 03-25-2025 End: 03-27-2025 Evaluation and management of inpatient Miguel Massielmk Facility:[facility] Start: 12-25-2024 End: 12-29-2024 ambulatory JACK DRIVER DO Facility:A Start: 11-21-2024 End: 11-21-2024 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 Sonya Mcdermott MD Work Phone: [facility] Comment on above: Cervical disc disord er with radiculopathy (Primary Dx) Start: 11-21-2024 End: 11-21-2024 ambulatory SONYA MCDERMOTT Facility:[facility] Start: 11-21-2024 End: 11-21-2024 Subsequent hospital visit by physician Xr [place] [employer] 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 Comment on above: Cervical disc disord er with radiculopathy [M50.10] Start: 07-23-2024 End: 07-23-2024 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 Sonya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 punctuation that were not noted in checking the note before saving. documented in this encounter [facility] 11-21-2024 Note HNO ID: [id number] Author: SONYA MCDERMOTT MD Service: ? Author Type: Physician Type: Progress Notes Filed: 11/21/2024 14:08 Note Text: NEUROSURGERY FOLLOW UP OFFICE NOTE Chair, Clinical Neurosciences Director, Spinal Neurosurgery [facility] Date of visit: November 21, 2024 Patient Name: Ms.Jeanette Spivey Date of : 1960 Current Age: [age] year old Sex: female MRN/E# [id number] Last Office Visit: 07/23/2024 Chief Complaint: Patient [...] do. Again I explained this was a ebuhlbq-ah-wdzd issue would not a critical surgery. She [...] paresthesias that s (more content not included)... [facility] 07-23-2024 History of Present illness Narrative Images from the original note were not included. NEUROSURGERY FOLLOW UP OFFICE NOTE Chair, Clinical Neurosciences Director, Spinal Neurosurgery [facility] Date of visit: July 23, 2024 Patient Name: Ms.Jeanette Spivey Date of : 1960 Current Age: [age] year old Sex: female MRN/E# [id number] Last Office Visit: 05/28/2024 Chief Complaint: Patient [...] a second opinion was seen by ANNY Warern, GEETHA. She reported she was scheduled to [...] do. Again I explained this was a sjpxowa-ux-vjgh issue would not a critical surgery. She [...] image review. PREVIOUS CONSERVATIVE TREATMENT: -Medication: Meloxicam, Humphrey -Physical therapy: Previous participation at [facility]- minimal symptom improvement. She has continued participation in home exercises/stretches as guided by physical therapy recommendations on routine basis as tolerated to present day. [facility] consultation notes can be found under scanned documents. -Previous healthcare providers: [place]- Dr. Carroll and was recommended a C5-C7 ACDF -Pain Management: Follows with [facility] - consult note can be found under scanned documents -Injections: Cervical injection at [facility] - 30% symptom relief that lasted for only 1 week and therefore would not like to proceed with another PREVIOUS SPINE SURGERY: None PAIN EVALUATION 07/22/2024 1034 Pain Level: 5 Pain Location: Neck Description: Aching;Burning;Tingling Duration Units: Months Frequency: Intermittent Intervention/Comfort measure: Medication;Relaxation;Massage;Pill ow support;Positioning PAST MEDICAL HISTORY Diagnosis Date Anemia Blood dyscrasia Gastritis GERD (gastroesophageal reflux disease) Hyperlipemia Lymphadenitis Mental disorder Stroke ([facility]) 2012 PAST SURGICAL HISTORY Procedure Laterality Date [...] 163/84 Pulse 73 Resp 16 Ht 5' 4 (1.63m) Wt 157 lb 3 oz (71.3kg) [...] is already well-established with pain management in [place]. She is seeing them tomorrow and can [...] MD Chair, Clinical Neurosciences Director, Spinal Neurosurgery [facility] This note was partially generated using [facility] recognition system, and there may be some incorrect words, spellings, and punctuation that were not noted in checking the note before saving. documented in this encounter [facility] 07-23-2024 Note HNO ID: [id number] Author: SONYA MCDERMOTT MD Service: ? Author Type: Physician Type: Progress Notes Filed: 07/23/2024 14:10 Note Text: NEUROSURGERY FOLLOW UP OFFICE NOTE Chair, Clinical Neurosciences Director, Spinal Neurosurgery [facility] Date of visit: July 23, 2024 Patient Name: Ms.Jeanette Spivey Date of : 1960 Current Age: [age] year old Sex: female MRN/E# [id number] Last Office Visit: 05/28/2024 Chief Complaint: Patient [...] do. Again I explained this was a kdvhinx-un-omwu issue would not a critical surgery. She [...] image review. PREVIOUS CONSERVATIVE TREATMENT: -Medication: Meloxicam, Humphrey -Physical therapy: Previous participation at [facility]- minimal symptom improvement. She has continued participation in home exercises/stretches as guided by physical therapy recommendations on routine basis as tolerated to present day. [facility] consultation notes can be found under scanned documents. -Previous healthcare providers: [place]- Dr. Carroll and was recommended a C5-C7 ACDF -Pain Management: Follows with [facility] - consult note can be found under scanned documents -Injections: Cervical injection at [facility] - 30% symptom relief that lasted for only 1 week and therefore w (more content not included)... [facility] 05-07-2024 History of Present illness Narrative Images from the original note were not included. NEUROSURGERY FOLLOW UP OFFICE NOTE Chair, Clinical Neurosciences Director, Spinal Neurosurgery [facility] Date of visit: May 07, 2024 Patient Name: Ms.Jeanette Spivey Date of : 1960 Current Age: [age] year old Sex: female MRN/E# [id number] Last Office Visit: 04/30/2024 Chief Complaint: Patient [...] this time. PREVIOUS CONSERVATIVE TREATMENT: -Medication: Meloxicam, Humphrey -Physical therapy: Previous participation at [facility]- minimal symptom improvement. She has continued participation in home exercises/stretches as guided by physical therapy recommendations on routine basis as tolerated to present day. [facility] consultation notes can be found under scanned documents. -Previous healthcare providers: [place]- Dr. Carroll and was recommended a C5-C7 ACDF -Pain Management: Follows with [facility] - consult note can be found under scanned documents -Injections: Cervical injection at [facility] - 30% symptom relief that lasted for [...] reflux disease) Hyperlipemia Lymphadenitis Mental disorder Stroke ([facility]) 2012 PAST SURGICAL HISTORY Procedure Laterality Date [...] do. Again I explained this was a wgqfqgb-pv-uihi issue would not a critical surgery. She has no central canal stenosis. No neurological complaints. Simply a pain related issue. Another option would be to consider radiofrequency ablation to help with the neck pain specifically. She is not sure it can be done in [place]. I suggested we obtain a CT scan [...] MD Chair, Clinical Neurosciences Director, Spinal Neurosurgery [facility] This note was partially generated using [employer] voice recognition system, and there may be some incorrect words, spellings, and punctuation that were not noted in checking the note before saving. documented in this encounter [facility] 05-07-2024 Note HNO ID: [id number] Author: SONYA MCDERMOTT MD Service: ? Author Type: Physician Type: Progress Notes Filed: 05/07/2024 13:34 Note Text: NEUROSURGERY FOLLOW UP OFFICE NOTE Chair, Clinical Neurosciences Director, Spinal Neurosurgery [facility] Date of visit: May 07, 2024 Patient Name: Ms.Jeanette Spivey Date of : 1960 Current Age: [age] year old Sex: female MRN/E# [id number] Last Office Visit: 04/30/2024 Chief Complaint: Patient [...] this time. PREVIOUS CONSERVATIVE TREATMENT: -Medication: Meloxicam, Humphrey -Physical therapy: Previous participation at [facility]- minimal symptom improvement. She has continued participation in home exercises/stretches as guided by physical therapy recommendations on routine basis as tolerated to present day. [facility] consultation notes can be found under scanned documents. -Previous healthcare providers: [place]- Dr. Carroll and was recommended a C5-C7 ACDF -Pain Management: Follows with [facility] - consult note can be found under scanned documents -Injections: Cervical injection at [facility] - 30% symptom relief that lasted [...] shortness of breat (more content not included)... [facility] 04-30-2024 Telephone encounter Note Patient requested to have MRI at [facility]. Received authorization. Faxed order and authorization information to [facility]. [facility] 04-30-2024 Miscellaneous Notes Patient requested to have MRI at [facility]. Received authorization. Faxed order and authorization information to [facility]. documented in this encounter [facility] 04-20-2024 Telephone encounter Note Patient is to call in to let us know MRI location, once we are informed of that we can fax over order and get prior aut, patient will need to schedule a CT and [address] Mcdermott after MRI date is given to office [facility] 04-20-2024 Miscellaneous Notes Patient is to call in to let us know MRI location, once we are informed of that we can fax over order and get prior aut, patient will need to schedule a CT and [address] Mcdermott after MRI date is given to office documented in this encounter [facility] 04-20-2024 History of Present illness Narrative Images from the original note were not included. SPINE SURGERY CONSULT NOTE Jessica Ordaz APRN-ROASTER HELPER Date of visit: April 20, 2024 Patient Name: Ms.Jeanette Spivey Date of : 1960 Current Age: [age] year old Sex: female MRN/E# [id number] Last Office Visit: Visit date not found [...] bladder incontinence. PREVIOUS CONSERVATIVE TREATMENT: -Medication: Meloxicam, Humphrey -Physical therapy: Previous participation at [facility]- minimal symptom improvement. She has continued participation in home exercises/stretches as guided by physical therapy recommendations on routine basis as tolerated to present day. [facility] consultation notes can be found under scanned documents. -Previous healthcare providers: Faviola Carroll and was recommended a C5-C7 ACDF -Pain Management: Follows with [facility] - consult note can be found under scanned documents -Injections: Cervical injection at [facility] - 30% symptom relief that lasted for [...] OBJECTIVE: BP 118/81 Pulse 69 Ht 5' 4 (1.63m) Wt 150 lb (68.0kg) SpO2 98% [...] she is willing to obtain here at [facility] the same day she presents for evaluation with Dr. Mcdermott. This will need to be scheduled when she contacts our office after MRI date is scheduled. -Follow up with Dr. Mcdermott for a 30 minute appointment which was communicated to staff. TESHA Warren [facility] This note was partially generated using INMAN voice recognition system, and there may be some incorrect words, spellings, and punctuation that were not noted in checking the note before saving. documented in this encounter [facility] 04-20-2024 Note HNO ID: [id number] Author: JESSICA ORDAZ APRN.CNP Service: ? Author Type: Nurse Practitioner Type: Progress Notes Filed: 04/20/2024 15:52 Note Text: SPINE SURGERY CONSULT NOTE TESHA Warren Date of visit: April 20, 2024 Patient Name: Ms.Jeanette Spivey Date of : 1960 Current Age: [age] year old Sex: female MRN/E# [id number] Last Office Visit: Visit date not found [...] bladder incontinence. PREVIOUS CONSERVATIVE TREATMENT: -Medication: Meloxicam, Humphrey -Physical therapy: Previous participation at [facility]- minimal symptom improvement. She has continued participation in home exercises/stretches as guided by physical therapy recommendations on routine basis as tolerated to present day. [facility] consultation notes can be found under scanned documents. -Previous healthcare providers: [place]- Dr. Carroll and was recommended a C5-C7 ACDF -Pain Management: Follows with [facility] - consult note can be found under scanned documents -Injections: Cervical injection at [facility] - 30% symptom relief that lasted for [...] reflux disease) Hyperlipemia Lymphadenitis Mental disorder Stroke ([facility]) 2012 PAST SURGICAL HISTORY Procedure Laterality Date [...] and food al (more content not included)... [facility] 04-10-2024 Telephone encounter Note Spoke with pt and relayed note. They verbalized understanding. [facility] 04-10-2024 Miscellaneous Notes Spoke with pt and relayed note. They verbalized understanding. Unfortunately, we are not very familiar with the [facility] spine provider to be able to make a recommendation. Please let her know. Thank you. Pt called stating that she really wants to have surgery done with you, but you are out of network with her insurance. Pt would like to know if you have a surgeon that you would recommend within [facility]. Pt states she want to change [...] given. Spoke with SAM Arriaga. Ref #: [id number] Surg 03/26 730 PAT 03/19 230 PO 04/10 10 Case# [id number] Patient aware of all appointments and times ----- Message from Blaise Carroll MD sent at 02/28/2024 12:13 PM EDT ----- Anterior cervical 5-6 and 6-7 disc replacements 2 hours 1 night [id number] documented in this encounter [employer] 04-10-2024 Telephone encounter Note Unfortunately, we are not very familiar with the [facility] spine provider to be able to make a recommendation. Please let her know. Thank you. [employer] Work Phone: 04-10-2024 Telephone encounter Note Pt called stating that she really wants to have surgery done with you, but you are out of network with her insurance. Pt would like to know if you have a surgeon that you would recommend within [facility]. [facility] 03-20-2024 Telephone encounter Note Pt states she want to change insurance and wait until the new year to have Sx with Dr. Carroll. Pt was notified to call me with updated ins info YUAN. Tentative date of 06/18/2023 given to pt. [facility] 03-20-2024 Miscellaneous Notes Pt states she [...] given. Spoke with SAM Arriaga. Ref #: [id number] Surg 03/26 730 PAT 03/19 230 PO 04/10 10 Case# [id number] Patient aware of all appointments and times ----- Message from Blaise Carroll MD sent at 02/28/2024 12:13 PM EDT ----- Anterior cervical 5-6 and 6-7 disc replacements 2 hours 1 night [id number] documented in this encounter [facility] 03-20-2024 Telephone encounter Note Received email from ins verification. Pt's ins is OON and will need to pay 50% and single case agreement will need to be submitted. LVM for cb to discuss with pt. [facility] 03-19-2024 Note Patient: Venus vora Procedure Information Date/Time: 03/26/24729 Procedure: ANTERIOR CERVICAL 5-6 AND 6-7 DISC REPLACEMENTS - 2 HOUR CASE Location: [facility] OR [address] [place] [address] Operating Room Surgeons: Blaise Carroll MD Relevant [...] Score: 2 Labs: No results found for: WBC, HGB, HCT, MCV, PLT No results found for: SODIUM, NA, POTASSIUM, K, CHLORIDE, CL, CO2, BUN, CREATININE, GLUCOSE, CALCIUM, PROT, BILIRUBINFL, ALKPHOS, AST, ALT, EGFR, GLOB Pain Score: 3 No echocardiogram results found for the past 14 days No results found for this or any previous visit. Equipment Requests: Additional Equipment Requests [facility] 03-19-2024 Note Comprehensive Pre [facility] History and Physical ? Name: Venus Spivey : 1960 (Age-63 y.o.) Date of Service: Pt seen/examined on 03/19/2024 Procedure Information Date/Time: 03/26/24729 Procedure: ANTERIOR CERVICAL 5-6 AND 6-7 DISC REPLACEMENTS - 2 HOUR CASE Location: [facility] OR [address] [place] [address] Operating Room Surgeons: Blaise Carroll MD Chief [...] for pre-operative evaluation prior to ? Case: [id number] Date/Time: 03/26/24729 Procedure: ANTERIOR CERVICAL 5-6 AND 6-7 DISC REPLACEMENTS [06746 CPT(R)] - 2 HOUR CASE Anesthesia type: General Diagnosis: Radiculopathy, cervical region [M54.12] Pre-op diagnosis: Radiculopathy, cervical region [M54.12] Location: [facility] OR [address] [place] [address] Operating Room Surgeons: Blaise Carroll MD From last office visit with Dr. Carroll on 02/28/2024: 63 y.o. presents with neck pain that [...] spine issues but this resolved with PT. Patient denies exertional chest pain/shortness of breath. Denies dizziness, syncope, lightheadedness. Denies fever, chills, weakness or fatigue. Patient denies any recent illness, infections, or wounds. Patient denies abdominal pain, nausea, vomiting, diarrhea, or constipation. Patient denies hx of CAD, CHF, NM, diabetes, COPD, asthma, RUTH ANN, DVT/PE. Past [...] mouth Nightly. HYDROcodone-acetaminop (more content not included)... [facility] 03-15-2024 Note ORIGINAL EXAMINATION: SINGLE CONTRAST [...] 03/15/2024 1:24:47 PM Ordering Provider: WYATT YEE [facility] 02-29-2024 Telephone encounter Note Spoke with pt and tentative Sx date on 03/26 was given. Spoke with SAM Arriaga. Ref #: [id number] Surg 03/26 730 PAT 03/19 230 PO 04/10 10 Case# [id number] Patient aware of all appointments and times [employer] 02-29-2024 Telephone encounter Note ----- Message from Blaise Carroll MD sent at 02/28/2024 12:13 PM EDT ----- Anterior cervical 5-6 and 6-7 disc replacements 2 hours 1 night [id number] [employer] 02-28-2024 History of Present illness Narrative NEUROSURGERY CONSULT NOTE Patient Name: [...] by mouth. 11/15/22 Yes Historical Provider, HYDROcodone-acetaminophen (Humphrey) 5-325 MG tablet 01/05/24 Yes Historical Provider, [...] 1. Cervical radiculopathy documented in this encounter [facility] 02-22-2024 History of Present illness Narrative Venus Spivey is a 63 [...] necessary. Melly Robles documented in this encounter [facility] 04-18-2023 Note HNO ID: [id number] Author: Suraj Saini MD Service: ? Author [...] discussed with patient patient tolerated procedure well. [facility] Evaluation + Plan note No data available for this section [facility] Evaluation note No assessment inform ation available [facility] Work Phone: Evaluation note Diagnosis Onset Date Atypical chest pain acute [facility] Work Phone: Evaluation note* Diagnosis Laceration of blood vessel of index finger- Primary [facility] Diagnosis Cervical radiculopathy- Primary Brachial neuritis or radiculitis nos [facility] Diagnosis Spinal stenosis of cervical region- Primary Spinal stenosis in cervical region Claustrophobia Other isolated or specific phobias documented [facility] Diagnosis Spinal stenosis of cervical region Spinal stenosis in cervical region documented in this encounter [facility] note* Diagnosis Cervical disc disorder with radiculopathy- Primary Brachial neuritis or radiculitis nos documented in this encounter [facility] note* Diagnosis Cervical disc disorder with radiculopathy- Primary Brachial neuritis or radiculitis nos documented in this encounter [facility] note* Diagnosis Cervical disc disorder with radiculopathy- Primary Brachial neuritis or radiculitis nos documented in this encounter [facility] note* Diagnosis Cervical disc disorder with radiculopathy Brachial neuritis or radiculitis nos documented in this encounter [facility] Discharge instructions No data available for this section [facility] Progress note No data available for this section [facility] Reason for visit Narrative* Diagnostic Procedure Only (Routine) - Closed Specialty Diagnoses / Procedures Referred By Contac t Referred To Contact XR IMAGING Diagnoses Spinal stenosis of cervical region Procedures XR CERV OTHER 4V AP/LAT/FLX/EXT RADEX SPINE CERVICAL 4 OR 5 VIEWS Jessica Ordaz, THO.ROASTER HELPER [address] [place] [address] [place] [address] Referral ID Status Reason Start Date Expiration Date V isits Requested Visits Authorized [id number] Closed Auto-Generate d Referral 04/20/2024 05/20/2025 1 1 [facility] for visit Narrative* Diagnostic Procedure Only (Routine) - Closed Specialty Diagnoses / Procedures Referred By Contac t Referred To Contact XR IMAGING Diagnoses Cervical disc disorder with radiculopathy Procedures XR CERV OTHER 4V AP/LAT/FLX/EXT RADEX SPINE CERVICAL 4 OR 5 VIEWS Sonya Mcdermott I, MD [address] [place] [address] Phone: tel: fax: [place] [address] Referral ID Status Reason Start Date Expiration Date V isits Requested Visits Authorized [id number] Closed Auto-Generate d Referral 10/26/2024 11/25/2025 1 1 [facility] Summary Purpose Family History No Family [...] October 17, 2014 1 :31pm Power of Fly Tier No October 17, 2014 1:31pm Advance Directive Response Recorded Date/ Time Advance Directives No October 17 5 12:31pm Living Will No October 17, 2014 1 2:31pm Power of Fly Tier No October 17, 2014 12:31pm Chief Complaint [...] CERVICAL SPINE W/O CONTRAST MATERIAL Jessica Ordaz, SALES AND SERVICE CONSULTANT.ROASTER HELPER [address] [facility] [place] [address] [place] [address] Referral ID Status Reason Start Date Expiration Date V isits Requested Visits Authorized [id number] Open Auto-Generate d Referral 04/20/2024 05/20/2025 1 1 Specialty Diagnoses / Procedures Referred By Adonis t Referred To Contact XR IMAGING Diagnoses Spinal stenosis of cervical region Procedures XR CERV OTHER 4V AP/LAT/FLX/EXT RADEX SPINE CERVICAL 4 OR 5 VIEWS Jessica Ordaz, SALES AND SERVICE CONSULTANT.ROASTER HELPER [address] [place] [address] [place] [address] Referral ID Status Reason Start Date Expiration Date V isits Requested Visits Authorized [id number] Closed Auto-Generate d Referral 04/20/2024 05/20/2025 1 1 Specialty Diagnoses / Procedures Referred By Contac t Referred To Contact MR IMAGING Diagnoses Spinal stenosis of cervical region Procedures MRI CERVICAL SPINE WO IVCON MRI SPINAL CANAL CERVICAL W/O CONTRAST MATRL Jessica Ordaz, SALES AND SERVICE CONSULTANT.ROASTER HELPER [address] [place] [address] [place] [address] Referral ID Status Reason Start Date Expiration Date Visits Requested Visits Authorized [id number] New Request Auto-Generat ed Referral 05/20/2025 1 1 Additional Source Comments INFORMATION SOURCE (unrecogn ized section and content) DATE CREATED AUTHOR 04/30/[address] [facility] Medical [facility] DATE CREATED AUTHOR AUTHOR'S ORGANIZ ATION 06/15/2021 [facility] DATE CREATED AUTHOR AUTHOR'S ORGANIZ ATION 05/27/2022 [facility] DATE CREATED AUTHOR AUTHOR'S ORGANIZ ATION 10/11/2022 [facility] DATE CREATED AUTHOR AUTHOR'S ORGANIZ ATION 04/11/2023 [facility] ([place]) DATE CREATED AUTHOR AUTHOR'S ORGANIZ ATION 04/20/2023 [facility] DATE CREATED AUTHOR AUTHOR'S ORGANIZ ATION 03/18/2024 [facility] DATE CREATED AUTHOR AUTHOR'S ORGANIZ ATION 04/13/2024 [facility] DATE CREATED AUTHOR AUTHOR'S ORGANIZ ATION 11/30/2024 [facility] DATE CREATED AUTHOR AUTHOR'S ORGANIZ ATION 01/08/2025 [facility] DATE CREATED AUTHOR AUTHOR'S ORGANIZ ATION 04/11/2025 [facility] Goals (unrecognized section and content) [...] or prosecute any alcohol or drug abuse patient.[facility] the event this information is protected by the Federal Confidentiality of Alcohol and Drug Abuse Patient Records regulations: The Federal rules restrict any use of the information to criminally investigate or prosecute any alcohol or drug abuse patient.[facility] the event this information is protected by the Federal Confidentiality of Alcohol and Drug Abuse Patient Records regulations: The Federal rules restrict any use of the information to criminally investigate or prosecute any alcohol or drug abuse patient.[facility] the event this information is protected by the Federal Confidentiality of Alcohol and Drug Abuse Patient Records regulations: The Federal rules restrict any use of the information to criminally investigate or prosecute any alcohol or drug abuse patient.[facility] the event this information is protected by the Federal Confidentiality of Alcohol and Drug Abuse Patient Records regulations: The Federal rules restrict any use of the information to criminally investigate or prosecute any alcohol or drug abuse patient.[facility] Hospital[facility] the event this information is protected by the Federal Confidentiality of Alcohol and Drug Abuse Patient Records regulations: The Federal rules restrict any use of the information to criminally investigate or prosecute any alcohol or drug abuse patient.[facility] the event this information is protected by the Federal Confidentiality of Alcohol and Drug Abuse Patient Records regulations: The Federal rules restrict any use of the information to criminally investigate or prosecute any alcohol or drug abuse patient.[facility] Hospital[facility] the event this information is protected by the Federal Confidentiality of Alcohol and Drug Abuse Patient Records regulations: The Federal rules restrict any use of the information to criminally investigate or prosecute any alcohol or drug abuse patient.[facility] Hospital[facility] the event this information is protected by the Federal Confidentiality of Alcohol and Drug Abuse Patient Records regulations: The Federal rules restrict any use of the information to criminally investigate or prosecute any alcohol or drug abuse patient.[facility] the event this information is protected by the Federal Confidentiality of Alcohol and Drug Abuse Patient Records regulations: The Federal rules restrict any use of the information to criminally investigate or prosecute any alcohol or drug abuse patient.[facility] Care Teams (unrecognized sec tion and content) Airfield Manager Relationship Specialty Start Date End Date Bear [...] MD Primary Care Provider Active Dr. Jack Drievr DO Attending Provider, Referring Pro vider Active [...] Primary Care Provider Active Emery Olivares NP, TECHNICAL SYSTEMS ARCHITECT-C Attending Provider Active Team Status: Inactive Member [...] NP-C Attending Provider, Referring Provi arabella Active Airfield Manager Relationship Specialty [place] [address] [address] PCP - General Internal Medicine 02/22/24 Airfield Manager Relationship Specialty [place] [address] [address] PCP - General Internal Medicine 02/22/24 Airfield Manager Relationship Specialty Start Date End Date Jack Driver, [address] [address] PCP - General Internal Medicine 02/22/24 Airfield Manager Relationship Specialty [place] [address] [address] PCP - General Internal Medicine 02/22/24 Airfield Manager Relationship Specialty [place] [address] [id number] PCP - General Internal Medicine 02/22/24 Airfield Manager Relationship Specialty [place] [address] [address] PCP - General Internal Medicine 02/22/24 Airfield Manager Relationship Specialty [place] [address] [id number] PCP - General Internal Medicine 02/22/24 Airfield Manager Relationship Specialty [place] [address] [address] PCP - General Internal Medicine 02/22/24 Reason [...] BE BASED ON THE PRIMARY CLINICAL RECORDS. [facility] [employer] [facility]. provides no warranty or guarantee of the accuracy or completeness of information in this document.
--- NOTE | 2025-04-20 13:24 | CT_ITS ---
PROCEDURE: ABDOMEN/PELVIS W IV CONT ONLY 04/20/2025 REASON FOR EXAM: RECENT CHOLECYSTECTOMY, EPIGASTRIC/RIGHT UPPER EDUAR TECHNIQUE: Procedure Code: [id number] Modality: CT Procedure: ABDOMEN/PELVIS W IV CONT ONLY Coronal and Sagittal reconstruction series were provided. CONTRAST: Isovue 370 VOLUME: 98 mL One or more dose reduction techniques were used (e.g., Automated exposure control, adjustment of the mA and/or kV according to patient size, use of iterative reconstruction technique. RADIATION DOSE SUMMARY: CTDlvol: 11.79 mGy DLP: 578.11 mGycm COMPARISON: CT abdomen pelvis March 25, 2025. FINDINGS: Lung bases: Clear. Liver: Unremarkable. Gallbladder: Status post cholecystectomy. Common bile duct endplates. Spleen: Unremarkable. Pancreas: Unremarkable. Adrenals: Unremarkable. Kidneys: No hydronephrosis. No nephrolithiasis. Bladder: Unremarkable. Reproductive Organs: Status post hysterectomy. Bowel: A 6 cm metallic bar in the sigmoid measures approximately 3 mm in diameter. No bowel wall thickening or bowel obstruction. Appendix: Unremarkable. Lymph nodes: No lymphadenopathy. Vasculature: No aneurysm. Peritoneum / Retroperitoneum: No free air or free fluid. Bones: No acute bony abnormalities. CT/Abdomen/Pelvis W IV Cont ONLY IMPRESSION: A 6 cm metallic bar with the hook at the end in the sigmoid measures approximat rah 3 mm in diameter. No bowel wall thickening or bowel obstruction. No evidence of perforation. No free fluid or free air. Reading Location: [facility]
--- NOTE | 2025-04-20 13:24 | EKG12_ITS ---
Test Reason : ABD PAIN Blood Pressure : */* mmHG Vent. Rate : 63 BPM Atrial Rate : 63 BPM P-R Int : 138 ms QRS Dur : 80 ms QT Int : 412 ms P-R-T Axes : 19 34 37 degrees QTcB Int : 421 ms Normal sinus rhythm Normal ECG Confirmed by WILLARD LIMON, EDE ([id number]), editor trade journal KAITLYN AVILA ([id number]) on 04/22/2025 1:38:37 PM Referred By: Confirmed By: EDE LAMAR MD
[2025-04-20] MEDS: 0.9% Normal Saline (1000mL) 1,000 ML 999 ML IV (13:37)
[2025-04-20] MEDS: Famotidine 200 MG/20 ML MDV 20 MG in 0.9% Normal Saline (Pres. free 8 ML 300 MG IV (13:38)
--- NOTE | 2025-04-20 13:39 | EDS_ITS ---
HPI History of Present Illness Chief Complaint: Abd Pain Narrative Narrative: Chief complaint and HPI: 64-year-old female with past medical history of GERD, recent cholecystectomy presents for evaluation of epigastric/right upper quadrant abdominal pain. History taken by patient as well as medical record. I reviewed the discharge summary from 03/27/2025. Patient was admitted for acute cholecystitis with a CBD of [address] Bragg performed an ERCP with stone removal and stent placement on 03/25/2025. Dr. Bull removed her gallbladder with interoperative cholangiogram on . Patient states she was doing well since discharge until yesterday evening when she developed epigastric/right upper quadrant pain. Radiates to the mid sternum. Denies any fever, chills, chest pain, shortness of breath. Associated symptom is nausea. Patient states she was sent in by GI. Review of systems: See HPI Medications: As listed on the chart Allergies: As listed on the chart PFSH: Per chart Vital signs: As listed on the chart. Reviewed. Physical exam: Gen: A&O x3, NAD Head: Normocephalic, atraumatic Eyes: No sclera icterus, conjunctiva clear ENT: Moist mucous membranes CV: RRR, no murmurs Resp: Lungs CTA BL, no w/r/c GI: Abd soft, non-distended, mild tenderness to palpation diffusely, no r/r/g, incisions healing well without infection : No CVA tenderness Musc: Full ROM, no deformity Skin: Warm, dry Neuro: Alert, oriented, grossly intact, sensation intact Psych: Cooperative, appropriate mood and affect [facility] Medical History (Updated 04/20/25 @ 15:[address] Faraz Greenwood, DO) GERD (gastroesophageal reflux disease) High cholesterol Migraines Emotional problems Gallstones Bone fracture Pancreatitis Trigger point Insomnia Atypical chest pain Hyperlipidemia Home Medications ?Medication ?Instructions ?Recorded ?Last Taken ?Type acetaminophen 325 mg tablet 650 mg (2 x 325 mg) PO Q6H PRN PRN 03/27/25 Unknown Rx Pain 1-10 Or Fever >100.7 #0 tabs aspirin 81 mg tablet 81 mg PO QDAY 04/11/25 Unkno wn History ezetimibe 10 mg tablet (Zetia) 10 mg PO QDAY 04/11/25 Unknown History mecobalamin (vitamin B12) 10,000 mcg IM 04/11/25 Unkno wn History mcg solution for injection dicyclomine 20 mg tablet 20 mg PO BID 5 days #10 tabs 04/20/25 Unknown Rx sucralfate 1 gram tablet (Carafate) 1 g PO TID 5 days #15 tabs 04/20/25 Unknown Rx Allergy/AdvReac Type Severity Reaction Status Date / Time meperidine HCl (From Demerol) AdvReac Vomiting Verified 04/20/25 11:52 morphine AdvReac Upset Verified 04/20/25 11:52 Stomach Family History Father CVA (cerebral vascular accident) Myocardial infarction Grandmother Colon cancer Diabetes Grandmother Myocardial infarction Surgical History S/P cholecystectomy S/P colonoscopy Hx of hysterectomy Hx of repair of left rotator cuff Hx of appendectomy Social History Smoking Status: Never smoker how long ago did patient quit smokin alcohol intake: current alcohol intake frequency: holidays/special occasions only substance use type: does not use caffeine: Yes Type: coffee Number of servings: 4 what type of physical activity do you participate in: walking frequency: 3-4 times per week EXAM Physical Exam Const Vital Signs: 04/20/25 11:53 04/20/25 13:52 04/20/25 15:00 Temperature 98 F Temperature Source Temporal Pulse Rate 78 57 L 73 Respiratory Rate 14 16 17 Blood Pressure 131/87 H 143/83 H 146/95 H Blood Pressure Mean 101 103 112 Pulse Ox 98 99 95 Oxygen Delivery Method Room Air Room Air MDM MDM MDM Narrative Medical decision making narrative: 64-year-old female with past medical history of GERD, recent cholecystectomy presents for evaluation of epigastric/right upper quadrant abdominal pain. History taken by patient as well as medical record. I reviewed the discharge summary from 03/27/2025. Patient was admitted for acute cholecystitis with a CBD of [address] Bragg performed an ERCP with stone removal and stent placement on 03/25/2025. Dr. Bull removed her gallbladder with interoperative cholangiogram on . Patient states she was doing well since discharge until yesterday evening when she developed epigastric/right upper quadrant pain. Radiates to the mid sternum. On presentation, patient no acute distress. Vital stable. Afebrile. Differential diagnosis includes but is not limited to postoperative pain, abscess, gastritis, GERD, suspect less likely ACS. Morphine, Zofran, Pepcid, NS bolus ordered for symptoms. Abdominal/cardiac workup ordered including CT abdomen and pelvis. CBC without leukocytosis or anemia. Platelets unremarkable. CMP unremarkable except for mild ALT elevation at 39. This is downtrending from 04/09. Lipase unremarkable. Lactic acid unremarkable. UA negative for UTI. Troponin unremarkable. CT abdomen pelvis shows a 6 cm metallic bar with the hook at the end of the sigmoid measures approximately 3 mm. Bowels unremarkable. No perforation. No free air or fluid. Common bile duct endplates. Pancreas, liver, spleen unremarkable. Given this finding, I did contact Dr. Mora. Dr. Mora reviewed the imaging, states this is the pancreatic stent. Will pass her bowel movements. No clear etiology for her epigastric/right upper quadrant pain. Recommended me placing her on a 5-day course of Bentyl twice daily and Carafate 3 times daily. She has a follow-up appointment with him 5 days from now. Patient was updated of all results. Return precautions explained. Patient stable to discharge home. EKG: Interpreted by me/EM physician: EKG shows normal sinus rhythm without any acute ischemic changes. Heart rate 63. Diagnostic: Interpreted by me/EM physician: Chest x-ray without pneumonia, effusion, cardiomegaly, pneumothorax. Radiology in agreement. Impression: 1. Epigastric/right upper quadrant abdominal pain 2. History of recent cholecystectomy with ERCP Lab Data Labs: Laboratory Results - last 24 hr 04/20/25 04/20/25 13:35 13:40 WBC 7.3 RBC 5.28 Hgb 13.2 Hct 42.9 MCV 81.3 MCH 25.0 L MCHC 30.8 L RDW Std Deviation 43.6 RDW Coeff of Lul 14.7 H Plt Count 305 MPV 9.8 Immature Gran % (Auto) 0.100 Neut % (Auto) 56.0 Lymph % (Auto) 32.2 [place] % (Auto) 6.9 Eos % (Auto) 4.0 Baso % (Auto) 0.8 Absolute Neuts (auto) 4.1 Absolute Lymphs (auto) 2.34 Nucleated RBC % 0 Sodium 141 Potassium 3.7 Chloride 105 Carbon Dioxide 24.8 Anion Gap 12 BUN 8 Creatinine 0.60 L Estim Creat Clear Calc 82.87 Est GFR (MDRD) Non-Af 101 BUN/Creatinine Ratio 12.8 Glucose 102 H Lactic Acid < 1.0 Calcium 9.5 Total Bilirubin 0.27 Direct Bilirubin 0.12 AST 22 ALT 39 H Alkaline Phosphatase 70 Troponin T High Sens < 6 Total Protein 7.2 Albumin 4.5 Globulin 2.7 Lipase 38 Urine Color Yellow Urine Clarity Clear Urine pH 7.0 Ur Specific [place] 1.010 Urine Protein Negative Urine Glucose (UA) Normal Urine Ketones Negative Urine Occult Blood 10 H Urine Nitrite Negative Urine Bilirubin Negative Urine Urobilinogen Normal Ur Leukocyte Esterase Negative Urine RBC 0 SEEN Urine WBC 0 SEEN Ur Squamous Epith Cells 0 SEEN Urine Bacteria 0 SEEN Urine Mucus 0 SEEN Radiography Diagnostic Testing: Clinical Impression(s) from Imaging Studies Abdomen/Pelvis CT 04/20/25 13:24 IMPRESSION: A 6 cm metallic bar with the hook at the end in the sigmoid measures approximately 3 mm in diameter. No bowel wall thickening or bowel obstruction. No evidence of perforation. No free fluid or free air. Reading Location: [facility] Chest X-Ray 04/20/25 13:55 IMPRESSION: NO ACUTE FINDINGS. Reading Location: [facility] Discharge Plan Triage Chief Complaint: Abd Pain ED Provider: Faraz Greenwood Dx/Rx/DC Orders Clinical Impression: Abdominal pain, epigastric Instructions: ED Abdominal Pain Unkn Cause Fem Prescriptions: New dicyclomine 20 mg tablet 20 mg PO BID 5 Days Qty: 10 0RF sucralfate [Carafate] 1 gram tablet 1 g PO TID 5 Days Qty: 15 0RF No Action aspirin 81 mg tablet 81 mg PO QDAY ezetimibe [Zetia] 10 mg tablet 10 mg PO QDAY mecobalamin (vitamin B12) 10,000 mcg recon soln IM acetaminophen 325 mg Tablet 650 mg PO Q6H PRN PRN (Reason: Pain 1-10 Or Fever >100.7) Qty: 0 0RF Primary Care Provider: Yoly Black NP Referrals: Deep Mora DO [Med Staff - Active Staff, Gastroenterology] - 3-5 Days Yoly Black NP, [employer] [Primary Care Provider, Medical] - 3-5 Days Activity Restrictions/Additional Instructions: Follow-up with Dr. Mora. Return back to ED if symptoms change or worsen. He received your first dose of Bentyl here in the emergency department. Print Language: Croatian Disposition Disposition: Home, Self Care
[2025-04-20 13:52] VITALS: BP 143/83; PULSE 57; RESP 16; O2SAT 99
[2025-04-20 13:53] LABS: Mucous, Urine 0 SEEN /hpf (<or=2+); Red Blood Cells-Urine 0 SEEN /hpf (0-5); Squamous Epithelial Cells - UA 0 SEEN /hpf (5-10)
[2025-04-20 13:55] LABS: Color, Urine Yellow (Yellow); Glucose, Dipstick Normal (Normal); Ketone-Dipstick Negative (Negative); Leukocyte Esterase-Dipstick Negative /ul (Negative); Nitrite-Dipstick Negative (Negative); Occult Blood-Urine 10 /ul (Negative); Protein-Dipstick Negative (Negative); Specific Gravity, Urine 1.010 (1.002-1.030); Urine Bilirubin Dipstick Negative (Negative)
[2025-04-20 13:55] LABS: Hematocrit 42.9 % (37-47); Hemoglobin 13.2 g/dL (12.0-15.0); Immature Granulocytes Count 0.010 X10^3/uL (0.0-0.0); Mean Corp Hgb Conc 30.8 g/dL (32-36); Mean Corpuscular Volume 81.3 fL (81-99); Mean Platelet Vol. 9.8 fl (6.2-12.0); NRBC Flagged by Analyzer 0 % (0-5); Platelet Count 305 K/mm3 (150-450); RBC Distribution Width CV 14.7 % (11.6-14.6); RBC Distribution Width SD 43.6 fl (35.1-43.9); Red Blood Count 5.28 M/mm3 (4.2-5.4); White Blood Count 7.3 K/mm3 (4.4-11.0)
--- NOTE | 2025-04-20 13:55 | RAD_ITS ---
PROCEDURE: CHEST PA AND LATERAL 04/20/2025 REASON FOR EXAM: EPIGASTRIC PAIN TECHNIQUE: Procedure Code: RADCXR Modality: DX Procedure: CHEST PA AND LATERAL COMPARISON: None available. FINDINGS: Hardware: None. Heart: The heart size is normal. Mediastinum: The mediastinal contour is unremarkable. Lungs: The lungs are clear. No pneumothorax or pleural effusion. Bones: The bones are unremarkable. RAD/Chest PA and Lateral IMPRESSION: NO ACUTE FINDINGS. Reading [facility]
[2025-04-20 14:31] LABS: AST(SGOT) 22 U/L (<=31); Alanine Aminotransfer ALT/SGPT 39 U/L (<=34); Albumin, Serum 4.5 g/dL (3.4-4.8); Alkaline Phosphatase 70 U/L (35-104); Anion Gap 12 (5-15); BUN 8 mg/dL (4-19); BUN/Creat Ratio 12.8 RATIO (10-20); Bilirubin, Direct 0.12 mg/dL (0.00-0.30); Calcium,Total 9.5 mg/dL (7.6-11.0); Carbon Dioxide 24.8 mmol/L (21.0-32.0); Chloride 105 mmol/L (98-108); Estimated Creatinine Clearance 82.87 ml/min (50-250); Globulin 2.7 g/dL (2.2-4.2); Glucose 102 mg/dL (70-99); Lipase 38 U/L (13-75); Potassium 3.7 mmol/L (3.3-5.1); Troponin T High Sensitivity < 6 ng/L (<=14)
[2025-04-20 15:00] VITALS: BP 146/95; PULSE 73; RESP 17; O2SAT 95
[2025-04-20 16:07] VITALS: BP 138/74; PULSE 67; RESP 19; TEMP 36.8; O2SAT 100
== END 2025-04-20 16:08 | disposition home or self-care (01) ==
PROVIDERS: Emergency Provider Surgery; PCP Nurse Practitioner Family; Visit Provider Surgery
DX: R10.11 Right upper quadrant pain (principal); E78.00 Pure hypercholesterolemia, unspecified; K21.9 Gastro-esophageal reflux disease without esophagitis; Z90.49 Acquired absence of other specified parts of digestive tract; R10.13 Epigastric pain
CPT/HCPCS: 71046; 74177; 80048; 80076; 81001; 83605; 83690; 84484; 85025; 93005; 96365; 96375; 99283; Q9967; A4216; J2405

== ENCOUNTER 2025-04-26 08:11 | Day surgery (SDC) | payer OTHER, SELFPAY ==
[2025-04-22 14:38] LABS: Hematocrit 42.5 % (37-47); Hemoglobin 12.9 g/dL (12.0-15.0); Immature Granulocytes Count 0.010 X10^3/uL (0.0-0.0); Mean Corp Hgb Conc 30.4 g/dL (32-36); Mean Corpuscular Volume 82.8 fL (81-99); Mean Platelet Vol. 10.1 fl (6.2-12.0); NRBC Flagged by Analyzer 0 % (0-5); Platelet Count 298 K/mm3 (150-450); RBC Distribution Width CV 14.8 % (11.6-14.6); RBC Distribution Width SD 44.9 fl (35.1-43.9); Red Blood Count 5.13 M/mm3 (4.2-5.4); White Blood Count 7.3 K/mm3 (4.4-11.0)
[2025-04-22 15:21] LABS: AST(SGOT) 20 U/L (<=31); Alanine Aminotransfer ALT/SGPT 35 U/L (<=34); Albumin, Serum 4.5 g/dL (3.4-4.8); Alkaline Phosphatase 69 U/L (35-104); Anion Gap 12 (5-15); BUN 11 mg/dL (4-19); BUN/Creat Ratio 13.2 RATIO (10-20); Calcium,Total 9.5 mg/dL (7.6-11.0); Carbon Dioxide 27.5 mmol/L (21.0-32.0); Chloride 105 mmol/L (98-108); Globulin 2.5 g/dL (2.2-4.2); Glucose 117 mg/dL (70-99); Potassium 4.0 mmol/L (3.3-5.1)
--- NOTE | 2025-04-23 16:10 | PAT.ANESEVAL ---
Pre-Assessment Diagnosis/Proposed Procedure Planned Operative Procedure(s): ERCP, Stent Removal Anesthesia History Anesthesia History - microbial specialist: Anesthesia History - microbial specialist Hx Hospitalization Yes: 03/2304/23/25 13:55 Any Problems With Anesthesia Yes: LOW BP POST-OP 04/23/25 13:55 Cholinesterase deficiency No 04/23/25 13:55 You/Your Family Experience No 04/23/25 13:55 fever (hyperthermia) with Relationship Recent Exposure to Contagious No 03/25/25 10:13 Disease Does patient have nerve No 04/23/25 13:55 stimulator Patient instructed to have device shut off --Does patient have Pacemaker or ICD? When Was Last Pacemaker Check QUESTION #4 FULL TEXT: You/Your Family Experience fever (hyperthermia) with Anesthesia Last Oral Intake Last Oral intake: Last Oral Intake NPO since Meds taken in AM with sips of water? Meds patient instructed to take am of surgery PONV PONV - microbial specialist: PONV - microbial specialist Female Yes 04/23/25 13:55 HX of Motion Sickness No 04/23/25 13:55 HX of N/V After Surgery No 04/23/25 13:55 Non-Smoker Yes 04/23/25 13:55 Duration of Surgery greater No 04/23/25 13:55 than 60 minutes Number of Risk Factors 2 04/23/25 13:55 PONV Score Moderate Risk 04/23/25 13:55 Height & Weight Height & Weight: Anesthesia: Height & Weight Height 5 ft 4 in 04/20/25 11:53 Respiratory Assessment Respiratory Assessment - microbial specialist: Respiratory Tract Infection Hx - microbial specialist Hx Respiratory Tract Infection No 04/23/25 13:55 STOP Sleep Apnea STOP Sleep Apnea - microbial specialist: STOP Sleep Apnea - microbial specialist Hx Hypertension No 04/23/25 13:55 Hx Sleep Apnea No 04/23/25 13:55 CPAP BIPAP No 04/23/25 13:55 Do you snore loudly (louder No 04/23/25 13:55 than talking or can be heard Do you often feel tired/ No 04/23/25 13:55 fatigued/ sleepy during daytime? Has anyone observed you stop No 04/23/25 13:55 breathing during sleep? STOP Results Negative 04/23/25 13:55 QUESTION #5 FULL TEXT : Do you snore loudly (louder than talking or can be heard through closed doors)? Tobacco Use History Tobacco Use History - microbial specialist: Tobacco Use History - microbial specialist Tobacco Use Non-smoker 11/11/20 12:37 Smoking Status Never smoker 04/23/25 13:55 Hx Tobacco Use No 04/23/25 13:55 Years Smoking Packs Smoked per Day Smoking Cessation Date was within the last 15 years Hx Smoking Cessation Date Hx Smoking Cessation Counseling Hematologic Medial History Hematologic Hx - microbial specialist: Hematologic Medical Hx - senior technical business analyst Hx of Blood Transfusion No 04/23/25 13:55 Hx of Transfusion in last 3 No 04/23/25 13:55 Months Date of Last Transfusion (if within last 3 months) Ever experience any problems No 04/23/25 13:55 with transfusion(s)? Specify any problems Hx of Preganancy in last 3 No 04/23/25 13:55 Months Nurse Filling Out Transfusion VCHRISTIN 04/23/25 13:55 & Questions: Date: 04/23/25 04/23/25 13:55 Time: 13:56 04/23/25 13:55 Patient unable to answer at this time (ie. confused, unrespo /Reproduction History /Reproductive History - microbial specialist: /Reproductive Hx- microbial specialist Hx Now No 04/23/25 13:55 Gestational Age (in weeks): EDC: Hx Hx Para Hx Section SAB No 04/23/25 13:55 Does the father of the baby or his family experience fever w Father of the baby Malignant Hypertension history comment [facility] Medical History (Updated 04/23/25 @ 13:59 by Laura Carpenter) Wears contact lenses Post-menopausal Depression Pernicious anemia Iron deficiency anemia Blood disorder Back pain Injury of head and neck TIA (transient ischemic attack) Non-smoker Shortness of breath on exertion History of stress test History of echocardiogram Chest pain GERD (gastroesophageal reflux disease) High cholesterol Migraines Emotional problems Gallstones Bone fracture Pancreatitis Trigger point Insomnia Atypical chest pain Hyperlipidemia Home Medications ?Medication ?Instructions ?Recorded ?Last Taken ?Type acetaminophen 325 mg tablet 650 mg (2 x 325 mg) PO Q6H PRN PRN 03/27/25 Unknown Rx Pain 1-10 Or Fever >100.7 #0 tabs aspirin 81 mg tablet 81 mg PO QDAY 04/11/25 Unknown History ezetimibe 10 mg tablet (Zetia) 10 mg PO QDAY 04/11/25 Unknown History mecobalamin (vitamin B12) 10,000 10,000 mcg IM QMONTH 04/11/25 Unknown History mcg solution for injection dicyclomine 20 mg tablet 20 mg PO BID 5 days #10 tabs 04/20/25 Unknown Rx sucralfate 1 gram tablet (Carafate) 1 g PO TID 5 days #15 tabs 04/20/25 Unknown Rx Allergy/AdvReac Type Severity Reaction Status Date / Time meperidine HCl (From Demerol) AdvReac Vomiting Verified 04/23/25 13:42 morphine AdvReac Upset Verified 04/23/25 13:42 Stomach Family History Father CVA (cerebral vascular accident) Myocardial infarction Grandmother Colon cancer Diabetes Grandmother Myocardial infarction Surgical History (Updated 04/23/25 @ 13:55 by Laura Carpenter) History of cardiac catheterization Hx of vein stripping History of laparoscopic cholecystectomy History of ERCP S/P colonoscopy Hx of hysterectomy Hx of repair of left rotator cuff Hx of appendectomy Social History Smoking Status: Never smoker how long ago did patient quit smokin alcohol intake: current alcohol intake frequency: holidays/special occasions only substance use type: does not use caffeine: Yes Type: coffee Number of servings: 4 what type of physical activity do you participate in: walking frequency: 3-4 times per week Audit: Pertinent Findings Pertinent Findings EKG Perinent findings: 03/2025: NSR Stress test pertinent findings: 03/2023: Normal exercise stress echo, good functional aerobic capacity Recommendation Anesthesia Recommendation Anesthesia recommendation: OPTIMIZED for anesthesia
[2025-04-26] VITALS (10 sets, daily range): BP systolic 101–139; BP diastolic 67–82; PULSE 57–72; RESP 12–16; TEMP 36.1–36.5; O2SAT 94–100; BMI 23.4
--- NOTE | 2025-04-26 08:15 | RAD_ITS ---
PROCEDURE: ERCP BILIARY/PANCREAS 04/26/2025 REASON FOR EXAM: ERCP, STENT REMOVAL TECHNIQUE: Procedure Code: RADERCP Modality: DX Procedure: ERCP BILIARY/PANCREAS. Fluoroscopic imaging provided for ERCP. 61.1 seconds of fluoroscopy. 14.01 mGy of radiation dose. Addendum images were submitted. COMPARISON: Prior study dated March 26, 2025. FINDINGS: Fluoroscopic services provided for ERCP. Removal of the biliary stent. Persistent dilatation of the common bile duct. RAD/ERCP Biliary/Pancreas IMPRESSION: ERCP. Removal of the indwelling stent. Reading Location: [place] [address]
--- OUTSIDE RECORDS SUMMARY | 2025-04-26 08:30 | XMS RPT_ITS | CCD ---
Author Organization [facility] Care Team Providers Care Ag Equipment Field Service Technician Name Role Phone Bear Au MD Primary Care Provider [phone] Bear Au MD Unavailable HUNTER HUDSON Consulting Unavailable Sheri Hunter DO Attending Unavailmable subramanian PCP, None Primary Care Unavailable Dr. Bear Au Primary Care Provider [phone] Dr. Bear Au Referring Provider Dr. Manjeet Thapa Attending Provider Marshall GOLD FRAME ASSEMBLER, GOLD FRAME ASSEMBLER-Deena Elkins Attending Provider DR WYATT YEE MD [...] STACEY BENITO MD Attending Unavail able Wayne GOLD FRAME ASSEMBLER, [facility] Care Unavailabl e Miguel Bull Admitting Unavailable Edward, Abraham Consulting Unavailable Cb PA, Yoly Attending Unavailable Friend, Deep Consulting Unavailable Emery Suzanne Consulting Unavailable Court Stevens Consulting Unavailable Lamar Kong Consulting Unavailable Miguel Bull Consulting Unavailable Miguel Bull Admitting Unavailable Miguel Bull Attending Unavailable Wayne GOLD FRAME ASSEMBLER, [facility] Primary Care Unavailabl e Edward, Abraham Consulting Unavailable Friend, Deep Consulting Unavailable Suzanne Land Consulting Unavailable Court Stevens Consulting Unavailable Lamar Kong Consulting Unavailable Lamar Kong Referring Unavailable Lamar Kong Attending Unavailable Lakeshaer GOLD FRAME ASSEMBLER, [facility] Primary Care Unavailabl e Wayne GOLD FRAME ASSEMBLER, [facility] Primary Care Unavailabl e LISA MANDUJANO Referring Unavailable LISA MANDUJANO Attending Unavailable Ashley Herndon Referring Unavailable Ashley Herndon Attending Unavailable Wayne GOLD FRAME ASSEMBLER, [facility] Primary Care Unavailabl e Abby, Deep Attending Unavailable Wayne GOLD FRAME ASSEMBLER, [facility] Primary Care Unavailmable e Miguel Bull Admitting Unavailable Miguel Bull Attending Unavailable Wayne GOLD FRAME ASSEMBLER, [facility] Care Unavailabl e Edward, Abraham Consulting Unavailable Friend, Deep Consulting Unavailable Emery, Suzanne Consulting Unavailable Court Stevens Consulting Unavailable Lamar Kong Consulting Unavailable Miguel Bull Consulting Unavailable Deep Mora Attending Unavailable Miguel Bull Referring Unavailable Cb PA, Yoly Attending Unavailable Deep Mora Referring Unavailable Court Stevens Attending Unavailable Lakeshaer GOLD FRAME ASSEMBLER, [facility] Primary Care Unavailabl e Wayne GOLD FRAME ASSEMBLER, [facility] Referring Unavailabl e Cb PA, Yoly Attending Unavailable Lamar Kong Attending Unavailable Wayne GOLD FRAME ASSEMBLER, [facility] Primary Care Unavailabl e Kapper GOLD FRAME ASSEMBLER, Yoly Le Referring Unavailabl e Deep Mora Attending Unavailable Miguel Bull Referring Unavailable Allergies Allergy Classification Reported Allergen(s) Allergy Type Date of Onset Reaction(s) Facility (9 sources) Meperidine; Translations: [meperidine HCl] Drug Allergy 05-09-2016 Vomiting [facility] (20 sources) Morphine; Translations: [MORPHINE] Drug Allergy 02-03-2012 Vomiting [facility] (12 sources) Meperidine; Translations: [MEPERIDINE (PF)] Drug Allergy 02-03-2012 Vomiting [facility] (20 sources) Midazolam; Translations: [MIDAZOLAM] Drug Allergy 02-03-2012 Vomiting [facility] (1 source) Meperidine Drug Allergy 10-09-2022 [facility] (2 sources) Morphine Drug Allergy 10-09-2022 [facility] (9 sources) Meperidine; Translations: [meperidine] Drug Allergy 02-03-2012 [facility] [employer] Medications Current Medications Medication Drug Class(es) Dates [...] 01/05/2024 11/21/2024 Discontinued Start: 01-05-2024 HYDROcodone-ac etaminophen (Coleridge) 5-325 MG tablet 01/05/2024 Active take 1 tablet by nii th every eight hours as needed HYDROcodone-acetaminophen (NORCO) 5-325 mg per tablet Take 1 tablet by mouth every 8 hours as needed for pain. 0 Active [id number] 200 actuat albuterol 0.09 mg/actuat metered dose [...] Interpretation Reference Range Facility Gastroenterology Visit Repor [facility] 04-11-2025 Gastroenterology Visit Report [facility] [address] [place] [address] OFFICE VISIT Date of Service: 04/11/25 MR#: [id number] Acct: [id number] Name: VENUS SPIVEY Rep #: [id number] : 1960 Provider: YANIRA Martinez Age/Sex: 64/F Location: [facility] Status: Signed Intake Vital Signs 03/26/25 10:03 Height 5 ft 4.17 in Intake Visit Reasons: DISCUSS AND SCHEDULE STENT REMOVAL-PAIN Chief Complaint: Status post ERCP Rag Sorter And Cutter Required: No Accompanied by: Self Is patient [...] presents to the office today for follow-up [facility] admission 03/25/2025 - 03/27/2025 after presentation to [...] cooperative, healthy appearing and comfortable Orientation: alert [facility] Head: normal to inspection Neck Neck: normal visual inspection Chest Chest palpation inspection: normal inspection of the chest GI Inspection: normal to inspection Assessment and P (more content not included)... Normal [facility] CBC W/Diff, Automatedon 11 Absolute Lymph 2.47 X10 3/uL Normal 0.83-4.51 [facility] Comment on above: Performed By: #### L 501.2450, L500.4050, L100.0100 ####[facility] [address] [place], [address] Absolute Neut 4.7 X10 3/uL Normal 2.0-7.7 [facility] Comment on above: Performed By: #### L 501.2450, L500.4050, L100.0100 ####[facility] [address] [place], [address] Basophils/100 WBC (Bld) 0.9 % Normal 0-1 [facility] Comment on above: Performed By: #### L 501.2450, L500.4050, L100.0100 ####[facility] [address] [place], [address] Eosinophils/100 WBC (Bld) 5.5 % High 0-5 [facility] Comment on above: Performed By: #### L 501.2450, L500.4050, L100.0100 ####[facility] [address] [place], [address] Erythrocyte distribution width (RBC) [Ratio] 14.5 % Normal 11.6-14.6 [facility] Comment on above: Performed By: #### L 501.2450, L500.4050, L100.0100 ####[facility] [address] [place], [address] Hematocrit (Bld) [Volume fraction] 42.9 % Normal 37-47 [facility] Comment on above: Performed By: #### L 501.2450, L500.4050, L100.0100 ####[facility] [address] [place], [address] Hemoglobin (Bld) [Mass/Vol] 13.1 g/dL Normal 12.0-15.0 [facility] Comment on above: Performed By: #### L 501.2450, L500.4050, L100.0100 ####[facility] [address] [place], [address] IG% 0.400 Normal 0.0-0.9 [facility] Comment on above: Result Comment: IG% - Immature Granulocytes (promyelocytes, myelocytes and metamyelocytes) > 1% indicates that a LEFT SHIFT is Present. Performed By: #### L 501.2450, L500.4050, L100.0100 ####[facility] [address] [place], [address] Lymphocytes/100 WBC (Bld) 30.1 % Normal 19-41 [facility] Comment on above: Performed By: #### L 501.2450, L500.4050, L100.0100 ####[facility] [address] [place], [address] MCH (RBC) [Entitic mass] 25.0 pg Low 27.0-32.0 [facility] Comment on above: Performed By: #### L 501.2450, L500.4050, L100.0100 ####[facility] [address] [place], [address] MCHC (RBC) [Mass/Vol] 30.5 g/dL Low 32-36 [facility] Comment on above: Performed By: #### L 501.2450, L500.4050, L100.0100 ####[facility] [address] [place], [address] MCV (RBC) [Entitic vol] 81.7 fL Normal 81-99 [facility] Comment on above: Performed By: #### L 501.2450, L500.4050, L100.0100 ####[facility] [address] [place], [address] Monocytes/100 WBC (Bld) 6.5 % Normal 0-10 [facility] Comment on above: Performed By: #### L 501.2450, L500.4050, L100.0100 ####[facility] [address] [place], [address] Neutrophils/100 WBC (Bld) 56.6 % Normal 47-70 [facility] Comment on above: Performed By: #### L 501.2450, L500.4050, L100.0100 ####[facility] [address] [place], [address] Nucleated RBC (Bld) [#/Vol] 0 10*3/uL Normal 0-5 [facility] Comment on above: Performed By: #### L 501.2450, L500.4050, L100.0100 ####[facility] [address] [place], [address] Platelet mean volume (Bld) [Entitic vol] 9.7 fL Normal 6.2-12.0 [facility] Comment on above: Performed By: #### L 501.2450, L500.4050, L100.0100 ####[facility] [address] [place], [address] Platelets (Bld) [#/Vol] 384 10*3/uL Normal 150-450 [facility] Comment on above: Performed By: #### L 501.2450, L500.4050, L100.0100 ####[facility] [address] [place], [address] RBC (Bld) [#/Vol] 5.25 10*6/uL Normal 4.2-5.4 [facility] Comment on above: Performed By: #### L 501.2450, L500.4050, L100.0100 ####[facility] [address] [place], [address] RDW SD 42.5 fl Normal 35.1-43.9 [facility] Comment on above: Performed By: #### L 501.2450, L500.4050, L100.0100 ####[facility] [address] [place], [address] WBC (Bld) [#/Vol] 8.2 10*3/uL Normal 4.4-11.0 [facility] Comment on above: Performed By: #### L 501.2450, L500.4050, L100.0100 ####[facility] [address] [place], [address] Comprehensive Metabolic Prof [facility] 04-09-2025 Albumin [Mass/Vol] 4.5 g/dL Normal 3.4-4.8 [facility] Comment on above: Performed By: #### L 501.2450, L500.4050, L100.0100 ####[facility] [address] [place], [address] Albumin/Globulin [Mass ratio] 1.6 {ratio} Normal 0.9-2.4 [facility] Comment on above: Performed By: #### L 501.2450, L500.4050, L100.0100 ####[facility] [address] [place], [address] ALK PHOS 79 U/L Normal 35-104 [facility] Comment on above: Performed By: #### L 501.2450, L500.4050, L100.0100 ####[facility] [address] [place], [address] ALT [Catalytic activity/Vol] 40 U/L High <=34 [facility] Comment on above: Performed By: #### L 501.2450, L500.4050, L100.0100 ####[facility] [address] [place], [address] AST [Catalytic activity/Vol] 23 U/L Normal <=31 [facility] Comment on above: Performed By: #### L 501.2450, L500.4050, L100.0100 ####[facility] [address] [place], [address] Bilirubin [Mass/Vol] 0.21 mg/dL Normal 0.00-1.30 [facility] Comment on above: Performed By: #### L 501.2450, L500.4050, L100.0100 ####[facility] [address] [place], [address] BUN/CRE 15.5 RATIO Normal 10-20 [facility] Comment on above: Performed By: #### L 501.2450, L500.4050, L100.0100 ####[facility] [address] [place], [address] Calcium [Mass/Vol] 9.6 mg/dL Normal 7.6-11.0 [facility] Comment on above: Performed By: #### L 501.2450, L500.4050, L100.0100 ####[facility] [address] [place], [address] Chloride [Moles/Vol] 105 mmol/L Normal 98-108 [facility] Comment on above: Performed By: #### L 501.2450, L500.4050, L100.0100 ####[facility] [address] [place], [address] CO2 [Moles/Vol] 26.0 mmol/L Normal 21.0-32.0 [facility] Comment on above: Performed By: #### L 501.2450, L500.4050, L100.0100 ####[facility] [address] [place], [address] Creatinine [Mass/Vol] 0.64 mg/dL Low 0.70-1.20 [facility] Comment on above: Performed By: #### L 501.2450, L500.4050, L100.0100 ####[facility] [address] [place], [address] GAP 9 Normal 5-15 [facility] Comment on above: Performed By: #### L 501.2450, L500.4050, L100.0100 ####[facility] [address] [place], [address] GFR/1.73 sq M.predicted among non-blacks MDRD (S/P/Bld) [Vol rate/Area] 99 mL/min/{1.73_m2} Normal >60 [facility] Comment on above: Result Comment: mL/m in/1.73m2 CKD-EPI Creatinine Equation (2020) Performed By: #### L 501.2450, L500.4050, L100.0100 ####[facility] [address] [place], [address] Globulin (S) [Mass/Vol] 2.7 g/dL Normal 2.2-4.2 [facility] Comment on above: Performed By: #### L 501.2450, L500.4050, L100.0100 ####[facility] [address] [place], [address] Glucose [Mass/Vol] 105 mg/dL High 70-99 [facility] Comment on above: Performed By: #### L 501.2450, L500.4050, L100.0100 ####[facility] [address] [place], [address] Potassium [Moles/Vol] 4.2 mmol/L Normal 3.3-5.1 [facility] Comment on above: Performed By: #### L 501.2450, L500.4050, L100.0100 ####[facility] [address] [place], [address] Sodium [Moles/Vol] 140 mmol/L Normal 133-145 [facility] Comment on above: Performed By: #### L 501.2450, L500.4050, L100.0100 ####[facility] [address] [place], [address] T PROT 7.2 g/dL Normal 5.9-8.4 [facility] Comment on above: Performed By: #### L 501.2450, L500.4050, L100.0100 ####[facility] [address] [place], [address] Urea nitrogen [Mass/Vol] 10 mg/dL Normal 4-19 [facility] Comment on above: Performed By: #### L 501.2450, L500.4050, L100.0100 ####[facility] [address] [place], [address] Lipaseon 04-09-2025 Lipase [Catalytic activity/Vol] 54 U/L Normal 13-75 [facility] Comment on above: Result Comment: Lien hale note: LIPASE revised reference range effective 22. New Lipase methodology. Expected to produce lower values than the previous assay method. NEW Reference Range: 13 - 75 U/L Performed By: #### L 501.2450, L500.4050, L100.0100 ####[facility] [address] [place], [address] Surgery Visit Reporton 04-08 Surgery Visit Report [facility] [address] [place] [address] OFFICE VISIT Date of Service: 04/08/25 MR#: [id number] Acct: [id number] Name: VENUS SPIVEY Rep #: [id number] : 1960 Provider: ANNIE harris Age/Sex: 64/F Location: [facility] Status: Signed Intake Vital Signs 03/26/25 10:03 [...] Global Post Op Diagnoses S/P cholecystectomy Z90.49 [facility] Medical History (Updated 04/04/25 @ 00:01 [...] RTW letter needed Follow-up as needed 04/08/25 6319 Date Yoly Dillard Signature: Date (if applicable) CC: GOLD FRAME ASSEMBLER-C Yoly Black Normal [facility] CBC W/Diff, Automatedon 10-2 Absolute Lymph 2.05 X10 3/uL Normal 0.83-4.51 [facility] Comment on above: Performed By: #### L 100.0100, L500.4050 ####[facility] [address] [place], [address] Absolute Neut 7.0 X10 3/uL Normal 2.0-7.7 [facility] Comment on above: Performed By: #### L 100.0100, L500.4050 ####[facility] [address] [place], [address] Basophils/100 WBC (Bld) 0.1 % Normal 0-1 [facility] Comment on above: Performed By: #### L 100.0100, L500.4050 ####[facility] [address] [place], [address] Eosinophils/100 WBC (Bld) 0.1 % Normal 0-5 [facility] Comment on above: Performed By: #### L 100.0100, L500.4050 ####[facility] [address] [place], [address] Erythrocyte distribution width (RBC) [Ratio] 14.6 % Normal 11.6-14.6 [facility] Comment on above: Performed By: #### L 100.0100, L500.4050 ####[facility] [address] [place], [address] Hematocrit (Bld) [Volume fraction] 37.4 % Normal 37-47 [facility] Comment on above: Performed By: #### L 100.0100, L500.4050 ####[facility] [address] [place], [address] Hemoglobin (Bld) [Mass/Vol] 11.9 g/dL Low 12.0-15.0 [facility] Comment on above: Performed By: #### L 100.0100, L500.4050 ####[facility] [address] [place], [address] IG% 0.400 Normal 0.0-0.9 [facility] Comment on above: Result Comment: IG% - Immature Granulocytes (promyelocytes, myelocytes and metamyelocytes) > 1% indicates that a LEFT SHIFT is Present. Performed By: #### L 100.0100, L500.4050 ####[facility] [address] [place], [address] Lymphocytes/100 WBC (Bld) 20.3 % Normal 19-41 [facility] Comment on above: Performed By: #### L 100.0100, L500.4050 ####[facility] [address] [place], [address] MCH (RBC) [Entitic mass] 25.5 pg Low 27.0-32.0 [facility] Comment on above: Performed By: #### L 100.0100, L500.4050 ####[facility] [address] [place], [address] MCHC (RBC) [Mass/Vol] 31.8 g/dL Low 32-36 [facility] Comment on above: Performed By: #### L 100.0100, L500.4050 ####[facility] [address] [place], [address] MCV (RBC) [Entitic vol] 80.1 fL Low 81-99 [facility] Comment on above: Performed By: #### L 100.0100, L500.4050 ####[facility] [address] [place], [address] Monocytes/100 WBC (Bld) 9.4 % Normal 0-10 [facility] Comment on above: Performed By: #### L 100.0100, L500.4050 ####[facility] [address] [place], [address] Neutrophils/100 WBC (Bld) 69.7 % Normal 47-70 [facility] Comment on above: Performed By: #### L 100.0100, L500.4050 ####[facility] [address] [place], [address] Nucleated RBC (Bld) [#/Vol] 0 10*3/uL Normal 0-5 [facility] Comment on above: Performed By: #### L 100.0100, L500.4050 ####[facility] [address] [place], [address] Platelet mean volume (Bld) [Entitic vol] 9.5 fL Normal 6.2-12.0 [facility] Comment on above: Performed By: #### L 100.0100, L500.4050 ####[facility] [address] [place], [address] Platelets (Bld) [#/Vol] 247 10*3/uL Normal 150-450 [facility] Comment on above: Performed By: #### L 100.0100, L500.4050 ####[facility] [address] [place], [address] RBC (Bld) [#/Vol] 4.67 10*6/uL Normal 4.2-5.4 [facility] Comment on above: Performed By: #### L 100.0100, L500.4050 ####[facility] [address] [place], [address] RDW SD 42.2 fl Normal 35.1-43.9 [facility] Comment on above: Performed By: #### L 100.0100, L500.4050 ####[facility] [address] [place], [address] WBC (Bld) [#/Vol] 10.1 10*3/uL Normal 4.4-11.0 [facility] Comment on above: Performed By: #### L 100.0100, L500.4050 ####[facility] [address] [place], [address] Comprehensive Metabolic Prof ilon 03-27-2025 Albumin [Mass/Vol] 3.7 g/dL Normal 3.4-4.8 [facility] Comment on above: Performed By: #### L 100.0100, L500.4050 ####[facility] [address] [place], [address] Albumin/Globulin [Mass ratio] 1.8 {ratio} Normal 0.9-2.4 [facility] Comment on above: Performed By: #### L 100.0100, L500.4050 ####[facility] [address] [place], [address] ALK PHOS 75 U/L Normal 35-104 [facility] Comment on above: Performed By: #### L 100.0100, L500.4050 ####[facility] [address] [place], [address] ALT [Catalytic activity/Vol] 192 U/L High <=34 [facility] Comment on above: Performed By: #### L 100.0100, L500.4050 ####[facility] [address] [place], [address] AST [Catalytic activity/Vol] 51 U/L High <=31 [facility] Comment on above: Performed By: #### L 100.0100, L500.4050 ####[facility] [address] [place], [address] Bilirubin [Mass/Vol] 0.34 mg/dL Normal 0.00-1.30 [facility] Comment on above: Performed By: #### L 100.0100, L500.4050 ####[facility] [address] [place], [address] BUN/CRE 14.3 RATIO Normal 10-20 [facility] Comment on above: Performed By: #### L 100.0100, L500.4050 ####[facility] [address] [place], [address] Calcium [Mass/Vol] 8.3 mg/dL Normal 7.6-11.0 [facility] Comment on above: Performed By: #### L 100.0100, L500.4050 ####[facility] [address] [place], [address] Chloride [Moles/Vol] 107 mmol/L Normal 98-108 [facility] Comment on above: Performed By: #### L 100.0100, L500.4050 ####[facility] [address] [place], [address] CO2 [Moles/Vol] 22.6 mmol/L Normal 21.0-32.0 [facility] Comment on above: Performed By: #### L 100.0100, L500.4050 ####[facility] [address] [place], [address] Creatinine [Mass/Vol] 0.53 mg/dL Low 0.70-1.20 [facility] Comment on above: Performed By: #### L 100.0100, L500.4050 ####[facility] [address] [place], [address] ECRCL 101.38 ml/min Normal 50-250 [facility] Comment on above: Performed By: #### L 100.0100, L500.4050 ####[facility] [address] [place], [address] GAP 10 Normal 5-15 [facility] Comment on above: Performed By: #### L 100.0100, L500.4050 ####[facility] [address] [place], [address] GFR/1.73 sq M.predicted among non-blacks MDRD (S/P/Bld) [Vol rate/Area] 104 mL/min/{1.73_m2} Normal >60 [facility] Comment on above: Result Comment: mL/m in/1.73m2 CKD-EPI Creatinine Equation (2020) Performed By: #### L 100.0100, L500.4050 ####[facility] [address] [place], [address] Globulin (S) [Mass/Vol] 2.0 g/dL Low 2.2-4.2 [facility] Comment on above: Performed By: #### L 100.0100, L500.4050 ####[facility] [address] [place], [address] Glucose [Mass/Vol] 98 mg/dL Normal 70-99 [facility] Comment on above: Performed By: #### L 100.0100, L500.4050 ####[facility] [address] [place], [address] Potassium [Moles/Vol] 3.2 mmol/L Low 3.3-5.1 [facility] Comment on above: Performed By: #### L 100.0100, L500.4050 ####[facility] [address] [place], [address] Sodium [Moles/Vol] 140 mmol/L Normal 133-145 [facility] Comment on above: Performed By: #### L 100.0100, L500.4050 ####[facility] [address] [place], [address] T PROT 5.7 g/dL Low 5.9-8.4 [facility] Comment on above: Performed By: #### L 100.0100, L500.4050 ####[facility] [address] [place], [address] Urea nitrogen [Mass/Vol] 8 mg/dL Normal 4-19 [facility] Comment on above: Performed By: #### L 100.0100, L500.4050 ####[facility] [address] [place], [address] MR/PN.GIon 03-27-2025 MR/PN.GI [facility] Records Department [address] [place] [address] Progress Note - GI 03/27/2559 MR#: [id number] Acct: [id number] Name: VENUS SPIVEY Rep #: [id number] : 1960 64 From: Court Stevens NP-C PCP: DONTE Callaway Status:DIS IN Location: [place] [id number] Subjective Subjective 64y/o female with PMH hyperlipidemia, [...] % (Auto) 69.7, Lymph % (Auto) 20.3, Stanley % (Auto) 9.4, Eos % (Auto) 0.1, [...] good flow into the duodenum. Reading Location: [facility] Rhythm Strip Rhythm Strip: Sinus Rhythm [...] meals, avoiding high-fat foods) and???daily PPI. Note: Perception Software speech recognition primary grade teacher software was used to create portions of this document. Sound-alike and misspelled words, as well as other primary grade teacher errors may be contained in the documentation. 03/27/25 1156 Cosigner Signature (if applicable): CC: Signed Normal [facility] CBC W/Diff, Automatedon 10-2 Absolute Lymph 0.78 X10 3/uL Low 0.83-4.51 [facility] Comment on above: Performed By: #### L 500.4050, L100.0100 #### [facility] [address] [place], [address] Absolute Neut 5.7 X10 3/uL Normal 2.0-7.7 [facility] Comment on above: Performed By: #### L 500.4050, L100.0100 #### [facility] [address] [place], [address] Basophils/100 WBC (Bld) 0.2 % Normal 0-1 [facility] Comment on above: Performed By: #### L 500.4050, L100.0100 #### [facility] [address] [place], [address] Eosinophils/100 WBC (Bld) 0.0 % Normal 0-5 [facility] Comment on above: Performed By: #### L 500.4050, L100.0100 #### [facility] [address] [place], [address] Erythrocyte distribution width (RBC) [Ratio] 14.6 % Normal 11.6-14.6 [facility] Comment on above: Performed By: #### L 500.4050, L100.0100 #### [facility] [address] [place], [address] Hematocrit (Bld) [Volume fraction] 40.3 % Normal 37-47 [facility] Comment on above: Performed By: #### L 500.4050, L100.0100 #### [facility] [address] [place], [address] Hemoglobin (Bld) [Mass/Vol] 12.4 g/dL Normal 12.0-15.0 [facility] Comment on above: Performed By: #### L 500.4050, L100.0100 #### [facility] [address] [place], [address] IG% 0.300 Normal 0.0-0.9 [facility] Comment on above: Result Comment: IG% - Immature Granulocytes (promyelocytes, myelocytes and metamyelocytes) > 1% indicates that a LEFT SHIFT is Present. Performed By: #### L 500.4050, L100.0100 #### [facility] [address] [place], [address] Lymphocytes/100 WBC (Bld) 11.8 % Low 19-41 [facility] Comment on above: Performed By: #### L 500.4050, L100.0100 #### [facility] [address] [place], [address] MCH (RBC) [Entitic mass] 25.2 pg Low 27.0-32.0 [facility] Comment on above: Performed By: #### L 500.4050, L100.0100 #### [facility] [address] [place], [address] MCHC (RBC) [Mass/Vol] 30.8 g/dL Low 32-36 [facility] Comment on above: Performed By: #### L 500.4050, L100.0100 #### [facility] [address] [place], [address] MCV (RBC) [Entitic vol] 81.7 fL Normal 81-99 [facility] Comment on above: Performed By: #### L 500.4050, L100.0100 #### [facility] [address] [place], [address] Monocytes/100 WBC (Bld) 1.1 % Normal 0-10 [facility] Comment on above: Performed By: #### L 500.4050, L100.0100 #### [facility] [address] [place], [address] Neutrophils/100 WBC (Bld) 86.6 % High 47-70 [facility] Comment on above: Performed By: #### L 500.4050, L100.0100 #### [facility] [address] [place], [address] Nucleated RBC (Bld) [#/Vol] 0 10*3/uL Normal 0-5 [facility] Comment on above: Performed By: #### L 500.4050, L100.0100 #### [facility] [address] [place], [address] Platelet mean volume (Bld) [Entitic vol] 9.4 fL Normal 6.2-12.0 [facility] Comment on above: Performed By: #### L 500.4050, L100.0100 #### [facility] [address] [place], [address] Platelets (Bld) [#/Vol] 223 10*3/uL Normal 150-450 [facility] Comment on above: Performed By: #### L 500.4050, L100.0100 #### [facility] [address] [place], [address] RBC (Bld) [#/Vol] 4.93 10*6/uL Normal 4.2-5.4 [facility] Comment on above: Performed By: #### L 500.4050, L100.0100 #### [facility] [address] [place], [address] RDW SD 43.4 fl Normal 35.1-43.9 [facility] Comment on above: Performed By: #### L 500.4050, L100.0100 #### [facility] [address] [place], [address] WBC (Bld) [#/Vol] 6.6 10*3/uL Normal 4.4-11.0 [facility] Comment on above: Performed By: #### L 500.4050, L100.0100 #### [facility] [address] [place], [address] Cholangiogram/ O R,Initialon 03-26-2025 Cholangiogram/ O R,Initial [facility] Imaging Services [address] [place] [address] Cholangiogram/ O R,Initial MR#: [id number] Acct: [id number] Name: VENUS SPIVEY Rep #: [id number] : 1960 F 64 From: Taqueria mckeon MD PCP: Yoly Black, GOLD FRAME ASSEMBLER-C Status: ADM IN Study: Cholangiogram/ O R,Initial Date of Exam: 03/26 Exam# [id number] Ordering Dr: Miguel Bull MD PROCEDURE: CHOLANGIOGRAM/ [...] CC: DONTE Black; Dr. Miguel Bull MD Elephant Tamer: Signed Normal [facility] Comprehensive Metabolic Prof ilon 03-26-2025 Albumin [Mass/Vol] 3.8 g/dL Normal 3.4-4.8 [facility] Comment on above: Performed By: #### L 500.4050, L100.0100 #### [facility] [address] [place], [address] Albumin/Globulin [Mass ratio] 1.8 {ratio} Normal 0.9-2.4 [facility] Comment on above: Performed By: #### L 500.4050, L100.0100 #### [facility] [address] [place], [address] ALK PHOS 90 U/L Normal 35-104 [facility] Comment on above: Performed By: #### L 500.4050, L100.0100 #### [facility] [address] [place], [address] ALT [Catalytic activity/Vol] 316 U/L High <=34 [facility] Comment on above: Performed By: #### L 500.4050, L100.0100 #### [facility] [address] [place], [address] AST [Catalytic activity/Vol] 132 U/L High <=31 [facility] Comment on above: Performed By: #### L 500.4050, L100.0100 #### [facility] [address] [place], [address] Bilirubin [Mass/Vol] 0.34 mg/dL Normal 0.00-1.30 [facility] Comment on above: Performed By: #### L 500.4050, L100.0100 #### [facility] [address] [place], [address] BUN/CRE 14.3 RATIO Normal 10-20 [facility] Comment on above: Performed By: #### L 500.4050, L100.0100 #### [facility] [address] [place], [address] Calcium [Mass/Vol] 7.9 mg/dL Normal 7.6-11.0 [facility] Comment on above: Performed By: #### L 500.4050, L100.0100 #### [facility] [address] [place], [address] Chloride [Moles/Vol] 112 mmol/L High 98-108 [facility] Comment on above: Performed By: #### L 500.4050, L100.0100 #### [facility] [address] [place], [address] CO2 [Moles/Vol] 20.2 mmol/L Low 21.0-32.0 [facility] Comment on above: Performed By: #### L 500.4050, L100.0100 #### [facility] [address] [place], [address] Creatinine [Mass/Vol] 0.49 mg/dL Low 0.70-1.20 [facility] Comment on above: Performed By: #### L 500.4050, L100.0100 #### [facility] [address] [place], [address] ECRCL 109.66 ml/min Normal 50-250 [facility] Comment on above: Performed By: #### L 500.4050, L100.0100 #### [facility] [address] [place], [address] GAP 9 Normal 5-15 [facility] Comment on above: Performed By: #### L 500.4050, L100.0100 #### [facility] [address] [place], [address] GFR/1.73 sq M.predicted among non-blacks MDRD (S/P/Bld) [Vol rate/Area] 106 mL/min/{1.73_m2} Normal >60 [facility] Comment on above: Result Comment: mL/m in/1.73m2 CKD-EPI Creatinine Equation (2020) Performed By: #### L 500.4050, L100.0100 #### [facility] [address] [place], [address] Globulin (S) [Mass/Vol] 2.1 g/dL Low 2.2-4.2 [facility] Comment on above: Performed By: #### L 500.4050, L100.0100 #### [facility] [address] [place], [address] Glucose [Mass/Vol] 114 mg/dL High 70-99 [facility] Comment on above: Performed By: #### L 500.4050, L100.0100 #### [facility] [address] [place], [address] Potassium [Moles/Vol] 3.5 mmol/L Normal 3.3-5.1 [facility] Comment on above: Performed By: #### L 500.4050, L100.0100 #### [facility] [address] [place], [address] Sodium [Moles/Vol] 141 mmol/L Normal 133-145 [facility] Comment on above: Performed By: #### L 500.4050, L100.0100 #### [facility] [address] [place], [address] T PROT 5.9 g/dL Normal 5.9-8.4 [facility] Comment on above: Performed By: #### L 500.4050, L100.0100 #### [facility] [address] [place], [address] Urea nitrogen [Mass/Vol] 7 mg/dL Normal 4-19 [facility] Comment on above: Performed By: #### L 500.4050, L100.0100 #### [facility] [address] [place], [address] MR/POSTOP.ANEon 03-26-2025 MR/POSTOP.ANE [facility] Medical Records Department [address] [place] [address] Anesthesia Postop Eval I 03/26/25 1452 MR#: [id number] Acct: [id number] Name: VENUS SPIVEY Rep #: [id number] : 1960 64 From: Rodriguez Berrios PCP: Yoly Black, GOLD FRAME ASSEMBLER-C Status:ADM IN Y Race: C [facility] Anesthesia: Postop Eval I Current Vital Signs [...] Rodriguez Dillard Signature: Date CC: Signed Normal [facility] MR/[id number] 03-26-2025 MR/POSTOPAN2 [facility] Medical Records Department [address] [place] [address] Anesthesia Postop Eval II 03/26/25 1523 MR#: [id number] Acct: [id number] Name: VENUS SPIVEY Rep #: [id number] : 1960 64 From: Rashaad Cardenas MD PCP: Yoly Black, GOLD FRAME ASSEMBLER-C Status:ADM IN Y Race: C Location: [place] [address] Anesthesia Postop Eval I Sum Postop Eval [...] Rashaad Dillard Signature: Date CC: Signed Normal [facility] Operative Reporton [address] [facility] Medical Records Department [address] [place] [address] Operative Report 03/26/25 1420 MR#: [id number] Acct: [id number] Name: VENUS SPIVEY Rep #: [id number] : 1960 64 From: Miguel Bull MD PCP: Yoly Black GOLD FRAME ASSEMBLER-C Status:ADM IN Location: [place] [address] Procedures Digestive 40xxx-49xxx: 17548 Laparo cholecystectomy/graph Operative Report (Standard) Operative Information Date of Procedure: 03/26/25 Pre-Operative Diagnosis: 1. Acute cholecystitis 2. Choledocholithiasis status post ERCP with stone removal and common bile duct stenting Post-Operative Diagnosis: Same Surgery/Procedure Performed: Laparoscopic cholecystectomy with intraoperative cholangiography wool hanker: Yes Tank Car Mechanic: Caridad Sullivan Tasks completed by first line supervisor: Opening closing Type of Anesthesia: General/Supplemental RN [...] was backflow of bile. Using an [place] clamp, a cholangiocatheter was fed into the [...] sites was closed with #1Vicryl in a [id number] fashion. A total of 30 mL of [...] VTE Documentation (more content not included)... Normal [facility] Surgery Specimen Level IIIon 03-26-2025 Surgery Specimen Level III Patient Age/Sex Location Account Attending Physician VENUS SPIVEY 64/F MS3 [id number] Dr. Miguel Bull MD Specimen: [id number] Received: 03/26/25 Status: EVA Mclean Num: [id number] Spec Type: EVERARDO De Oliveira Dr: Dr. [...] of 0.5 cm. Cholesterolosis is not present. Financial Reporting Analyst sections are submitted in 2 cassettes as follows: A1: Margin, cross-sectionsA2: Edematous cross-sections SD 03/27/2025 CPT:21032 Patient Age/Sex Location Account Attending Physician VENUS SPIVEY 64/F MS3 [id number] Dr. Miguel Bull MD Signed (signature on file) Dr. Korin Hathaway MD 04/05/25 1626 Normal [facility] Comment on above: Performed By: #### P SUIII ####[facility] [id number] [facility] [place], [place], [address] Abdomen/Pelvis W IV Cont ONL Yon 03-25-2025 Abdomen/Pelvis W IV Cont ONLY [facility] Imaging Services [address] [place], [place] [address] Abdomen/Pelvis W IV Cont ONLY MR#: [id number] Acct: [id number] Name: VENUS SPIVEY Rep #: [id number] : 1960 F 64 From: Irma ellis MD PCP: Yoly Black GOLD FRAME ASSEMBLERIvette Status: REG ER Study: Abdomen/Pelvis W IV Cont ONLY Date of Exam: Exam# [id number] Ordering Dr: Prema Michaels DO PROCEDURE: ABDOMEN/PELVIS [...] fecal residue in the cecum. Reading [facility] CC: DONTE Black; Dr. Prema Michaels DO Elephant Tamer: Signed Normal [facility] Basic Metabolic Profile (BMP )on 03-25-2025 BUN/CRE 19.3 RATIO Normal - [facility] Comment on above: Performed By: #### L 501.2450, L501.4021, L100.0100, L500.3400, L500.2500 #### [facility] [address] [place], [address] Calcium [Mass/Vol] 10.0 mg/dL Normal 7.6-11.0 [facility] Comment on above: Performed By: #### L 501.2450, L501.4021, L100.0100, L500.3400, L500.2500 #### [facility] [address] [place], [address] Chloride [Moles/Vol] 102 mmol/L Normal 98-108 [facility] Comment on above: Performed By: #### L 501.2450, L501.4021, L100.0100, L500.3400, L500.2500 #### [facility] [address] [place], [address] CO2 [Moles/Vol] 23.5 mmol/L Normal 21.0-32.0 [facility] Comment on above: Performed By: #### L 501.2450, L501.4021, L100.0100, L500.3400, L500.2500 #### [facility] [address] [place], [address] Creatinine [Mass/Vol] 0.76 mg/dL Normal 0.70-1.20 [facility] Comment on above: Performed By: #### L 501.2450, L501.4021, L100.0100, L500.3400, L500.2500 #### [facility] [address] [place], [address] ECRCL 65.43 ml/min Normal 50-250 [facility] Comment on above: Performed By: #### L 501.2450, L501.4021, L100.0100, L500.3400, L500.2500 #### [facility] [address] [place], [address] GAP 13 Normal 5-15 [facility] Comment on above: Performed By: #### L 501.2450, L501.4021, L100.0100, L500.3400, L500.2500 #### [facility] [address] [place], [address] GFR/1.73 sq M.predicted among non-blacks MDRD (S/P/Bld) [Vol rate/Area] 88 mL/min/{1.73_m2} Normal >60 [facility] Comment on above: Result Comment: mL/m in/1.73m2 CKD-EPI Creatinine Equation (2020) Performed By: #### L 501.2450, L501.4021, L100.0100, L500.3400, L500.2500 #### [facility] [address] [place], [address] Glucose [Mass/Vol] 114 mg/dL High 70-99 [facility] Comment on above: Performed By: #### L 501.2450, L501.4021, L100.0100, L500.3400, L500.2500 #### [facility] [address] [place], [address] Potassium [Moles/Vol] 3.2 mmol/L Low 3.3-5.1 [facility] Comment on above: Performed By: #### L 501.2450, L501.4021, L100.0100, L500.3400, L500.2500 #### [facility] [address] [place], [address] Sodium [Moles/Vol] 139 mmol/L Normal 133-145 [facility] Comment on above: Performed By: #### L 501.2450, L501.4021, L100.0100, L500.3400, L500.2500 #### [facility] [address] [place], [address] Urea nitrogen [Mass/Vol] 15 mg/dL Normal 4-19 [facility] Comment on above: Performed By: #### L 501.2450, L501.4021, L100.0100, L500.3400, L500.2500 #### [facility] [address] [place], [address] CBC W/Diff, Automatedon 10-2 Absolute Lymph 2.74 X10 3/uL Normal 0.83-4.51 [facility] Comment on above: Performed By: #### L 501.2450, L501.4021, L100.0100, L500.3400, L500.2500 #### [facility] [address] [place], [address] Absolute Neut 7.9 X10 3/uL High 2.0-7.7 [facility] Comment on above: Performed By: #### L 501.2450, L501.4021, L100.0100, L500.3400, L500.2500 #### [facility] [address] [place], [address] Basophils/100 WBC (Bld) 0.3 % Normal 0-1 [facility] Comment on above: Performed By: #### L 501.2450, L501.4021, L100.0100, L500.3400, L500.2500 #### [facility] [address] [place], [address] Eosinophils/100 WBC (Bld) 0.8 % Normal 0-5 [facility] Comment on above: Performed By: #### L 501.2450, L501.4021, L100.0100, L500.3400, L500.2500 #### [facility] [address] [place], [address] Erythrocyte distribution width (RBC) [Ratio] 14.4 % Normal 11.6-14.6 [facility] Comment on above: Performed By: #### L 501.2450, L501.4021, L100.0100, L500.3400, L500.2500 #### [facility] [address] [place], [address] Hematocrit (Bld) [Volume fraction] 44.8 % Normal 37-47 [facility] Comment on above: Performed By: #### L 501.2450, L501.4021, L100.0100, L500.3400, L500.2500 #### [facility] [address] [place], [address] Hemoglobin (Bld) [Mass/Vol] 13.8 g/dL Normal 12.0-15.0 [facility] Comment on above: Performed By: #### L 501.2450, L501.4021, L100.0100, L500.3400, L500.2500 #### [facility] [address] [place], [address] IG% 0.300 Normal 0.0-0.9 [facility] Comment on above: Result Comment: IG% - Immature Granulocytes (promyelocytes, myelocytes and metamyelocytes) > 1% indicates that a LEFT SHIFT is Present. Performed By: #### L 501.2450, L501.4021, L100.0100, L500.3400, L500.2500 #### [facility] [address] [place], [address] Lymphocytes/100 WBC (Bld) 23.8 % Normal 19-41 [facility] Comment on above: Performed By: #### L 501.2450, L501.4021, L100.0100, L500.3400, L500.2500 #### [facility] [address] [place], [address] MCH (RBC) [Entitic mass] 25.0 pg Low 27.0-32.0 [facility] Comment on above: Performed By: #### L 501.2450, L501.4021, L100.0100, L500.3400, L500.2500 #### [facility] [address] [place], [address] MCHC (RBC) [Mass/Vol] 30.8 g/dL Low 32-36 [facility] Comment on above: Performed By: #### L 501.2450, L501.4021, L100.0100, L500.3400, L500.2500 #### [facility] [address] [place], [address] MCV (RBC) [Entitic vol] 81.3 fL Normal 81-99 [facility] Comment on above: Performed By: #### L 501.2450, L501.4021, L100.0100, L500.3400, L500.2500 #### [facility] [address] [place], [address] Monocytes/100 WBC (Bld) 6.5 % Normal 0-10 [facility] Comment on above: Performed By: #### L 501.2450, L501.4021, L100.0100, L500.3400, L500.2500 #### [facility] [address] [place], [address] Neutrophils/100 WBC (Bld) 68.3 % Normal 47-70 [facility] Comment on above: Performed By: #### L 501.2450, L501.4021, L100.0100, L500.3400, L500.2500 #### [facility] [address] [place], [address] Nucleated RBC (Bld) [#/Vol] 0 10*3/uL Normal 0-5 [facility] Comment on above: Performed By: #### L 501.2450, L501.4021, L100.0100, L500.3400, L500.2500 #### [facility] [address] [place], [address] Platelet mean volume (Bld) [Entitic vol] 9.8 fL Normal 6.2-12.0 [facility] Comment on above: Performed By: #### L 501.2450, L501.4021, L100.0100, L500.3400, L500.2500 #### [facility] [address] [place], [address] Platelets (Bld) [#/Vol] 303 10*3/uL Normal 150-450 [facility] Comment on above: Performed By: #### L 501.2450, L501.4021, L100.0100, L500.3400, L500.2500 #### [facility] [address] [place], [address] RBC (Bld) [#/Vol] 5.51 10*6/uL High 4.2-5.4 [facility] Comment on above: Performed By: #### L 501.2450, L501.4021, L100.0100, L500.3400, L500.2500 #### [facility] [address] [place], [address] RDW SD 42.1 fl Normal 35.1-43.9 [facility] Comment on above: Performed By: #### L 501.2450, L501.4021, L100.0100, L500.3400, L500.2500 #### [facility] [address] [place], [address] WBC (Bld) [#/Vol] 11.5 10*3/uL High 4.4-11.0 [facility] Comment on above: Performed By: #### L 501.2450, L501.4021, L100.0100, L500.3400, L500.2500 #### [facility] [address] [place], [address] Chest PA and Lateralon 03-25 Chest PA and Lateral [facility] Imaging Services [address] [place] [address] Chest PA and Lateral MR#: [id number] Acct: [id number] Name: VENUS SPIVEY Rep #: [id number] : 1960 F 64 From: Irma ellis MD PCP: CASTILLO CallawayC Status: REG ER Study: Chest PA and Lateral Date of Exam: 03/25/25 Exam# [id number] Ordering Dr: Prema Michaels DO PROCEDURE: CHEST [...] No evidence for acute abnormality. Reading Location: [place] [address] CC: GOLD FRAME ASSEMBLER-C Yoly Black; Dr. Prema Michaels DO Elephant Tamer: Signed Normal [facility] ERCP Biliary/Pancreason 02-28 ERCP Biliary/Pancreas [facility] Imaging Services [address] [place] [address] ERCP Biliary/Pancreas MR#: [id number] Acct: [id number] Name: VENUS SPIVEY Rep #: [id number] : 1960 F 64 From: Taqueria mckeon MD PCP: CASTILLO CallawayC Status: DIS IN Study: ERCP Biliary/Pancreas Date of Exam: 03/25/25 Exam# [id number] Ordering Dr: Deep Mora DO PROCEDURE: ERCP [...] Fluoroscopic imaging provided for ERCP. Reading Location: [id number] CC: GOLD FRAME ASSEMBLER-C Yoly Black; Deep Mora DO Elephant Tamer: Signed Normal [facility] ERCP Reporton 03-25-2025 ERCP Report [facility] Medical Records Department [address] [place] [address] ERCP Report MR#: [id number] Acct: [id number] Name: VENUS SPIVEY Rep #: [id number] : 1960 64 From: Deep Mora DO [...] hours 19 minutes 16 seconds Findings: The angle shear operator film was normal. The esophagus was successfully [...] 5 mm. (more content not included)... Normal [facility] Emergency Department Summary on 03-25-2025 Emergency Department Summary [facility] Medical Records Department [address] [place] [address] Emergency Department Summary 03/25/25 MR#: [id number] Acct: [id number] Name: VENUS SPIVEY Rep #: [id number] : 1960 64 From: Prema Michaels DO [...] complaints or concerns reported at this time. [facility] Medical History Pancreatitis Trigger point Insomnia Atypical [...] Negative fo (more content not included)... Normal [facility] Gallbladderon 03-25-2025 Gallbladder [facility] Imaging Services [address] [place], [place] [address] Gallbladder MR#: [id number] Acct: [id number] Name: VENUS SPIVEY Rep #: [id number] : 1960 F 64 From: Taqueria mckeon MD PCP: Yoly Black, GOLD FRAME ASSEMBLER-C Status: REG ER Study: Gallbladder Date of Exam: 03/25/25 Exam# [id number] Ordering Dr: Prema Michaels DO PROCEDURE: GALLBLADDER [...] liver. Right parapelvic renal cyst. Reading Location: [id number] CC: DONTE Black; Dr. Prema Michaels, Elephant Tamer: Signed Normal [facility] L501.4021on 03-25-2025 Trop T High Sen < 6 Normal <=14 [facility] Comment on above: Performed By: #### L 501.2450, L501.4021, L100.0100, L500.3400, L500.2500 ####[facility] [address] [place], [address] Lipaseon 03-25-2025 Lipase [Catalytic activity/Vol] 51 U/L Normal 13-75 [facility] Comment on above: Result Comment: Plea se note: LIPASE revised reference range effective 22. New Lipase methodology. Expected to produce lower values than the previous assay method. NEW Reference Range: 13 - 75 U/L Performed By: #### L 501.2450, L501.4021, L100.0100, L500.3400, L500.2500 ####[facility] [address] [place], [address] Liver Profileon 03-25-2025 Albumin [Mass/Vol] 4.7 g/dL Normal 3.4-4.8 [facility] Comment on above: Performed By: #### L 501.2450, L501.4021, L100.0100, L500.3400, L500.2500 ####[facility] [address] [place], [address] ALK PHOS 91 U/L Normal 35-104 [facility] Comment on above: Performed By: #### L 501.2450, L501.4021, L100.0100, L500.3400, L500.2500 ####[facility] [address] [place], [address] ALT [Catalytic activity/Vol] 194 U/L High <=34 [facility] Comment on above: Performed By: #### L 501.2450, L501.4021, L100.0100, L500.3400, L500.2500 ####[facility] [address] [place], [address] AST [Catalytic activity/Vol] 261 U/L High <=31 [facility] Comment on above: Performed By: #### L 501.2450, L501.4021, L100.0100, L500.3400, L500.2500 ####[facility] [address] [place], [address] Bilirubin [Mass/Vol] 0.99 mg/dL Normal 0.00-1.30 [facility] Comment on above: Performed By: #### L 501.2450, L501.4021, L100.0100, L500.3400, L500.2500 ####[facility] [address] [place], [address] Bilirubin.direct [Mass/Vol] 0.57 mg/dL High 0.00-0.30 [facility] Comment on above: Performed By: #### L 501.2450, L501.4021, L100.0100, L500.3400, L500.2500 ####[facility] [address] [place], [address] Globulin (S) [Mass/Vol] 2.8 g/dL Normal 2.2-4.2 [facility] Comment on above: Performed By: #### L 501.2450, L501.4021, L100.0100, L500.3400, L500.2500 ####[facility] [address] [place], [address] T PROT 7.5 g/dL Normal 5.9-8.4 [facility] Comment on above: Performed By: #### L 501.2450, L501.4021, L100.0100, L500.3400, L500.2500 ####[facility] [address] [place], [address] MR/OP.PROVATon 03-25-2025 [facility] [address] [place] [address] Provation Physician Letter MR#: [id number] Acct: [id number] Name: VENUS SPIVEY Rep #: [id number] : 1960 64 From: Depe Mora DO PCP: DONTE Callaway Status:ADM IN 03/25/2025 Yoly Black Np, Chief Strategy Officer-c Re : ERCP procedure for Venus Spivey [...] Mora DO Date Dictated: 03/25/251527 Date Transcribed: Elephant Tamer: RF Signed [facility] MR/POSTOP.ANE 03-25-2025 MR/POSTOP.[facility] Medical Records Department [address] [place] [address] Anesthesia Postop Eval I 03/25/252034 MR#: [id number] Acct: [id number] Name: VENUS SPIVEY Rep #: [id number] : 1960 64 From: Aneudy Portillo MD PCP: DONTE Callaway Status:ADM IN Y Race: C Location: [place] [address] Anesthesia: Postop Eval I Current Vital Signs [...] Date Aneudy Dillard Signature: Date CC: Signed [facility] MR/PLOVXCKQ7pg 03-25-2025 MR/POSTOPAN2 [facility] Medical Records Department [address] [place] [address] Anesthesia Postop Eval II 03/25/252107 MR#: [id number] Acct: [id number] Name: VENUS SPIVEY Rep #: [id number] : 1960 64 From: Aneudy Portillo MD PCP: Yoly Black, GOLD FRAME ASSEMBLER-C Status:ADM IN Y Race: C Location: [facility] [id number] Anesthesia Postop Eval I Sum Postop Eval [...] MD Cosigner Signature: Date CC: Signed Normal [facility] Troponin T HS 2 HRon 025 Trop T High Sen < 6 Normal <=14 [facility] Comment on above: Performed By: #### L 499.0042 ####[facility] [address] [place], [address] Troponin T HS 4 HRon 025 Trop T High Sen Normal <=14 [facility] Comment on above: Result Comment: Canc elled via OM: MD Ordered Performed By: #### L 499.0043 #### [facility] [address] [place], [address] Urinalysis, Completeon 03-25 RBC 0-5 SEEN Normal 0-5 [facility] Comment on above: Order Comment: CLEAN CATCH Performed By: #### L 400.0001 #### [facility] [address] [place], [address] BACTERIA 1+ /hpf Normal None Seen [facility] Comment on above: Order Comment: CLEAN CATCH Performed By: #### L 400.0001 #### [facility] [address] [place], [address] EPI,SQUAMOUS 0-5 SEEN Normal 5-10 [facility] Comment on above: Order Comment: CLEAN CATCH Performed By: #### L 400.0001 #### [facility] [address] [place], [address] WBC 0-5 SEEN Normal 0-5 [facility] Comment on above: Order Comment: CLEAN CATCH Performed By: #### L 400.0001 #### [facility] [address] [place], [address] Mucus Ql (Urine sed) 0 SEEN Normal [facility] Comment on above: Order Comment: CLEAN CATCH Performed By: #### L 400.0001 #### [facility] [address] [place], [address] B12on 12-25-2024 Cobalamin (Vitamin B12) [Mass/Vol] 505 pg/mL Normal 211-911 [facility] Comment on above: Performed By: #### B 12, FERR, FES #### [place] [address] Ashlee 12-25-2024 Ferritin [Mass/Vol] 186.3 ng/mL Normal 8.0-252.[address] [facility] Comment on above: Performed By: #### B 12, FERR, FES #### [place] [address] FESon 12-25-2024 Iron [Mass/Vol] 89 ug/dL Normal 50-170 [facility] Comment on above: Performed By: #### B 12, FERR, FES #### [place] [address] Iron Sat 32 % Normal [facility] Comment on above: Performed By: #### B 12, FERR, FES #### [place] [address] TIBC 282 mcg/dL Normal 250-500 [facility] Comment on above: Performed By: #### B 12, FERR, FES #### [place] [address] CNOVon 11-21-2024 CNOV Office Visit (NEAGCL M) VENUS SPIVEY ([id number]) 1960 F Date Time Provider Department 11/21/24 12:45 PM SONYA MCDERMOTT I NEAGCLM During your visit today, we recorded the following information about you: Pulse Respiration Blood pressure Weight 70/minute 16/minute 116/77 68.8 kg Height 1.626 m Sonya Mcdermott I, MD 11/21/2024 2:08 PM Signed NEUROSURGERY FOLLOW UP OFFICE NOTE Chair, Clinical Neurosciences Director, Spinal Neurosurgery [facility] Date of visit: November 21, 2024 Patient Name: Ms.Jeanette Spivey Date of : 1960 Current Age: [age] year old Sex: female MRN/E# [id number] Last Office Visit: 07/23/2024 Chief Complaint: Patient [...] do. Again I explained this was a sgqawuf-tt-tfuf issue would not a critical surgery. She [...] as diff (more content not included)... Normal [facility] XR CERVICAL 4V AP/LAT/FLX/EX Ton 11-21-2024 [...] are normal. IMPRESSION: Degenerative changes as described. Elephant Tamer: PSCB Transcribe Date/Time: Nov 28 2024 5:44A Dictated by : JOSE LAGUNA MD This examination was interpreted and the report reviewed and electronically signed by: JOSE LAGUNA MD on Nov 28 2024 5:45AM EST [id number] Normal [facility] CNOVon 07-23-2024 CNOV Office Visit (NEAGCL M) VENUS SPIVEY ([id number]) 1960 F Date Time Provider Department 07/23/24 1:30 PM SONYA MCDERMOTT I NEAGCLM During your visit today, we recorded the following information about you: Pulse Respiration Blood pressure Weight 73/minute 16/minute 163/84 71.3 kg Height 1.626 m Sonya Mcdermott I, MD 07/23/2024 2:10 PM Signed NEUROSURGERY FOLLOW UP OFFICE NOTE Chair, Clinical Neurosciences Director, Spinal Neurosurgery [facility] Date of visit: July 23, 2024 Patient Name: Ms.Jeanette Spivey Date of : 1960 Current Age: [age] year old Sex: female MRN/E# [id number] Last Office Visit: 05/28/2024 Chief Complaint: Patient [...] do. Again I explained this was a vdxgxhi-oy-qlrf issue would not a critical surgery. She [...] image review. PREVIOUS CONSERVATIVE TREATMENT: -Medication: Meloxicam, Coleridge -Physical therapy: Previous participation at [facility]- minimal symptom improvement. She has continued participation in home exercises/stretches as guided by physical therapy recommendations on routine basis as tolerated to present day. [facility] consultation notes can be found under scanned documents. -Previous healthca (more content not included)... Normal [facility] SCRN MAMM (CAD)W/LUIS BILATo n 07-09-2024 SCRN MAMM (CAD)W/LUIS BILAT 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 Reading Location: [place] [address] CC: DONTE Black; Dr. Ashley Herndon MD Elephant Tamer: Signed Normal [facility] Ashlee 06-26-2024 Ferritin [Mass/Vol] 165.5 ng/mL Normal 8.0-252.[address] [facility] Comment on above: Performed By: #### F ERR, FES #### [place] [address] FESon 06-26-2024 Iron [Mass/Vol] 71 ug/dL Normal 50-170 [facility] Comment on above: Performed By: #### F ERR, FES #### [place] [address] Iron Sat 25 % Normal [facility] Comment on above: Performed By: #### F ERR, FES #### [place] [id number] TIBC 289 mcg/dL Normal 250-500 [facility] Comment on above: Performed By: #### F ERR, FES #### [place] [id number] Spine Cervical without Contr ason 06-19-2024 Spine Cervical without Contras 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 Status: REG CLI Study: Spine Cervical without Contras Date of Exam: 0 06/19/24 Exam# [id number] Ordering Dr: JESSICA ORDAZ [id number] INDICATION: SPINAL STENOSIS EXAMINATION: CT CERVICAL SPINE [...] Corral MD at 13:38 EST , CC: GOLD FRAME ASSEMBLER-C Yoly Black; JESSICA ORADZ Elephant Tamer: Signed [facility] 05-28-2024 CNPN Telephone (NEAGCLM) VNEUS SPIVEY ([id number]) 1960 F Date Time Provider Department 05/28/24 JESSICA ORDAZ NEAGCLM During your visit today, we recorded the following information about you: Verenice Bishop 05/28/2024 1:43 PM Signed [facility] called requesting CT authorization. Patient is scheduled with them on Tuesday. Updated facility information on authorization and faxed updated CT auth to number provided ([phone]). Allergies As of Date: 05/28/2024 Noted Allergy [...] by VERENICE BISHOP on 05/28/24 [facility] CNOVon 05-07-2024 CNOV Office Visit (NEAGCL M) VENUS SPIVEY ([id number]) 1960 F Date Time Provider Department 05/07/24 1:00 PM SONYA MCDERMOTT I NEAGCLM During your visit today, we recorded the following information about you: Pulse Respiration Blood pressure Weight 72/minute 16/minute 114/80 70.6 kg Sonya Mcdermott I, MD 05/07/2024 1:34 PM Signed NEUROSURGERY FOLLOW UP OFFICE NOTE Chair, Clinical Neurosciences Director, Spinal Neurosurgery [facility] Date of visit: May 07, 2024 Patient Name: Ms.Jeanette Spivey Date of : 1960 Current Age: [age] year old Sex: female MRN/E# [id number] Last Office Visit: 04/30/2024 Chief Complaint: Patient [...] this time. PREVIOUS CONSERVATIVE TREATMENT: -Medication: Meloxicam, Coleridge -Physical therapy: Previous participation at [facility]- minimal symptom improvement. She has continued participation in home exercises/stretches as guided by physical therapy recommendations on routine basis as tolerated to present day. [facility] consultation notes can be found under scanned documents. -Previous healthcare providers: Faviola Carroll and was recommended a C5-C7 ACDF -Pain Management: Follows with [facility] - consult note can be found under scanned documents -Injections: Cervical injection at [facility] - 30% symptom relief that lasted for [...] visit. REVI (more content not included)... Normal [facility] Telephone (NEAGCLM) VENUS SPIVEY ([id number]) 1960 F Date Time Provider Department 04/30/24 JESSICA ORDAZ NEAGCLM During your visit today, we recorded the following information about you: Verenice Bishop 04/30/2024 11:02 AM Signed Patient requested to have MRI at [facility]. Received authorization. Faxed order and authorization information to [facility]. Allergies As of Date: 04/30/2024 Noted Allergy Reaction DEMEROL (MEPERIDINE (PF)) 02/03/2012 11 - Vomiting VERSED (MIDAZOLAM) 02/03/2012 11 - Vomiting MORPHINE 02/03/2012 11 - Vomiting Date Reviewed: 04/20/2024 Reviewed by: Yvonne Aldridge MA - Fully Assessed Reason for Visit: MRI Appointment [3204] Prescriptions as of 04/30/2024 - HYDROcodone-acetaminophen (NORCO) [...] Encounter Status:Closed by VERENICE BISHOP on 04/30/24 [facility] CNOVon 04-20-2024 [facility] Office Visit (NEAGCL M) VENUS SPIVEY ([id number]) 1960 F Date Time Provider Department 04/20/24 [...] Age: [age] year old Sex: female MRN/E# [id number] Last Office Visit: Visit date not found [...] bladder incontinence. PREVIOUS CONSERVATIVE TREATMENT: -Medication: Meloxicam, Coleridge -Physical therapy: Previous participation at [facility]- minimal symptom improvement. She has continued participation in home exercises/stretches as guided by physical therapy recommendations on routine basis as tolerated to present day. [facility] consultation notes can be found under scanned documents. -Previous healthcare providers: [place]- Dr. Carroll and was recommended a C5-C7 ACDF -Pain Management: Follows with [facility] - consult note can be found under scanned documents -Injections: Cervical injection at [facility] - 30% symptom relief that lasted for [...] for difficulty (more content not included)... Normal [facility] Kwaku 04-20-2024 [facility] Telephone (NEAGCLM) VENUS SPIVEY ([id number]) 1960 F Date Time Provider Department 04/20/24 [...] by EDER HARRISON on 04/20/24 [facility] XR CERVICAL 4V AP/LAT/FLX/EX Ton 04-20-2024 [...] in the facets. IMPRESSION: Severe degenerative changes. Elephant Tamer: PARI Transcribe Date/Time: Apr 24 2024 12:28P Dictated by : SON BOYER MD This examination was interpreted and the report reviewed and electronically signed by: SON BOYER MD on Apr 24 2024 12:29PM EST [id number] [facility] 36on 04-10-2024 36 Spoke with pt and re layed note. They verbalized understanding. [facility] 36 Unfortunately, we ar e not very familiar with the [facility] spine provider to be able to make a recommendation. Please let her know. Thank you. [facility] 36 Pt called stating th at she really wants to have surgery done with you, but you are out of network with her insurance. Pt would like to know if you have a surgeon that you would recommend within [facility]. [facility] 36on 03-20-2024 36 Pt states she want t o change insurance and wait until the new year to have Sx with Dr. Carroll. Pt was notified to call me with updated ins info YUAN. Tentative date of 06/18/2023 given to pt. [facility] 36 Received email from ins verification. Pt's ins is OON and will need to pay 50% and single case agreement will need to be submitted. LVM for cb to discuss with pt. [facility] CBC (HEMOGRAM)on 03-19-2024 Erythrocyte distribution width (RBC) [Ratio] 14.1 % Normal 11.5-15.0 [facility] Comment on above: Performed By: #### L AB294 ####Hvac Operations Technician: CLINT PANTOJA ([id number])[facility] ([address] Hematocrit (Bld) [Volume fraction] 43.9 % Normal 35.0-47.0 [facility] Comment on above: Performed By: #### L AB294 ####Hvac Operations Technician: CLINT PANTOJA ([id number])[facility] ([facility])[address] [place] [address] Hemoglobin (Bld) [Mass/Vol] 13.3 g/dL Normal 11.7-16.0 [facility] Comment on above: Performed By: #### L AB294 ####Hvac Operations Technician: CLINT PANTOJA ([id number])[facility])[address] [place] [address] MCH (RBC) [Entitic mass] 24.8 pg Low 26.0-34.0 [facility] Comment on above: Performed By: #### L AB294 ####Hvac Operations Technician: CLINT PANTOJA ([id number])[facility])[address] [place] [address] MCHC 30.3 % Low 30.5-36.0 [facility] Comment on above: Performed By: #### L AB294 ####Hvac Operations Technician: CLINT PANTOJA ([id number])[facility] ([facility])[address] [place] [address] MCV (RBC) [Entitic vol] 81.8 fL Normal 77.0-99.0 [facility] Comment on above: Performed By: #### L AB294 ####Hvac Operations Technician: CLINT PANTOJA ([id number])[facility] ([facility])[address] [place] [address] Platelet mean volume (Bld) [Entitic vol] 9.7 fL Normal 9.0-12.7 [facility] Comment on above: Performed By: #### L AB294 ####Hvac Operations Technician: CLINT PANTOJA ([id number])[facility] ([facility])[address] [place] [address] Platelets (Bld) [#/Vol] 283 10*3/uL Normal 140-440 [facility] Comment on above: Performed By: #### L AB294 ####Hvac Operations Technician: CLINT PANTOJA ([id number])[facility])[address] [place] [address] RBC (Bld) [#/Vol] 5.37 10*6/uL High 3.80-5.20 [facility] Comment on above: Performed By: #### L AB294 ####Hvac Operations Technician: CLINT PANTOJA ([id number])[facility] ([facility])[address] [place] [address] WBC (Bld) [#/Vol] 6.4 10*3/uL Normal 3.6-10.7 [facility] Comment on above: Performed By: #### L AB294 ####Hvac Operations Technician: CLINT JOANNADAVID ([id number])[facility] ([facility])[address] [place] [address] PREPROCINSon 03-19-2024 PREPROCINS Medication List Accurate as [...] HYDROcodone-acetaminophen 5-325 MG tablet Commonly known as: Coleridge Notes to patient: Not taking meloxicam 15 MG tablet Commonly known as: Mobic Notes to patient: Hold 7 days prior to surgery omeprazole OTC 20 MG EC tablet Commonly known as: PriLOSEC OTC Notes to patient: May take if needed Additional Instructions: HADOOP ANALYST AND PARKING IN THE MAIN DECK ARE [...] your scheduled surgery time. Please bring your [facility] Surgical folder and medication list with you day of surgery. We encourage you to write down any questions you may have for the surgeon, anesthesiologist, or other members of the surgical team and bring it with you the day of surgery. Please bring photo ID and insurance information. Normal [facility] Progress Noteon 03-19-2024 Progress Note [facility] PLANROSALVA INDIRA Sancheztler : 1960 Primary Care Physician: No primary care provider on file. The patient and/or family/surrogate voluntarily agreed to participate in ACP services. Patient?s cognitive capacity: Patient is Alert and [place] to person, place and time Code Status: [x] [FULL CODE - Continue all advanced life support: CPR,intubation,invasive procedures] [_] [DNR-CCA - DO NOT do CPR, intubation] [_] [DNR-VP [employer]LEBR[employer] - Comfort care only] [_] DNR form [...] patient and/or family/surrogate. Rosemary Cabello APRN - ELECTRICAL MAINTENANCE MAN [facility] care [facility] 03/19/2024, 2:58 PM [facility] XR ESOPHOGRAM W/BARIUM TABLE Ton [...] 03/15/2024 1:24:47 PM Ordering Provider: WYATT YEE [facility] 36on 02-29-2024 36 Spoke with pt and te ntative Sx date on 03/26 was given. Spoke with SAM Arriaga. Ref #: [id number] Surg 03/26 730 PAT 03/19 230 PO 04/10 10 Case# [id number] Patient aware of all appointments and times [facility] 36 ----- Message from Jonny Carroll MD sent at 02/28/2024 12:13 PM EDT ----- Anterior cervical 5-6 and 6-7 disc replacements 2 hours 1 night [id number] Normal [facility] Office Visiton 02-28-2024 Follow-up visit [id number] Milo Spivey 1960 F Date Provider Department Center 02/28/2024 15054-YTSTMBBLAISE CARROLL [facility] NROSURG None No family history on file Level of Service:30116 AR OFFICE/OUTPATIENT NEW MODERATE MDM 45 MINUTES Reason for Visit and Comments: New Patient [542] - bulging disc. will bring imaging with them to their appointment Normal [facility] Progress Noteon 02-28-2024 Progress Note NEUROSURGERY [...] by mouth. 11/15/22 Yes Historical Provider, HYDROcodone-acetaminophen (Coleridge) 5-325 MG tablet 01/05/24 Yes Historical Provider, [...] C5-C7 disce (more content not included)... Normal [facility] 36on 02-21-2024 36 Patient states she i s not sure if her most recent imaging has been within the last year. She will bring a disk for review if so. Normal [facility] CNOVon 04-18-2023 CNOV Office Visit (UCMMAS ) VENUS SPIVEY ([id number]) 1960 F Date Time Provider Department 04/18/23 [...] (gastroesophageal reflux disease) Lymphadenitis Mental disorder Stroke ([facility]) 2012 ACTIVE PROBLEM LIST Hematuria Left Lower [...] Order(s):TDAP VACCINE, AGE 7+ YR (ADACEL, BOOSTRIX) [[id number]] Order #: [id number] cephALEXin (KEFLEX) 500 mg capsuleTake 1 capsule [...] Encounter Status:Closed by SURAJ SAINI on 04/18/23 [facility] Final Surgical Pathology Rep adolph 12-09-2022 Final Surgical Pathology Report . Pathology Reports Accession: Collected Date/Time: Received Date/Time: Pathologist: [id number] 12/02/2022 11:59 EDT 12/03/2022 13:44 EDT BISHNU [...] All parts labelled with patient name and [id number] A. Received in formalin labeled gastric biopsy are multiple estrada tissue fragments aggregating 1.0 x 0.3 x 0.1 cm. TS-1 B. Received in formalin labeled esophageal biopsy are 3 wispy white tissue fragments measuring less than 0.1 to 0.4 x 0.2 cm. TS-1 Bita Stevenson, Grossing Offline Cutter/ Dr. Bishnu Al, Pathologist Dictated by Bita Stevenson MICROSCOPIC DESCRIPTION: The microscopic examination is performed, except in the case of Gross Only. Electronically Signed by Pathology Report verified by [facility] BISHNU AL Sign out Date: 12/09/2022 12:40 Performing Lab: [facility], [address] [place] [address] Pathology Dept Disclaimer If ancillary studies were utilized, the following Laboratory Developed Test (LDT) disclaimer will apply: Under CLIA requirements, [facility] is qualified to perform high complexity testing. For all ancillary stains, positive and negative controls stain appropriately. Performance characteristics of immunohistochemical and chromogenic in-situ hybridization tests have been determined by [facility]. These tests are used for clinical purposes, They should not be regarded as investigational or for research. Normal [facility] ([place]) Basophil percentageOrdered B y: Dr. Yee on 11-17-2022 Bilirubin [Mass/Vol] 0.20 mg/dL 0.20-1.00 [facility] Comment on above: For patients on eltr ombopag therapy, use of Dimension [place] TBIL is not recommended. Chloride [Moles/Vol] 106 mmol/L 98-107 [facility] Glucose [Mass/Vol] 90 mg/dL 74-106 [facility] Potassium [Moles/Vol] 4.3 mmol/L 3.5-5.1 [facility] Protein [Mass/Vol] 7.1 g/dL 6.4-8.2 [facility] Sodium [Moles/Vol] 142 mmol/L 136-145 [facility] WBC (Bld) [#/Vol] 6.3 10*3/uL 4.4-11.0 [facility] Blood erythrocytes count (nu mber/volume)Ordered By: Dr. Yee on 11-17-2022 RBC (Bld) [#/Vol] 5.18 10*6/uL 4.2-5.4 [facility] Blood hemoglobin measurement (mass/volume)Ordered By: Dr. Yee on 11-17-2022 Hemoglobin (Bld) [Mass/Vol] 13.2 g/dL 12.0-15.0 [facility] Blood platelet mean volumeOr dered By: Dr. Yee on 11-17-2022 Platelet mean volume (Bld) [Entitic vol] 10.4 fL 6.2-12.0 [facility] Determination of erythrocyte mean corpuscular volume (MCV)Ordered By: Dr. Yee on 11-17-2022 MCV (RBC) [Entitic vol] 84.2 fL 81-99 [facility] Hematocrit Auto (Bld) [Volum e fraction]Ordered By: Dr. Yee on 11-17-2022 Hematocrit (Bld) [Volume fraction] 43.6 % 37-47 [facility] Laboratory - Chemistry and C hemistry - challengeOrdered By: Dr. Yee on 11-17-2022 ALP [Catalytic activity/Vol] 89 U/L 45-117 [facility] ALT [Catalytic activity/Vol] 31 U/L 13-56 [facility] CO2 [Moles/Vol] 28.0 mmol/L 21.0-32.0 [facility] Cobalamin (Vitamin B12) [Mass/Vol] 426 pg/mL 211-911 [facility] Globulin (S) [Mass/Vol] 3.1 g/dL 2.2-4.2 [facility] Lipase [Catalytic activity/Vol] 50 U/L 13-75 [facility] Comment on above: Please note:LIPASE r evised reference range effective 22. New Lipase methodology. Expected to produce lower values than the previous assay method. NEW Reference Range: 13 - 75 U/L Urea nitrogen/Creatinine [Mass ratio] 26.6 mg/mg 10-20 [facility] Laboratory - Hematology and Cell countsOrdered By: Dr. Yee on 11-17-2022 Erythrocyte distribution width (RBC) [Entitic vol] 44.4 fL 35.1-43.9 [facility] Erythrocyte distribution width (RBC) [Ratio] 14.5 % 11.6-14.6 [facility] MCH (RBC) [Entitic mass] 25.5 pg 27.0-32.0 [facility] MCHC Auto (RBC) [Mass/Vol]Or dered By: Dr. Yee on 11-17-2022 MCHC (RBC) [Mass/Vol] 30.3 g/dL 32-36 [facility] No Panel InformationOrdered By: Dr. Yee on 11-17-2022 Estimated GFR (MDRD) Amer 121 mL/min >60 [facility] Comment on above: GFR Calc Estimated GFR (MDRD) Non-Af Amer 100 mL/min >60 [facility] Comment on above: Non- GFR Calc Platelets bldOrdered By: Dr. Yee on 11-17-2022 Platelets (Bld) [#/Vol] 250 10*3/uL 150-450 [facility] Serum or plasma C reactive p rotein measurement (mass/volume)Ordered By: Dr. Yee on 11-17-2022 CRP [Mass/Vol] mg/L 0.0-3.0 [facility] Comment on above: C-Reactive Protein ( CRP) provides useful information for thediagnosis, therapy and monitoring of inflammatory processesand associated diseases. For the evaluation of Relative Riskfor Cardiovascular Disease, a High Sensitivity CRP (HSCRP)should be ordered. Serum or plasma albumin aniya urement (mass/volume)Ordered By: Dr. Yee on 11-17-2022 Albumin [Mass/Vol] 4.0 g/dL 3.2-5.0 [facility] Serum or plasma albumin/glob ulin mass ratioOrdered By: Dr. Yee on 11-17-2022 Albumin/Globulin [Mass ratio] 1.3 {ratio} 0.9-2.4 [facility] Serum or plasma calcium aniya urement (mass/volume)Ordered By: Dr. Yee on 11-17-2022 Calcium [Mass/Vol] 9.5 mg/dL 8.5-10.1 [facility] Serum or plasma creatinine m easurement (mass/volume)Ordered By: Dr. Yee on 11-17-2022 Creatinine [Mass/Vol] 0.64 mg/dL 0.55-1.02 [facility] Comment on above: The validity of the calculated GFR & GFRAA in patients over 70 years has not been determined. Clinical correlation is essential. Serum or plasma urea nitroge n measurement (mass/volume)Ordered By: Dr. Yee on 11-17-2022 Urea nitrogen [Mass/Vol] 17 mg/dL - [facility] Thin prep Papanicolaou smear with manual screeningOrdered By: Dr. Yee on 11-17-2022 Thin prep Papanicolaou smear with manual screening 15 U/L 15-37 [facility] Thin prep Papanicolaou smear with manual screening 8 5-15 [facility] BASIC METABOLIC PANELon 05 Anion gap [Moles/Vol] 12 mmol/L Normal 9-18 [facility] Comment on above: Order Comment: @ COL L DATE was changed from 10/09/22 to 10/10/22 @ by 2053. Old specimen was [id number]. Performed By: #### L IPA 1, BMP, CKMB 1, CBC, PT, TROP 1 #### Main Lab - [facility] [address] [place], [place] [address] BUN/CREATININE RATIO 25.0 Ratio Normal 5.0-42.0 [facility] Comment on above: Order Comment: @ COL L DATE was changed from 10/09/22 to 10/10/22 @ by 2053. Old specimen was [id number]. Performed By: #### L IPA 1, BMP, CKMB 1, CBC, PT, TROP 1 #### Main Lab - [facility] [address] [place], [place] [address] Calcium [Mass/Vol] 10.5 mg/dL High 8.4-10.2 [facility] Comment on above: Order Comment: @ COL L DATE was changed from 10/09/22 to 10/10/22 @ by 2053. Old specimen was [id number]. Performed By: #### L IPA 1, BMP, CKMB 1, CBC, PT, TROP 1 #### Main Lab - [facility] [address] [place], [place] [address] Chloride [Moles/Vol] 106 mmol/L Normal 98-107 [facility] Comment on above: Order Comment: @ COL L DATE was changed from 10/09/22 to 10/10/22 @ by 2053. Old specimen was [id number]. Performed By: #### L IPA 1, BMP, CKMB 1, CBC, PT, TROP 1 #### Main Lab - [facility] [address] [place] [address] CO2 [Moles/Vol] 28 mmol/L Normal 22-31 [facility] Comment on above: Order Comment: @ COL L DATE was changed from 10/09/22 to 10/10/22 @ by 2053. Old specimen was [id number]. Performed By: #### L IPA 1, BMP, CKMB 1, CBC, PT, TROP 1 #### [facility] Lab - [facility] [address] Creatinine [Mass/Vol] 0.64 mg/dL Low 0.80-1.30 [facility] Comment on above: Order Comment: @ COL L DATE was changed from 10/09/22 to 10/10/22 @ by 2053. Old specimen was 0513:[id number]. Performed By: #### L IPA 1, BMP, CKMB 1, CBC, PT, TROP 1 #### Main Lab - [facility] [place], [place] [address] ESTIMATED CREAT CLEARANCE 79.71 Normal [facility] Comment on above: Order Comment: @ COL L DATE was changed from 10/09/22 to 10/10/22 @ by 2053. Old specimen was [id number]. Result Comment: COCK CROFT-GAULT FORMULA 1972 Performed By: #### L IPA 1, BMP, CKMB 1, CBC, PT, TROP 1 #### Main Lab - [facility] [address] [place], [place] [address] ESTIMATED GLOMERULAR FILT RATE > 60.000 Normal [facility] Comment on above: Order Comment: @ COL L DATE was changed from 10/09/22 to 10/10/22 @ by 2053. Old specimen was [id number]. Performed By: #### L IPA 1, BMP, CKMB 1, CBC, PT, TROP 1 #### [facility] - [address] [address] Glucose [Mass/Vol] 124 mg/dL High 70-99 [facility] Comment on above: Order Comment: @ COL L DATE was changed from 10/09/22 to 10/10/22 @ by 2053. Old specimen was 0513:[id number]. Result Comment: The glucose range is based on recommendations from the [employer] for fasting blood glucose range. Performed By: #### L IPA 1, BMP, CKMB 1, CBC, PT, TROP 1 #### [facility] - [address] [address] Potassium [Moles/Vol] 3.6 mmol/L Normal 3.6-5.0 [facility] Comment on above: Order Comment: @ COL L DATE was changed from 10/09/22 to 10/10/22 @ by 2053. Old specimen was [id number]. Performed By: #### L IPA 1, BMP, CKMB 1, CBC, PT, TROP 1 #### [facility] - [address] [address] Sodium [Moles/Vol] 142 mmol/L Normal 137-145 [facility] Comment on above: Order Comment: @ COL L DATE was changed from 10/09/22 to 10/10/22 @ by 2053. Old specimen was [id number]. Performed By: #### L IPA 1, BMP, CKMB 1, CBC, PT, TROP 1 #### Main Lab - [address] [address] Urea nitrogen [Mass/Vol] 16 mg/dL Normal 7-21 [facility] Comment on above: Order Comment: @ COL L DATE was changed from 10/09/22 to 10/10/22 @ by 2053. Old specimen was 0513:[id number]. Performed By: #### L IPA 1, BMP, CKMB 1, CBC, PT, TROP 1 #### [facility] - [facility] [address] [place] [address] AGE,PATIENT 62 Years Normal [facility] Comment on above: Order Comment: @ COL L DATE was changed from 10/09/22 to 10/10/22 @ by 2053. Old specimen was 0513:[id number]. Performed By: #### L IPA 1, BMP, CKMB 1, CBC, PT, TROP 1 #### Main Lab - [facility] [address] [place] [address] CBC WITH AUTO DIFFon 023 BASO, ABSOLUTE (AUTO) 0.0 10 3/uL Normal 0.0-0.2 [facility] Comment on above: Order Comment: @ COL L DATE was changed from 10/09/22 to 10/10/22 @ by 2053. Old specimen was 0513:[id number]. Performed By: #### L IPA 1, BMP, CKMB 1, CBC, PT, TROP 1 #### [facility] - [address] [address] Basophils/100 WBC (Bld) 0.6 % Normal 0.0-1.0 [facility] Comment on above: Order Comment: @ COL L DATE was changed from 10/09/22 to 10/10/22 @ by 2053. Old specimen was 0513:[id number]. Performed By: #### L IPA 1, BMP, CKMB 1, CBC, PT, TROP 1 #### [facility] - [facility] [address] [place] [address] EOSINOPHILS, ABSOLUTE (AUTO) 0.1 10 3/uL Normal 0.0-0.7 [facility] Comment on above: Order Comment: @ COL L DATE was changed from 10/09/22 to 10/10/22 @ by 2053. Old specimen was 0513:[id number]. Performed By: #### L IPA 1, BMP, CKMB 1, CBC, PT, TROP 1 #### [facility] - [facility] [address] [place] [address] Eosinophils/100 WBC (Bld) 0.8 % Normal 0.0-5.0 [facility] Comment on above: Order Comment: @ COL L DATE was changed from 10/09/22 to 10/10/22 @ by 2053. Old specimen was 0513:[id number]. Performed By: #### L IPA 1, BMP, CKMB 1, CBC, PT, TROP 1 #### Main Lab - [address] [address] Erythrocyte distribution width (RBC) [Ratio] 14.8 % High 11.5-14.0 [facility] Comment on above: Order Comment: @ COL L DATE was changed from 10/09/22 to 10/10/22 @ by 2053. Old specimen was 0513:[id number]. Performed By: #### L IPA 1, BMP, CKMB 1, CBC, PT, TROP 1 #### Main Lab - [address] [address] Hematocrit (Bld) [Volume fraction] 41.4 % Normal 34.8-45.0 [facility] Comment on above: Order Comment: @ COL L DATE was changed from 10/09/22 to 10/10/22 @ by 2053. Old specimen was 0513:[id number]. Performed By: #### L IPA 1, BMP, CKMB 1, CBC, PT, TROP 1 #### [facility] - [address] [address] Hemoglobin (Bld) [Mass/Vol] 13.7 g/dL Normal 11.6-14.9 [facility] Comment on above: Order Comment: @ COL L DATE was changed from 10/09/22 to 10/10/22 @ by 2053. Old specimen was 0513:[id number]. Performed By: #### L IPA 1, BMP, CKMB 1, CBC, PT, TROP 1 #### [facility] - [address] [address] LYMPHOCYTES, ABSOLUTE (AUTO) 1.3 10 3/uL Normal 1.0-3.5 [facility] Comment on above: Order Comment: @ COL L DATE was changed from 10/09/22 to 10/10/22 @ by 2053. Old specimen was 0513:[id number]. Performed By: #### L IPA 1, BMP, CKMB 1, CBC, PT, TROP 1 #### [address] [address] Lymphocytes/100 WBC (Bld) 16.3 % Low 24.0-44.0 [facility] Comment on above: Order Comment: @ COL L DATE was changed from 10/09/22 to 10/10/22 @ by 2053. Old specimen was 0513:[id number]. Performed By: #### L IPA 1, BMP, CKMB 1, CBC, PT, TROP 1 #### [facility] - [address] [address] MCH (RBC) [Entitic mass] 25.7 pg Low 27.0-31.0 [facility] Comment on above: Order Comment: @ COL L DATE was changed from 10/09/22 to 10/10/22 @ by 2053. Old specimen was 0513:[id number]. Performed By: #### L IPA 1, BMP, CKMB 1, CBC, PT, TROP 1 #### [address] [address] MCHC (RBC) [Mass/Vol] 33.0 g/dL Normal 32.0-36.0 [facility] Comment on above: Order Comment: @ COL L DATE was changed from 10/09/22 to 10/10/22 @ by 2053. Old specimen was 0513:[id number]. Performed By: #### L IPA 1, BMP, CKMB 1, CBC, PT, TROP 1 #### [address] [address] MCV (RBC) [Entitic vol] 77.8 fL Low 78.0-100.0 [facility] Comment on above: Order Comment: @ COL L DATE was changed from 10/09/22 to 10/10/22 @ by 2053. Old specimen was [id number]. Performed By: #### L IPA 1, BMP, CKMB 1, CBC, PT, TROP 1 #### [address] [address] MONOCYTES, ABSOLUTE (AUTO) 0.3 10 3/uL Normal 0.2-0.8 [facility] Comment on above: Order Comment: @ COL L DATE was changed from 10/09/22 to 10/10/22 @ by 2053. Old specimen was 0513:[id number]. Performed By: #### L IPA 1, BMP, CKMB 1, CBC, PT, TROP 1 #### Main Lab - [facility] [address] Monocytes/100 WBC (Bld) 4.1 % Normal 1.7-9.3 [facility] Comment on above: Order Comment: @ COL L DATE was changed from 10/09/22 to 10/10/22 @ by 2053. Old specimen was 0513:[id number]. Performed By: #### L IPA 1, BMP, CKMB 1, CBC, PT, TROP 1 #### Main Lab - [address] [address] NEUTROPHILS, ABSOLUTE (AUTO) 6.3 10 3/uL Normal 1.5-6.7 [facility] Comment on above: Order Comment: @ COL L DATE was changed from 10/09/22 to 10/10/22 @ by 2053. Old specimen was 0513:[id number]. Performed By: #### L IPA 1, BMP, CKMB 1, CBC, PT, TROP 1 #### [facility] - [address] [address] Neutrophils/100 WBC (Bld) 78.2 % High 36.0-66.0 [facility] Comment on above: Order Comment: @ COL L DATE was changed from 10/09/22 to 10/10/22 @ by 2053. Old specimen was [id number]. Performed By: #### L IPA 1, BMP, CKMB 1, CBC, PT, TROP 1 #### Main Lab - [facility] [address] PLATELET COUNT 280 10 3/uL Normal 150-450 [facility] Comment on above: Order Comment: @ COL L DATE was changed from 10/09/22 to 10/10/22 @ by 2053. Old specimen was 0513:[id number]. Performed By: #### L IPA 1, BMP, CKMB 1, CBC, PT, TROP 1 #### Main Lab - [facility] [address] Platelet mean volume (Bld) [Entitic vol] 8.3 fL Normal 6.0-9.5 [facility] Comment on above: Order Comment: @ COL L DATE was changed from 10/09/22 to 10/10/22 @ by 2053. Old specimen was 0513:[id number]. Performed By: #### L IPA 1, BMP, CKMB 1, CBC, PT, TROP 1 #### Main Lab - [facility] [address] [place] [address] RED BLOOD COUNT 5.32 x10 6/uL High 3.89-5.30 [facility] Comment on above: Order Comment: @ COL L DATE was changed from 10/09/22 to 10/10/22 @ by 2053. Old specimen was 0513:[id number]. Performed By: #### L IPA 1, BMP, CKMB 1, CBC, PT, TROP 1 #### Main Lab - [facility] [address] WHITE BLOOD COUNT 8.1 10 3/uL Normal 4.0-10.5 [facility] Comment on above: Order Comment: @ COL L DATE was changed from 10/09/22 to 10/10/22 @ by 2053. Old specimen was 0513:[id number]. Performed By: #### L IPA 1, BMP, CKMB 1, CBC, PT, TROP 1 #### Main Lab - [facility] [address] [place] [address] CREATINE KINASE MBon 023 CK.MB [Mass/Vol] 1.9 ng/mL Normal 0.0-3.7 [facility] Comment on above: Order Comment: @ COL L DATE was changed from 10/09/22 to 10/10/22 @ by 2053. Old specimen was 0513:[id number]. Performed By: #### L IPA 1, BMP, CKMB 1, CBC, PT, TROP 1 #### Main Lab - [facility] [address] [place] [address] ED Physician Documentationon 10-10-2022 ED Physician Documentation [address] [address] Physician Documentation Signed:[id number] Name: VENUS SPIVEY MRUN: [id number] : 1960 Loc: ED Age / Sex: [...] GI/Abdominal Exam: (more content not included)... Normal [facility] LIPASEon 10-10-2022 Lipase [Catalytic activity/Vol] 44 U/L Normal 23-300 [facility] Comment on above: Order Comment: @ COL L DATE was changed from 10/09/22 to 10/10/22 @ by 2053. Old specimen was 0513:[id number]. Performed By: #### L IPA 1, BMP, CKMB 1, CBC, PT, TROP 1 #### Main Lab - [facility] [address] [place], [place] [address] PT WITH INRon 10-10-2022 INR Coag (PPP) [Relative time] 0.8 {INR} Normal [facility] Comment on above: Order Comment: @ COL L DATE was changed from 10/09/22 to 10/10/22 @ by 2053. Old specimen was 0513:[id number]. Result Comment: JOSE MMENDED RANGES FOR INR: Therapeutic range for standard therapy INR: 2.0-3.0 Therapeutic range for high dose therapy INR: 2.5-3.5 Performed By: #### L IPA 1, BMP, CKMB 1, CBC, PT, TROP 1 #### Main Lab [facility] [place], [place] [address] PT Coag (PPP) [Time] 11.6 s Normal 11.3-14.8 [facility] Comment on above: Order Comment: @ COL L DATE was changed from 10/09/22 to 10/10/22 @ by 2053. Old specimen was 0513:[id number]. Performed By: #### L IPA 1, BMP, CKMB 1, CBC, PT, TROP 1 #### Main Lab - [facility] [place], [place] [address] TROPONIN Ion 10-10-2022 Troponin I.cardiac [Mass/Vol] ng/mL Normal 0.0-0.03 [facility] Comment on above: Result Comment: Refe rence Interval < or = 0.03 ng/mL Clinical Correlation Needed 0.03 - 0.11 ng/mL AMI Cutoff, Presumptive = or > 0.12 ng/mL Performed By: #### T ROP 1 #### Main Lab - [facility] [address] [place] [address] Troponin I.cardiac [Mass/Vol] ng/mL Normal 0.0-0.03 [facility] Comment on above: Order Comment: @ COL L DATE was changed from 10/09/22 to 10/10/22 @ by 2053. Old specimen was 0513:[id number]. Result Comment: Refe rence Interval < or = 0.03 ng/mL Clinical Correlation Needed 0.03 - 0.11 ng/mL AMI Cutoff, Presumptive = or > 0.12 ng/mL Performed By: #### L IPA 1, BMP, CKMB 1, CBC, PT, TROP 1 #### Main Lab - [facility] [address] [place], [place] [address] URINE PROTOCOLon 10-10-2022 AMORPHOUS SEDIMENT,UR MOD Normal [facility] Comment on above: Order Comment: Clean Catch None Apply Asymptomatic Performed By: #### U A w RFX x2 #### Main Lab - [facility] [address] [place], [place] [address] BLOOD,URINE SMALL Abnormal NEGATIVE [facility] Comment on above: Order Comment: Clean Catch None Apply Asymptomatic Performed By: #### U A w RFX x2 #### Main [facility] - [facility] [address] [place] [address] Clarity (U) CLOUDY Abnormal [facility] Comment on above: Order Comment: Clean Catch None Apply Asymptomatic Performed By: #### U A w RFX x2 #### [facility] - [facility] [address] [place], [place] [id number] Color (U) YELLOW Normal [facility] Comment on above: Order Comment: Clean Catch None Apply Asymptomatic Performed By: #### U A w RFX x2 #### Main Lab - [facility] [address] [place] [address] Glucose Ql (U) Negative Normal NEGATIVE [facility] Comment on above: Order Comment: Clean Catch None Apply Asymptomatic Performed By: #### U A w RFX x2 #### [facility] - [facility] [address] [place] [address] Ketones Ql (U) Negative Normal NEGATIVE [facility] Comment on above: Order Comment: Clean Catch None Apply Asymptomatic Performed By: #### U A w RFX x2 #### Main [facility] - [facility] [address] [place] [address] Leukocyte esterase Test strip Ql (U) TRACE Abnormal NEGATIVE [facility] Comment on above: Order Comment: Clean Catch None Apply Asymptomatic Performed By: #### U A w RFX x2 #### Main [facility] - [facility] [address] [place] [address] MUCUS,URINE TRACE Normal [facility] Comment on above: Order Comment: Clean Catch None Apply Asymptomatic Performed By: #### U A w RFX x2 #### Main Lab - [facility] [address] [place], [place] [address] NITRITE,URINE Negative Normal NEGATIVE [facility] Comment on above: Order Comment: Clean Catch None Apply Asymptomatic Performed By: #### U A w RFX x2 #### Main Lab - [facility] [address] [place], [place] [address] OTHER CRYSTALS,URINE FEW Normal [facility] Comment on above: Order Comment: Clean Catch None Apply Asymptomatic Performed By: #### U A w RFX x2 #### Main Lab - [facility] [address] [place], [place] [address] pH (U) 7.0 [pH] Normal 5.0-8.0 [facility] Comment on above: Order Comment: Clean Catch None Apply Asymptomatic Performed By: #### U A w RFX x2 #### Main Lab [facility] [place], [place] [address] PROTEIN,URINE Negative Normal NEGATIVE [facility] Comment on above: Order Comment: Clean Catch None Apply Asymptomatic Performed By: #### U A w RFX x2 #### Main Lab - [facility] [address] [place], [place] [address] RBC,URINE 0-3 Normal [facility] Comment on above: Order Comment: Clean Catch None Apply Asymptomatic Performed By: #### U A w RFX x2 #### Main Lab - [facility] [address] [place], [place] [address] SPECIFIC GRAVITY,URINE 1.010 SP.GR. Normal <1.029 [facility] Comment on above: Order Comment: Clean Catch None Apply Asymptomatic Performed By: #### U A w RFX x2 #### Main Lab - [facility] [address] [place], [place] [address] UROBILINOGEN,URINE Negative Normal <2 mg/dL [facility] Comment on above: Order Comment: Clean Catch None Apply Asymptomatic Performed By: #### U A w RFX x2 #### Main Lab - [facility] [address] [place], [place] [address] WBC,URINE 0-5 Normal [facility] Comment on above: Order Comment: Clean Catch None Apply Asymptomatic Result Comment: Unle ss otherwise noted, urine microscopic evaluation is normal. Performed By: #### U A w RFX x2 #### Main Lab - [facility] [address] [place] [address] Waveform Imaging Reporton Waveform Imaging Report [facility] [address] [place] [address] Waveform Imaging Report : [id number] Signed Name: VENUS SPIVEY MRUN: [id number] : 1960 Loc: ED Age / Sex: 62 / F ADM Status: REG ER ADM Date: 10/09/22 Room/Bed: Ordering Physician: Sheri Hunter DO Procedure: EKG Order Number(s): [id number] Ordered Date: 10/09/22 Ordered Time: 2325 Test Date: 2022-10-09 22:33:43 Pat Name: VENUS SPIVEY Department: ED Room: Gender: F Offline Cutter: : 1960 Requested By: Sheri Frankel Order Number: [id number] Reading MD: Sheri Hunter Measurements Intervals [place] Rate: 94 P: 62 AR: 150 QRS: 105 QRSD: 98 T: 62 [...] Hunter Signed Date/Time: 10/09/222327 Transcribed Date/Time: Normal [facility] XR PORTABLE CHEST (1VIEW)on 10-10-2022 XR PORTABLE CHEST (1VIEW) [facility] [address] [place] [address] Diagnostic Imaging Report : [id number] Signed Name: VENUS SPIVEY MRUN: [id number] : 1960 Loc: ED Age / Sex: 62 / F ADM Status: REG ER ADM Date: 10/09/22 Room/Bed: Ordering Physician: Sheri Hunter DO Procedure: XR PORTABLE CHEST (1VIEW) Order Number(s): [id number] Ordered Date: 10/09/22 Ordered Time: 2325 EXAMINATION: [...] MD Dictated Date/Time: 10/10/2245 Signed By: Heather Mmcanus MD, MD Signed Date/Time: 10/10/2249 Transcribed Date/Time: 10/10/2246 Normal [facility] ED REPORTon 05-21-2022 [place] [address] HEALTH INFORMATION MANAGEMENT EMERGENCY DEPARTMENT REPORT Patient: VENUS PSIVEY HUNTER HUDSON as dictated by DONTE FISH [id number] F Status: [facility] ER ED Date of Service: 05/20/22 [...] swelling or discoloration throughout her body. SKIN: [place], warm, and dry. Pulses bilaterally radially are [...] with primary care provider. Report#: Dict ID [id number] / Int ID [id number] 05/23/22 1103 HUNTER HUDSON cc: JACK DRIVER D.O.; HUNTER HUDSON << Signature on File>> Reported By: HUNTER HUDSON Signed By: HUNTER HUDSON Tests performed at: [address] [address] Normal [facility] No Panel Informationon 08-11 Thyroid Stimulating Hormone (TSH) 1.56 uIU/mL 0.358-3.74 [facility] Work Phone: CNPOndina 02-23-2021 CNPN Telephone ([facility]) VENUS SPIVEY ([id number]) 1960 F [facility] Date Time Provider Department 9/27/21 DAMIÁN [...] [place] LPN on 03/16/21 [facility] 12-31-2020 [facility] Telephone ([facility]) VENUS SPIVEY ([id number]) 1960 F [facility] Date Time Provider Department 12/31/20 DAMIÁN [...] once a day. Can not go to [facility] not in her network. Has seen Dr. Yee before . 2. Order for H-pylori stool check she completed medications from another doctor 2 weeks ago. She wants to make sure this is gone. This needs to be done at [facility] fax orders. Please advise pt. She is aware the doctor is out of the office till next week. Claudia Thomas Pss 01/09/2021 1:47 PM Signed Patient would prefer to stay local please fax referral to Dr Yee office. Rizwana Louis LPN 01/09/2021 4:58 PM Signed Referral faxed to Dr. Yee. Order for H-Pylori stool fax to [facility]. Allergies As of Date: 12/31/2020 Noted Allergy [...] RIZWANA LOUIS LPN on 01/09/21 [facility] 12-24-2020 CODEY Telephone (VANESA) VENSU SPIVEY ([id number]) 1960 F [facility] Date Time Provider Department 12/24/20 DAMIÁN KIMBLE During your visit today, we recorded the following information about you: Jennifer hCisholm Pss 12/24/2020 3:02 PM Signed Patient is asking for another stool sample test to see if medication is helping. She is requesting that be put through [facility]. Patient states she was unable to be seen in [place] due to insurance. She would like a [...] Encounter Status:Closed by JENNIFER SAEZ on 12/28/20 [facility] 11-20-2020 CODEY Telephone (GASTWS) VENUS SPIVEY ([id number]) 1960 F [facility] Date Time Provider Department 11/20/20 DAMIÁN KIMBLE During your visit today, we recorded the following information about you: Tiara Jessica RN 11/20/2020 9:04 AM Signed Daria from [facility] called, verified pt by name and birthdate. Daria states she is not able to schedule pt until a referral is placed and then pt has visits approved for [facility]. Referral to GI pended. Insurance referral for at [facility] also placed and submitted for approval. Tiara Kimble APRN.GEETHA 11/20/2020 1:15 PM Signed Signed order. GI referral for EGD with CANDS for refractory H pylori Thanks Damián Kimble APRN.GEETHA Louis LPN 12/02/2020 3:19 PM Signed Fax sent to [facility] asking status of referral. Rizwana Louis LPN 12/04/2020 10:40 AM Signed Response from [place] is that they are waiting on insurance approval prior to scheduling patient. Rizwana Louis LPN 12/16/2020 1:19 PM Signed Patient states that the referral to [facility] was denied. She is following with ID in [place] and was prescribed several medications. She will [...] B96.81] Order(s):CONSULT TO GASTROENTEROLOGY [9010] Order #: [id number]: 1 FUTURE Prescriptions as of 12/16/2020 - [...] RIZWANA LOUIS LPN on 12/16/20 [facility] 11-11-2020 CNOV Office Visit (VANESA ) VENUS SPIVEY ([id number]) 1960 F [facility] Date Time Provider Department 11/11/20 11:00 [...] of heart (more content not included)... Normal [facility] HISTORY PHYSICALon HISTORY PHYSICAL HNO ID: [id number] Author: Damián Kimble APRN.ELECTRICAL MAINTENANCE MAN Service: ? Author Type: Nurse Practitioner Type: [...] up r (more content not included)... Normal [facility] LIPIDon 04-28-2020 Cholesterol [Mass/Vol] 196 MG/dL Normal 0-199 [facility] Comment on above: Performed By: #### L [id number] #### [facility] [address] [place] [address] Cholesterol in HDL [Mass/Vol] 80 mg/dL Normal [place] 40 [facility] Comment on above: Result Comment: Victoria ents receiving Metamizole prior to venipuncture, may have falsely depressed results. Performed By: #### L [id number] #### [facility] [address] [place] [address] Cholesterol in LDL [Mass/Vol] 91 mg/dL Normal [facility] Comment on above: Result Comment: ___C HOLESTEROL/HDL RATIO RISK___ CHD RISK = Total CHOL LDL HDL (CHOL/HDL) Recommended <200 <130 >40 <3.4 Borderline 200-239 130-159 3.4-4.99 High >240 >160 >5.0 Performed By: #### L [id number] #### [facility] [address] [place] [id number] Triglyceride [Mass/Vol] 127 mg/dL Normal 30-149 [facility] Comment on above: Result Comment: Victoria ents receiving either N-Acetylcysteine (NAC) or Metamizole prior to venipuncture, may have falsely depressed results. Performed By: #### L [id number] #### [facility] [place] [address] Vital Signs Date Time Vital Sign Value Performing Clinician Facility 11-21-2024 12:05-0400 Body height 162.6 cm Sonya Monte MD Work Phone: [facility] 11-21-2024 12:05-0400 Body mass index (BMI) [Ratio] 26.04 kg/m2 Snoya Monte MD Work Phone: [facility] 11-21-2024 12:05-0400 Body weight 68.8 kg Sonya Monte MD Work Phone: [facility] 11-21-2024 12:05-0400 Diastolic blood pressure 77 mm[Hg] Sonya Monte MD Work Phone: [facility] 11-21-2024 12:05-0400 Heart rate 70 /min Sonya Monte MD Work Phone: [facility] 11-21-2024 12:05-0400 Respiratory rate 16 /min Sonya Monte MD Work Phone: [facility] 11-21-2024 12:05-0400 SaO2% (BldA) [Mass fraction] 97 % Sonya Monte MD Work Phone: [facility] 11-21-2024 12:05-0400 Systolic blood pressure 116 mm[Hg] Sonya Monte MD Work Phone: [facility] 07-23-2024 13:28-0500 Body height 162.6 cm Sonya Monte MD Work Phone: [facility] 07-23-2024 13:28-0500 Body mass index (BMI) [Ratio] 26.98 kg/m2 Sonya Monte MD Work Phone: [facility] 07-23-2024 13:28-0500 Body weight 71.3 kg Sonya Monte MD Work Phone: [facility] 07-23-2024 13:28-0500 Diastolic blood pressure 84 mm[Hg] Sonya Monte MD Work Phone: [facility] 07-23-2024 13:28-0500 Heart rate 73 /min Sonya Monte MD Work Phone: [facility] 07-23-2024 13:28-0500 Respiratory rate 16 /min Sonya Monte MD Work Phone: [facility] 07-23-2024 13:28-0500 SaO2% (BldA) [Mass fraction] 98 % Sonya Monte MD Work Phone: [facility] 07-23-2024 13:28-0500 Systolic blood pressure 163 mm[Hg] Sonya Monte MD Work Phone: [facility] 05-07-2024 13:00-0500 Body mass index (BMI) [Ratio] 26.72 kg/m2 Sonya Monte MD Work Phone: [facility] 05-07-2024 13:00-0500 Body weight 70.6 kg Sonya Monte MD Work Phone: [facility] 05-07-2024 13:00-0500 Diastolic blood pressure 80 mm[Hg] Sonya Monte MD Work Phone: [facility] 05-07-2024 13:00-0500 Heart rate 72 /min Sonya Monte MD Work Phone: [facility] 05-07-2024 13:00-0500 Respiratory rate 16 /min Sonya Monte MD Work Phone: [facility] 05-07-2024 13:00-0500 SaO2% (BldA) [Mass fraction] 99 % Sonya Monte MD Work Phone: [facility] 05-07-2024 13:00-0500 Systolic blood pressure 114 mm[Hg] Sonya Monte MD Work Phone: [facility] 04-20-2024 13:14-0500 Body height 162.6 cm Jessica Ordaz APRN.ELECTRICAL MAINTENANCE MAN Work Phone: [facility] 04-20-2024 13:14-0500 Body mass index (BMI) [Ratio] 25.75 kg/m2 Jessica Ordaz APRN.ELECTRICAL MAINTENANCE MAN Work Phone: [facility] 04-20-2024 13:14-0500 Body weight 68.04 kg Jessica Ordaz APRN.ELECTRICAL MAINTENANCE MAN Work Phone: [facility] 04-20-2024 13:14-0500 Diastolic blood pressure 81 mm[Hg] Jessica Ordaz APRN.ELECTRICAL MAINTENANCE MAN Work Phone: [facility] 04-20-2024 13:14-0500 Heart rate 69 /min Jessica Ordaz APRN.ELECTRICAL MAINTENANCE MAN Work Phone: [facility] 04-20-2024 13:14-0500 SaO2% (BldA) [Mass fraction] 98 % Jessica Ordaz APRN.ELECTRICAL MAINTENANCE MAN Work Phone: [facility] 04-20-2024 13:14-0500 Systolic blood pressure 118 mm[Hg] Jessica Ordaz APRN.CNP Work Phone: [facility] 02-28-2024 11:04-0400 Body height 163.8 cm Blaise Carroll MD Work Phone: [facility] 02-28-2024 11:04-0400 Body mass index (BMI) [Ratio] 26.53 kg/m2 Blaise Carroll MD Work Phone: [facility] 02-28-2024 11:04-0400 Body weight 71.22 kg Blaise Carroll MD Work Phone: [facility] 02-28-2024 11:04-0400 Diastolic blood pressure 82 mm[Hg] Blaise Carroll MD Work Phone: [facility] 02-28-2024 11:04-0400 Heart rate 66 /min Blaise Carroll MD Work Phone: [facility] 02-28-2024 11:04-0400 Systolic blood pressure 127 mm[Hg] Blaise Carroll MD Work Phone: [facility] 02-22-2024 13:27-0400 Body mass index (BMI) [Ratio] 25.97 kg/m2 Melly Travis DO Work Phone: [facility] 02-22-2024 13:27-0400 Body temperature 97.81 [degF] Melly Robles DO Work Phone: [facility] 02-22-2024 13:27-0400 Body weight 69.85 kg Melly Robles DO Work Phone: [facility] 02-22-2024 13:27-0400 Diastolic blood pressure 70 mm[Hg] Melly Robles DO Work Phone: [facility] 02-22-2024 13:27-0400 Heart rate 71 /min Melly Robles DO Work Phone: [facility] 02-22-2024 13:27-0400 Respiratory rate 18 /min Melly Robles DO Work Phone: [facility] 02-22-2024 13:27-0400 SaO2% (BldA) [Mass fraction] 98 % Melly Carpentern DO Work Phone: [facility] 02-22-2024 13:27-0400 Systolic blood pressure 120 mm[Hg] Melly Robles DO Work Phone: [facility] 11-17-2022 10:42-0400 Body height 162.[address] Bear Au Work Phone: [facility] 11-17-2022 10:42-0400 Body mass index (BMI) [Ratio] 26.2 kg/m2 Dr. Bear Au Work Phone: [facility] 11-17-2022 10:42-0400 Body weight 69.[address] Bear Au Work Phone: [facility] 11-17-2022 10:42-0400 Diastolic blood pressure 74 mm[Hg] Dr. Bear Au Work Phone: [facility] 11-17-2022 10:42-0400 Heart rate 69 /min Dr. Bear Au Work Phone: [facility] 11-17-2022 10:42-0400 Respiratory rate 16 /min Dr. Bear Au Work Phone: [facility] 11-17-2022 10:42-0400 Systolic blood pressure 111 mm[Hg] Dr. Bear Au Work Phone: [facility] Encounters Encounter Date Encounter Type Care Provider Facility Start: 04-11-2025 End: 04-11-20[facility] Start: 04-08-2025 End: 04-09-2025 [place]ulatory [place] Facility:[facility] Start: 03-25-2025 ambulatory Yoly Black NP Fa cility:[facility] Start: 03-25-2025 End: 03-27-2025 Evaluation and management of inpatient Miguel Massielmk Facility:[facility] Start: 12-25-2024 End: 12-29-2024 ambulatory JACK DRIVER DO Facility:A Start: 11-21-2024 End: 11-21-2024 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 Sonya Mcdermott MD Work Phone: [facility] Comment on above: Cervical disc disord er with radiculopathy (Primary Dx) Start: 11-21-2024 End: 11-21-2024 ambulatory SONYA MCDERMOTT Facility:[facility] Start: 11-21-2024 End: 11-21-2024 Subsequent hospital visit by physician Xr [facility] [employer] [employer] Comment on above: Cervical disc disord er with radiculopathy [M50.10] Start: 07-23-2024 End: 07-23-2024 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 Sonya Mcdermott MD Work Phone: [facility] Comment on above: Cervical disc disord er with radiculopathy (Primary Dx) Start: 07-23-2024 End: 07-23-2024 ambulatory SONYA MCDERMOTT Facility:[facility] Start: 07-09-2024 End: 07-09-2024 ambulatory Ashley Herndon Facility:[facility] Start: 06-26-2024 End: 06-30-2024 ambulatory JACK DRIVER DO Facility:[facility] Start: 06-19-2024 End: 06-19-2024 ambulatory Yoly Black NP Facility:[facility] Start: 05-07-2024 End: 05-07-2024 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 Sonya Mcdermott MD Work Phone: [facility] Comment on above: Cervical disc disord er with radiculopathy (Primary Dx) Start: 05-07-2024 End: 05-07-2024 ambulatory SONYA Grant DEWAYNE Facility:[facility] Start: 04-30-2024 End: 04-30-2024 Telephone encounter Jessica Ordaz APRN.CNP Work Phone: [facility] Comment on above: MRI Appointment Start: 04-20-2024 End: 04-20-2024 Subsequent hospital visit by physician [facility] [employer] [facility] Comment on above: Spinal stenosis of c ervical region [M48.02] Start: 04-20-2024 End: 04-20-2024 Telephone encounter Jessica Ordaz APRN.ELECTRICAL MAINTENANCE MAN Work Phone: [facility] Start: 04-20-2024 End: 04-20-2024 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 Jessica Ordaz APRN.ELECTRICAL MAINTENANCE MAN Work Phone: [facility] Comment on above: Spinal stenosis of c ervical region (Primary Dx); Claustrophobia Start: 04-20-2024 End: 04-20-2024 ambulatory JESSICA ORDAZ Facility:[facility] Start: 03-19-2024 End: 03-19-2024 ambulatory [facility] Start: 03-19-2024 End: 03-19-2024 Encounter for other preprocedural examination [facility] Start: 03-15-2024 End: 03-15-2024 ambulatory JACK DRIVER DO Facility:[facility] Start: 03-15-2024 End: 03-15-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 WYATT YEE MD [facility] Start: 02-29-2024 End: 02-29-2024 Telephone encounter Natalie Ramon [facility] Start: 02-28-2024 End: 02-28-2024 Office outpatient new 45 minutes Blaise Carroll MD Work Phone: [facility] Comment on above: Cervical radiculopat hy (Primary Dx) Start: 02-28-2024 End: 02-28-2024 ambulatory [facility] Start: 02-22-2024 End: 02-22-2024 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 Melly Robles DO [facility] Comment on above: Laceration of blood vessel of index finger (Primary Dx) Start: 07-08-2023 End: 07-08-2023 ambulatory [facility] Work Phone: Start: 07-08-2023 End: 07-08-2023 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 [facility] Work Phone: Start: 04-18-2023 End: 04-18-2023 ambulatory BEAR AU Facility:[id number] Start: 01-06-2023 End: 01-06-[address] Bear Au Work Phone: [facility] Work Phone: Start: 01-06-2023 End: 01-06-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 eBar Au Work Phone: [facility] Work Phone: Start: 12-03-2022 End: 12-08-[address] WYATT YEE MD Facility:[facility] Start: 12-02-2022 End: 12-07-[address] WYATT YEE MD Facility:[facility] Start: 11-29-2022 Non-patient / Non-visit Dr. Yanira Au Work Phone: [facility] Work Phone: Start: 11-25-2022 Non-patient / Non-visit Dr. Yanira Au Work Phone: [facility] Start: 11-25-2022 End: 11-25-[address] Bear Au Work Phone: [facility] Work Phone: Start: 11-25-2022 End: 11-25-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 Bear [facility]: Start: 11-17-2022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 and was recommended a C5-C7 ACDF -Pain Management: Follows with [facility] - consult note can be found under scanned documents -Injections: Cervical injection at [facility] - 30% symptom relief that lasted for [...] reflux disease) Hyperlipemia Lymphadenitis Mental disorder Stroke ([facility]) 2012 PAST SURGICAL HISTORY Procedure Laterality Date [...] and food al (more content not included)... [facility] 04-10-2024 Telephone encounter Note Spoke with pt and relayed note. They verbalized understanding. [facility] 04-10-2024 Miscellaneous Notes Spoke with pt and relayed note. They verbalized understanding. Unfortunately, we are not very familiar with the [facility] spine provider to be able to make a recommendation. Please let her know. Thank you. Pt called stating that she really wants to have surgery done with you, but you are out of network with her insurance. Pt would like to know if you have a surgeon that you would recommend within [facility]. Pt states she want to change insurance [...] given. Spoke with SAM Arriaga. Ref #: [id number] Surg 03/26 730 PAT 03/19 230 PO 04/10 10 Case# [id number] Patient aware of all appointments and times ----- Message from Blaise Carroll MD sent at 02/28/2024 12:13 PM EDT ----- Anterior cervical 5-6 and 6-7 disc replacements 2 hours 1 night [id number] documented in this encounter [facility] 04-10-2024 Telephone encounter Note Unfortunately, we are not very familiar with the [facility] spine provider to be able to make a recommendation. Please let her know. Thank you. [facility] Work Phone: 04-10-2024 Telephone encounter Note Pt called stating that she really wants to have surgery done with you, but you are out of network with her insurance. Pt would like to know if you have a surgeon that you would recommend within [facility]. [facility] 03-20-2024 Telephone encounter Note Pt states she want to change insurance and wait until the new year to have Sx with Dr. Carroll. Pt was notified to call me with updated ins info YUAN. Tentative date of 06/18/2023 given to pt. [facility] 03-20-2024 Miscellaneous Notes Pt states she [...] given. Spoke with SAM Arriaga. Ref #: [id number] Surg 03/26 730 PAT 03/19 230 PO 04/10 10 Case# [id number] Patient aware of all appointments and times ----- Message from Blaise Carroll MD sent at 02/28/2024 12:13 PM EDT ----- Anterior cervical 5-6 and 6-7 disc replacements 2 hours 1 night [id number] documented in this encounter [facility] 03-20-2024 Telephone encounter Note Received email from ins verification. Pt's ins is OON and will need to pay 50% and single case agreement will need to be submitted. LVM for cb to discuss with pt. [facility] 03-19-2024 Note Patient: Venus vora Procedure Information Date/Time: 03/26/24729 Procedure: ANTERIOR CERVICAL 5-6 AND 6-7 DISC REPLACEMENTS - 2 HOUR CASE Location: [facility] OR [address] [place] [address] Operating Room Surgeons: Blaise Carroll MD Relevant [...] previous visit. Equipment Requests: Additional Equipment Requests [facility] 03-19-2024 Note Comprehensive Pre [place] rgical History and Physical ? Name: Venus Spivey : 1960 (Age-63 y.o.) Date of Service: Pt seen/examined on 03/19/2024 Procedure Information Date/Time: 03/26/24729 Procedure: ANTERIOR CERVICAL 5-6 AND 6-7 DISC REPLACEMENTS - 2 HOUR CASE Location: [facility] OR [address] [place] [address] Operating Room Surgeons: Blaise Carroll MD Chief [...] for pre-operative evaluation prior to ? Case: [id number] Date/Time: 03/26/24729 Procedure: ANTERIOR CERVICAL 5-6 AND 6-7 DISC REPLACEMENTS [50600 CPT(R)] - 2 HOUR CASE Anesthesia type: General Diagnosis: Radiculopathy, cervical region [M54.12] Pre-op diagnosis: Radiculopathy, cervical region [M54.12] Location: [facility] OR [address] [place] [address] Operating Room Surgeons: Blaise Carroll MD From [...] constipation. Patient denies hx of CAD, CHF, [place], diabetes, COPD, asthma, RUTH ANN, DVT/PE. Past [...] mouth Nightly. HYDROcodone-acetaminop (more content not included)... [facility] 03-15-2024 Note ORIGINAL EXAMINATION: SINGLE CONTRAST [...] Ordering Provider: WYATT YEE [facility] 02-29-2024 Telephone encounter Note Spoke with pt and tentative Sx date on 03/26 was given. Spoke with SAM Arriaga. Ref #: [id number] Surg 03/26 730 PAT 03/19 230 PO 04/10 10 Case# [id number] Patient aware of all appointments and times [facility] 02-29-2024 Telephone encounter Note ----- Message from Blaise Carroll MD sent at 02/28/2024 12:13 PM EDT ----- Anterior cervical 5-6 and 6-7 disc replacements 2 hours 1 night [id number] [facility] 02-28-2024 History of Present illness Narrative NEUROSURGERY [...] by mouth. 11/15/22 Yes Historical Provider, HYDROcodone-acetaminophen (Coleridge) 5-325 MG tablet 01/05/24 Yes Historical Provider, [...] 1. Cervical radiculopathy documented in this encounter [facility] 02-22-2024 History of Present illness Narrative [...] necessary. Melly Robles documented in this encounter [facility] 04-18-2023 Note HNO ID: [id number] Author: Suraj Saini MD Service: ? Author [...] with patient patient tolerated procedure well. [facility] Evaluation + Plan note No data available for this section [facility] Evaluation note No assessment inform ation available [facility] Work Phone: Evaluation note Diagnosis Onset Date Atypical chest pain acute [facility] Work Phone: Evaluation note* Diagnosis Laceration of blood vessel of index finger- [facility] Diagnosis Cervical radiculopathy- Primary Brachial neuritis or radiculitis nos [facility]* Diagnosis Spinal stenosis of cervical region- Primary Spinal stenosis in cervical region Claustrophobia Other isolated or specific phobias documented in this [facility]* Diagnosis Spinal stenosis of cervical region Spinal stenosis in cervical region documented in this encounter [facility] note* Diagnosis Cervical disc disorder with radiculopathy- Primary Brachial neuritis or radiculitis nos documented in this encounter [facility] note* Diagnosis Cervical disc disorder with radiculopathy- Primary Brachial neuritis or radiculitis nos documented in this encounter [facility] note* Diagnosis Cervical disc disorder with radiculopathy- Primary Brachial neuritis or radiculitis nos documented in this encounter [facility] note* Diagnosis Cervical disc disorder with radiculopathy Brachial neuritis or radiculitis nos documented in this encounter [facility] Discharge instructions No data available for this section [facility] Progress note No data available for this section [facility] Reason for visit Narrative* Diagnostic Procedure Only (Routine) - Closed Specialty Diagnoses / Procedures Referred By Contac t Referred To Contact XR IMAGING Diagnoses Spinal stenosis of cervical region Procedures XR CERV OTHER 4V AP/LAT/FLX/EXT RADEX SPINE CERVICAL 4 OR 5 VIEWS Jessica Ordaz, THO.ELECTRICAL MAINTENANCE MAN [address] [facility] [place] [address] [place] [address] Referral ID Status Reason Start Date Expiration Date V isits Requested Visits Authorized [id number] Closed Auto-Generate d Referral 04/20/2024 05/20/2025 1 1 [facility] for visit Narrative* Diagnostic Procedure Only (Routine) - Closed Specialty Diagnoses / Procedures Referred By Contac t Referred To Contact XR IMAGING Diagnoses Cervical disc disorder with radiculopathy Procedures XR CERV OTHER 4V AP/LAT/FLX/EXT RADEX SPINE CERVICAL 4 OR 5 VIEWS Sonya Mcdermott I, MD [address] [facility] [place] [address] Phone: tel: fax: [place] [address] Referral ID Status Reason Start Date Expiration Date V isits Requested Visits Authorized [id number] Closed Auto-Generate d Referral 10/26/2024 11/25/2025 1 1 [facility] Summary Purpose Family History No Family History [...] October 17, 2014 1 :31pm Power of Ceramics Test Engineer No October 17, 2014 1:31pm Advance Directive Response Recorded Date/ Time Advance Directives No October 17 5 12:31pm Living Will No October 17, 2014 1 2:31pm Power of Ceramics Test Engineer No October 17, 2014 12:31pm Chief Complaint [...] CERVICAL SPINE W/O CONTRAST MATERIAL Jessica Ordaz, ASSOCIATE ARTISTIC DIRECTOR.ELECTRICAL MAINTENANCE MAN [address] [facility] [place] [address] [place] [address] Referral ID Status Reason Start Date Expiration Date V isits Requested Visits Authorized [id number] Open Auto-Generate d Referral 04/20/2024 05/20/2025 1 1 Specialty Diagnoses / Procedures Referred By Adonis t Referred To Contact XR IMAGING Diagnoses Spinal stenosis of cervical region Procedures XR CERV OTHER 4V AP/LAT/FLX/EXT RADEX SPINE CERVICAL 4 OR 5 VIEWS Jessica Ordaz, ASSOCIATE ARTISTIC DIRECTOR.ELECTRICAL MAINTENANCE MAN [address] [facility] [place] [address] [place] [address] Referral ID Status Reason Start Date Expiration Date V isits Requested Visits Authorized [id number] Closed Auto-Generate d Referral 04/20/2024 05/20/2025 1 1 Specialty Diagnoses / Procedures Referred By Contac t Referred To Contact MR IMAGING Diagnoses Spinal stenosis of cervical region Procedures MRI CERVICAL SPINE WO IVCON MRI SPINAL CANAL CERVICAL W/O CONTRAST MATRL Jessica Ordaz, ASSOCIATE ARTISTIC DIRECTOR.ELECTRICAL MAINTENANCE MAN [address] [facility] [place] [address] [place] [address] Referral ID Status Reason Start Date Expiration Date Visits Requested Visits Authorized [id number] New Request Auto-Generat ed Referral 05/20/2025 1 1 Additional Source Comments INFORMATION SOURCE (unrecogn ized section and content) DATE CREATED AUTHOR 04/30/2020 [facility] DATE CREATED AUTHOR AUTHOR'S ORGANIZ ATION 06/15/2021 [facility] DATE CREATED AUTHOR AUTHOR'S ORGANIZ ATION 05/27/2022 [facility] DATE CREATED AUTHOR AUTHOR'S ORGANIZ ATION 10/11/2022 [facility] DATE CREATED AUTHOR AUTHOR'S ORGANIZ ATION 04/11/2023 [facility] ([place] DATE CREATED AUTHOR AUTHOR'S ORGANIZ ATION 04/20/2023 [facility] DATE CREATED AUTHOR AUTHOR'S ORGANIZ ATION 03/18/2024 [facility] DATE CREATED AUTHOR AUTHOR'S ORGANIZ ATION 04/13/2024 [facility] DATE CREATED AUTHOR AUTHOR'S ORGANIZ ATION 11/30/2024 [facility] DATE CREATED AUTHOR AUTHOR'S ORGANIZ ATION 01/08/2025 [facility] DATE CREATED AUTHOR AUTHOR'S ORGANIZ ATION [...] or prosecute any alcohol or drug abuse patient.[facility] the event this information is protected by the Federal Confidentiality of Alcohol and Drug Abuse Patient Records regulations: The Federal rules restrict any use of the information to criminally investigate or prosecute any alcohol or drug abuse patient.[facility] the event this information is protected by the Federal Confidentiality of Alcohol and Drug Abuse Patient Records regulations: The Federal rules restrict any use of the information to criminally investigate or prosecute any alcohol or drug abuse patient.[facility] the event this information is protected by the Federal Confidentiality of Alcohol and Drug Abuse Patient Records regulations: The Federal rules restrict any use of the information to criminally investigate or prosecute any alcohol or drug abuse patient.[facility] the event this information is protected by the Federal Confidentiality of Alcohol and Drug Abuse Patient Records regulations: The Federal rules restrict any use of the information to criminally investigate or prosecute any alcohol or drug abuse patient.[facility] the event this information is protected by the Federal Confidentiality of Alcohol and Drug Abuse Patient Records regulations: The Federal rules restrict any use of the information to criminally investigate or prosecute any alcohol or drug abuse patient.[facility] the event this information is protected by the Federal Confidentiality of Alcohol and Drug Abuse Patient Records regulations: The Federal rules restrict any use of the information to criminally investigate or prosecute any alcohol or drug abuse patient.[facility] the event this information is protected by the Federal Confidentiality of Alcohol and Drug Abuse Patient Records regulations: The Federal rules restrict any use of the information to criminally investigate or prosecute any alcohol or drug abuse patient.[facility] the event this information is protected by the Federal Confidentiality of Alcohol and Drug Abuse Patient Records regulations: The Federal rules restrict any use of the information to criminally investigate or prosecute any alcohol or drug abuse patient.[facility] the event this information is protected by the Federal Confidentiality of Alcohol and Drug Abuse Patient Records regulations: The Federal rules restrict any use of the information to criminally investigate or prosecute any alcohol or drug abuse patient.[facility] Care Teams (unrecognized sec tion and content) Ag Equipment Field Service Technician Relationship Specialty Start Date End Date Bear [...] Primary Care Provider Active Emery Olivares NP, GOLD FRAME ASSEMBLER-C Attending Provider Active Team Status: Inactive Member [...] NP-C Attending Provider, Referring Provi arabella Active [employer] Equipment Field Service Technician Relationship Specialty [place] [address] [address] PCP - General Internal Medicine 02/22/24 Ag Equipment Field Service Technician Relationship Specialty [place] [address] [address] PCP - General Internal Medicine 02/22/24 Ag Equipment Field Service Technician Relationship Specialty Start Date End Date Jack Driver, [address] [address] PCP - General Internal Medicine 02/22/24 Ag Equipment Field Service Technician Relationship Specialty [place] [address] [address] PCP - General Internal Medicine 02/22/24 Ag Equipment Field Service Technician Relationship Specialty [place] [address] [id number] PCP - General Internal Medicine 02/22/24 Ag Equipment Field Service Technician Relationship Specialty [place] [address] [address] PCP - General Internal Medicine 02/22/24 Ag Equipment Field Service Technician Relationship Specialty [place] [address] [address] PCP - General Internal Medicine 02/22/24 Ag Equipment Field Service Technician Relationship Specialty [place] [address] [address] PCP - General Internal Medicine 02/22/24 Reason [...] BE BASED ON THE PRIMARY CLINICAL RECORDS. [facility] [facility]. provides no warranty or guarantee of the accuracy or completeness of information in this document.
--- NOTE | 2025-04-26 08:41 | PCM.PRE.AN2 ---
ASA Classification* ASA Classification ASA Classification: 2 Assessment & Plan Anesthesia* Anesthesia Assessment Anesthesia Assessment: Discussed sedation and/or anesthesia options, risks, benefits, and alternatives with patient/parents/legal guardian/POA. Questions invited. The patient/parents/legal guardian/POA seems to understand and agrees to proceed with anesthesia plan. Reviewed the physical assessment, medical history, allergy history and patient home medications list prior to surgery/procedure/anesthetic and documented any changes. Performed airway and anesthesia risk assessments. Anesthesia Type Anesthesia Type: MAC Anesthesia Focused Assessment* Airway Assessment Mouth opens: >3 cm Mallampati Score: II Labs Anesthesia Preop lab: CBC WBC, (4.4-11.0) 7.3 K/mm3 04/22/25, 13:49 RBC, (4.2-5.4) 5.13 M/mm3 04/22/25, 13:49 Hgb, (12.0-15.0) 12.9 g/dL 04/22/25, 13:49 Hct, (37-47) 42.5 % 04/22/25, 13:49 Plt Count, (150-450) 298 K/mm3 04/22/25, 13:49 CHEMISTRY Potassium, (3.3-5.1) 4.0 mmol/L 04/22/25, 13:49 Sodium, (133-145) 144 mmol/L 04/22/25, 13:49 BUN, (4-19) 11 mg/dL 04/22/25, 13:49 Creatinine, (0.70-1.20) 0.81 mg/dL 04/22/25, 13:49 Glucose, (70-99) 117 mg/dL H 04/22/25, 13:49 POC Glucose, (70-110) 103 mg/dL 01/15/13, 14:25 TSH, (0.358-3.74) 1.56 uIU/mL 08/11/21, 08:58 COAG PT, (11.9-14.4) 12.3 SECONDS 01/15/13, 14:35 Pre-Assessment Diagnosis/Proposed Procedure Planned Operative Procedure(s): ERCP, Stent Removal Anesthesia History Anesthesia History - complex human resources manager: Anesthesia History - complex human resources manager Hx Hospitalization Yes: 03/2304/23/25 13:55 Any Problems With Anesthesia Yes: LOW BP POST-OP 04/23/25 13:55 Cholinesterase deficiency No 04/23/25 13:55 You/Your Family Experience No 04/23/25 13:55 fever (hyperthermia) with Relationship Recent Exposure to Contagious No 03/25/25 10:13 Disease Does patient have nerve No 04/23/25 13:55 stimulator Patient instructed to have device shut off --Does patient have Pacemaker or ICD? When Was Last Pacemaker Check QUESTION #4 FULL TEXT: You/Your Family Experience fever (hyperthermia) with Anesthesia Last Oral Intake Last Oral intake: Last Oral Intake NPO since Meds taken in AM with sips of water? Meds patient instructed to take am of surgery PONV PONV - complex human resources manager: PONV - complex human resources manager Female Yes 04/23/25 13:55 HX of Motion Sickness No 04/23/25 13:55 HX of N/V After Surgery No 04/23/25 13:55 Non-Smoker Yes 04/23/25 13:55 Duration of Surgery greater No 04/23/25 13:55 than 60 minutes Number of Risk Factors 2 04/23/25 13:55 PONV Score Moderate Risk 04/23/25 13:55 Height & Weight Height & Weight: Anesthesia: Height & Weight Height 5 ft 4 in 04/20/25 11:53 Respiratory Assessment Respiratory Assessment - complex human resources manager: Respiratory Tract Infection Hx - complex human resources manager Hx Respiratory Tract Infection No 04/23/25 13:55 STOP Sleep Apnea STOP Sleep Apnea - complex human resources manager: STOP Sleep Apnea - complex human resources manager Hx Hypertension No 04/23/25 13:55 Hx Sleep Apnea No 04/23/25 13:55 CPAP BIPAP No 04/23/25 13:55 Do you snore loudly (louder No 04/23/25 13:55 than talking or can be heard Do you often feel tired/ No 04/23/25 13:55 fatigued/ sleepy during daytime? Has anyone observed you stop No 04/23/25 13:55 breathing during sleep? STOP Results Negative 04/23/25 13:55 QUESTION #5 FULL TEXT : Do you snore loudly (louder than talking or can be heard through closed doors)? Tobacco Use History Tobacco Use History - complex human resources manager: Tobacco Use History - complex human resources manager Tobacco Use Non-smoker 11/11/20 12:37 Smoking Status Never smoker 04/23/25 13:55 Hx Tobacco Use No 04/23/25 13:55 Years Smoking Packs Smoked per Day Smoking Cessation Date was within the last 15 years Hx Smoking Cessation Date Hx Smoking Cessation Counseling Hematologic Medial History Hematologic Hx - complex human resources manager: Hematologic Medical Hx - animal [facility] office supervisor Hx of Blood Transfusion No 04/23/25 13:55 Hx of Transfusion in last 3 No 04/23/25 13:55 Months Date of Last Transfusion (if within last 3 months) Ever experience any problems No 04/23/25 13:55 with transfusion(s)? Specify any problems Hx of Preganancy in last 3 No 04/23/25 13:55 Months Nurse Filling Out Transfusion VCHRISTIN 04/23/25 13:55 & Questions: Date: 04/23/25 04/23/25 13:55 Time: 13:56 04/23/25 13:55 Patient unable to answer at this time (ie. confused, unrespo /Reproduction History /Reproductive History - complex human resources manager: /Reproductive Hx- complex human resources manager Hx Now No 04/23/25 13:55 Gestational Age (in weeks): EDC: Hx Hx Para Hx Section SAB No 04/23/25 13:55 Does the father of the baby or his family experience fever w Father of the baby Malignant Hypertension history comment Active Medications Active Medications: Current Medications Generic Name Dose Route Start Last Admin Trade Name Freq PRN Reason Stop Dose Admin Lactated Ringer's 1,000 mls @ 15 mls/hr 04/26/25 08:30 IV .Q48H CHERIE PFSH Medical History Wears contact lenses Post-menopausal Depression Pernicious anemia Iron deficiency anemia Blood disorder Back pain Injury of head and neck TIA (transient ischemic attack) Non-smoker Shortness of breath on exertion History of stress test History of echocardiogram Chest pain GERD (gastroesophageal reflux disease) High cholesterol Migraines Emotional problems Gallstones Bone fracture Pancreatitis Trigger point Insomnia Atypical chest pain Hyperlipidemia Home Medications ?Medication ?Instructions ?Recorded ?Last Taken ?Type acetaminophen 325 mg tablet 650 mg (2 x 325 mg) PO Q6H PRN PRN 03/27/25 04/25/25 Rx Pain 1-10 Or Fever >100.7 #0 tabs aspirin 81 mg tablet 81 mg PO QDAY 04/11/25 Unknown History ezetimibe 10 mg tablet (Zetia) 10 mg PO QDAY 04/11/25 04/25/25 History mecobalamin (vitamin B12) 10,000 10,000 mcg IM QMONTH 04/11/25 Unknown History mcg solution for injection dicyclomine 20 mg tablet 20 mg PO BID 5 days #10 tabs 04/20/25 04/25/25 Rx sucralfate 1 gram tablet (Carafate) 1 g PO TID 5 days #15 tabs 04/20/25 04/24/25 Rx Allergy/AdvReac Type Severity Reaction Status Date / Time meperidine HCl (From Demerol) AdvReac Vomiting Verified 04/26/25 08:36 morphine AdvReac Upset Verified 04/26/25 08:36 Stomach Family History Father CVA (cerebral vascular accident) Myocardial infarction Grandmother Colon cancer Diabetes Grandmother Myocardial infarction Surgical History History of cardiac catheterization Hx of vein stripping History of laparoscopic cholecystectomy History of ERCP S/P colonoscopy Hx of hysterectomy Hx of repair of left rotator cuff Hx of appendectomy Social History Smoking Status: Never smoker how long ago did patient quit smokin alcohol intake: current alcohol intake frequency: holidays/special occasions only substance use type: does not use caffeine: Yes Type: coffee Number of servings: 4 what type of physical activity do you participate in: walking frequency: 3-4 times per week Review of Systems (Anesthesia) ROS Narrative System reviewed and no additional complaints, except as documented.
[2025-04-26] MEDS: Lactated Ringers 1,000 ML 15 ML IV (08:51)
--- NOTE | 2025-04-26 09:07 | HP.PCM_ITS ---
HPI - General General Date of Admission: 04/26/25 Date of Service: 04/26/25 Chief Complaint: Stent removal HPI Narrative VENUS RENAE, is a 64 F who presents [ Chief Complaint: Status post ERCP [facility] admission 03/25/2025 - 03/27/2025 after presentation to the ED with abdominal pain CT demonstrating distended mildly thickened gallbladder with intrahepatic biliary duct dilation and dilated CBD measuring 2.7 mm. Ultrasound concerning for acute cholecystitis. Laboratory findings of leukocytosis, elevated AST, ALT and normal alk phos. ERCP 03/25/2025 - The entire main bile duct, entire biliary tree, left and right hepatic ducts and all intrahepatic branches, common bile duct and common hepatic duct were dilated, with a stone causing an obstruction. - Choledocholithiasis was found. Complete removal was accomplished by biliary sphincterotomy and balloon extraction. - One temporary stent was placed into the ventral pancreatic duct. - A biliary sphincterotomy was performed. - The biliary tree was swept. - One temporary stent was placed into the common bile duct. Cholecystectomy 03/26/2025 Surgery visit 04/08/2025 no restrictions. Having epigastric pain. OV 04/11/2025 - Patient having epigastric pain when bending over -Pain is not constant or associated with oral intake - Wonders if the stent is poking her organs - Denies other GI symptoms PFSH Medical History Wears contact lenses Post-menopausal Depression Pernicious anemia Iron deficiency anemia Blood disorder Back pain Injury of head and neck TIA (transient ischemic attack) Non-smoker Shortness of breath on exertion History of stress test History of echocardiogram Chest pain GERD (gastroesophageal reflux disease) High cholesterol Migraines Emotional problems Gallstones Bone fracture Pancreatitis Trigger point Insomnia Atypical chest pain Hyperlipidemia Home Medications ?Medication ?Instructions ?Recorded ?Last Taken ?Type acetaminophen 325 mg tablet 650 mg (2 x 325 mg) PO Q6H PRN PRN 03/27/25 04/25/25 Rx Pain 1-10 Or Fever >100.7 #0 tabs aspirin 81 mg tablet 81 mg PO QDAY 04/11/25 Unkno wn History ezetimibe 10 mg tablet (Zetia) 10 mg PO QDAY 04/11/25 04/25/25 History mecobalamin (vitamin B12) 10,000 10,000 mcg IM QMONTH 04/11/25 Unknown History mcg solution for injection dicyclomine 20 mg tablet 20 mg PO BID 5 days #10 tabs 04/20/25 04/25/25 Rx sucralfate 1 gram tablet (Carafate) 1 g PO TID 5 days #15 tabs 04/20/25 04/24/25 Rx Allergy/AdvReac Type Severity Reaction Status Date / Time meperidine HCl (From Demerol) AdvReac Vomiting Verified 04/26/25 08:36 morphine AdvReac Upset Verified 04/26/25 08:36 Stomach Family History Father CVA (cerebral vascular accident) Myocardial infarction Grandmother Colon cancer Diabetes Grandmother Myocardial infarction Surgical History History of cardiac catheterization Hx of vein stripping History of laparoscopic cholecystectomy History of ERCP S/P colonoscopy Hx of hysterectomy Hx of repair of left rotator cuff Hx of appendectomy Social History Smoking Status: Never smoker how long ago did patient quit smokin alcohol intake: current alcohol intake frequency: holidays/special occasions only substance use type: does not use caffeine: Yes Type: coffee Number of servings: 4 what type of physical activity do you participate in: walking frequency: 3-4 times per week ROS Constitutional Constitutional: Denies fatigue, fever(s), poor appetite, weight gain or weight loss Gastrointestinal Gastrointestinal: Denies belching, bloating, change in bowel habits, change in stool character, chewing difficulty, coffee ground emesis, constipation, cramping, diarrhea, dyspepsia, dysphagia, early satiety, excessive flatus, fecal incontinence, heartburn, hematemesis, hematochezia, hemorrhoids, loose stools, melena, nausea, odynophagia, rectal bleeding, tenesmus, vomiting or weight changes Vital Signs Vital Signs Vital Signs: 04/26/25 08:39 04/26/25 08:39 04/26/25 08:39 Temperature 97.7 F L Temperature Source Temporal Pulse Rate 71 Respiratory Rate 12 Respiratory Pattern Normal Blood Pressure 124/82 H Blood Pressure Mean 96 Blood Pressure Source Monitor Blood Pressure Position Semi-Fowlers Blood Pressure Location Left Arm Baseline BP 124/82 Pulse Ox 100 Oxygen Delivery Method Room Air Weight Weight: 136 lb 10.986 oz Body Mass Index (BMI) 23.4 Physical Exam Const alert, oriented x3, no apparent distress and healthy appearing General Appearance: cooperative GI normal to inspection, nondistended, normoactive bowel sounds, soft to palpation, non-tender and non-distended Percussion: normal to percussion Rectal Exam: deferred Results Lab / Micro Data 04/22/25 13:49 04/22/25 13:49 Assessment & Plan Assessment/Plan (1) Abdominal pain, epigastric: (2) S/P ERCP: PLAN: n Assessment and Plan Assessment and Plan (1) S/P ERCP: Status: Acute (2) S/P cholecystectomy: Status: Acute Plan: Venus is a 64-year-old female patient who was recently hospitalized due to acute cholecystitis and choledocholithiasis in February 2025. Patient underwent ERCP 03/25/2025 which demonstrated dilation of the entire biliary tree with a stone causing obstruction, choledocholithiasis complete removal was accomplished by biliary sphincterotomy and balloon extraction, 1 temporary stent placed in the pancreatic duct, biliary sphincterotomy performed. Biliary tree was swept and 1 temporary stent was placed into the common bile duct. Patient here today for discussion of ERCP with stent with removal. I reviewed the procedure with her and possible risks including development of pancreatitis. Patient was agreeable and will proceed with stent removal. Patient endorses epigastric pain when bending over. It is not associated with oral intake. I did recheck her transaminases, bilirubin and lipase 04/09/2025 and they were all downtrending and/or within normal limits. Will see if stent removal improves her symptoms and not will consider further workup. - ERCP with stent removal -Reviewed procedure and risks]
--- NOTE | 2025-04-26 09:15 | FLU_PTH ---
PATIENT: VENUS RENAE LOC: EN U#:[id number] AGE/SX: 64/F ROOM: RE04/26/[address]: Dr. Deep Mora DO : 1960 BED: DIS: 04/26/2025 SPEC #: [id number] RECD: 04/26/25 10:46 STATUS: EVA REQ #: [id number] RAFY: 04/26/25 09:[address]: Deep Mora DEPT: CYTOLOGY RECD BY: Dulce Doll ENTERED: 04/26/25 12:05 SP TYPE: Fluid OTHR DR: MD Yoly Marin, ASBESTOS REMOVER-C Tissues: Bile duct, NOS Procedures: Special Stain Group II Surgery Specimen Level IV Cytospin Fluid HEADER OPERATION: ERCp with stent removal PRE-OP DIAGNOSIS: Status post ERCP TISSUE SUBMITTED: A- Biliary stent for cytology DIAGNOSIS CYTOLOGY A. Biliary stent, ERCP (cytospin, cellblock): - No malignant cells identified. - Scant cellularity noted. CYTOLOGY STUDY Slides are reviewed. CYTOLOGY GROSS A. Received is 10cm with bluish-black stent with 0.5 ml of yellow thick material labeled with the patient's name and and designated per the requisition as Biliary stent. Submitted for cytology and cell block preparation. Mr 04/26/2025 CPT: 10496,80002
[2025-04-26] MEDS: Lidocaine 1% (5 ml sdv) 5 ML Vial IV (10:14)
--- NOTE | 2025-04-26 10:36 | PCM.POST.ANE ---
Anesthesia: Postop Eval I Current Vital Signs Temperature: 97 F Pulse Rate: 70 Blood Pressure: 101/67 Respiratory Rate: 16 Pulse Ox: 96 Oxygen Delivery Method: Room Air Assessment Airway patent: Yes Spontaneous unlabored respirations: Yes Mental status: Awake and Calm nausea: No Vomiting: No Anesthesia Complication: No Fluid Hydration Crystalloid volume administer (ml): 400 Total IV fluid infused: 400 Progress Note Anesthesia document: Postop Eval 1 completed: Yes
--- NOTE | 2025-04-26 10:53 | OP.ERCP_ITS ---
Patient Name: Deanna Spivey Procedure Date: 04/26/2025 10:10 AM Date of : 1960 Age: 64 Procedure: ERCP Indications: Bile duct stone(s), Abdominal pain of suspected biliary origin, Biliary stent removal Providers: Deep Mora DO Referring MD: Deep Mora DO Medicines: Monitored Anesthesia Care Patient Profile: This is a 64 year old female. Refer to note in patient chart for documentation of history and physical. Patient has symptoms of acute right upper quadrant abdominal pain and acute epigastric abdominal pain. Her most recent ERCP for stent was within the past three months. She is status post laparoscopic cholecystectomy within the past three months. Complications: No immediate complications. Procedure: Pre-Anesthesia Assessment: - Prior to the procedure, a History and Physical was performed, and patient medications and allergies were reviewed. The patient is competent. The risks and benefits of the procedure and the sedation options and risks were discussed with the patient. All questions were answered and informed consent was obtained. Patient identification and proposed procedure were verified by the physician in the pre-procedure area. Mental Status Examination: alert and oriented. Airway Examination: normal oropharyngeal airway and neck mobility. Respiratory Examination: clear to auscultation. CV Examination: normal. Prophylactic Antibiotics: The patient does not require prophylactic antibiotics. Prior Anticoagulants: The patient has taken no anticoagulant or antiplatelet agents except for NSAID medication. ASA Grade Assessment: II - A patient with mild systemic disease. After reviewing the risks and benefits, the patient was deemed in satisfactory condition to undergo the procedure. The anesthesia plan was to use monitored anesthesia care (MAC). Immediately prior to administration of medications, the patient was re-assessed for adequacy to receive sedatives. The heart rate, respiratory rate, oxygen saturations, blood pressure, adequacy of pulmonary ventilation, and response to care were monitored throughout the procedure. The physical status of the patient was re-assessed after the procedure. After obtaining informed consent, the scope was passed under direct vision. Throughout the procedure, the patient's blood pressure, pulse, and oxygen saturations were monitored continuously. The Duodenoscope was introduced through the mouth, and advanced to the duodenum and used to inject contrast into the bile duct. The ERCP was accomplished without difficulty. The patient tolerated the procedure well. The procedure was determined to be ASGE Complexity Level 2. The ERCP was accomplished without difficulty. The patient tolerated the procedure well. Scope In: 10:24:34 AM Scope Out: 10:33:40 AM Total Procedure Duration Time 0 hours 9 minutes 6 seconds Findings: A biliary stent was visible on the feed blender film. The esophagus was successfully intubated under direct vision. The scope was advanced to a normal major papilla in the descending duodenum without detailed examination of the pharynx, larynx and associated structures, and upper GI tract. The upper GI tract was grossly normal. A long 0.025 inch Jagwire was passed into the biliary tree. The bile duct was then deeply cannulated over the guidewire. Contrast was injected. Opacification of the entire opacified area, main bile duct and entire biliary tree was successful. The maximum diameter of the ducts was 10 mm. The middle third of the main bile duct contained one stone, which was 6 mm in diameter. The entire opacified area was diffusely dilated, acquired. The largest diameter was 12 mm. A cholecystectomy had been performed. A 5 mm biliary sphincterotomy was made with a braided traction (standard) sphincterotome using ERBE electrocautery. There was no post-sphincterotomy bleeding. The biliary tree was swept with a 12 mm balloon starting at the bifurcation. Sludge was swept from the duct. All stones were removed. One stent was removed from the biliary tree using a snare and sent for cytology. The stent was found to be partially occluded via the water column test. Impression: - The biliary system were dilated, acquired. - The patient has had a cholecystectomy. - Choledocholithiasis was found. Complete removal was accomplished by biliary sphincterotomy and balloon extraction. - A biliary sphincterotomy was performed. - The biliary tree was swept. - One stent was removed from the biliary tree. Procedure Code(s): --- Professional --- 02532, Endoscopic retrograde cholangiopancreatography (ERCP); with removal of foreign body(s) or stent(s) from biliary/pancreatic duct(s) 32058, Endoscopic retrograde cholangiopancreatography (ERCP); with removal of calculi/debris from biliary/pancreatic duct(s) 17856, Endoscopic retrograde cholangiopancreatography (ERCP); with sphincterotomy/papillotomy CPT copyright 2021 [employer]. All rights reserved. The codes documented in this report are preliminary and upon medical biller coder review may be revised to meet current compliance requirements. Deep Mora DO 04/26/2025 10:52:53 AM This report has been signed electronically. Number of Addenda: 0 Note Initiated On: 04/26/2025 10:10 AM
--- NOTE | 2025-04-26 10:53 | OP.PROVAT_ITS ---
04/26/2025 Yoly Black Learning Technologist, Learning Technologist-c Re : ERCP procedure for Deanna Alvarezr Wayne This procedure was performed on Saturday, April 26, 2025. My impressions and recommendations are as follows: Impressions : - The biliary system were dilated, acquired. - The patient has had a cholecystectomy. - Choledocholithiasis was found. Complete removal was accomplished by biliary sphincterotomy and balloon extraction. - A biliary sphincterotomy was performed. - The biliary tree was swept. - One stent was removed from the biliary tree. Recommendations : My findings are described in the full procedure note, which is enclosed. If I can be of further assistance, please feel free to contact me at . Sincerely, Deep Mora, 04/26/2025 10:52:53 AM This report has been signed electronically.
--- NOTE | 2025-04-26 10:57 | POSTOPAN2_ITS ---
Anesthesia Postop Eval I Sum Postop Eval Completion status Anesthesia document: Postop Eval 1 completed: Yes Anesthesia Postop Eval I Summary Anesthesia Postop Eval I Summary: Anesthesia Postop Eval I: Assessment Summary Airway patent Yes 04/26/25 10:37 ADMISSION [email or web address] Spontaneous unlabored Yes 04/26/25 10:37 ADMISSION [email or web address] respirations Mental status Awake,Calm 04/26/25 10:37 ADMISSION [email or web address] nausea No 04/26/25 10:37 ADMISSION [email or web address] Vomiting No 04/26/25 10:37 ADMISSION [email or web address] Anesthesia Postop Eval I: Fluid Summary Crystalloid volume administer 400 04/26/25 10:37 ADMISSION [email or web address] (ml) Colloids volume administered ( ml) Blood Product volume administered (ml) Total IV fluid infused 400 04/26/25 10:37 ADMISSION [email or web address] Anesthesia Postop Eval I: Summary Notes Anesthesia Complication No 04/26/25 10:37 ADMISSION [email or web address] Anesthesia Complication Comment: Post-operative progress note Anesthesia: Postop Eval II Evaluation Mental status: Awake Pain Level: 0 nausea: No Vomiting: No
--- NOTE | 2025-04-26 10:57 | PCM.POSTANE2 ---
Anesthesia Postop Eval I Sum Postop Eval Completion status Anesthesia document: Postop Eval 1 completed: Yes Anesthesia Postop Eval I Summary Anesthesia Postop Eval I Summary: Anesthesia Postop Eval I: Assessment Summary Airway patent Yes 04/26/25 10:37 [email or web address] Spontaneous unlabored Yes 04/26/25 10:37 POWER [email or web address] respirations Mental status Awake,Calm 04/26/25 10:37 POWER [email or web address] nausea No 04/26/25 10:37 POWER [email or web address] Vomiting No 04/26/25 10:37 POWER [email or web address] Anesthesia Postop Eval I: Fluid Summary Crystalloid volume administer 400 04/26/25 10:37 POWER [email or web address] (ml) Colloids volume administered ( ml) Blood Product volume administered (ml) Total IV fluid infused 400 04/26/25 10:37 POWER [email or web address] Anesthesia Postop Eval I: Summary Notes Anesthesia Complication No 04/26/25 10:37 POWER [email or web address] Anesthesia Complication Comment: Post-operative progress note Anesthesia: Postop Eval II Evaluation Mental status: Awake Pain Level: 0 nausea: No Vomiting: No
== END 2025-04-26 11:53 | disposition home or self-care (01) ==
LOC: EN 08:12 → AC 08:13
PROVIDERS: Surgery; PCP Nurse Practitioner Family; Referring Provider Internal Medicine Gastroenterology; Visit Provider Internal Medicine Gastroenterology
PROC: (CPT 43260; principal; 2025-04-26 08:55)
DX: K80.51 Calculus of bile duct without cholangitis or cholecystitis with obstruction (principal); E78.00 Pure hypercholesterolemia, unspecified; Z79.82 Long term (current) use of aspirin; Z90.49 Acquired absence of other specified parts of digestive tract; Z86.73 Personal history of transient ischemic attack (TIA), and cerebral infarction without residual deficits; Z79.899 Other long term (current) drug therapy; Z90.710 Acquired absence of both cervix and uterus; R10.13 Epigastric pain
CPT/HCPCS: 43262; 43275; 43264; 36415; 74330; 76000; 80053; 85025; 88108; 88305; 88313; 93005; A4216